=== PATIENT | male | born 1980 | race Caucasian/White ===

== ENCOUNTER 2016-03-03 15:58 | Inpatient (IN) | payer MEDICAID ==
[2016-03-03] MEDS ORDERED: NORMAL SALINE 1000 ML 1,000 ML IV ONE (16:08)
--- NOTE | 2016-03-03 16:11 | ER Document Report ---
ED Medical Screen (RME) - General Chief Complaint: Fever Stated Complaint: FEVER,CONGESTION Mode of Arrival: Wheelchair Information source: Legal Guardian Notes: Pt referred per Dr. Benson for fever, cough, and lethargy. Leukocytosis on labs this morning. I have greeted and performed a rapid initial assessment of this patient. A comprehensive ED assessment and evaluation of the patient, analysis of test results and completion of the medical decision making process will be conducted by additional ED providers. TRAVEL OUTSIDE OF THE [place] IN LAST 30 DAYS: No - Related Data Allergies/Adverse Reactions: No Known Allergies Allergy (Unverified 03/03/16 16:07)
[2016-03-03] MEDS ORDERED: LEVOFLOXACIN 500 MG/D5W RTU 100 ML IV ONE (16:57)
[2016-03-03] MEDS ORDERED: NORMAL SALINE 1000 ML 1,000 ML IV PRN (17:02)
[2016-03-03] MEDS ORDERED: CEFTRIAXONE 1 GM/D5W RTU 50 ML IV ONE (17:02)
--- NOTE | 2016-03-03 17:05 | ER Document Report ---
ED General - General Chief Complaint: Fever Stated Complaint: FEVER,CONGESTION Time seen by provider: 17:03 Mode of Arrival: Wheelchair Information source: Patient Notes: This is a 35-year-old man with a history of MRCP, epilepsy who is a resident of [facility]. He is brought into the emergency room with spiking fevers (104 ) associated with cough, congestion and decreased by mouth intake. TRAVEL OUTSIDE OF THE [place] IN LAST 30 DAYS: No - HPI Onset: Just prior to arrival Onset/Duration: Gradual Quality of pain: No pain Severity: None Pain Level: Denies Associated symptoms: Chills, Productive cough, Fever Exacerbated by: Denies Relieved by: Denies Similar symptoms previously: No Recently seen / treated by doctor: Yes - Related Data Allergies/Adverse Reactions: No Known Allergies Allergy (Unverified 03/03/16 16:07) Home Medications: Current Home Medications Carbamazepine [Tegretol 100 mg Chewable Tablet] 400 mg PO Q8 03/03/16 [History] Clonazepam [Klonopin 1 mg Tablet] 1.5 mg PO QHS 03/03/16 [History] Clorazepate Dipotassium 3.75 mg PO Q12 03/03/16 [History] Eszopiclone [Lunesta] 3 mg PO QHS 03/03/16 [History] Lacosamide [Vimpat] 200 mg PO Q12 03/03/16 [History] Perampanel [Fycompa] 10 mg PO QHS 03/03/16 [History] Polyethylene Glycol 3350 [Miralax Powder 17 gm/Packet] 17 gm PO DAILY 03/03/16 [ History] Past Medical History - General Information source: Legal Guardian - Social History Smoking Status: Never Smoker Chew tobacco use (# tins/day): No Frequency of alcohol use: None Drug Abuse: None Lives with: Guardian Family History: Other - Unknown Patient has suicidal ideation: No Patient has homicidal ideation: No - Past Medical History Cardiac Medical History: Reports: None Pulmonary Medical History: Reports: None EENT Medical History: Reports: None Neurological Medical History: Reports: Hx Seizures, Other - MRCP Endocrine Medical History: Reports: None Renal/ Medical History: Denies: Hx Peritoneal Dialysis Malignancy Medical History: Reports None GI Medical History: Reports: None Musculoskeltal Medical History: Reports None Skin Medical History: Reports None Psychiatric Medical History: Reports: None Traumatic Medical History: Reports: None Infectious Medical History: Reports: None Surgical Hx: Other - Noncontributory Review of Systems - Review of Systems Constitutional: Chills, Fever EENT: No symptoms reported Cardiovascular: No symptoms reported Respiratory: See HPI Gastrointestinal: No symptoms reported Genitourinary: No symptoms reported Male Genitourinary: No symptoms reported Musculoskeletal: No symptoms reported Skin: No symptoms reported Hematologic/Lymphatic: No symptoms reported Neurological/Psychological: No symptoms reported Physical Exam - Vital signs Vitals: Resp 20 03/03/16 16:15 Notes: Physical exam: GENERAL: 35-year-old man, alert, and MR/CP. He is at his baseline mental status is by her caregivers at the bedside. HEAD: Atraumatic, normocephalic. EYES: Pupils equal round and reactive to light, extraocular movements intact, sclera anicteric, conjunctiva are normal. ENT: TMs normal, nares patent, oropharynx clear without exudates. Dry mucous membranes. NECK: Normal range of motion, supple without lymphadenopathy LUNGS: Rhonchi bilaterally HEART: Regular rate and rhythm without murmurs, rubs or gallops. ABDOMEN: Soft, nontender, normoactive bowel sounds. No guarding, no rebound. No masses appreciated. EXTREMITIES: Normal range of motion, no pitting or edema. No clubbing or cyanosis. NEUROLOGICAL: The patient has upper extremity contractures. He is at his baseline mental status. SKIN: Warm, Dry, normal turgor, no rashes, breakdown or lesions noted. Course - Re-evaluation Re-evalutation: 03/03/16 21:03 Note: The Patient was quite dehydrated on arrival. Straight catheter produced no urine whatsoever. We did treat him with IV fluids and ultimately was able to get a urine sample. The chest x-ray appears clear, but the pneumonia may not be identified in the setting of dehydration. The patient does have a significant leukocytosis and a significant bandemia and presented with predominantly respiratory symptoms. He was covered with ceftriaxone and azithromycin. He has mild elevation in his LFTs and we will CT his abdomen. He did have a flu shot this year, but we will send a flu sample. I have discussed the case with Dr. Benson who is willing to admit the patient to the hospital. The patient's lactate is normal at this time and there is no evidence of severe sepsis. The patient does meet criteria for sepsis. 03/03/16 21:05 - Vital Signs Vital signs: Temp Pulse Resp BP Pulse Ox 102.1 F H 110 H 18 109/63 96 03/03/16 23:15 03/03/16 23:15 03/03/16 23:15 03/03/16 23:15 03/03/16 23:15 - Laboratory Result Diagrams: 03/03/16 18:40 03/03/16 18:40 Laboratory results interpreted by me: 03/03/16 03/03/16 03/03/16 18:40 18:40 20:15 WBC 22.1 H Hgb 13.3 L Band Neutrophils % 19 H Lymphocytes % (Manual) 8 L Metamyelocytes % 1 H Abs Neuts (Manual) 19.2 H Lactic Acid AST 147 H ALT 95 H Alkaline Phosphatase 145 H Urine Protein 30 H Urine Ketones TRACE H Urine Blood SMALL H 03/03/16 20:18 WBC Hgb Band Neutrophils % Lymphocytes % (Manual) Metamyelocytes % Abs Neuts (Manual) Lactic Acid 0.6 L AST ALT Alkaline Phosphatase Urine Protein Urine Ketones Urine Blood - Diagnostic Test Radiology reviewed: Image reviewed, Reports reviewed - CT of the abdomen shows no acute findings. Chest x-ray shows no acute infiltrates. Critical Care Note - Critical Care Note Total time excluding time spent on procedures (mins): 60 Discharge - Discharge Clinical Impression: clinical pneumonia, sepsis Condition: Serious Disposition: ADMITTED INPATIENT Admitting Provider: [facility] Unit Admitted: [facility]
[2016-03-03 19:02] LABS: HEMATOCRIT 41.3 % (37.9-51.0); HEMOGLOBIN 13.3 g/dL (13.5-17.0); HGB HCT DIFFERENCE -1.4; MEAN CORPUSCULAR HEMOGLOBIN 27.9 pg (27.0-33.4); MEAN CORPUSCULAR HGB CONC 32.2 g/dL (32.0-36.0); MEAN CORPUSCULAR VOLUME 87 fl (80-97); RED BLOOD COUNT 4.76 10^6/uL (4.35-5.55); RED CELL DISTRIBUTION WIDTH 13.8 % (11.5-14.0); WHITE BLOOD COUNT 22.1 10^3/uL (4.0-10.5)
[2016-03-03 19:06] LABS: PROTHROMBIN TIME 14.5 SEC (11.4-15.4)
[2016-03-03 19:19] LABS: ALANINE AMINOTRANSFERASE 95 U/L (21-72); ALKALINE PHOSPHATASE 145 U/L (38-126); ANION GAP 11 (5-19); ASPARTATE AMINO TRANSFERASE 147 U/L (17-59); BILIRUBIN,TOTAL 0.4 mg/dL (0.2-1.3); BLOOD UREA NITROGEN 12 mg/dL (7-20); CALCIUM 9.3 mg/dL (8.4-10.2); CARBON DIOXIDE 29 mmol/L (22-30); CHLORIDE 101 mmol/L (98-107); CREATININE RESULT 0.89 mg/dL (0.52-1.25); GLUCOSE 91 mg/dL (75-110); SODIUM 141.2 mmol/L (137-145); TOTAL PROTEIN 7.4 g/dL (6.3-8.2)
[2016-03-03 19:28] LABS: BASOPHILS % (MANUAL) 0 % (0-2); EOSINOPHILS % (MANUAL) 0 % (0-6); LYMPHOCYTES % (MANUAL) 8 % (13-45); TOTAL CELLS COUNTED 100
[2016-03-03 19:34] LABS: OVALOCYTES SLIGHT; POIKILOCYTOSIS SLIGHT
[2016-03-03 19:35] LABS: TOXIC GRANULATION 1+
[2016-03-03 19:36] LABS: TOXIC VACUOLATION PRESENT
[2016-03-03 19:38] LABS: BAND NEUTROPHILS % (MANUAL) 19 % (3-5)
[2016-03-03 20:32] LABS: APPEARANCE,URINE CLEAR; BILIRUBIN,URINE NEGATIVE (NEGATIVE); GLUCOSE, URINE NEGATIVE (NEGATIVE); KETONES,URINE TRACE mg/dL (NEGATIVE); LEUKOCYTE ESTERASE,URINE NEGATIVE (NEGATIVE); NITRITE,URINE NEGATIVE (NEGATIVE); PROTEIN,URINE 30 mg/dL (NEGATIVE); URINE SPECIFIC GRAVITY 1.025; UROBILINOGEN,URINE NEGATIVE mg/dL (<2.0)
[2016-03-03] MEDS ORDERED: AZITHROMYCIN INJ 500 MG VIAL IV ONE (20:59)
[2016-03-03] MEDS ORDERED: IPRATROPIUM/ALBUTEROL 0.5-2.5 MG/3 ML AMPUL NEB PRN (21:16)
[2016-03-03] MEDS ORDERED: ACETAMINOPHEN 650 MG SUPP.RECT PR PRN (21:16)
[2016-03-03] MEDS: NORMAL SALINE 1000 ML 1,000 ML IV PRN (22:10)
[2016-03-03] MEDS: FAMOTIDINE INJ/PF 20 MG/2 ML SDV IV SCH (22:10)
[2016-03-03] MEDS: CEFEPIME 1 GM/D5W RTU 50 ML IV SCH (22:40)
[2016-03-03] MEDS ORDERED: ZOLPIDEM TARTRATE 5 MG TABLET PO ONE (22:45)
[2016-03-03] MEDS ORDERED: CLONAZEPAM 1 MG TABLET PO ONE (22:45)
[2016-03-04] MEDS ORDERED: INFLUENZA ADLT QUAD (36MOS+) 2016-17 VAC 0.5 ML SYR IM PRN (03:00)
[2016-03-04 05:06] LABS: HEMATOCRIT 36.1 % (37.9-51.0); HEMOGLOBIN 11.4 g/dL (13.5-17.0); HGB HCT DIFFERENCE -1.9; MEAN CORPUSCULAR HEMOGLOBIN 27.9 pg (27.0-33.4); MEAN CORPUSCULAR HGB CONC 31.6 g/dL (32.0-36.0); MEAN CORPUSCULAR VOLUME 88 fl (80-97); RED CELL DISTRIBUTION WIDTH 13.5 % (11.5-14.0); WHITE BLOOD COUNT 17.6 10^3/uL (4.0-10.5)
[2016-03-04] MEDS ORDERED: CARBAMAZEPINE 100 MG TAB.CHEW ONE (05:12)
[2016-03-04 05:18] LABS: ALANINE AMINOTRANSFERASE 71 U/L (21-72); ALBUMIN 3.2 g/dL (3.5-5.0); ALKALINE PHOSPHATASE 104 U/L (38-126); ANION GAP 11 (5-19); ASPARTATE AMINO TRANSFERASE 103 U/L (17-59); BILIRUBIN,TOTAL 0.3 mg/dL (0.2-1.3); BLOOD UREA NITROGEN 10 mg/dL (7-20); CALCIUM 8.7 mg/dL (8.4-10.2); CARBON DIOXIDE 21 mmol/L (22-30); CHLORIDE 107 mmol/L (98-107); GLUCOSE 88 mg/dL (75-110); POTASSIUM 3.8 mmol/L (3.6-5.0); SODIUM 138.9 mmol/L (137-145)
[2016-03-04] MEDS: CARBAMAZEPINE 100 MG TAB.CHEW PO SCH ×3 (05:42→22:16)
[2016-03-04 05:50] LABS: BAND NEUTROPHILS % (MANUAL) 3 % (3-5); BASOPHILS % (MANUAL) 0 % (0-2); EOSINOPHILS % (MANUAL) 0 % (0-6); LYMPHOCYTES % (MANUAL) 7 % (13-45); TOTAL CELLS COUNTED 100
[2016-03-04 05:51] LABS: TOXIC GRANULATION SLIGHT
[2016-03-04 05:52] LABS: RBC MORPHOLOGY COMMENT NORMO-CYTIC/CHROMIC
[2016-03-04] MEDS: NORMAL SALINE 1000 ML 1,000 ML IV PRN (07:29)
[2016-03-04] MEDS: ENOXAPARIN SODIUM INJ 40 MG/0.4 ML DISP.SYRIN SUBCUT SCH (08:19)
[2016-03-04] MEDS ORDERED: BISACODYL 10 MG SUPP.RECT PR PRN (08:51)
[2016-03-04] MEDS ORDERED: DIAZEPAM 10 MG/2 ML RECTAL GEL KIT PR PRN (08:51)
[2016-03-04] MEDS: FAMOTIDINE INJ/PF 20 MG/2 ML SDV IV SCH ×2 (09:11→22:51)
[2016-03-04] MEDS: CEFEPIME 1 GM/D5W RTU 50 ML IV SCH ×2 (10:10→22:12)
[2016-03-04] MEDS: POLYETHYLENE GLYCOL 3350 POWDER 17 GM/1 PACKET PO SCH (10:11)
[2016-03-04] MEDS: LACOSAMIDE 100 MG TABLET PO SCH ×2 (10:12→22:51)
[2016-03-04] MEDS: CLORAZEPATE DIPOTASSIUM 7.5 MG TABLET PO SCH ×2 (10:14→22:51)
--- NOTE | 2016-03-04 15:01 | PDOC PROGRESS REPORT ---
Subjective Progress Note for:: 03/04/16 Subjective:: pt is doing much better no fever no seziure [place] Physical Exam Vital Signs: Temp Pulse Resp BP Pulse Ox 97.7 F 84 18 105/78 100 03/04/16 11:20 03/04/16 14:00 03/04/16 11:20 03/04/16 11:20 03/04/16 11:20 Intake & Output 03/03/16 03/04/16 03/05/16 06:59 06:59 06:59 Intake Total 118 Balance 118 Weight 52 kg General appearance: PRESENT: no acute distress Head exam: PRESENT: normocephalic Eye exam: PRESENT: PERRLA Mouth exam: PRESENT: neck supple Respiratory exam: PRESENT: clear to auscultation roula Cardiovascular exam: PRESENT: +S1, +S2 GI/Abdominal exam: PRESENT: normal bowel sounds, soft. ABSENT: tenderness Extremities exam: ABSENT: pedal edema Neurological exam: PRESENT: alert Results Laboratory Results: 03/04/16 03:57 03/04/16 03:57 03/04/16 03/04/16 03:57 03:57 WBC 17.6 H RBC 4.10 L Hgb 11.4 L Hct 36.1 L MCV 88 MCH 27.9 MCHC 31.6 L RDW 13.5 Plt Count 163 Seg Neutrophils % Not Reportable Lymphocytes % Not Reportable Monocytes % Not Reportable Eosinophils % Not Reportable Basophils % Not Reportable Absolute Neutrophils Not Reportable Absolute Lymphocytes Not Reportable Absolute Monocytes Not Reportable Absolute Eosinophils Not Reportable Absolute Basophils Not Reportable Sodium 138.9 Potassium 3.8 Chloride 107 Carbon Dioxide 21 L Anion Gap 11 BUN 10 Creatinine 0.80 Est GFR ( Amer) > 60 Est GFR (Non-Af Amer) > 60 Glucose 88 Calcium 8.7 Total Bilirubin 0.3 AST 103 H ALT 71 Alkaline Phosphatase 104 Total Protein 6.0 L Albumin 3.2 L Impressions: Abdomen/Pelvis CT 03/03/16 20:59 IMPRESSION: No acute findings identified. Chest X-Ray 03/04/16 00:00 IMPRESSION: NO ACUTE RADIOGRAPHIC FINDING IN THE CHEST. Assessment & Plan - Diagnosis (1) Fever Qualifiers: Fever type: unspecified Qualified Code(s): R50.9 - Fever, unspecified Is this a current diagnosis for this admission?: YesPlan: most likly pnemonia start all broad sepctum antibiotics order all culture no s/o any menigitis (2) Sepsis Qualifiers: Sepsis type: sepsis due to unspecified organism Qualified Code(s): A41.9 - Sepsis, unspecified organism Is this a current diagnosis for this admission?: YesPlan: most likly from lung sourse will order ct abd due to elevated lft to r/o any glallbladder etilogy start cefepim and zithomax awit for all culture (3) Dehydration Is this a current diagnosis for this admission?: YesPlan: resolved (4) Mental and behavioral problem Is this a current diagnosis for this admission?: YesPlan: cont curr med aspirtion precution (5) Epilepsy Qualifiers: Epilepsy type: unspecified Is this a current diagnosis for this admission?: YesPlan: cont curr sezire medication (6) GERD (gastroesophageal reflux disease) Qualifiers: Esophagitis presence: without esophagitis Qualified Code(s): K21.9 - Gastro-esophageal reflux disease without esophagitis Is this a current diagnosis for this admission?: YesPlan: start iv pepcid (7) Abnormal LFTs Is this a current diagnosis for this admission?: YesPlan: ct abd/pelvis is stable most likly from dehydation and sepsis - Time Time Spent with patient: 15-24 minutes Medications reviewed and adjusted accordingly: Yes Anticipated discharge: Other - Inpatient Certification Medical Necessity: Need Close Monitoring Due to Risk of Patient Decompensation, Need for IV Antibiotics
[2016-03-04] MEDS ORDERED: AZITHROMYCIN 500 MG in DEXTROSE 5%-WATER 250 ML IV SCH (22:00)
[2016-03-04] MEDS ORDERED: PERAMPANEL 10 MG PO SCH (22:00)
[2016-03-04] MEDS: ZOLPIDEM TARTRATE 5 MG TABLET PO SCH (22:51)
[2016-03-04] MEDS: CLONAZEPAM 1 MG TABLET PO SCH (22:51)
[2016-03-05 06:10] LABS: ABSOLUTE LYMPHOCYTES (AUTO) 1.6 10^3/uL (0.5-4.7); ABSOLUTE NEUT (AUTO) 7.5 10^3/uL (1.7-8.2); BASOPHILS % (AUTO) 0.2 % (0-2); EOSINOPHILS % (AUTO) 0.3 % (0-6); HEMOGLOBIN 11.8 g/dL (13.5-17.0); HGB HCT DIFFERENCE 0.4; LYMPHOCYTES % (AUTO) 15.7 % (13-45); MEAN CORPUSCULAR HGB CONC 33.6 g/dL (32.0-36.0); MEAN CORPUSCULAR VOLUME 86 fl (80-97); RED BLOOD COUNT 4.06 10^6/uL (4.35-5.55); RED CELL DISTRIBUTION WIDTH 13.4 % (11.5-14.0); SEGMENTED NEUTROPHILS % (AUTO) 73.8 % (42-78); WHITE BLOOD COUNT 10.1 10^3/uL (4.0-10.5)
[2016-03-05] MEDS: CARBAMAZEPINE 100 MG TAB.CHEW PO SCH ×3 (06:55→22:57)
[2016-03-05] MEDS: ENOXAPARIN SODIUM INJ 40 MG/0.4 ML DISP.SYRIN SUBCUT SCH (08:10)
[2016-03-05] MEDS: CEFEPIME 1 GM/D5W RTU 50 ML IV SCH (10:11)
[2016-03-05] MEDS: POLYETHYLENE GLYCOL 3350 POWDER 17 GM/1 PACKET PO SCH (10:11)
[2016-03-05] MEDS: CLORAZEPATE DIPOTASSIUM 7.5 MG TABLET PO SCH ×2 (10:12→22:56)
[2016-03-05] MEDS: LACOSAMIDE 100 MG TABLET PO SCH ×2 (10:13→22:56)
[2016-03-05] MEDS: FAMOTIDINE INJ/PF 20 MG/2 ML SDV IV SCH (12:51)
--- NOTE | 2016-03-05 13:33 | PDOC PROGRESS REPORT ---
Subjective Progress Note for:: 03/05/16 Subjective:: Patient's overnight no events happens. Fever since by mouth intake is good and no seizures activity patient's all cultures come back negative as chest x-rays also stable. Since liver function is also coming back to normal range Physical Exam Vital Signs: Temp Pulse Resp BP Pulse Ox 98.0 F 70 19 95/50 L 95 03/05/16 11:42 03/05/16 11:42 03/05/16 11:42 03/05/16 11:42 03/05/16 11:42 Intake & Output 03/04/16 03/05/16 03/06/16 06:59 06:59 06:59 Intake Total 193 50 Balance 193 50 Weight 52 kg 55 kg General appearance: PRESENT: no acute distress Head exam: PRESENT: normocephalic Eye exam: PRESENT: PERRLA Mouth exam: PRESENT: neck supple Respiratory exam: PRESENT: clear to auscultation roula Cardiovascular exam: PRESENT: +S1, +S2 GI/Abdominal exam: PRESENT: normal bowel sounds, soft. ABSENT: tenderness Extremities exam: ABSENT: pedal edema Neurological exam: PRESENT: alert, awake Results Laboratory Results: 03/05/16 05:32 03/04/16 03:57 03/05/16 05:32 WBC 10.1 RBC 4.06 L Hgb 11.8 L Hct 35.0 L MCV 86 MCH 29.0 MCHC 33.6 RDW 13.4 Plt Count 157 Seg Neutrophils % 73.8 Lymphocytes % 15.7 Monocytes % 10.0 Eosinophils % 0.3 Basophils % 0.2 Absolute Neutrophils 7.5 Absolute Lymphocytes 1.6 Absolute Monocytes 1.0 Absolute Eosinophils 0.0 Absolute Basophils 0.0 Impressions: Abdomen/Pelvis CT 03/03/16 20:59 IMPRESSION: No acute findings identified. Chest X-Ray 03/04/16 00:00 IMPRESSION: NO ACUTE RADIOGRAPHIC FINDING IN THE CHEST. Assessment & Plan - Diagnosis (1) Fever Qualifiers: Fever type: unspecified Qualified Code(s): R50.9 - Fever, unspecified Is this a current diagnosis for this admission?: YesPlan: ALT results most likely a viral etiology (2) Sepsis Qualifiers: Sepsis type: sepsis due to unspecified organism Qualified Code(s): A41.9 - Sepsis, unspecified organism Is this a current diagnosis for this admission?: YesPlan: Slightly respiratory source will stop all IV antibiotic the patient does not have any cultures positive and patient's doing much better by mouth antibiotic and watch for next 24 hours repeat the CBC in the morning (3) Dehydration Is this a current diagnosis for this admission?: YesPlan: Resolved stop all IV fluid (4) Mental and behavioral problem Is this a current diagnosis for this admission?: YesPlan: cont curr med aspirtion precution (5) Epilepsy Qualifiers: Epilepsy type: unspecified Is this a current diagnosis for this admission?: YesPlan: cont curr sezire medication (6) GERD (gastroesophageal reflux disease) Qualifiers: Esophagitis presence: without esophagitis Qualified Code(s): K21.9 - Gastro-esophageal reflux disease without esophagitis Is this a current diagnosis for this admission?: YesPlan: start iv pepcid (7) Abnormal LFTs Is this a current diagnosis for this admission?: YesPlan: ct abd/pelvis is stable most likly from dehydation and sepsis - Time Time Spent with patient: 15-24 minutes Medications reviewed and adjusted accordingly: Yes Anticipated discharge: Other Within: within 24 hours - Inpatient Certification Medical Necessity: Need For IV Fluids, Need for IV Antibiotics - Plan Summary Plan Summary: Will stop antibiotic IV and stop IV fluid at the patient's remained afebrile and patient's white count is normal patient's may discharge to the rehabilitation with the by mouth antibiotic
[2016-03-05] MEDS: CEPHALEXIN 500 MG CAPSULE PO SCH ×2 (15:10→22:56)
[2016-03-05] MEDS: CLONAZEPAM 1 MG TABLET PO SCH (22:56)
[2016-03-05] MEDS: ZOLPIDEM TARTRATE 5 MG TABLET PO SCH (22:56)
[2016-03-06 05:10] LABS: ABSOLUTE LYMPHOCYTES (AUTO) 1.8 10^3/uL (0.5-4.7); ABSOLUTE MONOCYTES (AUTO) 0.9 10^3/uL (0.1-1.4); ABSOLUTE NEUT (AUTO) 5.1 10^3/uL (1.7-8.2); BASOPHILS % (AUTO) 0.3 % (0-2); EOSINOPHILS % (AUTO) 0.4 % (0-6); HEMATOCRIT 35.8 % (37.9-51.0); HEMOGLOBIN 12.2 g/dL (13.5-17.0); HGB HCT DIFFERENCE 0.8; MEAN CORPUSCULAR HEMOGLOBIN 28.8 pg (27.0-33.4); MEAN CORPUSCULAR HGB CONC 33.9 g/dL (32.0-36.0); MEAN CORPUSCULAR VOLUME 85 fl (80-97); MONOCYTES % (AUTO) 11.4 % (3-13); RED BLOOD COUNT 4.22 10^6/uL (4.35-5.55); RED CELL DISTRIBUTION WIDTH 13.6 % (11.5-14.0); SEGMENTED NEUTROPHILS % (AUTO) 64.9 % (42-78); WHITE BLOOD COUNT 7.8 10^3/uL (4.0-10.5)
[2016-03-06 05:13] LABS: ALANINE AMINOTRANSFERASE 82 U/L (21-72); ALBUMIN 3.6 g/dL (3.5-5.0); ALKALINE PHOSPHATASE 121 U/L (38-126); ANION GAP 15 (5-19); ASPARTATE AMINO TRANSFERASE 82 U/L (17-59); BILIRUBIN,TOTAL 0.6 mg/dL (0.2-1.3); BLOOD UREA NITROGEN 10 mg/dL (7-20); CALCIUM 8.9 mg/dL (8.4-10.2); CARBON DIOXIDE 21 mmol/L (22-30); CHLORIDE 108 mmol/L (98-107); CREATININE RESULT 0.75 mg/dL (0.52-1.25); GLUCOSE 88 mg/dL (75-110); POTASSIUM 3.6 mmol/L (3.6-5.0); SODIUM 143.6 mmol/L (137-145); TOTAL PROTEIN 6.6 g/dL (6.3-8.2)
[2016-03-06] MEDS: CARBAMAZEPINE 100 MG TAB.CHEW PO SCH ×2 (06:59→14:16)
[2016-03-06] MEDS: CEPHALEXIN 500 MG CAPSULE PO SCH ×2 (06:59→14:17)
[2016-03-06] MEDS: CLORAZEPATE DIPOTASSIUM 7.5 MG TABLET PO SCH (09:28)
[2016-03-06] MEDS: LACOSAMIDE 100 MG TABLET PO SCH (09:29)
[2016-03-06] MEDS: POLYETHYLENE GLYCOL 3350 POWDER 17 GM/1 PACKET PO SCH (09:30)
[2016-03-06] MEDS: ENOXAPARIN SODIUM INJ 40 MG/0.4 ML DISP.SYRIN SUBCUT SCH (09:31)
--- NOTE | 2016-03-06 17:28 | PDOC DISCHARGE SUMMARY ---
General - Admit/Disc Date/PCP Admission Date/Primary Care Provider: 03/03/16 21:17 Discharge Date: 03/06/16 - Discharge Diagnosis (1) Pneumonia Is this a current diagnosis for this admission?: Yes (2) Systemic inflammatory response syndrome (SIRS) Is this a current diagnosis for this admission?: Yes (3) Epilepsy Is this a current diagnosis for this admission?: Yes - Additional Information Resuscitation Status: Full Code Discharge Diet: As Tolerated Discharge Activity: Activity As Tolerated Home Medications: Carbamazepine [Tegretol 100 mg Chewable Tablet] 400 mg PO Q8 03/03/16 Clonazepam [Klonopin 1 mg Tablet] 1.5 mg PO QHS 03/03/16 Clorazepate Dipotassium 3.75 mg PO Q12 03/03/16 Eszopiclone [Lunesta] 3 mg PO QHS 03/03/16 Lacosamide [Vimpat] 200 mg PO Q12 03/03/16 Perampanel [Fycompa] 10 mg PO QHS 03/03/16 Polyethylene Glycol 3350 [Miralax Powder 17 gm/Packet] 17 gm PO DAILY 03/03/16 Bisacodyl [Dulcolax 10 mg Supp.rect] 10 mg NM DAILYP PRN 03/04/16 Diazepam [Diastat Acudial 10 mg/2 ml Rectal Gel] 15 mg NM ASDIR PRN 03/04/16 Magnesium Hydroxide [Milk of Magnesia 30 ml Udcup] 30 ml PO Q3DAYS PRN 03/04/16 History of Present Illness History of Present Illness: CECI HSIEH is a 35 year old male. He was admitted because of high fever with associated systemic inflammatory response syndrome, he is mentally challenged. History taking was a challenge. He was empirically treated for pneumonia with IV antibiotic Hospital Course Hospital Course: Patient was seen today by the bedside, he was admitted on 03/03/[address] Benson. He was empirically treated for pneumonia with IV antibiotic, patient respondedcto treatment, the chest x-ray was clear. On admission the WBC was 21, 000, the WBC today 7.8. Patient is from the [facility] to be discharged home today, it probably have acute viral syndrome Physical Exam Vital Signs: Temp Pulse Resp BP Pulse Ox 97.2 F 84 16 112/72 95 03/06/16 07:51 03/06/16 11:00 03/06/16 11:00 03/06/16 07:51 03/06/16 07:51 Intake & Output 03/05/16 03/06/16 03/07/16 06:59 06:59 06:59 Intake Total 1934 650 150 Balance 1934 650 150 Weight 55 kg 54.1 kg General appearance: PRESENT: no acute distress Eye exam: PRESENT: PERRLA Respiratory exam: PRESENT: clear to auscultation roula Cardiovascular exam: PRESENT: +S1, +S2 GI/Abdominal exam: PRESENT: soft Results Laboratory Results: 03/06/16 04:28 03/06/16 04:28 03/06/16 03/06/16 04:28 04:28 WBC 7.8 RBC 4.22 L Hgb 12.2 L Hct 35.8 L MCV 85 MCH 28.8 MCHC 33.9 RDW 13.6 Plt Count 166 Seg Neutrophils % 64.9 Lymphocytes % 23.0 Monocytes % 11.4 Eosinophils % 0.4 Basophils % 0.3 Absolute Neutrophils 5.1 Absolute Lymphocytes 1.8 Absolute Monocytes 0.9 Absolute Eosinophils 0.0 Absolute Basophils 0.0 Sodium 143.6 Potassium 3.6 Chloride 108 H Carbon Dioxide 21 L Anion Gap 15 BUN 10 Creatinine 0.75 Est GFR ( Amer) > 60 Est GFR (Non-Af Amer) > 60 Glucose 88 Calcium 8.9 Total Bilirubin 0.6 AST 82 H ALT 82 H Alkaline Phosphatase 121 Total Protein 6.6 Albumin 3.6 Impressions: Abdomen/Pelvis CT 03/03/16 20:59 IMPRESSION: No acute findings identified. Chest X-Ray 03/04/16 00:00 IMPRESSION: NO ACUTE RADIOGRAPHIC FINDING IN THE CHEST.
[2016-03-06 20:16] VITALS: BP 120/74
== END 2016-03-06 20:15 | disposition home or self-care (01) | DRG 195 ==
LOC: ER 15:58 → UNDOADMIN 21:10 → EH 21:10 → 3N 03-04 01:01 → EH 03-04 01:01
PROVIDERS: ADMIT Family Medicine; ATTEND Family Medicine
DX: J18.9 Pneumonia, unspecified organism (principal); E86.0 Dehydration; K21.9 Gastro-esophageal reflux disease without esophagitis; G40.909 Epilepsy, unspecified, not intractable, without status epilepticus; F91.9 Conduct disorder, unspecified; R94.5 Abnormal results of liver function studies
CPT/HCPCS: 36415; 51702; 71010; 74176; 80048; 80053; 80076; 81001; 83605; 85025; 85610; 87040; 87086; 87804; 96361; 96365; 99291; J0456; J0692; J0696; J1650; J3490; J7030; J7060; S0028

== ENCOUNTER → 2016-04-22 | Outpatient (CLI) | payer MEDICAID ==
[2016-04-22 14:17] LABS: ABSOLUTE LYMPHOCYTES (AUTO) 1.2 10^3/uL (0.5-4.7); ABSOLUTE MONOCYTES (AUTO) 1.1 10^3/uL (0.1-1.4); ABSOLUTE NEUT (AUTO) 9.2 10^3/uL (1.7-8.2); BASOPHILS % (AUTO) 0.4 % (0-2); EOSINOPHILS % (AUTO) 0.2 % (0-6); HEMATOCRIT 41.5 % (37.9-51.0); HEMOGLOBIN 13.7 g/dL (13.5-17.0); HGB HCT DIFFERENCE -0.4; LYMPHOCYTES % (AUTO) 10.4 % (13-45); MEAN CORPUSCULAR HEMOGLOBIN 28.8 pg (27.0-33.4); MEAN CORPUSCULAR HGB CONC 33.1 g/dL (32.0-36.0); MEAN CORPUSCULAR VOLUME 87 fl (80-97); MONOCYTES % (AUTO) 9.4 % (3-13); RED BLOOD COUNT 4.77 10^6/uL (4.35-5.55); RED CELL DISTRIBUTION WIDTH 14.7 % (11.5-14.0); SEGMENTED NEUTROPHILS % (AUTO) 79.6 % (42-78); WHITE BLOOD COUNT 11.6 10^3/uL (4.0-10.5)
[2016-04-22 14:42] LABS: ANION GAP 15 (5-19); BLOOD UREA NITROGEN 11 mg/dL (7-20); CALCIUM 9.6 mg/dL (8.4-10.2); CARBON DIOXIDE 24 mmol/L (22-30); CHLORIDE 102 mmol/L (98-107); CREATININE RESULT 0.82 mg/dL (0.52-1.25); GLUCOSE 95 mg/dL (75-110); POTASSIUM 4.3 mmol/L (3.6-5.0); SODIUM 141.4 mmol/L (137-145)
== END ==
LOC: OD 12:32
PROVIDERS: ATTEND Physician Assistant
DX: R05 Cough (principal)
CPT/HCPCS: 36415; 71010; 80048; 85025

== ENCOUNTER → 2016-08-05 | Outpatient (CLI) | payer MEDICAID ==
[2016-08-05 14:24] LABS: ABSOLUTE EOSINOPHILS # (AUTO) 0.1 10^3/uL (0.0-0.6); ABSOLUTE LYMPHOCYTES (AUTO) 1.4 10^3/uL (0.5-4.7); ABSOLUTE MONOCYTES (AUTO) 0.7 10^3/uL (0.1-1.4); BASOPHILS % (AUTO) 0.3 % (0-2); EOSINOPHILS % (AUTO) 1.8 % (0-6); HEMATOCRIT 42.2 % (37.9-51.0); HEMOGLOBIN 13.9 g/dL (13.5-17.0); HGB HCT DIFFERENCE -0.5; LYMPHOCYTES % (AUTO) 19.6 % (13-45); MEAN CORPUSCULAR HEMOGLOBIN 28.6 pg (27.0-33.4); MEAN CORPUSCULAR HGB CONC 32.9 g/dL (32.0-36.0); MEAN CORPUSCULAR VOLUME 87 fl (80-97); RED BLOOD COUNT 4.84 10^6/uL (4.35-5.55); RED CELL DISTRIBUTION WIDTH 13.6 % (11.5-14.0); SEGMENTED NEUTROPHILS % (AUTO) 68.3 % (42-78); WHITE BLOOD COUNT 7.3 10^3/uL (4.0-10.5)
[2016-08-05 14:41] LABS: ANION GAP 15 (5-19); BLOOD UREA NITROGEN 6 mg/dL (7-20); CALCIUM 9.6 mg/dL (8.4-10.2); CARBON DIOXIDE 24 mmol/L (22-30); CHLORIDE 103 mmol/L (98-107); CREATININE RESULT 0.78 mg/dL (0.52-1.25); GLUCOSE 99 mg/dL (75-110); POTASSIUM 4.1 mmol/L (3.6-5.0); SODIUM 142.1 mmol/L (137-145)
--- NOTE | 2016-08-05 15:09 | RADIOLOGY REPORT (SQ) ---
EXAM DESCRIPTION: CHEST SINGLE VIEW COMPLETED DATE/TIME: 08/05/2016 1:39 pm REASON FOR STUDY: COUGH COMPARISON: AP chest 04/22/2016, 03/04/2016 EXAM PARAMETERS: NUMBER OF VIEWS: One view. TECHNIQUE: Single frontal radiographic view of the chest acquired. RADIATION DOSE: NA LIMITATIONS: None. FINDINGS: LUNGS AND PLEURA: No opacities, masses or pneumothorax. No pleural effusion. MEDIASTINUM AND HILAR STRUCTURES: No masses. Contour normal. HEART AND VASCULAR STRUCTURES: Heart normal in size. Normal vasculature. BONES: No acute findings. HARDWARE: There is ventriculoperitoneal shunt tubing over the right chest and upper abdomen. Calcifi cation along the periphery of the tubing is present. At the level of the right 10th rib, there may b e a break image 2 being, marked with an arrow. There is a left-sided jugular neurostimulator battery pack over the left upper chest with leads in th e left supraclavicular region, unchanged. OTHER: No other significant finding. IMPRESSION: No acute infiltrates. No pleural effusion or pneumothorax. Right-sided anterior chest ventriculoperitoneal shunt tubing. Tubing might be fractured in the anter ior right lower chest. TECHNICAL DOCUMENTATION: JOB ID: [id number]
[2016-08-05 17:21] LABS: APPEARANCE,URINE SLIGHTLY-CLOUDY; BILIRUBIN,URINE NEGATIVE (NEGATIVE); GLUCOSE, URINE NEGATIVE (NEGATIVE); KETONES,URINE NEGATIVE (NEGATIVE); LEUKOCYTE ESTERASE,URINE LARGE (NEGATIVE); NITRITE,URINE NEGATIVE (NEGATIVE); PROTEIN,URINE 30 mg/dL (NEGATIVE); UROBILINOGEN,URINE NEGATIVE mg/dL (<2.0)
== END ==
LOC: OD 12:38
PROVIDERS: ATTEND Family Medicine
DX: R50.9 Fever, unspecified (principal); R05 Cough
CPT/HCPCS: 36415; 71010; 80048; 81001; 85025; 87040; 87086; 87088; 87186

== ENCOUNTER 2017-03-16 15:14 | Inpatient (IN) | payer MEDICAID ==
--- NOTE | 2017-03-16 15:55 | ER Document Report ---
ED Medical Screen (RME) - General Chief Complaint: Cough Stated Complaint: COUGH Time Seen by Provider: 03/16/17 15:46 Mode of Arrival: Wheelchair Information source: Patient, Legal Guardian TRAVEL OUTSIDE OF THE [place] IN LAST 30 DAYS: No - HPI Patient complains to provider of: sob Onset: Just prior to arrival - PT HAD cxr DONE EARLIER TODAY BY dR. Rush -- showed R apical PTX - Related Data Allergies/Adverse Reactions: No Known Allergies Allergy (Verified 03/16/17 15:15) Past Medical History Pulmonary Medical History: Reports: Hx Pneumonia Neurological Medical History: Reports: Hx Seizures Renal/ Medical History: Denies: Hx Peritoneal Dialysis GI Medical History: Reports: Hx Gastroesophageal Reflux Disease Past Surgical History: Reports: Other - vp sales shunt - Immunizations Hx Diphtheria, Pertussis, Tetanus Vaccination: Yes Physical Exam - Vital signs Vitals: Resp BP Pulse Ox 18 122/78 91 L 03/16/17 15:22 03/16/17 15:22 03/16/17 15:22 Course - Vital Signs Vital signs: Temp Pulse Resp BP Pulse Ox 18 122/78 91 L 03/16/17 15:22 03/16/17 15:22 03/16/17 15:22
--- NOTE | 2017-03-16 16:40 | ER Document Report ---
ED General - General Chief Complaint: Cough Stated Complaint: COUGH Time Seen by Provider: 03/16/17 15:46 Mode of Arrival: Wheelchair Notes: Patient presents from primary care office due to radiology calling regarding a pneumothorax. Appears patient had spontaneous pneumothorax on the right. No recent traumas or falls. Family is to state that he has been having cough and congestion with sputum production for several days. Chest x-ray on file does show approximately 20% pneumothorax and concern for interstitial infiltrates for a typical pneumonia. Patient has history of cerebral palsy. Family states that he has not had any recent nausea vomiting or diarrhea has been eating at baseline. TRAVEL OUTSIDE OF THE [place] IN LAST 30 DAYS: No - Related Data Allergies/Adverse Reactions: No Known Allergies Allergy (Verified 03/16/17 15:15) Past Medical History - General Information source: Legal Guardian - Social History Smoking Status: Unknown if Ever Smoked Family History: Reviewed & Not Pertinent Patient has suicidal ideation: No Patient has homicidal ideation: No Pulmonary Medical History: Reports: Hx Pneumonia Neurological Medical History: Reports: Hx Seizures Renal/ Medical History: Denies: Hx Peritoneal Dialysis GI Medical History: Reports: Hx Gastroesophageal Reflux Disease Past Surgical History: Reports: Other - furnace cooler shunt - Immunizations Hx Diphtheria, Pertussis, Tetanus Vaccination: Yes Review of Systems - Review of Systems -: Yes ROS unobtainable due to patient's medical condition Physical Exam - Vital signs Vitals: Resp BP Pulse Ox 18 122/78 91 L 03/16/17 15:22 03/16/17 15:22 03/16/17 15:22 - General General appearance: Appears well - HEENT Head: Normocephalic, Atraumatic - Respiratory Respiratory status: No respiratory distress Chest status: Nontender Breath sounds: Decreased air movement - On Right - Cardiovascular Rhythm: Regular Heart sounds: Normal auscultation - Abdominal Inspection: Normal Distension: No distension Bowel sounds: Normal - Neurological Neuro grossly intact: Yes Cognition: Other - HX OF Cerebral palsy Course - Re-evaluation Re-evalutation: 03/16/17 16:[address] Ogden radiologist who confirms the pneumothorax. My measurements approximately 2 and half centimeters intrapleural distance. 03/16/17 17:20 Discussed case with surgeon who agrees conservative management this time was also available for consult for tube placement if needed. 100% rebreather initiated and will treat for any CAP - Vital Signs Vital signs: Temp Pulse Resp BP Pulse Ox 72 18 122/78 91 L 03/16/17 16:03 03/16/17 15:22 03/16/17 15:22 03/16/17 15:22 Discharge - Discharge Clinical Impression: Pneumothorax on right Pneumonia Qualifiers: Pneumonia type: due to unspecified organism Laterality: bilateral Lung location : unspecified part of lung Qualified Code(s): J18.9 - Pneumonia, unspecified organism Condition: Good Disposition: ADMITTED INPATIENT Admitting Provider: Marcelino Unit Admitted: Telemetry Referrals: JOSEPH MONTE MD [Primary Care Provider] - Follow up as needed
[2017-03-16] MEDS ORDERED: CEFTRIAXONE 1 GM/D5W RTU 50 ML IV ONE (17:19)
[2017-03-16] MEDS ORDERED: IPRATROPIUM/ALBUTEROL 0.5-2.5 MG/3 ML AMPUL NEB PRN (17:20)
[2017-03-16] MEDS ORDERED: AZITHROMYCIN INJ 500 MG VIAL IV ONE (17:20)
[2017-03-16] MEDS ORDERED: ENOXAPARIN SODIUM INJ 40 MG/0.4 ML DISP.SYRIN SUBCUT ONE (18:00)
[2017-03-16] MEDS ORDERED: (PENDING PHARMACY ID) (Lacosamide [Vimpat] 200 MG) PO SCH (18:00)
[2017-03-16] MEDS: CEFEPIME 1 GM/D5W RTU 1 GM/50 ML RTUPB IV SCH (18:07)
[2017-03-16 18:17] LABS: ABSOLUTE BASOPHILS # (AUTO) 0.1 10^3/uL (0.0-0.2); ABSOLUTE EOSINOPHILS # (AUTO) 0.2 10^3/uL (0.0-0.6); ABSOLUTE LYMPHOCYTES (AUTO) 2.4 10^3/uL (0.5-4.7); ABSOLUTE NEUT (AUTO) 8.3 10^3/uL (1.7-8.2); BASOPHILS % (AUTO) 0.5 % (0-2); EOSINOPHILS % (AUTO) 1.7 % (0-6); HEMATOCRIT 38.5 % (37.9-51.0); HEMOGLOBIN 12.8 g/dL (13.5-17.0); LYMPHOCYTES % (AUTO) 20.2 % (13-45); MEAN CORPUSCULAR HEMOGLOBIN 28.4 pg (27.0-33.4); MEAN CORPUSCULAR HGB CONC 33.3 g/dL (32.0-36.0); MEAN CORPUSCULAR VOLUME 85 fl (80-97); MONOCYTES % (AUTO) 8.1 % (3-13); PLATELET COUNT 263 10^3/uL (150-450); RED BLOOD COUNT 4.51 10^6/uL (4.35-5.55); RED CELL DISTRIBUTION WIDTH 13.8 % (11.5-14.0); SEGMENTED NEUTROPHILS % (AUTO) 69.5 % (42-78); TOTAL CELLS COUNTED % (AUTO) 100 %; WHITE BLOOD COUNT 11.9 10^3/uL (4.0-10.5)
[2017-03-16 18:32] LABS: ALANINE AMINOTRANSFERASE 44 U/L (21-72); ALKALINE PHOSPHATASE 106 U/L (38-126); ANION GAP 8 (5-19); ASPARTATE AMINO TRANSFERASE 30 U/L (17-59); BILIRUBIN,DIRECT 0.4 mg/dL (0.0-0.4); BILIRUBIN,TOTAL 0.4 mg/dL (0.2-1.3); BLOOD UREA NITROGEN 13 mg/dL (7-20); CALCIUM 9.8 mg/dL (8.4-10.2); CARBON DIOXIDE 27 mmol/L (22-30); CHLORIDE 108 mmol/L (98-107); GLUCOSE 82 mg/dL (75-110); POTASSIUM 4.2 mmol/L (3.6-5.0); SODIUM 143.4 mmol/L (137-145); TOTAL PROTEIN 7.4 g/dL (6.3-8.2)
[2017-03-16] MEDS: CARBAMAZEPINE 100 MG TAB.CHEW PO SCH (18:44)
[2017-03-16] MEDS ORDERED: PERAMPANEL 10 MG PO SCH (22:00)
[2017-03-16] MEDS: LACOSAMIDE 100 MG TABLET PO SCH (22:36)
[2017-03-16] MEDS: CLONAZEPAM 1 MG TABLET PO SCH (22:36)
[2017-03-16] MEDS: ZOLPIDEM TARTRATE 5 MG TABLET PO SCH (22:38)
[2017-03-16] MEDS: PERAMPANEL 10 MG PO SCH (22:38)
[2017-03-17] MEDS ORDERED: CEFEPIME 1 GM/D5W RTU 1 GM/50 ML RTUPB IV ONE (06:04)
[2017-03-17] MEDS: CEFEPIME 1 GM/D5W RTU 1 GM/50 ML RTUPB IV SCH ×2 (06:24→18:17)
[2017-03-17 06:35] LABS: ABSOLUTE BASOPHILS # (AUTO) 0.1 10^3/uL (0.0-0.2); ABSOLUTE EOSINOPHILS # (AUTO) 0.2 10^3/uL (0.0-0.6); ABSOLUTE LYMPHOCYTES (AUTO) 2.1 10^3/uL (0.5-4.7); ABSOLUTE NEUT (AUTO) 9.4 10^3/uL (1.7-8.2); BASOPHILS % (AUTO) 0.5 % (0-2); EOSINOPHILS % (AUTO) 1.6 % (0-6); HEMATOCRIT 37.7 % (37.9-51.0); HEMOGLOBIN 12.6 g/dL (13.5-17.0); LYMPHOCYTES % (AUTO) 16.5 % (13-45); MEAN CORPUSCULAR HEMOGLOBIN 28.5 pg (27.0-33.4); MEAN CORPUSCULAR HGB CONC 33.3 g/dL (32.0-36.0); MEAN CORPUSCULAR VOLUME 86 fl (80-97); MONOCYTES % (AUTO) 7.6 % (3-13); PLATELET COUNT 202 10^3/uL (150-450); RED BLOOD COUNT 4.41 10^6/uL (4.35-5.55); RED CELL DISTRIBUTION WIDTH 13.8 % (11.5-14.0); SEGMENTED NEUTROPHILS % (AUTO) 73.8 % (42-78); TOTAL CELLS COUNTED % (AUTO) 100 %; WHITE BLOOD COUNT 12.7 10^3/uL (4.0-10.5)
[2017-03-17 06:56] LABS: ANION GAP 8 (5-19); BLOOD UREA NITROGEN 15 mg/dL (7-20); CALCIUM 9.4 mg/dL (8.4-10.2); CARBON DIOXIDE 24 mmol/L (22-30); CHLORIDE 112 mmol/L (98-107); GLUCOSE 88 mg/dL (75-110); POTASSIUM 4.3 mmol/L (3.6-5.0); SODIUM 144.4 mmol/L (137-145)
--- NOTE | 2017-03-17 08:33 | RADIOLOGY REPORT (SQ) ---
EXAM DESCRIPTION: CHEST SINGLE VIEW COMPLETED DATE/TIME: 03/17/2017 8:24 am REASON FOR STUDY: pnemothorax COMPARISON: AP chest 03/16/2017, 08/05/2016 EXAM PARAMETERS: NUMBER OF VIEWS: One view. TECHNIQUE: Single frontal radiographic view of the chest acquired. RADIATION DOSE: NA LIMITATIONS: None. FINDINGS: LUNGS AND PLEURA: Stable 20% right apical pneumothorax marked with arrows. No focal pulmonary infiltrates. No pleural effusion. MEDIASTINUM AND HILAR STRUCTURES: No masses. Contour normal. HEART AND VASCULAR STRUCTURES: Heart normal in size. Normal vasculature. BONES: No acute findings. HARDWARE: Old right anterior chest ventriculoperitoneal shunt tubing. Left-sided jugular neurostimul ator leads and battery pack OTHER: No other significant finding. IMPRESSION: Stable 20% right apical pneumothorax TECHNICAL DOCUMENTATION: JOB ID: [id number] [employer]- All Rights Reserved
--- NOTE | 2017-03-17 08:57 | PDOC PROGRESS REPORT ---
Subjective Progress Note for:: 03/17/17 Subjective:: Patient is currently doing fair no acute distress sincePatient's chest x-ray stable with a pneumothorax Reason For Visit: PNEUMOTHORAX PNEUMONIA Physical Exam Vital Signs: Temp Pulse Resp BP Pulse Ox 98.4 F 85 22 H 111/93 H 94 03/17/17 07:29 03/17/17 07:29 03/17/17 07:29 03/17/17 07:29 03/17/17 07:29 Intake & Output 03/16/17 03/17/17 03/18/17 06:59 06:59 06:59 Intake Total 200 Balance 200 Weight 48.6 kg General appearance: PRESENT: no acute distress Eye exam: PRESENT: PERRLA Respiratory exam: PRESENT: clear to auscultation roula Cardiovascular exam: PRESENT: +S1, +S2 GI/Abdominal exam: PRESENT: normal bowel sounds, soft Extremities exam: ABSENT: pedal edema Neurological exam: PRESENT: alert, awake Skin exam: PRESENT: dry Results Laboratory Results: 03/17/17 05:40 03/17/17 05:40 03/17/17 03/17/17 05:40 05:40 WBC 12.7 H RBC 4.41 Hgb 12.6 L Hct 37.7 L MCV 86 MCH 28.5 MCHC 33.3 RDW 13.8 Plt Count 202 Seg Neutrophils % 73.8 Lymphocytes % 16.5 Monocytes % 7.6 Eosinophils % 1.6 Basophils % 0.5 Absolute Neutrophils 9.4 H Absolute Lymphocytes 2.1 Absolute Monocytes 1.0 Absolute Eosinophils 0.2 Absolute Basophils 0.1 Sodium 144.4 Potassium 4.3 Chloride 112 H Carbon Dioxide 24 Anion Gap 8 BUN 15 Creatinine 0.82 Est GFR ( Amer) > 60 Est GFR (Non-Af Amer) > 60 Glucose 88 Calcium 9.4 Impressions: Chest X-Ray 03/17/17 06:00 IMPRESSION: Stable 20% right apical pneumothorax Assessment & Plan - Diagnosis (1) Pneumonia Qualifiers: Pneumonia type: due to unspecified organism Laterality: bilateral Lung location: unspecified part of lung Qualified Code(s): J18.9 - Pneumonia, unspecified organism Is this a current diagnosis for this admission?: Yes Plan: Continues to IV antibiotic (2) Pneumothorax on right Is this a current diagnosis for this admission?: Yes Plan: Follow with the general surgery and pulmonary currently no any acute distress (3) Epilepsy Qualifiers: Epilepsy type: other generalized Is this a current diagnosis for this admission?: Yes Plan: Continues to current home medication (4) GERD (gastroesophageal reflux disease) Qualifiers: Esophagitis presence: without esophagitis Is this a current diagnosis for this admission?: Yes Plan: Continues to PPI (5) Mental and behavioral problem Is this a current diagnosis for this admission?: Yes Plan: Continues soft restraints - Time Time Spent with patient: 15-24 minutes Medications reviewed and adjusted accordingly: Yes Anticipated discharge: Home Within: Other - Inpatient Certification Medical Necessity: Need Close Monitoring Due to Risk of Patient Decompensation, Need for IV Antibiotics Post Hospital Care: D/C Home Health Aide Documentation - Plan Summary Plan Summary: Continuous IV antibiotic follow with the pulmonary and surgery for pneumothorax
[2017-03-17] MEDS ORDERED: AZITHROMYCIN 250 MG TABLET PO SCH (10:00)
[2017-03-17] MEDS ORDERED: CHOLECALCIFEROL PO SCH (10:00)
[2017-03-17] MEDS: CHOLECALCIFEROL (D3) 1,000 UNIT TABLET PO SCH (10:04)
[2017-03-17] MEDS: LACOSAMIDE 100 MG TABLET PO SCH (10:04)
--- NOTE | 2017-03-17 10:04 | PDOC CONSULTATION ---
Consultation Consult Date: 03/17/17 Consult reason:: Right-sided pneumothorax History of Present Illness Admission Date/PCP: 03/16/17 18:03 JOSEPH MONTE MD Patient complains of: Cough History of Present Illness: CECI HSIEH is a 36 year old male with cerebral palsy noted with cough for several days was seen by primary care physician who ordered a chest x-ray which demonstrated an apical pneumothorax. Surgery now being consulted for the pneumothorax. No history of trauma. No history of central line placement recently. Unable to obtain a history from the patient. Was noted with a apical pneumothorax on chest x-ray last night and it appears stable this morning. No known history of prior pneumothoraces Past Medical History Past Medical History: Cerebral palsy Pulmonary Medical History: Reports: Pneumonia Neurological Medical History: Reports: Seizures GI Medical History: Reports: Gastroesophageal Reflux Disease Past Surgical History Past Surgical History: Reports: Other - vp ad products and planning shunt Social History Smoking Status: Unknown if Ever Smoked Frequency of Alcohol Use: None Hx Recreational Drug Use: No Drugs: None Hx Prescription Drug Abuse: No - Advance Directive Resuscitation Status: Full Code Family History Family History: Reviewed & Not Pertinent Parental Family History Reviewed: No Children Family History Reviewed: No Sibling(s) Family History Reviewed.: No Medication/Allergy Allergies/Adverse Reactions: No Known Allergies Allergy (Verified 03/16/17 15:15) Physical Exam Vital Signs: Temp Pulse Resp BP Pulse Ox 98.4 F 85 22 H 111/93 H 94 03/17/17 07:29 03/17/17 07:29 03/17/17 07:29 03/17/17 07:29 03/17/17 07:29 Intake & Output 03/16/17 03/17/17 03/18/17 06:59 06:59 06:59 Intake Total 200 Balance 200 Weight 48.6 kg General appearance: PRESENT: no acute distress Head exam: PRESENT: atraumatic Neck exam: PRESENT: other - Trachea midline Respiratory exam: PRESENT: clear to auscultation roula - Breath sounds are equal. There is no crepitus on the right side. There is no ecchymosis. There is no apparent tenderness. Cardiovascular exam: PRESENT: RRR GI/Abdominal exam: PRESENT: other - Soft, nondistended, nontender to palpation. Extremities exam: PRESENT: other - Contracture deformities Results Laboratory Results: 03/17/17 05:40 03/17/17 05:40 03/17/17 03/17/17 05:40 05:40 WBC 12.7 H RBC 4.41 Hgb 12.6 L Hct 37.7 L MCV 86 MCH 28.5 MCHC 33.3 RDW 13.8 Plt Count 202 Seg Neutrophils % 73.8 Lymphocytes % 16.5 Monocytes % 7.6 Eosinophils % 1.6 Basophils % 0.5 Absolute Neutrophils 9.4 H Absolute Lymphocytes 2.1 Absolute Monocytes 1.0 Absolute Eosinophils 0.2 Absolute Basophils 0.1 Sodium 144.4 Potassium 4.3 Chloride 112 H Carbon Dioxide 24 Anion Gap 8 BUN 15 Creatinine 0.82 Est GFR ( Amer) > 60 Est GFR (Non-Af Amer) > 60 Glucose 88 Calcium 9.4 Impressions: Chest X-Ray 03/17/17 06:00 IMPRESSION: Stable 20% right apical pneumothorax Assessment & Plan - Diagnosis (1) Pneumothorax on right Is this a current diagnosis for this admission?: Yes Plan: Stable apical pneumothorax. Will likely resolve without chest tube. However do recommend supplemental oxygen and continuous pulse oximetry. Will check repeat chest x-ray tomorrow.
[2017-03-17] MEDS: POLYETHYLENE GLYCOL 3350 POWDER 17 GM/1 PACKET PO SCH (10:05)
[2017-03-17] MEDS: ENOXAPARIN SODIUM INJ 40 MG/0.4 ML DISP.SYRIN SUBCUT SCH (10:05)
[2017-03-17] MEDS: CARBAMAZEPINE 100 MG TAB.CHEW PO SCH ×3 (10:07→18:17)
--- NOTE | 2017-03-17 13:26 | HISTORY AND PHYSICAL E ---
History and Physical NAME: CECI HSIEH : 1980 AGE: 36Y ADMITTED: 03/16/2017 ROOM: 409 CHIEF COMPLAINT: Possible pneumonia, pneumothorax. HISTORY OF PRESENT ILLNESS: This is a 36-year-old patient with cerebral palsy, mental retardation, seizure disorder, apparently living with a usp, brought into my office today complaining of fever having started last [place] and getting better but still having some cough. When patient was in the office patient was still hypoxic. outpatient labs and a chest x-ray, and the chest x-ray is consistent with a pneumothorax on the right side. I have at this point directed him to the Emergency Department. While in the ER, the surgeon was consulted and suggested treatment with conservative management, 100% nonrebreather, and . After that, patient otherwise not in any acute distress. Patient still has some possible pneumonia with elevated white count, and admitting him to the hospital for further evaluations. PAST MEDICAL HISTORY: Seizure disorder , cerebral palsy, mental retardation, history of gastroesophageal reflux disease. ALLERGIES: No known drug allergies. CURRENT MEDICATIONS: Miralax powder daily, , Lunesta, Klonopin, and Tegretol daily. REVIEW OF SYSTEMS: As per the nursing staff; otherwise all negative. PHYSICAL EXAMINATION: VITAL SIGNS: Blood pressure was 122/78, respiration was 18, 91% on room air, pulse was 72. GENERAL: The patient is alert, awake. Underlying palsy and mental retardation. HEAD AND NECK: Normocephalic. PERRLA. LUNGS: No wheezing, no rales, no rhonchi. HEART: S1 and S2 are present. ABDOMEN: Soft. Bowel sounds present. EXTREMITIES: No edema. NEUROLOGIC: The patient is moving all 4 extremities. Underlying cerebral palsy. PSYCHIATRIC: The patient is in no acute distress. LABORATORY DATA: WBC is 13.3, hemoglobin is 13.4, and platelets are 259. Chemistries: Sodium is 141, potassium is 4.4, BUN is 13, creatinine is 0.87. IMAGING STUDIES: Chest x-ray was consistent with 20% right pneumothorax, increased interstitial markings of the lung base, question atypical pneumonia. No dense lobar consolidations. ASSESSMENT: 1. Right-sided pneumothorax. 2. Hypoxia, respiratory distress. 3. Pneumonia. 4. Seizure disorder. 5. Cerebral palsy. 6. Mental retardation. PLAN: Admit the patient in the tele bed. Start the patient on IV cefepime and Zithromax. Continuous oxygen therapy. Consult with general surgery and consult with pulmonary for further evaluations. The ER physician already discussed with the surgeon and suggested conservative management, continues to monitor the patient. Discussed with the caregivers. THE PATIENT IS CURRENTLY A FULL CODE. TIME SPENT: More than 35 minutes spent examining the patient and reviewing the records. DICTATING PHYSICIAN: JOSEPH MONTE M.D. [id number] PHY#: [id number] ID: [id number] JOB#: [id number] ACCT: [id number] cc:JOSEPH MONTE M.D. >
[2017-03-17] MEDS: ACETAMINOPHEN 325 MG TABLET PO PRN ×2 (13:38→19:36)
[2017-03-17] MEDS ORDERED: 1/2 NORMAL SALINE 1,000 ML IV PRN (19:38)
--- NOTE | 2017-03-17 20:11 | RADIOLOGY REPORT (SQ) ---
EXAM DESCRIPTION: CHEST SINGLE VIEW COMPLETED DATE/TIME: 03/17/2017 8:00 pm REASON FOR STUDY: worsening O2 saturation COMPARISON: 03/17/2017 at 0756 hours. 03/16/2017. EXAM PARAMETERS: NUMBER OF VIEWS: One view. TECHNIQUE: Single frontal radiographic view of the chest acquired. RADIATION DOSE: NA LIMITATIONS: None. FINDINGS: LUNGS AND PLEURA: Right apical pneumothorax, 20%, unchanged. Faint density in the lateral right lung base. Left lung clear. MEDIASTINUM AND HILAR STRUCTURES: No masses. Contour normal. HEART AND VASCULAR STRUCTURES: Heart normal in size. Normal vasculature. BONES: No acute findings. HARDWARE: Stimulator device with electrodes extending into the left side of the neck. Tubing on the right. OTHER: No other significant finding. IMPRESSION: STABLE APICAL PNEUMOTHORAX ON THE RIGHT. DEVELOPING FAINT DENSITY IN THE LATERAL RIGHT LUNG BASE COULD BE DUE TO ATELECTASIS OR DEVELOPING PNEUMONIA. TECHNICAL DOCUMENTATION: JOB ID: [id number] [employer]- All Rights Reserved
[2017-03-17] MEDS ORDERED: LORAZEPAM INJ 2 MG/1 ML VIAL ONE (20:20)
[2017-03-17] MEDS ORDERED: LORAZEPAM INJ 2 MG/1 ML VIAL IV ONE (20:30)
--- NOTE | 2017-03-17 20:33 | PDOC PROGRESS REPORT ---
Subjective Progress Note for:: 03/17/17 Subjective:: Nursing staff was concerned about aspiration this evening. Patient did not eat any dinner however he had some seizures and was noted with some foaming in the mouth. With subsequent decrease in saturations. He was noted to have a fever with tachycardia. Patient has required oxygen by rebreather with his saturations being increased to 90%. He has been noted to have frequent seizures. Reason For Visit: PNEUMOTHORAX PNEUMONIA Physical Exam Vital Signs: Temp Pulse Resp BP Pulse Ox 102.8 F H 118 H 16 162/87 H 92 03/17/17 18:58 03/17/17 18:58 03/17/17 16:25 03/17/17 18:58 03/17/17 18:58 Intake & Output 03/16/17 03/17/17 03/18/17 06:59 06:59 06:59 Intake Total 200 558 Balance 200 558 Weight 48.6 kg General appearance: PRESENT: other - Having tonic-clonic seizures. Neck exam: PRESENT: other - Trachea is midline. Respiratory exam: PRESENT: other - No crepitus. Slightly decreased breath sounds on the right side. Cardiovascular exam: PRESENT: tachycardia Results Laboratory Results: 03/17/17 05:40 03/17/17 05:40 03/17/17 03/17/17 05:40 05:40 WBC 12.7 H RBC 4.41 Hgb 12.6 L Hct 37.7 L MCV 86 MCH 28.5 MCHC 33.3 RDW 13.8 Plt Count 202 Seg Neutrophils % 73.8 Lymphocytes % 16.5 Monocytes % 7.6 Eosinophils % 1.6 Basophils % 0.5 Absolute Neutrophils 9.4 H Absolute Lymphocytes 2.1 Absolute Monocytes 1.0 Absolute Eosinophils 0.2 Absolute Basophils 0.1 Sodium 144.4 Potassium 4.3 Chloride 112 H Carbon Dioxide 24 Anion Gap 8 BUN 15 Creatinine 0.82 Est GFR ( Amer) > 60 Est GFR (Non-Af Amer) > 60 Glucose 88 Calcium 9.4 Impressions: Chest X-Ray 03/17/17 06:00 IMPRESSION: Stable 20% right apical pneumothorax Assessment & Plan - Diagnosis (1) Pneumothorax on right Is this a current diagnosis for this admission?: Yes Plan: Stat portable chest x-ray reveals persistent apical pneumothorax. it appears stable to slightly increased. No evidence of tension pneumothorax. I do not think his pneumothorax is the primary reason for his acute oxygen desaturation. I suspect that it is due to probable aspiration. However, with his respiratory compromise I feel that a tube thoracostomy is indicated since it is contributing to his respiratory compromise. Attempts have been made to reach his guardian by his residential unsuccessfully. I was able to reach his legal power of collections attorney and the model and pattern supervisor at the residential and they have given permission to go ahead with this emergency procedure. I have explained the risk and benefits including risk of lung injury. When the guardian is able to be reached I will discuss with the guardian the procedure but I feel that we need to proceed rather than wait indefinitely for the guardian. I have discussed his case with Dr. Benson who has ordered Ativan for seizure and will transfer the patient to the ICU.
[2017-03-17] MEDS ORDERED: KETAMINE HCL INJ 500 MG/10 ML VIAL ONE (20:51)
[2017-03-17] MEDS ORDERED: FENTANYL CITRATE INJ/PF 100 MCG/2 ML AMPUL ONE (20:52)
[2017-03-17] MEDS ORDERED: MIDAZOLAM 2 MG/2 ML INJ ONE (20:52)
[2017-03-17] MEDS ORDERED: PROPOFOL INJ 200 MG/20 ML VIAL IV ONE (20:52)
[2017-03-17] MEDS: CLINDAMYCIN 600 MG/D5W RTU 600 MG/50 ML RTUPB IV SCH (21:15)
[2017-03-17] MEDS ORDERED: LIDOCAINE 0.5% INJ-PF (5 MG/ML) 50 ML SDV ONE (22:04)
[2017-03-17] MEDS ORDERED: MEPERIDINE HCL/PF INJ 25 MG/1 ML DISP.SYRIN IV PRN (22:18)
[2017-03-17] MEDS ORDERED: FENTANYL CITRATE INJ/PF 100 MCG/2 ML AMPUL IV PRN ×3 (22:18)
[2017-03-17] MEDS ORDERED: PROMETHAZINE HCL INJ 25 MG/1 ML VIAL IV PRN ×2 (22:18)
[2017-03-17] MEDS ORDERED: OXYCODONE-ACETAMINOPHEN 5-325 MG TABLET PO PRN ×2 (22:18)
[2017-03-17] MEDS ORDERED: MORPHINE SULFATE 10 MG/ML INJ IV PRN (22:18)
[2017-03-17] MEDS ORDERED: DIPHENHYDRAMINE HCL 50 MG/ML VIAL IV PRN (22:18)
--- NOTE | 2017-03-17 23:12 | Operative Report ---
Operative Report DATE OF SURGERY: 03/17/17 PREOPERATIVE DIAGNOSIS: Right-sided pneumothorax POSTOPERATIVE DIAGNOSIS: Right-sided pneumothorax OPERATION: Right tube thoracostomy SURGEON: JOCELIN SIMS ANESTHESIA: LMAC TISSUE REMOVED OR ALTERED: None COMPLICATIONS: None ESTIMATED BLOOD LOSS: Minimal INTRAOPERATIVE FINDINGS: Right-sided pneumothorax PROCEDURE: Informed consent was obtained. Patient was brought to the operating room placed on the operating table in the supine position. Patient's right chest was prepped and draped in usual sterile fashion. The procedure was done under LMAC. local anesthetic was administered. Skin incision was made at the anterior axillary line below the mammary crease. A tunnel was created to the intercostal space and the pleural cavity was entered without difficulty with gush of air. 28 Icelandic chest tube was placed. It was sutured in place. After initial air leak no further air leak was noted. Dressings were applied. Patient tolerated procedure well with no apparent complications. Stat portable chest x-ray was ordered.
[2017-03-17 23:14] LABS: ARTERIAL BLOOD BASE EXCESS -1.1 mmol/L; ARTERIAL BLOOD HCO3 23.7 mmol/L (20-26); ARTERIAL BLOOD O2 SATURATION 95.2 % (94-98); ARTERIAL BLOOD PH 7.39 (7.35-7.45); ARTERIAL BLOOD PO2 76.2 mmHg (80-100); ARTERIAL BLOOD TOTAL CO2 24.9 mmol/L (23-27)
[2017-03-17 23:15] LABS: ARTERIAL BLOOD FIO2 15L
[2017-03-18] MEDS: CLONAZEPAM 1 MG TABLET PO SCH ×2 (00:23→22:54)
[2017-03-18] MEDS: PERAMPANEL 10 MG PO SCH ×3 (00:23→22:59)
[2017-03-18] MEDS: ZOLPIDEM TARTRATE 5 MG TABLET PO SCH ×2 (00:23→22:56)
[2017-03-18] MEDS: LACOSAMIDE 100 MG TABLET PO SCH (00:23)
[2017-03-18] MEDS: MORPHINE SULFATE 10 MG/ML INJ IV PRN ×3 (00:34→23:32)
[2017-03-18] MEDS: 1/2 NORMAL SALINE 1,000 ML IV PRN ×2 (00:34→14:24)
--- NOTE | 2017-03-18 00:35 | RADIOLOGY REPORT (SQ) ---
EXAM DESCRIPTION: CHEST SINGLE VIEW COMPLETED DATE/TIME: 03/17/2017 11:20 pm REASON FOR STUDY: s/p chest tube placement COMPARISON: Chest x-ray 03/17/2017 at 19:36 hours EXAM PARAMETERS: NUMBER OF VIEWS: One view. TECHNIQUE: Single supine frontal radiographic view of the chest acquired on 03/17/2017 at 23:05 hours. RADIATION DOSE: NA LIMITATIONS: None. FINDINGS: LUNGS AND PLEURA: Interval decrease in the right-sided pneumothorax status post chest tube placement. Interval increase in the airspace opacity at the right lung base. The left lung is guadalupe sly clear. MEDIASTINUM AND HILAR STRUCTURES: No masses. Contour normal. HEART AND VASCULAR STRUCTURES: The heart is not enlarged. No overt vascular congestion. BONES: No acute findings. HARDWARE: Large-bore right-sided chest tube is noted. The battery pack from a stimulator device is o verlying the left upper hemithorax. IMPRESSION: Interval decrease in the right-sided pneumothorax status post chest tube placement. Int erval increase in the airspace opacity at the right lung base, may represent worsening pneumonia or a symmetric pulmonary edema. TECHNICAL DOCUMENTATION: JOB ID: [id number]-[email or web address] [id number] [employer]- All Rights Reserved
[2017-03-18] MEDS ORDERED: ACETAMINOPHEN 325 MG SUPP.RECT PR PRN (02:36)
[2017-03-18 04:02] LABS: HEMATOCRIT 40.3 % (37.9-51.0); HEMOGLOBIN 13.3 g/dL (13.5-17.0); MEAN CORPUSCULAR HEMOGLOBIN 28.2 pg (27.0-33.4); MEAN CORPUSCULAR HGB CONC 33.1 g/dL (32.0-36.0); MEAN CORPUSCULAR VOLUME 85 fl (80-97); PLATELET COUNT 248 10^3/uL (150-450); RED BLOOD COUNT 4.73 10^6/uL (4.35-5.55); RED CELL DISTRIBUTION WIDTH 13.7 % (11.5-14.0); WHITE BLOOD COUNT 19.2 10^3/uL (4.0-10.5)
[2017-03-18 04:12] LABS: ANION GAP 10 (5-19); BLOOD UREA NITROGEN 12 mg/dL (7-20); CALCIUM 9.1 mg/dL (8.4-10.2); CARBON DIOXIDE 26 mmol/L (22-30); CHLORIDE 108 mmol/L (98-107); GLUCOSE 118 mg/dL (75-110)
[2017-03-18 04:41] LABS: ABSOLUTE LYMPHOCYTES# (MANUAL) 0.8 10^3/uL (0.5-4.7); ABSOLUTE MONOCYTES # (MANUAL) 1.5 10^3/uL (0.1-1.4); ABSOLUTE NEUTROPHILS# (MANUAL) 16.9 10^3/uL (1.7-8.2); BAND NEUTROPHILS % (MANUAL) 2 % (3-5); BASOPHILS % (MANUAL) 0 % (0-2); EOSINOPHILS % (MANUAL) 0 % (0-6); LYMPHOCYTES % (MANUAL) 4 % (13-45); MONOCYTES % (MANUAL) 8 % (3-13); POIKILOCYTOSIS SLIGHT; SEGMENTED NEUTROPHILS % (MAN) 86 % (42-78); TOTAL CELLS COUNTED 100; TOXIC GRANULATION 1+
[2017-03-18 04:42] LABS: OVALOCYTES SLIGHT; PLATELET COMMENT ADEQUATE; TEAR DROP CELLS SLIGHT
[2017-03-18] MEDS: CLINDAMYCIN 600 MG/D5W RTU 600 MG/50 ML RTUPB IV SCH ×3 (05:25→22:53)
[2017-03-18] MEDS: CEFEPIME 1 GM/D5W RTU 1 GM/50 ML RTUPB IV SCH ×2 (06:02→18:09)
--- NOTE | 2017-03-18 07:13 | RADIOLOGY REPORT (SQ) ---
EXAM DESCRIPTION: CHEST SINGLE VIEW COMPLETED DATE/TIME: 03/18/2017 6:24 am REASON FOR STUDY: ptx COMPARISON: Chest films 03/03/2016, 03/04/2016, 03/17/2017 EXAM PARAMETERS: NUMBER OF VIEWS: One view. TECHNIQUE: Single frontal radiographic view of the chest acquired. RADIATION DOSE: NA LIMITATIONS: None. FINDINGS: LUNGS AND PLEURA: A right-sided chest tube is in place, the tip is in the right posterior costophrenic sulcus, side port in the posteromedial left chest, with a loop of tubing over the right hilum. Trace apical pneumothorax. Bandlike airspace disease in the right middle lobe near the minor fissure. There is left retrocardiac atelectasis with air bronchograms. Left lung well inflated and clear. MEDIASTINUM AND HILAR STRUCTURES: No masses. Contour normal. HEART AND VASCULAR STRUCTURES: Heart normal in size. Normal vasculature. BONES: No acute findings. HARDWARE: Right-sided chest tube as above. Old fracture ventriculoperitoneal shunt tubing over the a nterior right chest. Left-sided jugular neurostimulator battery pack and leads over the left upper c hest OTHER: No other significant finding. IMPRESSION: Trace right apical pneumothorax Right middle lobe and right retrocardiac bandlike consolidation atelectasis versus pneumonia. TECHNICAL DOCUMENTATION: JOB ID: [id number] [employer]- All Rights Reserved
[2017-03-18] MEDS ORDERED: AZITHROMYCIN INJ 500 MG VIAL IV SCH (10:00)
--- NOTE | 2017-03-18 10:05 | PDOC PROGRESS REPORT ---
Subjective Progress Note for:: 03/18/17 Subjective:: Patient is currently doing well this morning Patients have desat last night after the seizures activity in the surgery put the chest tubes because of the ongoing pneumothorax Probably aspirated yesterday and most likely desat from the aspirations pneumonia Currently patient on the nasal cannula back to the baseline's no other nursing concern Reason For Visit: PNEUMOTHORAX PNEUMONIA Physical Exam Vital Signs: Temp Pulse Resp BP Pulse Ox 99.9 F 83 18 112/83 97 03/18/17 04:00 03/18/17 09:37 03/18/17 09:37 03/18/17 06:40 03/18/17 09:37 Intake & Output 03/17/17 03/18/17 03/19/17 06:59 06:59 06:59 Intake Total 200 1072 Output Total 0 Balance 200 1072 Weight 48.6 kg 53 kg General appearance: PRESENT: no acute distress Eye exam: PRESENT: PERRLA Mouth exam: PRESENT: neck supple Respiratory exam: PRESENT: clear to auscultation roula Additional comments: Right-sided chest tube is intact Cardiovascular exam: PRESENT: +S1, +S2 GI/Abdominal exam: PRESENT: normal bowel sounds, soft Extremities exam: ABSENT: pedal edema Neurological exam: PRESENT: alert, altered Psychiatric exam: PRESENT: anxious Skin exam: PRESENT: dry Results Laboratory Results: 03/18/17 03:46 03/18/17 03:46 03/17/17 03/18/17 03/18/17 22:55 03:46 03:46 WBC 19.2 H RBC 4.73 Hgb 13.3 L Hct 40.3 MCV 85 MCH 28.2 MCHC 33.1 RDW 13.7 Plt Count 248 Seg Neutrophils % Not Reportable Lymphocytes % Not Reportable Monocytes % Not Reportable Eosinophils % Not Reportable Basophils % Not Reportable Absolute Neutrophils Not Reportable Absolute Lymphocytes Not Reportable Absolute Monocytes Not Reportable Absolute Eosinophils Not Reportable Absolute Basophils Not Reportable Carbonic Acid 1.20 HCO3/H2CO3 Ratio 19:1 ABG pH 7.39 ABG pCO2 40.0 ABG pO2 76.2 L ABG HCO3 23.7 ABG O2 Saturation 95.2 ABG Base Excess -1.1 FiO2 15L Sodium 144.0 Potassium 4.0 Chloride 108 H Carbon Dioxide 26 Anion Gap 10 BUN 12 Creatinine 0.79 Est GFR ( Amer) > 60 Est GFR (Non-Af Amer) > 60 Glucose 118 H Calcium 9.1 Impressions: Chest X-Ray 03/18/17 07:15 IMPRESSION: Trace right apical pneumothorax Right middle lobe and right retrocardiac bandlike consolidation atelectasis versus pneumonia. Assessment & Plan - Diagnosis (1) Pneumonia Qualifiers: Pneumonia type: due to unspecified organism Laterality: bilateral Lung location: unspecified part of lung Qualified Code(s): J18.9 - Pneumonia, unspecified organism Is this a current diagnosis for this admission?: Yes Plan: We held the clindamycin's possible due to the aspirations pneumonia continues to cefepime and Zithromax and consult the pulmonary for further evaluations (2) Pneumothorax on right Is this a current diagnosis for this admission?: Yes Plan: Status post chest tube placement follow with the surgery (3) Epilepsy Qualifiers: Epilepsy type: other generalized Is this a current diagnosis for this admission?: Yes Plan: Patient is currently n.p.o. because of the possible aspirations discussed with the pharmacy and change the IV Vimpat and patients currently taking the carbamazepine will hold for the next 24 hours if is still patient n.p.o. may be considered to the IV Keppra (4) GERD (gastroesophageal reflux disease) Qualifiers: Esophagitis presence: without esophagitis Is this a current diagnosis for this admission?: Yes Plan: Continues to PPI (5) Mental and behavioral problem Is this a current diagnosis for this admission?: Yes Plan: Continues soft restraints - Time Time Spent with patient: 15-24 minutes Total Critical Time (Minutes): 30 Anticipated discharge: Other Within: Other - Inpatient Certification Medical Necessity: Need Close Monitoring Due to Risk of Patient Decompensation, Need for IV Antibiotics Post Hospital Care: D/C Fraud Investigator Documentation - Plan Summary Plan Summary: Continues to IV antibiotic continues follow with the pulmonary discussed with the caregiver at [facility]
[2017-03-18] MEDS: LORAZEPAM INJ 2 MG/1 ML VIAL IV PRN ×2 (10:11→21:05)
[2017-03-18] MEDS ORDERED: LEVETIRACETAM INJ/PF 500 MG/5 ML SDV IV ONE (10:30)
[2017-03-18] MEDS ORDERED: DIAZEPAM INJ 10 MG/2 ML DISP.SYRIN ONE (10:41)
[2017-03-18] MEDS ORDERED: LEVETIRACETAM 500 MG/NACL-ISO 500 MG/100 ML RTUPB IV ONE (11:00)
[2017-03-18] MEDS: LACOSAMIDE INJ/PF 200 MG/20 ML SDV IV SCH ×2 (11:02→22:55)
[2017-03-18] MEDS: ENOXAPARIN SODIUM INJ 40 MG/0.4 ML DISP.SYRIN SUBCUT SCH (11:03)
[2017-03-18] MEDS: AZITHROMYCIN 500 MG in DEXTROSE 5%-WATER 250 ML IV SCH (11:07)
[2017-03-18] MEDS ORDERED: PERAMPANEL 10 MG PO ONE (11:30)
[2017-03-18] MEDS: POLYETHYLENE GLYCOL 3350 POWDER 17 GM/1 PACKET PO SCH (16:20)
[2017-03-18] MEDS: CARBAMAZEPINE 100 MG TAB.CHEW PO SCH ×2 (16:20→22:53)
[2017-03-18] MEDS: CHOLECALCIFEROL (D3) 1,000 UNIT TABLET PO SCH (16:20)
[2017-03-18] MEDS ORDERED: CLORAZEPATE 3.75 MG PO SCH (22:00)
[2017-03-18] MEDS: LEVETIRACETAM 500 MG/NACL-ISO 500 MG/100 ML RTUPB IV SCH (22:55)
--- NOTE | 2017-03-18 23:43 | PDOC PROGRESS REPORT ---
Subjective Progress Note for:: 03/18/17 Subjective:: No new complaints Reason For Visit: PNEUMOTHORAX PNEUMONIA Physical Exam Vital Signs: Temp Pulse Resp BP Pulse Ox 99.9 F 90 20 112/84 95 03/18/17 04:00 03/18/17 16:00 03/18/17 18:00 03/18/17 17:40 03/18/17 18:00 Intake & Output 03/17/17 03/18/17 03/19/17 06:59 06:59 06:59 Intake Total 200 1072 1080 Output Total 0 0 Balance 200 1072 1080 Weight 48.6 kg 53 kg General appearance: PRESENT: no acute distress Respiratory exam: PRESENT: unlabored, other - right chest tube in place Cardiovascular exam: PRESENT: +S1, +S2 GI/Abdominal exam: PRESENT: soft Results Laboratory Results: 03/18/17 03:46 03/18/17 03:46 03/18/17 03/18/17 03:46 03:46 WBC 19.2 H RBC 4.73 Hgb 13.3 L Hct 40.3 MCV 85 MCH 28.2 MCHC 33.1 RDW 13.7 Plt Count 248 Seg Neutrophils % Not Reportable Lymphocytes % Not Reportable Monocytes % Not Reportable Eosinophils % Not Reportable Basophils % Not Reportable Absolute Neutrophils Not Reportable Absolute Lymphocytes Not Reportable Absolute Monocytes Not Reportable Absolute Eosinophils Not Reportable Absolute Basophils Not Reportable Sodium 144.0 Potassium 4.0 Chloride 108 H Carbon Dioxide 26 Anion Gap 10 BUN 12 Creatinine 0.79 Est GFR ( Amer) > 60 Est GFR (Non-Af Amer) > 60 Glucose 118 H Calcium 9.1 Impressions: Chest X-Ray 03/18/17 07:15 IMPRESSION: Trace right apical pneumothorax Right middle lobe and right retrocardiac bandlike consolidation atelectasis versus pneumonia. Assessment & Plan - Diagnosis (1) Pneumothorax on right Is this a current diagnosis for this admission?: Yes Plan: continue chest tube drainage. daily chest xrays. - Time Time Spent with patient: 15-24 minutes
[2017-03-19 04:22] LABS: ABSOLUTE EOSINOPHILS # (AUTO) 0.1 10^3/uL (0.0-0.6); ABSOLUTE LYMPHOCYTES (AUTO) 2.5 10^3/uL (0.5-4.7); ABSOLUTE MONOCYTES (AUTO) 1.7 10^3/uL (0.1-1.4); ABSOLUTE NEUT (AUTO) 11.1 10^3/uL (1.7-8.2); BASOPHILS % (AUTO) 0.2 % (0-2); EOSINOPHILS % (AUTO) 0.9 % (0-6); HEMATOCRIT 37.6 % (37.9-51.0); HEMOGLOBIN 12.6 g/dL (13.5-17.0); LYMPHOCYTES % (AUTO) 16.2 % (13-45); MEAN CORPUSCULAR HEMOGLOBIN 28.4 pg (27.0-33.4); MEAN CORPUSCULAR HGB CONC 33.5 g/dL (32.0-36.0); MEAN CORPUSCULAR VOLUME 85 fl (80-97); MONOCYTES % (AUTO) 10.8 % (3-13); PLATELET COUNT 251 10^3/uL (150-450); RED BLOOD COUNT 4.43 10^6/uL (4.35-5.55); RED CELL DISTRIBUTION WIDTH 13.7 % (11.5-14.0); SEGMENTED NEUTROPHILS % (AUTO) 71.9 % (42-78); TOTAL CELLS COUNTED % (AUTO) 100 %; WHITE BLOOD COUNT 15.5 10^3/uL (4.0-10.5)
[2017-03-19 04:41] LABS: ANION GAP 7 (5-19); BLOOD UREA NITROGEN 10 mg/dL (7-20); CALCIUM 9.2 mg/dL (8.4-10.2); CARBON DIOXIDE 28 mmol/L (22-30); CHLORIDE 104 mmol/L (98-107); GLUCOSE 94 mg/dL (75-110); MAGNESIUM 1.9 mg/dL (1.6-2.3); SODIUM 139.2 mmol/L (137-145)
[2017-03-19 05:01] LABS: ARTERIAL BLOOD BASE EXCESS -0.5 mmol/L; ARTERIAL BLOOD FIO2 3L; ARTERIAL BLOOD H2CO3 1.24 mmol/L (1.05-1.35); ARTERIAL BLOOD HCO3 24.4 mmol/L (20-26); ARTERIAL BLOOD O2 SATURATION 97.5 % (94-98); ARTERIAL BLOOD PCO2 41.2 mmHg (35-45); ARTERIAL BLOOD PH 7.39 (7.35-7.45); ARTERIAL BLOOD PO2 100.4 mmHg (80-100); ARTERIAL BLOOD TOTAL CO2 25.7 mmol/L (23-27)
[2017-03-19] MEDS: CEFEPIME 1 GM/D5W RTU 1 GM/50 ML RTUPB IV SCH ×2 (05:07→17:07)
[2017-03-19] MEDS: CLINDAMYCIN 600 MG/D5W RTU 600 MG/50 ML RTUPB IV SCH ×3 (05:07→21:26)
--- NOTE | 2017-03-19 07:11 | RADIOLOGY REPORT (SQ) ---
EXAM DESCRIPTION: CHEST SINGLE VIEW COMPLETED DATE/TIME: 03/19/2017 6:56 am REASON FOR STUDY: Pneumothorax COMPARISON: Chest x-ray 03/18/2017 EXAM PARAMETERS: NUMBER OF VIEWS: One view. TECHNIQUE: Single frontal radiographic view of the chest acquired. RADIATION DOSE: NA LIMITATIONS: None. FINDINGS: LUNGS AND PLEURA: No pneumothorax is noted. There is interval increase in the airspace op acity at the right lung base. There is a small right pleural effusion. The left lung is grossly lilliana ar. MEDIASTINUM AND HILAR STRUCTURES: No masses. Contour normal. HEART AND VASCULAR STRUCTURES: Heart normal in size. Normal vasculature. BONES: No acute findings. HARDWARE: There is a large-bore right-sided chest tube. There is a battery pack from a stimulator ov erlying the left upper chest . Tubing extending over the right sided hemithorax. IMPRESSION: Interval increase in the airspace opacity at the right lung base, may represent worsenin g atelectasis or pneumonia. Small right pleural effusion. TECHNICAL DOCUMENTATION: JOB ID: [id number] 2010 [employer]- All Rights Reserved
[2017-03-19] MEDS ORDERED: NON-FORMULARY UNIT-DOSE MEDICATION PO SCH (10:00)
--- NOTE | 2017-03-19 10:38 | PDOC PROGRESS REPORT ---
Subjective Progress Note for:: 03/19/17 Subjective:: Patient is getting better The only 1 seizures episodes Insert chest tube is draining very minimal Since pneumothorax currently resolved Reason For Visit: PNEUMOTHORAX PNEUMONIA Physical Exam Vital Signs: Temp Pulse Resp BP Pulse Ox 99.4 F 98 15 104/69 97 03/19/17 08:00 03/19/17 08:40 03/19/17 10:00 03/19/17 09:40 03/19/17 10:00 Intake & Output 03/18/17 03/19/17 03/20/17 06:59 06:59 06:59 Intake Total 1072 2633 Output Total 0 0 Balance 1072 2633 Weight 53 kg 53.5 kg General appearance: PRESENT: no acute distress Eye exam: PRESENT: PERRLA Neck exam: ABSENT: JVD Respiratory exam: PRESENT: clear to auscultation roula Cardiovascular exam: PRESENT: +S1, +S2 GI/Abdominal exam: PRESENT: normal bowel sounds, soft Extremities exam: ABSENT: pedal edema Neurological exam: PRESENT: alert, awake Psychiatric exam: PRESENT: anxious Skin exam: PRESENT: dry Results Laboratory Results: 03/19/17 04:09 03/19/17 04:09 03/19/17 03/19/17 03/19/17 04:09 04:09 04:45 WBC 15.5 H RBC 4.43 Hgb 12.6 L Hct 37.6 L MCV 85 MCH 28.4 MCHC 33.5 RDW 13.7 Plt Count 251 Seg Neutrophils % 71.9 Lymphocytes % 16.2 Monocytes % 10.8 Eosinophils % 0.9 Basophils % 0.2 Absolute Neutrophils 11.1 H Absolute Lymphocytes 2.5 Absolute Monocytes 1.7 H Absolute Eosinophils 0.1 Absolute Basophils 0.0 Carbonic Acid 1.24 HCO3/H2CO3 Ratio 19:1 ABG pH 7.39 ABG pCO2 41.2 ABG pO2 100.4 H ABG HCO3 24.4 ABG O2 Saturation 97.5 ABG Base Excess -0.5 FiO2 3L Sodium 139.2 Potassium 4.0 Chloride 104 Carbon Dioxide 28 Anion Gap 7 BUN 10 Creatinine 0.80 Est GFR ( Amer) > 60 Est GFR (Non-Af Amer) > 60 Glucose 94 Calcium 9.2 Magnesium 1.9 Impressions: Chest X-Ray 03/19/17 07:15 IMPRESSION: Interval increase in the airspace opacity at the right lung base, may represent worsening atelectasis or pneumonia. Small right pleural effusion. Assessment & Plan - Diagnosis (1) Pneumonia Qualifiers: Pneumonia type: due to unspecified organism Laterality: bilateral Lung location: unspecified part of lung Qualified Code(s): J18.9 - Pneumonia, unspecified organism Is this a current diagnosis for this admission?: Yes Plan: Aspirations pneumonia continues to current medication and aspirations precautions (2) Pneumothorax on right Is this a current diagnosis for this admission?: Yes Plan: Post chest tube currently all resolved refer for the surgery to remove the chest tube (3) Epilepsy Qualifiers: Epilepsy type: other generalized Is this a current diagnosis for this admission?: Yes Plan: Patient is currently n.p.o. because of the possible aspirations discussed with the pharmacy and change the IV Vimpat and patients currently taking the carbamazepine will hold for the next 24 hours if is still patient n.p.o. 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
[2017-03-19] MEDS: LEVETIRACETAM 500 MG/NACL-ISO 500 MG/100 ML RTUPB IV SCH ×2 (11:42→21:27)
[2017-03-19] MEDS: AZITHROMYCIN 500 MG in DEXTROSE 5%-WATER 250 ML IV SCH (11:42)
[2017-03-19] MEDS: POLYETHYLENE GLYCOL 3350 POWDER 17 GM/1 PACKET PO SCH (11:42)
[2017-03-19] MEDS: CARBAMAZEPINE 100 MG TAB.CHEW PO SCH ×3 (11:43→17:02)
[2017-03-19] MEDS: LACOSAMIDE INJ/PF 200 MG/20 ML SDV IV SCH ×2 (11:43→21:26)
[2017-03-19] MEDS: CHOLECALCIFEROL (D3) 1,000 UNIT TABLET PO SCH (11:45)
[2017-03-19] MEDS: ENOXAPARIN SODIUM INJ 40 MG/0.4 ML DISP.SYRIN SUBCUT SCH (11:46)
[2017-03-19] MEDS: CLORAZEPATE 3.75 MG PO SCH ×2 (12:04→17:04)
[2017-03-19] MEDS: PERAMPANEL 10 MG PO SCH (21:27)
[2017-03-19] MEDS: ZOLPIDEM TARTRATE 5 MG TABLET PO SCH (21:28)
[2017-03-19] MEDS: CLONAZEPAM 1 MG TABLET PO SCH (21:28)
[2017-03-19] MEDS: MORPHINE SULFATE 10 MG/ML INJ IV PRN (21:28)
--- NOTE | 2017-03-19 21:46 | PDOC PROGRESS REPORT ---
Subjective Progress Note for:: 03/19/17 Subjective:: Doing well chest tube cope. Reason For Visit: PNEUMOTHORAX PNEUMONIA Physical Exam Vital Signs: Temp Pulse Resp BP Pulse Ox 100.2 F 92 24 H 103/61 91 L 03/19/17 12:00 03/19/17 20:00 03/19/17 18:03 03/19/17 18:03 03/19/17 16:40 Intake & Output 03/18/17 03/19/17 03/20/17 06:59 06:59 06:59 Intake Total 1072 2633 1028 Output Total 0 0 Balance 1072 2633 1028 Weight 53 kg 53.5 kg General appearance: PRESENT: no acute distress Respiratory exam: PRESENT: clear to auscultation roula, unlabored, other - right chest tube to suction Cardiovascular exam: PRESENT: +S1, +S2 GI/Abdominal exam: PRESENT: soft Neurological exam: PRESENT: alert Results Laboratory Results: 03/19/17 04:09 03/19/17 04:09 03/19/17 03/19/17 03/19/17 04:09 04:09 04:45 WBC 15.5 H RBC 4.43 Hgb 12.6 L Hct 37.6 L MCV 85 MCH 28.4 MCHC 33.5 RDW 13.7 Plt Count 251 Seg Neutrophils % 71.9 Lymphocytes % 16.2 Monocytes % 10.8 Eosinophils % 0.9 Basophils % 0.2 Absolute Neutrophils 11.1 H Absolute Lymphocytes 2.5 Absolute Monocytes 1.7 H Absolute Eosinophils 0.1 Absolute Basophils 0.0 Carbonic Acid 1.24 HCO3/H2CO3 Ratio 19:1 ABG pH 7.39 ABG pCO2 41.2 ABG pO2 100.4 H ABG HCO3 24.4 ABG O2 Saturation 97.5 ABG Base Excess -0.5 FiO2 3L Sodium 139.2 Potassium 4.0 Chloride 104 Carbon Dioxide 28 Anion Gap 7 BUN 10 Creatinine 0.80 Est GFR ( Amer) > 60 Est GFR (Non-Af Amer) > 60 Glucose 94 Calcium 9.2 Magnesium 1.9 Impressions: Chest X-Ray 03/19/17 07:15 IMPRESSION: Interval increase in the airspace opacity at the right lung base, may represent worsening atelectasis or pneumonia. Small right pleural effusion. Assessment & Plan - Diagnosis (1) Pneumothorax on right Is this a current diagnosis for this admission?: Yes Plan: Will allow a full 46-72 hrs for healing of the pleural defect Will begin preparing for chest tube removal by takng off suction and clamp trial tomorrow morning. - Time Time Spent with patient: 15-24 minutes
[2017-03-20] MEDS: CEFEPIME 1 GM/D5W RTU 1 GM/50 ML RTUPB IV SCH ×2 (05:37→17:58)
[2017-03-20] MEDS: CLINDAMYCIN 600 MG/D5W RTU 600 MG/50 ML RTUPB IV SCH ×3 (05:38→22:33)
--- NOTE | 2017-03-20 06:45 | RADIOLOGY REPORT (SQ) ---
EXAM DESCRIPTION: CHEST SINGLE VIEW COMPLETED DATE/TIME: 03/20/2017 6:27 am REASON FOR STUDY: ptx COMPARISON: Chest x-ray 03/19/2017 EXAM PARAMETERS: NUMBER OF VIEWS: One view. TECHNIQUE: Single frontal radiographic view of the chest acquired. RADIATION DOSE: NA LIMITATIONS: Positioning. FINDINGS: LUNGS AND PLEURA: The patient is rotated and the patient's chin is obscuring the lung apic es. The right costophrenic angle is partially excluded from the [id number]. Persistent airspace opacity at the right lung base. No sizable pleural effusion or large pneumothorax. MEDIASTINUM AND HILAR STRUCTURES: No masses. Contour normal. HEART AND VASCULAR STRUCTURES: Heart normal in size. Normal vasculature. BONES: No acute findings. HARDWARE: A chest tube is noted. There is a battery pack from a stimulator device overlying the left upper chest. IMPRESSION: No significant interval change in the airspace opacity at the right lung base TECHNICAL DOCUMENTATION: JOB ID: [id number] 2010 [employer]- All Rights Reserved
[2017-03-20] MEDS: LACOSAMIDE INJ/PF 200 MG/20 ML SDV IV SCH ×2 (10:25→22:32)
[2017-03-20] MEDS: AZITHROMYCIN 500 MG in DEXTROSE 5%-WATER 250 ML IV SCH (10:25)
[2017-03-20] MEDS: CLORAZEPATE 3.75 MG PO SCH ×2 (10:26→18:00)
[2017-03-20] MEDS: POLYETHYLENE GLYCOL 3350 POWDER 17 GM/1 PACKET PO SCH (10:26)
[2017-03-20] MEDS: CHOLECALCIFEROL (D3) 1,000 UNIT TABLET PO SCH (10:26)
[2017-03-20] MEDS: CARBAMAZEPINE 100 MG TAB.CHEW PO SCH ×3 (10:26→17:58)
[2017-03-20] MEDS: ENOXAPARIN SODIUM INJ 40 MG/0.4 ML DISP.SYRIN SUBCUT SCH (10:27)
--- NOTE | 2017-03-20 12:07 | PDOC PROGRESS REPORT ---
Subjective Progress Note for:: 03/20/17 Subjective:: Patient is currently doing fair Still have a chest tube but otherwise patient on room air in the seizures activity is well under control Reason For Visit: PNEUMOTHORAX PNEUMONIA Physical Exam Vital Signs: Temp Pulse Resp BP Pulse Ox 98.6 F 78 26 H 96/60 L 90 L 03/20/17 08:00 03/20/17 08:00 03/20/17 10:00 03/20/17 08:00 03/20/17 08:00 Intake & Output 03/19/17 03/20/17 03/21/17 06:59 06:59 06:59 Intake Total 2633 2108 Output Total 0 Balance 2633 2108 Weight 53.5 kg General appearance: PRESENT: no acute distress Eye exam: PRESENT: PERRLA Mouth exam: PRESENT: neck supple Respiratory exam: PRESENT: clear to auscultation roula Additional comments: Right-sided chest tube is present Cardiovascular exam: PRESENT: +S1, +S2 GI/Abdominal exam: PRESENT: normal bowel sounds, soft Extremities exam: ABSENT: pedal edema Neurological exam: PRESENT: alert, awake Skin exam: PRESENT: dry Results Laboratory Results: 03/19/17 04:09 03/19/17 04:09 Impressions: Chest X-Ray 03/20/17 07:15 IMPRESSION: No significant interval change in the airspace opacity at the right lung base Assessment & Plan - Diagnosis (1) Pneumonia Qualifiers: Pneumonia type: due to unspecified organism Laterality: bilateral Lung location: unspecified part of lung Qualified Code(s): J18.9 - Pneumonia, unspecified organism Is this a current diagnosis for this admission?: Yes Plan: Aspirations pneumonia continues to current medication and aspirations precautions (2) Pneumothorax on right Is this a current diagnosis for this admission?: Yes Plan: Follow with the general surgery (3) Epilepsy Qualifiers: Epilepsy type: other generalized Is this a current diagnosis for this admission?: Yes Plan: Patient is currently n.p.o. because of the possible aspirations discussed with the pharmacy and change the IV Vimpat and patients currently taking the carbamazepine will hold for the next 24 hours if is still patient n.p.o. 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
--- NOTE | 2017-03-20 12:48 | RADIOLOGY REPORT (SQ) ---
EXAM DESCRIPTION: CHEST SINGLE VIEW COMPLETED DATE/TIME: 03/20/2017 12:16 pm REASON FOR STUDY: Pneumothorax evaluation COMPARISON: Chest films 03/20/2017, 2318 hours 10/05/2017, 03/17/2017, 03/16/2017 EXAM PARAMETERS: NUMBER OF VIEWS: One view. TECHNIQUE: Single frontal radiographic view of the chest acquired. RADIATION DOSE: NA LIMITATIONS: None. FINDINGS: LUNGS AND PLEURA: Unchanged right chest tube. No pneumothorax. No right pleural effusion There is patchy airspace disease in the right middle and lower lobe adjacent to the chest tube, atele ctasis favored over pneumonia. Left lung clear. No left pleural effusion or pneumothorax. MEDIASTINUM AND HILAR STRUCTURES: No masses. Contour normal. HEART AND VASCULAR STRUCTURES: Heart normal in size. Normal vasculature. BONES: No acute findings. HARDWARE: Left-sided jugular neurostimulator and right-sided ventriculoperitoneal shunt tubing unchan ged OTHER: No other significant finding. IMPRESSION: No right-sided pneumothorax. Chest tube unchanged. Minimal airspace disease along the right middle lobe adjacent to the chest tube, stable TECHNICAL DOCUMENTATION: JOB ID: [id number] [employer]- All Rights Reserved
--- NOTE | 2017-03-20 17:23 | RADIOLOGY REPORT (SQ) ---
EXAM DESCRIPTION: CHEST SINGLE VIEW COMPLETED DATE/TIME: 03/20/2017 5:00 pm REASON FOR STUDY: Evaluate for Pneumothorax COMPARISON: 03/20/2017 at 0208 hours. EXAM PARAMETERS: NUMBER OF VIEWS: One view. TECHNIQUE: Single frontal radiographic view of the chest acquired. RADIATION DOSE: NA LIMITATIONS: None. FINDINGS: LUNGS AND PLEURA: No change. Again seen is patchy density in the right lung base. No pne umothorax pre MEDIASTINUM AND HILAR STRUCTURES: No masses. Contour normal. HEART AND VASCULAR STRUCTURES: Heart normal in size. Normal vasculature. BONES: No acute findings. HARDWARE: Right chest tube. Stimulator device overlying the left chest with electrodes at the base o f the neck. OTHER: No other significant finding. IMPRESSION: NO CHANGE IN APPEARANCE OF THE CHEST. NO PNEUMOTHORAX. TECHNICAL DOCUMENTATION: JOB ID: [id number] [employer]- All Rights Reserved
--- NOTE | 2017-03-20 18:00 | PDOC PROGRESS REPORT ---
Subjective Progress Note for:: 03/20/17 Subjective:: The patient had the chest tube off suction for 6 hrs morning, repeat CXR did not show any recurrent pneumothorax. The tube was then clamped for 5 hrs without recurrence of pneumothorax on repeat CXR. No difficulty breathing either. Reason For Visit: PNEUMOTHORAX PNEUMONIA Physical Exam Vital Signs: Temp Pulse Resp BP Pulse Ox 101.9 F H 109 H 21 H 112/90 H 90 L 03/20/17 17:07 03/20/17 17:07 03/20/17 17:07 03/20/17 17:07 03/20/17 17:07 Intake & Output 03/19/17 03/20/17 03/21/17 06:59 06:59 06:59 Intake Total 2633 2108 Output Total 0 Balance 2633 2108 Weight 53.5 kg General appearance: PRESENT: no acute distress Respiratory exam: PRESENT: clear to auscultation roula, unlabored, other - right chest tube in place - clamped presently Cardiovascular exam: PRESENT: +S1, +S2 GI/Abdominal exam: PRESENT: soft Neurological exam: PRESENT: awake Results Laboratory Results: 03/19/17 04:09 03/19/17 04:09 Impressions: Chest X-Ray 03/20/17 16:36 IMPRESSION: NO CHANGE IN APPEARANCE OF THE CHEST. NO PNEUMOTHORAX. Assessment & Plan - Diagnosis (1) Pneumothorax on right Is this a current diagnosis for this admission?: Yes Plan: The chest tube will be removed. Surgery will sign off - please feel free to reconsult if needed. - Time Time Spent with patient: 15-24 minutes Total Critical Time (Minutes): 15 - Plan Summary Plan Summary: The chest tube will be removed. Surgery will sign off - please feel free to reconsult if needed
[2017-03-20] MEDS ORDERED: NORMAL SALINE 1000 ML 1,000 ML IV PRN (19:12)
[2017-03-20] MEDS ORDERED: VANCOMYCIN HCL 0 MG in DEXTROSE 5%-WATER 250 ML IV NR (19:15)
--- NOTE | 2017-03-20 19:45 | RADIOLOGY REPORT (SQ) ---
EXAM DESCRIPTION: CHEST SINGLE VIEW COMPLETED DATE/TIME: 03/20/2017 7:29 pm REASON FOR STUDY: respiratory distress COMPARISON: 03/20/2017,, 1639 hours EXAM PARAMETERS: NUMBER OF VIEWS: One view. TECHNIQUE: Single frontal radiographic view of the chest acquired. RADIATION DOSE: NA LIMITATIONS: None. FINDINGS: Post removal of the right-sided chest tube. There is a small right apical pneumothorax. This report was called to Dr. Novak, 1930 hours 03/20/2017. LUNGS AND PLEURA: Small right apical pneumothorax post right chest tube removal. Consolidation in the right middle lobe and lower lobe atelectasis versus pneumonia. This is unchange d from earlier today. Left lung well inflated and clear. No pleural effusions. MEDIASTINUM AND HILAR STRUCTURES: No masses. Contour normal. HEART AND VASCULAR STRUCTURES: Heart normal in size. Normal vasculature. BONES: No acute findings. HARDWARE: Left-sided jugular neurostimulator unchanged. Old ventriculoperitoneal shunt tubing right chest OTHER: Gaseous distention of the stomach IMPRESSION: Small right apical pneumothorax post chest tube removal Persistent patchy airspace disease in the right middle and lower lobe atelectasis versus pneumonia Gaseous distention of stomach TECHNICAL DOCUMENTATION: JOB ID: [id number] [employer]- All Rights Reserved
[2017-03-20] MEDS ORDERED: VANCOMYCIN HCL INJ 1000 MG VIAL IV PRN (20:08)
[2017-03-20] MEDS ORDERED: VANCOMYCIN HCL 1,000 MG in DEXTROSE 5%-WATER 250 ML IV ONE (20:30)
[2017-03-20 20:35] LABS: ARTERIAL BLOOD BASE EXCESS 2.2 mmol/L; ARTERIAL BLOOD FIO2 4L; ARTERIAL BLOOD H2CO3 1.06 mmol/L (1.05-1.35); ARTERIAL BLOOD HCO3 25.4 mmol/L (20-26); ARTERIAL BLOOD O2 SATURATION 94.4 % (94-98); ARTERIAL BLOOD PCO2 35.2 mmHg (35-45); ARTERIAL BLOOD PH 7.48 (7.35-7.45); ARTERIAL BLOOD PO2 65.9 mmHg (80-100); ARTERIAL BLOOD TOTAL CO2 26.5 mmol/L (23-27)
[2017-03-20 20:49] LABS: A TYPE INFLUENZA AG NEGATIVE (NEGATIVE); B INFLUENZA AG NEGATIVE (NEGATIVE)
[2017-03-20] MEDS: MORPHINE SULFATE 10 MG/ML INJ IV PRN (22:32)
[2017-03-20] MEDS: LORAZEPAM INJ 2 MG/1 ML VIAL IV PRN (22:32)
[2017-03-20] MEDS: LEVETIRACETAM 500 MG in NORMAL SALINE 100 ML IV SCH (22:33)
[2017-03-20] MEDS: CLONAZEPAM 1 MG TABLET PO SCH (22:34)
[2017-03-20] MEDS: ZOLPIDEM TARTRATE 5 MG TABLET PO SCH (22:34)
[2017-03-20] MEDS: PERAMPANEL 10 MG PO SCH (22:45)
[2017-03-21] MEDS: PERAMPANEL 10 MG PO SCH (04:11)
[2017-03-21 04:24] LABS: ABSOLUTE BASOPHILS # (AUTO) 0.1 10^3/uL (0.0-0.2); ABSOLUTE EOSINOPHILS # (AUTO) 0.3 10^3/uL (0.0-0.6); ABSOLUTE MONOCYTES (AUTO) 1.8 10^3/uL (0.1-1.4); ABSOLUTE NEUT (AUTO) 6.6 10^3/uL (1.7-8.2); BASOPHILS % (AUTO) 0.7 % (0-2); EOSINOPHILS % (AUTO) 2.7 % (0-6); HEMOGLOBIN 11.8 g/dL (13.5-17.0); LYMPHOCYTES % (AUTO) 25.1 % (13-45); MEAN CORPUSCULAR HEMOGLOBIN 28.7 pg (27.0-33.4); MEAN CORPUSCULAR HGB CONC 33.7 g/dL (32.0-36.0); MEAN CORPUSCULAR VOLUME 85 fl (80-97); MONOCYTES % (AUTO) 15.3 % (3-13); RED BLOOD COUNT 4.12 10^6/uL (4.35-5.55); RED CELL DISTRIBUTION WIDTH 13.6 % (11.5-14.0); SEGMENTED NEUTROPHILS % (AUTO) 56.2 % (42-78); TOTAL CELLS COUNTED % (AUTO) 100 %; WHITE BLOOD COUNT 11.8 10^3/uL (4.0-10.5)
[2017-03-21 04:48] LABS: PLATELET COUNT 236 10^3/uL (150-450)
[2017-03-21 04:49] LABS: ANION GAP 8 (5-19); BLOOD UREA NITROGEN 7 mg/dL (7-20); CARBON DIOXIDE 26 mmol/L (22-30); CHLORIDE 106 mmol/L (98-107); GLUCOSE 86 mg/dL (75-110); POTASSIUM 3.9 mmol/L (3.6-5.0)
[2017-03-21] MEDS: MORPHINE SULFATE 10 MG/ML INJ IV PRN (05:21)
[2017-03-21] MEDS: CEFEPIME 1 GM/D5W RTU 1 GM/50 ML RTUPB IV SCH ×2 (06:44→17:20)
[2017-03-21] MEDS: CLINDAMYCIN 600 MG/D5W RTU 600 MG/50 ML RTUPB IV SCH ×3 (06:44→22:41)
--- NOTE | 2017-03-21 07:40 | RADIOLOGY REPORT (SQ) ---
EXAM DESCRIPTION: CHEST SINGLE VIEW COMPLETED DATE/TIME: 03/21/2017 7:11 am REASON FOR STUDY: ptx COMPARISON: Chest x-ray 03/20/2017 EXAM PARAMETERS: NUMBER OF VIEWS: One view. TECHNIQUE: Single frontal radiographic view of the chest acquired. RADIATION DOSE: NA LIMITATIONS: None. FINDINGS: LUNGS AND PLEURA: There is increase in the small right-sided pneumothorax extending around the lung and measuring approximately 1.8 cm at the lung apex. Ground-glass opacity again noted at t he right lung base. The left lung is clear. MEDIASTINUM AND HILAR STRUCTURES: There is mild mediastinal shift to the right. HEART AND VASCULAR STRUCTURES: Heart normal in size. Normal vasculature. BONES: No acute findings. HARDWARE: There is the battery pack from a stimulator overlying the left upper chest. There is a rad iopaque catheter coursing along the right side of the chest. IMPRESSION: 1. Interval increase in the small right-sided pneumothorax. Persistent ground-glass opa city at the right lung base, may represent atelectasis, pneumonia, asymmetric pulmonary edema or hemo rrhage. 2. Mild mediastinal shift to the right. COMMENT: Pertinent findings on the imaging study reported as a CRITICAL RESULT to Dr. Benson At07:30 hrs on 03/21/2017. Category of Critical Result: Mild interval increase in the small right-sided pneumothorax. Mild medi astinal shift to the right. TECHNICAL DOCUMENTATION: JOB ID: [id number] 2010 [employer]- All Rights Reserved
--- NOTE | 2017-03-21 09:10 | PDOC PROGRESS REPORT ---
Subjective Progress Note for:: 03/21/17 Reason For Visit: PNEUMOTHORAX PNEUMONIA No apparent distress; patient is now 12 hours status post right chest tube removal Physical Exam Vital Signs: Temp Pulse Resp BP Pulse Ox 98.8 F 66 17 92/66 L 97 03/21/17 08:44 03/21/17 08:44 03/21/17 08:44 03/21/17 08:44 03/21/17 08:44 Intake & Output 03/20/17 03/21/17 03/22/17 06:59 06:59 06:59 Intake Total 2108 1602 Balance 2108 1602 Weight 53.5 kg 58.8 kg General appearance: PRESENT: no acute distress, other - She does not follow commands, wrist restraints in place. Respiratory exam: PRESENT: other - Dressing right lateral chest intact; patient moving air laterally; no subcutaneous air Results Laboratory Results: 03/21/17 03:57 03/21/17 03:57 03/20/17 03/21/17 03/21/17 20:00 03:57 03:57 WBC 11.8 H RBC 4.12 L Hgb 11.8 L Hct 35.0 L MCV 85 MCH 28.7 MCHC 33.7 RDW 13.6 Plt Count 236 Seg Neutrophils % 56.2 Lymphocytes % 25.1 Monocytes % 15.3 H Eosinophils % 2.7 Basophils % 0.7 Absolute Neutrophils 6.6 Absolute Lymphocytes 3.0 Absolute Monocytes 1.8 H Absolute Eosinophils 0.3 Absolute Basophils 0.1 Carbonic Acid 1.06 HCO3/H2CO3 Ratio 23:1 ABG pH 7.48 H ABG pCO2 35.2 ABG pO2 65.9 L ABG HCO3 25.4 ABG O2 Saturation 94.4 ABG Base Excess 2.2 FiO2 4L Sodium 140.0 Potassium 3.9 Chloride 106 Carbon Dioxide 26 Anion Gap 8 BUN 7 Creatinine 0.62 Est GFR ( Amer) > 60 Est GFR (Non-Af Amer) > 60 Glucose 86 Calcium 9.0 Impressions: Chest X-Ray 03/21/17 07:15 IMPRESSION: 1. Interval increase in the small right-sided pneumothorax. Persistent ground-glass opacity at the right lung base, may represent atelectasis, pneumonia, asymmetric pulmonary edema or hemorrhage. 2. Mild mediastinal shift to the right. Assessment & Plan - Diagnosis (1) Pneumothorax on right Is this a current diagnosis for this admission?: Yes Plan: It is post right thoracostomy tube placement last week, removal 12 hours ago, with residual apical and slightly lateral pneumothorax; patient in no acute distress; cutaneous emphysema, maintaining good saturations. Recommendations: 1. Reviewed the chest x-ray from this morning; given the patient's clinical stability, I suggested an interval x-ray this afternoon, preferably in the department, assess into the status of the pneumothorax. Currently, by report, the patient did not have an air leak during his first chest tube. 2. If the pneumothorax is stable, we may be able to manage it nonoperatively. Conversely, if it expands, a replacement chest tube may be required
[2017-03-21] MEDS: CLORAZEPATE 3.75 MG PO SCH ×2 (09:50→17:20)
[2017-03-21] MEDS: CHOLECALCIFEROL (D3) 1,000 UNIT TABLET PO SCH (09:51)
[2017-03-21] MEDS: CARBAMAZEPINE 100 MG TAB.CHEW PO SCH ×3 (09:51→17:20)
[2017-03-21] MEDS: LACOSAMIDE INJ/PF 200 MG/20 ML SDV IV SCH ×2 (09:52→22:42)
[2017-03-21] MEDS: AZITHROMYCIN 500 MG in DEXTROSE 5%-WATER 250 ML IV SCH (09:54)
[2017-03-21] MEDS: ENOXAPARIN SODIUM INJ 40 MG/0.4 ML DISP.SYRIN SUBCUT SCH (09:55)
[2017-03-21] MEDS: POLYETHYLENE GLYCOL 3350 POWDER 17 GM/1 PACKET PO SCH (09:56)
[2017-03-21] MEDS: LEVETIRACETAM 500 MG in NORMAL SALINE 100 ML IV SCH (10:04)
[2017-03-21] MEDS: VANCOMYCIN HCL 750 MG in DEXTROSE 5%-WATER 250 ML IV SCH ×2 (10:55→17:20)
--- NOTE | 2017-03-21 11:01 | PDOC PROGRESS REPORT ---
Subjective Progress Note for:: 03/21/17 Subjective:: Patient with chest tube removed yesterday and up to 2 hours patients get more distressedRepeat his chest x-ray so still have a some small pneumothoraxAnd this morning increasing the more size As per discussed with the general surgery myself and evaluate the patient and plan is to repeat the chest x-ray again in the lunchtime Reason also was running a fever last night and added vancomycin Patient's currently lying in the bed with a nasal cannulaNo acute distress is seen Reason For Visit: PNEUMOTHORAX PNEUMONIA Physical Exam Vital Signs: Temp Pulse Resp BP Pulse Ox 98.8 F 66 17 92/66 L 97 03/21/17 08:44 03/21/17 08:44 03/21/17 08:44 03/21/17 08:44 03/21/17 08:44 Intake & Output 03/20/17 03/21/17 03/22/17 06:59 06:59 06:59 Intake Total 2108 1602 Balance 2108 1602 Weight 53.5 kg 58.8 kg General appearance: PRESENT: no acute distress Eye exam: PRESENT: PERRLA Mouth exam: PRESENT: neck supple Respiratory exam: PRESENT: clear to auscultation roula Cardiovascular exam: PRESENT: +S1, +S2 GI/Abdominal exam: PRESENT: normal bowel sounds, soft Extremities exam: ABSENT: pedal edema Neurological exam: PRESENT: alert Psychiatric exam: PRESENT: anxious Skin exam: PRESENT: dry Results Laboratory Results: 03/21/17 03:57 03/21/17 03:57 03/20/17 03/21/17 03/21/17 20:00 03:57 03:57 WBC 11.8 H RBC 4.12 L Hgb 11.8 L Hct 35.0 L MCV 85 MCH 28.7 MCHC 33.7 RDW 13.6 Plt Count 236 Seg Neutrophils % 56.2 Lymphocytes % 25.1 Monocytes % 15.3 H Eosinophils % 2.7 Basophils % 0.7 Absolute Neutrophils 6.6 Absolute Lymphocytes 3.0 Absolute Monocytes 1.8 H Absolute Eosinophils 0.3 Absolute Basophils 0.1 Carbonic Acid 1.06 HCO3/H2CO3 Ratio 23:1 ABG pH 7.48 H ABG pCO2 35.2 ABG pO2 65.9 L ABG HCO3 25.4 ABG O2 Saturation 94.4 ABG Base Excess 2.2 FiO2 4L Sodium 140.0 Potassium 3.9 Chloride 106 Carbon Dioxide 26 Anion Gap 8 BUN 7 Creatinine 0.62 Est GFR ( Amer) > 60 Est GFR (Non-Af Amer) > 60 Glucose 86 Calcium 9.0 Impressions: Chest X-Ray 03/21/17 07:15 IMPRESSION: 1. Interval increase in the small right-sided pneumothorax. Persistent ground-glass opacity at the right lung base, may represent atelectasis, pneumonia, asymmetric pulmonary edema or hemorrhage. 2. Mild mediastinal shift to the right. Assessment & Plan - Diagnosis (1) Pneumonia Qualifiers: Pneumonia type: due to unspecified organism Laterality: bilateral Lung location: unspecified part of lung Qualified Code(s): J18.9 - Pneumonia, unspecified organism Is this a current diagnosis for this admission?: Yes Plan: Continues to IV antibiotic (2) Pneumothorax on right Is this a current diagnosis for this admission?: Yes Plan: Follow with the general surgery (3) Epilepsy Qualifiers: Epilepsy type: other generalized Is this a current diagnosis for this admission?: Yes Plan: Patient is currently n.p.o. because of the possible aspirations discussed with the pharmacy and change the IV Vimpat and patients currently taking the carbamazepine will hold for the next 24 hours if is still patient n.p.o. may be considered to the IV Keppra (4) GERD (gastroesophageal reflux disease) Qualifiers: Esophagitis presence: without esophagitis Is this a current diagnosis for this admission?: Yes Plan: Continues to PPI (5) Mental and behavioral problem Is this a current diagnosis for this admission?: Yes - Time Time Spent with patient: 15-24 minutes Total Critical Time (Minutes): 30 Medications reviewed and adjusted accordingly: Yes Anticipated discharge: Other Within: Other - Inpatient Certification Medical Necessity: Need Close Monitoring Due to Risk of Patient Decompensation, Need For IV Fluids, Need for IV Antibiotics Post Hospital Care: D/C [employer] Colerer Documentation - Plan Summary Plan Summary: Continues to current orders as above Consult pulmonary and general surgery already done Discussed with the caregiver at [facility] regarding the patient's conditions
--- NOTE | 2017-03-21 14:42 | RADIOLOGY REPORT (SQ) ---
EXAM DESCRIPTION: CHEST PA/LAT COMPLETED DATE/TIME: 03/21/2017 1:39 pm REASON FOR STUDY: Interval change in right pneumothorax COMPARISON: Chest films 03/21/2017, 03/16/2017 EXAM PARAMETERS: NUMBER OF VIEWS: two views TECHNIQUE: Digital Frontal and Lateral radiographic views of the chest acquired. RADIATION DOSE: NA LIMITATIONS: none FINDINGS: LUNGS AND PLEURA: 20% right apical pneumothorax, similar compared to 03/21/2017 at 0701 hour s and similar compared to 03/16/2017 chest film. There is now consolidation in the right middle and lower lobe atelectasis versus pneumonia. Trace ri ght pleural effusion may be present. Left lung well inflated and clear. No left pleural effusion or pneumothorax. MEDIASTINUM AND HILAR STRUCTURES: No masses or contour abnormalities. HEART AND VASCULAR STRUCTURES: Heart normal size. No evidence for failure. BONES: No acute findings. HARDWARE: Left-sided jugular neurostimulator, fractured right anterior chest ventriculoperitoneal navdeep nt tubing OTHER: No other significant finding. IMPRESSION: 20% right apical pneumothorax Right middle and lower lobe consolidation with trace right pleural effusion TECHNICAL DOCUMENTATION: JOB ID: [id number] [employer]- All Rights Reserved
[2017-03-21] MEDS: LEVETIRACETAM 500 MG/NACL-ISO 500 MG/100 ML RTUPB IV SCH (22:41)
[2017-03-21] MEDS: ZOLPIDEM TARTRATE 5 MG TABLET PO SCH (22:43)
[2017-03-21] MEDS: CLONAZEPAM 1 MG TABLET PO SCH (22:44)
[2017-03-22] MEDS: VANCOMYCIN HCL 750 MG in DEXTROSE 5%-WATER 250 ML IV SCH ×2 (02:18→11:02)
[2017-03-22] MEDS: MORPHINE SULFATE 10 MG/ML INJ IV PRN (04:23)
[2017-03-22 04:44] LABS: ALANINE AMINOTRANSFERASE 46 U/L (21-72); ALBUMIN 3.3 g/dL (3.5-5.0); ALKALINE PHOSPHATASE 82 U/L (38-126); ANION GAP 6 (5-19); ASPARTATE AMINO TRANSFERASE 58 U/L (17-59); BILIRUBIN,DIRECT 0.3 mg/dL (0.0-0.4); BILIRUBIN,TOTAL 0.3 mg/dL (0.2-1.3); BLOOD UREA NITROGEN 6 mg/dL (7-20); CALCIUM 9.2 mg/dL (8.4-10.2); CARBON DIOXIDE 27 mmol/L (22-30); CHLORIDE 108 mmol/L (98-107); GLUCOSE 89 mg/dL (75-110); POTASSIUM 3.8 mmol/L (3.6-5.0); SODIUM 140.6 mmol/L (137-145); TOTAL PROTEIN 6.8 g/dL (6.3-8.2)
[2017-03-22] MEDS: CLINDAMYCIN 600 MG/D5W RTU 600 MG/50 ML RTUPB IV SCH ×3 (05:42→21:06)
[2017-03-22] MEDS: CEFEPIME 1 GM/D5W RTU 1 GM/50 ML RTUPB IV SCH ×2 (05:42→18:59)
[2017-03-22 05:45] LABS: ABSOLUTE BASOPHILS # (AUTO) 0.1 10^3/uL (0.0-0.2); ABSOLUTE EOSINOPHILS # (AUTO) 0.3 10^3/uL (0.0-0.6); ABSOLUTE LYMPHOCYTES (AUTO) 2.2 10^3/uL (0.5-4.7); ABSOLUTE MONOCYTES (AUTO) 0.9 10^3/uL (0.1-1.4); ABSOLUTE NEUT (AUTO) 5.8 10^3/uL (1.7-8.2); BASOPHILS % (AUTO) 0.7 % (0-2); EOSINOPHILS % (AUTO) 3.3 % (0-6); HEMATOCRIT 33.7 % (37.9-51.0); HEMOGLOBIN 11.4 g/dL (13.5-17.0); LYMPHOCYTES % (AUTO) 23.8 % (13-45); MEAN CORPUSCULAR HEMOGLOBIN 28.7 pg (27.0-33.4); MEAN CORPUSCULAR VOLUME 85 fl (80-97); MONOCYTES % (AUTO) 10.1 % (3-13); PLATELET COUNT 314 10^3/uL (150-450); RED BLOOD COUNT 3.98 10^6/uL (4.35-5.55); RED CELL DISTRIBUTION WIDTH 13.3 % (11.5-14.0); SEGMENTED NEUTROPHILS % (AUTO) 62.1 % (42-78); TOTAL CELLS COUNTED % (AUTO) 100 %; WHITE BLOOD COUNT 9.3 10^3/uL (4.0-10.5)
--- NOTE | 2017-03-22 08:01 | PDOC PROGRESS REPORT ---
Subjective Progress Note for:: 03/22/17 Subjective:: Recurrent stable 20% pneumothorax after removal of chest tube - no air leak noted prior to removal; also patient had a clamp trial prior to chest tube removal with no recurrence of pneumothorax on pre-removal chest xray. No respiratory distress noted however since chest tube removal. Reason For Visit: PNEUMOTHORAX PNEUMONIA Physical Exam Vital Signs: Temp Pulse Resp BP Pulse Ox 98.8 F 70 18 97/78 L 99 03/21/17 23:54 03/22/17 07:51 03/22/17 07:00 03/22/17 07:00 03/22/17 07:00 Intake & Output 03/21/17 03/22/17 03/23/17 06:59 06:59 06:59 Intake Total 1602 2472 Balance 1602 2472 Weight 58.8 kg 56 kg General appearance: PRESENT: no acute distress Head exam: PRESENT: normocephalic Eye exam: PRESENT: conjunctiva pink Respiratory exam: PRESENT: clear to auscultation roula, unlabored Cardiovascular exam: PRESENT: +S1, +S2 GI/Abdominal exam: PRESENT: normal bowel sounds, soft Neurological exam: PRESENT: awake Results Laboratory Results: 03/22/17 05:40 03/22/17 04:16 03/22/17 03/22/17 03/22/17 04:16 04:16 05:40 WBC Cancelled 9.3 RBC Cancelled 3.98 L Hgb Cancelled 11.4 L Hct Cancelled 33.7 L MCV Cancelled 85 MCH Cancelled 28.7 MCHC Cancelled 34.0 RDW Cancelled 13.3 Plt Count Cancelled 314 Seg Neutrophils % Cancelled 62.1 Lymphocytes % Cancelled 23.8 Monocytes % Cancelled 10.1 Eosinophils % Cancelled 3.3 Basophils % Cancelled 0.7 Absolute Neutrophils Cancelled 5.8 Absolute Lymphocytes Cancelled 2.2 Absolute Monocytes Cancelled 0.9 Absolute Eosinophils Cancelled 0.3 Absolute Basophils Cancelled 0.1 Sodium 140.6 Potassium 3.8 Chloride 108 H Carbon Dioxide 27 Anion Gap 6 BUN 6 L Creatinine 0.69 Est GFR ( Amer) > 60 Est GFR (Non-Af Amer) > 60 Glucose 89 Calcium 9.2 Total Bilirubin 0.3 AST 58 ALT 46 Alkaline Phosphatase 82 Total Protein 6.8 Albumin 3.3 L 03/16/17 23:11 Blood Blood Culture - Final NO GROWTH IN 5 DAYS Impressions: Chest X-Ray 03/21/17 13:00 IMPRESSION: 20% right apical pneumothorax Right middle and lower lobe consolidation with trace right pleural effusion Assessment & Plan - Diagnosis (1) Pneumothorax on right Is this a current diagnosis for this admission?: Yes - Time Time Spent with patient: Less than 15 minutes - Plan Summary Plan Summary: Will continue to observe the patient for now - will not reinsert chest tube. Nasal oxygen may expedite absorption of pneumothorax.
--- NOTE | 2017-03-22 09:44 | RADIOLOGY REPORT (SQ) ---
EXAM DESCRIPTION: CHEST SINGLE VIEW COMPLETED DATE/TIME: 03/22/2017 9:15 am REASON FOR STUDY: Follow-up pneumothorax COMPARISON: 03/21/2017. FINDINGS: Single-view chest, portable upright approximately 0910 hours. Pneumothorax has improved. Small right pneumothorax remains. Persistent patchy infiltrate in the right base. Right IJ line remains in place. IMPRESSION: Small but improved right apical pneumothorax. TECHNICAL DOCUMENTATION: JOB ID: [id number]
[2017-03-22] MEDS ORDERED: LEVETIRACETAM 500 MG/NACL-ISO 500 MG/100 ML RTUPB IV SCH (10:00)
[2017-03-22 10:52] LABS: VANCOMYCIN,TROUGH 9.8 ug/mL (5.0-20.0)
[2017-03-22] MEDS: CLORAZEPATE 3.75 MG PO SCH ×2 (11:00→18:33)
[2017-03-22] MEDS: ENOXAPARIN SODIUM INJ 40 MG/0.4 ML DISP.SYRIN SUBCUT SCH (11:01)
[2017-03-22] MEDS: LACOSAMIDE INJ/PF 200 MG/20 ML SDV IV SCH ×2 (11:01→21:18)
[2017-03-22] MEDS: CARBAMAZEPINE 100 MG TAB.CHEW PO SCH ×3 (11:01→18:33)
[2017-03-22] MEDS: AZITHROMYCIN 250 MG TABLET PO SCH (11:01)
[2017-03-22] MEDS: CHOLECALCIFEROL (D3) 1,000 UNIT TABLET PO SCH (11:01)
[2017-03-22] MEDS: POLYETHYLENE GLYCOL 3350 POWDER 17 GM/1 PACKET PO SCH (11:03)
--- NOTE | 2017-03-22 11:53 | PDOC PROGRESS REPORT ---
Subjective Progress Note for:: 03/22/17 Subjective:: Patient is currently doing fair No fever overnight No seizures activity noticed overnight Since chest x-ray stableAnd according to the surgeons no need for chest tube at this stage Discussed with Dr. Morrison's about the patient's pneumonia Reason For Visit: PNEUMOTHORAX PNEUMONIA Physical Exam Vital Signs: Temp Pulse Resp BP Pulse Ox 98.0 F 69 18 121/88 H 97 03/22/17 08:33 03/22/17 08:33 03/22/17 08:33 03/22/17 08:33 03/22/17 08:33 Intake & Output 03/21/17 03/22/17 03/23/17 06:59 06:59 06:59 Intake Total 1602 2472 Balance 1602 2472 Weight 58.8 kg 56 kg General appearance: PRESENT: no acute distress, well-developed, well-nourished Head exam: PRESENT: atraumatic, normocephalic Eye exam: PRESENT: conjunctiva pink, EOMI, PERRLA. ABSENT: scleral icterus Ear exam: PRESENT: normal external ear exam Mouth exam: PRESENT: moist, tongue midline Neck exam: PRESENT: full ROM. ABSENT: carotid bruit, JVD, lymphadenopathy, thyromegaly Respiratory exam: PRESENT: clear to auscultation roula Cardiovascular exam: PRESENT: RRR. ABSENT: diastolic murmur, rubs, systolic murmur Pulses: PRESENT: normal dorsalis pedis pul, +2 pedal pulses bilateral Vascular exam: PRESENT: normal capillary refill GI/Abdominal exam: PRESENT: normal bowel sounds, soft. ABSENT: distended, guarding, mass, organolmegaly, rebound, tenderness Rectal exam: PRESENT: deferred Neurological exam: PRESENT: alert, awake. ABSENT: motor sensory deficit Psychiatric exam: PRESENT: anxious. ABSENT: homicidal ideation, suicidal ideation Skin exam: PRESENT: dry, intact, warm. ABSENT: cyanosis, rash Results Laboratory Results: 03/22/17 05:40 03/22/17 09:53 03/22/17 03/22/17 03/22/17 04:16 04:16 05:40 WBC Cancelled 9.3 RBC Cancelled 3.98 L Hgb Cancelled 11.4 L Hct Cancelled 33.7 L MCV Cancelled 85 MCH Cancelled 28.7 MCHC Cancelled 34.0 RDW Cancelled 13.3 Plt Count Cancelled 314 Seg Neutrophils % Cancelled 62.1 Lymphocytes % Cancelled 23.8 Monocytes % Cancelled 10.1 Eosinophils % Cancelled 3.3 Basophils % Cancelled 0.7 Absolute Neutrophils Cancelled 5.8 Absolute Lymphocytes Cancelled 2.2 Absolute Monocytes Cancelled 0.9 Absolute Eosinophils Cancelled 0.3 Absolute Basophils Cancelled 0.1 Sodium 140.6 Potassium 3.8 Chloride 108 H Carbon Dioxide 27 Anion Gap 6 BUN 6 L Creatinine 0.69 Est GFR ( Amer) > 60 Est GFR (Non-Af Amer) > 60 Glucose 89 Calcium 9.2 Total Bilirubin 0.3 AST 58 ALT 46 Alkaline Phosphatase 82 Total Protein 6.8 Albumin 3.3 L 03/22/17 09:53 WBC RBC Hgb Hct MCV MCH MCHC RDW Plt Count Seg Neutrophils % Lymphocytes % Monocytes % Eosinophils % Basophils % Absolute Neutrophils Absolute Lymphocytes Absolute Monocytes Absolute Eosinophils Absolute Basophils Sodium Potassium Chloride Carbon Dioxide Anion Gap BUN Creatinine 0.63 Est GFR ( Amer) > 60 Est GFR (Non-Af Amer) > 60 Glucose Calcium Total Bilirubin AST ALT Alkaline Phosphatase Total Protein Albumin 03/16/17 23:11 Blood Blood Culture - Final NO GROWTH IN 5 DAYS Impressions: Chest X-Ray 03/22/17 06:00 IMPRESSION: Small but improved right apical pneumothorax. Assessment & Plan - Diagnosis (1) Pneumonia Qualifiers: Pneumonia type: due to unspecified organism Laterality: bilateral Lung location: unspecified part of lung Qualified Code(s): J18.9 - Pneumonia, unspecified organism Is this a current diagnosis for this admission?: Yes Plan: Continues to IV antibiotic (2) Pneumothorax on right Is this a current diagnosis for this admission?: Yes Plan: Follow with the general surgery (3) Epilepsy Qualifiers: Epilepsy type: other generalized Is this a current diagnosis for this admission?: Yes Plan: Patient is currently n.p.o. because of the possible aspirations discussed with the pharmacy and change the IV Vimpat and patients currently taking the carbamazepine will hold for the next 24 hours if is still patient n.p.o. may be considered to the IV Keppra (4) GERD (gastroesophageal reflux disease) Qualifiers: Esophagitis presence: without esophagitis Is this a current diagnosis for this admission?: Yes Plan: Continues to PPI (5) Mental and behavioral problem Is this a current diagnosis for this admission?: Yes - Time Time Spent with patient: 15-24 minutes Medications reviewed and adjusted accordingly: Yes Anticipated discharge: Other Within: Other - Inpatient Certification Medical Necessity: Need Close Monitoring Due to Risk of Patient Decompensation, Need for IV Antibiotics Post Hospital Care: D/C Acquisitions Logistics Analyst Documentation - Plan Summary Plan Summary: Continues to current antibioticDiscussed with the caregiver at [facility] and discussed with the pulmonary
[2017-03-22] MEDS: LEVETIRACETAM 500 MG/NACL-ISO 500 MG/100 ML RTUPB IV SCH ×2 (13:37→21:20)
[2017-03-22] MEDS ORDERED: ACETYLCYSTEINE 20% SOLN 800 MG/4 ML VIAL.NEB NEB ONE (15:00)
[2017-03-22] MEDS: IPRATROPIUM/ALBUTEROL 0.5-2.5 MG/3 ML AMPUL NEB SCH ×2 (15:50→19:41)
[2017-03-22] MEDS: VANCOMYCIN HCL 1,000 MG in DEXTROSE 5%-WATER 250 ML IV SCH (18:33)
[2017-03-22] MEDS: ACETYLCYSTEINE 20% SOLN 800 MG/4 ML VIAL.NEB NEB SCH (19:41)
[2017-03-22] MEDS: ZOLPIDEM TARTRATE 5 MG TABLET PO SCH (21:11)
[2017-03-22] MEDS: CLONAZEPAM 1 MG TABLET PO SCH (21:19)
[2017-03-23] MEDS: VANCOMYCIN HCL 1,000 MG in DEXTROSE 5%-WATER 250 ML IV SCH ×3 (01:12→18:05)
[2017-03-23] MEDS: CLINDAMYCIN 600 MG/D5W RTU 600 MG/50 ML RTUPB IV SCH ×3 (05:44→21:16)
[2017-03-23] MEDS: CEFEPIME 1 GM/D5W RTU 1 GM/50 ML RTUPB IV SCH (05:47)
[2017-03-23 06:53] LABS: ABSOLUTE BASOPHILS # (AUTO) 0.1 10^3/uL (0.0-0.2); ABSOLUTE EOSINOPHILS # (AUTO) 0.4 10^3/uL (0.0-0.6); ABSOLUTE LYMPHOCYTES (AUTO) 2.8 10^3/uL (0.5-4.7); ABSOLUTE MONOCYTES (AUTO) 0.8 10^3/uL (0.1-1.4); ABSOLUTE NEUT (AUTO) 4.1 10^3/uL (1.7-8.2); EOSINOPHILS % (AUTO) 4.5 % (0-6); HEMATOCRIT 34.3 % (37.9-51.0); HEMOGLOBIN 11.6 g/dL (13.5-17.0); LYMPHOCYTES % (AUTO) 34.8 % (13-45); MEAN CORPUSCULAR HEMOGLOBIN 28.7 pg (27.0-33.4); MEAN CORPUSCULAR VOLUME 84 fl (80-97); MONOCYTES % (AUTO) 9.2 % (3-13); PLATELET COUNT 358 10^3/uL (150-450); RED BLOOD COUNT 4.06 10^6/uL (4.35-5.55); RED CELL DISTRIBUTION WIDTH 13.6 % (11.5-14.0); SEGMENTED NEUTROPHILS % (AUTO) 50.5 % (42-78); TOTAL CELLS COUNTED % (AUTO) 100 %; WHITE BLOOD COUNT 8.1 10^3/uL (4.0-10.5)
[2017-03-23 07:05] LABS: ANION GAP 11 (5-19); BLOOD UREA NITROGEN 6 mg/dL (7-20); CALCIUM 9.4 mg/dL (8.4-10.2); CARBON DIOXIDE 25 mmol/L (22-30); CHLORIDE 108 mmol/L (98-107); GLUCOSE 97 mg/dL (75-110); POTASSIUM 3.9 mmol/L (3.6-5.0); SODIUM 144.1 mmol/L (137-145)
--- NOTE | 2017-03-23 08:58 | PDOC PROGRESS REPORT ---
Subjective Progress Note for:: 03/23/17 Subjective:: Patient is currently doing fair Patient seen by the speech therapist and order the modified barium swallow study According to the nursing staff no seizures activity In by Dr. Morrison supporting her DuoNeb nebulizer Reason For Visit: PNEUMOTHORAX PNEUMONIA Physical Exam Vital Signs: Temp Pulse Resp BP Pulse Ox 97.8 F 66 16 111/58 L 94 03/23/17 08:00 03/23/17 08:00 03/23/17 08:00 03/23/17 08:00 03/23/17 08:00 Intake & Output 03/22/17 03/23/17 03/24/17 06:59 06:59 06:59 Intake Total 2472 1750 Output Total 0 Balance 2472 1750 Weight 56 kg 60 kg General appearance: PRESENT: no acute distress Eye exam: PRESENT: PERRLA Mouth exam: PRESENT: dry mucosa Neck exam: ABSENT: JVD Respiratory exam: PRESENT: clear to auscultation roula Cardiovascular exam: PRESENT: +S1, +S2 GI/Abdominal exam: PRESENT: normal bowel sounds, soft. ABSENT: tenderness Neurological exam: PRESENT: alert, awake Psychiatric exam: PRESENT: anxious Skin exam: PRESENT: dry Results Laboratory Results: 03/23/17 06:17 03/23/17 06:17 03/22/17 03/23/17 03/23/17 09:53 06:17 06:17 WBC 8.1 RBC 4.06 L Hgb 11.6 L Hct 34.3 L MCV 84 MCH 28.7 MCHC 34.0 RDW 13.6 Plt Count 358 Seg Neutrophils % 50.5 Lymphocytes % 34.8 Monocytes % 9.2 Eosinophils % 4.5 Basophils % 1.0 Absolute Neutrophils 4.1 Absolute Lymphocytes 2.8 Absolute Monocytes 0.8 Absolute Eosinophils 0.4 Absolute Basophils 0.1 Sodium 144.1 Potassium 3.9 Chloride 108 H Carbon Dioxide 25 Anion Gap 11 BUN 6 L Creatinine 0.63 0.70 Est GFR ( Amer) > 60 > 60 Est GFR (Non-Af Amer) > 60 > 60 Glucose 97 Calcium 9.4 Impressions: Chest X-Ray 03/22/17 06:00 IMPRESSION: Small but improved right apical pneumothorax. Assessment & Plan - Diagnosis (1) Pneumonia Qualifiers: Pneumonia type: due to unspecified organism Laterality: bilateral Lung location: unspecified part of lung Qualified Code(s): J18.9 - Pneumonia, unspecified organism Is this a current diagnosis for this admission?: Yes Plan: Continues to IV antibiotic (2) Pneumothorax on right Is this a current diagnosis for this admission?: Yes Plan: Currently stable (3) Epilepsy Qualifiers: Epilepsy type: other generalized Is this a current diagnosis for this admission?: Yes Plan: Patient is currently n.p.o. because of the possible aspirations discussed with the pharmacy and change the IV Vimpat and patients currently taking the carbamazepine will hold for the next 24 hours if is still patient n.p.o. may be considered to the IV Keppra (4) GERD (gastroesophageal reflux disease) Qualifiers: Esophagitis presence: without esophagitis Is this a current diagnosis for this admission?: Yes Plan: Continues to PPI (5) Mental and behavioral problem Is this a current diagnosis for this admission?: Yes - Time Time Spent with patient: 15-24 minutes Medications reviewed and adjusted accordingly: Yes Anticipated discharge: Other Within: Other - Inpatient Certification Medical Necessity: Need Close Monitoring Due to Risk of Patient Decompensation, Need For IV Fluids, Need for IV Antibiotics Post Hospital Care: D/C Supervisor Central Supply Documentation - Plan Summary Plan Summary: Will get the modified barium swallow study today continues IV antibiotic
[2017-03-23] MEDS: IPRATROPIUM/ALBUTEROL 0.5-2.5 MG/3 ML AMPUL NEB SCH ×2 (09:12→16:39)
[2017-03-23] MEDS: ACETYLCYSTEINE 20% SOLN 800 MG/4 ML VIAL.NEB NEB SCH ×2 (09:12→22:06)
--- NOTE | 2017-03-23 09:21 | RADIOLOGY REPORT (SQ) ---
EXAM DESCRIPTION: CHEST SINGLE VIEW COMPLETED DATE/TIME: 03/23/2017 8:54 am REASON FOR STUDY: pnemothorax/pnemonia COMPARISON: Multiple chest films since 03/17/2017 EXAM PARAMETERS: NUMBER OF VIEWS: One view. TECHNIQUE: Single frontal radiographic view of the chest acquired. RADIATION DOSE: NA LIMITATIONS: None. FINDINGS: LUNGS AND PLEURA: Stable small right apical pneumothorax compared to yesterday. Persistent patchy right basilar airspace disease atelectasis versus pneumonia. Left lung clear. No right or left pleural effusion. MEDIASTINUM AND HILAR STRUCTURES: No masses. Contour normal. HEART AND VASCULAR STRUCTURES: Heart normal in size. Normal vasculature. BONES: No acute findings. HARDWARE: Left-sided jugular neurostimulator, right-sided anterior chest ventriculoperitoneal shunt t ubing unchanged OTHER: There is barium in the patient's stomach and proximal small bowel post cookie swallow. IMPRESSION: Stable small right apical pneumothorax compared to yesterday Persistent patchy right basilar airspace disease atelectasis versus pneumonia, stable TECHNICAL DOCUMENTATION: JOB ID: [id number] [employer]- All Rights Reserved
--- NOTE | 2017-03-23 10:15 | ST Inp Modified Barium Swallow ---
Medical Diagnosis - Medical Diagnoses Medical Diagnosis Description & ICD-10 Code(s): pneumonia ST Inpatient MBS - General Date: 03/23/17 - History -: Medical - on 03/22/17, ST reviewed physicians' notes & spoke with PIEDAD Multani. Per RN Dr. Benson and Dr. Morrison are both concerned for aspiration and requested [facility] consult. Patient admitted 03/16/17; current diagnoses include pneumonia, pnuemothorax, epilepsy, GERD, mental & behavioral problems. Patient is resident of [facility]. Previous MBSS completed 07/2014 with noted aspiration of all consistencies and recommendation for NPO. Patient does not have alternate means of nutrition and hydration. Diet prior to hospital admission not known. Per RN, patient coughs after PO and cough is not productive. Patient unable to be suctioned due to biting suction. RN is concerned for aspiration and inability to clear aspirated material; reports Dr. Benson and Dr. Morrison are also concerned that patient may aspirate his own secretions. [ End ] Medications: Medications Reviewed Allergies: No known allergies - Subjective Current Nutritional Means: PO Current PO Diet: Pureed, Thickened liquids Current Symptoms: Coughing, Pneumonia Pain: unable to communicate - no overt signs of pain/discomfort - Objective Assessment: Upright, Left Lateral - Food Trials Food Trials Used: Thin liquids, [place] thick liquids, Pureed The Patient: fed by ST, via spoon - Assessment Labial Function: Within Functional Limits Lingual Function: Within Functional Limits Laryngeal Function: no volitional swallow, no volitional cough/clear - Pharyngeal Stage Initiation of Pharyngeal Stage: Delayed Reflex Delay Time (seconds): 5 Decreased Laryngeal Elevation: Yes Reduced Velo-Pharyngeal Closure: no Reduced Pressure Generation: Yes Pre-Swallowing Pooling in Valleculae: Mild Pre-Swallowing Pooling in Pyriforms: Moderate Reduced Thyro-Hyiod Approximation: Yes Multiple Swallows With: Ineffective Clearance - residue remained after multiple swallows Post Swallow Residuals in Valleculae: Mild Post Swallow Residuals in Pyriforms: Moderate Post Swallow Residuals: throughout pharynx Pahryngeal Stage Comments: Patient demonstrated reduced swallow initiation, as well as significant residue in pyriform sinus after presentations. Unable to swallow on command, did perform additional swallows with empty spoon presentation, however, piecemeal digluttition, only small amounts of bolus passed through UES with dry swallows. No aspiration of residue seen, although high risk remains. - Esophageal Stage Esophageal Stage Comments: Possible reduced UES opening. - Impression/Summary Tracheal Aspiration: yes, during swallow - with cup sip of thin liquid Productive Cough: No Patient Presents With: Pharyngeal stage dysph. Risk of Aspiration: Moderate Risk of Nutritional Compromise: Moderate Risk Due To: Aspiration risk due to delayed swallow reflex, significant residue in pyriform sinus after the swallow. Nutritional risk due to slow rate of consumption, need for spoon presentations of liquid. May require alternative means to maintain nutrition/hydration. - Recommendations Solid Diet Recommendations: Pureed Liquid Diet Recommendations: [place]-Thick, Thin - by spoon presentation only Strict Aspitarion Precautions: Yes Dysphagia Therapy with HOSTESS PARTY SALES REPRESENTATIVE: No Recommended Techniques: Fully Upright During Meal, Liquids by Teaspoon Only, Med Crushed in Applesauce, Dry Swallow After Bite, Small Bites and Sips Supervision: Constant, requires assistance - Time Total Time: 20 Total Timed Minutes: 20
[2017-03-23] MEDS: AZITHROMYCIN 250 MG TABLET PO SCH (11:01)
[2017-03-23] MEDS: POLYETHYLENE GLYCOL 3350 POWDER 17 GM/1 PACKET PO SCH (11:01)
[2017-03-23] MEDS: CHOLECALCIFEROL (D3) 1,000 UNIT TABLET PO SCH (11:01)
[2017-03-23] MEDS: CLORAZEPATE 3.75 MG PO SCH ×2 (11:01→18:05)
[2017-03-23] MEDS: CARBAMAZEPINE 100 MG TAB.CHEW PO SCH ×3 (11:01→18:05)
[2017-03-23] MEDS: LACOSAMIDE INJ/PF 200 MG/20 ML SDV IV SCH ×2 (11:01→21:21)
[2017-03-23] MEDS: ENOXAPARIN SODIUM INJ 40 MG/0.4 ML DISP.SYRIN SUBCUT SCH (11:02)
[2017-03-23] MEDS: LEVETIRACETAM 500 MG/NACL-ISO 500 MG/100 ML RTUPB IV SCH ×2 (13:09→21:20)
--- NOTE | 2017-03-23 16:45 | PDOC PROGRESS REPORT ---
Subjective Progress Note for:: 03/23/17 Subjective:: Recurrent stable pneumothorax after removal of chest tube - no air leak noted prior to removal; also patient had a clamp trial prior to chest tube removal with no recurrence of pneumothorax on pre-removal chest xray. No respiratory distress noted however since chest tube removal. Pneumothorax has decreased in size and is a small apical one presently. No intervention planned at this time as patient is stable and pneumothorax is less. Reason For Visit: PNEUMOTHORAX PNEUMONIA Physical Exam Vital Signs: Temp Pulse Resp BP Pulse Ox 98.4 F 79 12 118/67 94 03/23/17 12:02 03/23/17 14:00 03/23/17 12:02 03/23/17 12:02 03/23/17 12:02 Intake & Output 03/22/17 03/23/17 03/24/17 06:59 06:59 06:59 Intake Total 2472 1750 Output Total 0 Balance 2472 1750 Weight 56 kg 60 kg General appearance: PRESENT: no acute distress Head exam: PRESENT: atraumatic Eye exam: PRESENT: conjunctiva pink Respiratory exam: PRESENT: clear to auscultation roula. ABSENT: rales, rhonchi, wheezes GI/Abdominal exam: PRESENT: normal bowel sounds, soft. ABSENT: distended, guarding, mass, organolmegaly, rebound, tenderness Neurological exam: PRESENT: awake, other - patient with cerebral palsy, not following commands, making grunting noices Results Laboratory Results: 03/23/17 06:17 03/23/17 06:17 03/23/17 03/23/17 06:17 06:17 WBC 8.1 RBC 4.06 L Hgb 11.6 L Hct 34.3 L MCV 84 MCH 28.7 MCHC 34.0 RDW 13.6 Plt Count 358 Seg Neutrophils % 50.5 Lymphocytes % 34.8 Monocytes % 9.2 Eosinophils % 4.5 Basophils % 1.0 Absolute Neutrophils 4.1 Absolute Lymphocytes 2.8 Absolute Monocytes 0.8 Absolute Eosinophils 0.4 Absolute Basophils 0.1 Sodium 144.1 Potassium 3.9 Chloride 108 H Carbon Dioxide 25 Anion Gap 11 BUN 6 L Creatinine 0.70 Est GFR ( Amer) > 60 Est GFR (Non-Af Amer) > 60 Glucose 97 Calcium 9.4 Impressions: Chest X-Ray 03/23/17 06:15 IMPRESSION: Stable small right apical pneumothorax compared to yesterday Persistent patchy right basilar airspace disease atelectasis versus pneumonia, stable Assessment & Plan - Diagnosis (1) Pneumothorax on right Is this a current diagnosis for this admission?: Yes - Plan Summary Plan Summary: No intervention planned at this time as patient is stable and pneumothorax is less. May DC daily CXrays and only repeat if patient develops respiratory distress - may do them weekly if needed to follow resolution of the pneumothorax. The daily xrays at this time simply expose the patient to unnecessary radiation. The stable decreasing pneumothorax should also not preclude discharge planning.
[2017-03-23 18:51] LABS: VANCOMYCIN,TROUGH 17.3 ug/mL (5.0-20.0)
--- NOTE | 2017-03-23 20:28 | PDOC CONSULTATION ---
Consultation Consult Date: 03/23/17 Attending physician:: ALIZA GARZA Consult reason:: Asked to see this patient by Dr Monte. ? EGD. had speech study, no overt aspiration, residuals present History of Present Illness Admission Date/PCP: 03/16/17 18:03 JOSEPH MONTE MD History of Present Illness: patient is a resident of [facility] does have a history of seizures in the past patient otherwise was able to eat on own admiitted for aspiration swallowing study performed no over aspiration is noted however some residual materiel noted I do not believe that the patient is a candidate for PEG tube placement noted to be eating on own prior to current hospitalization PEG will not decrease risk of aspiration he may need EGD to determine if there is an esophageal cause for his current issues with regards to other etiology, it is less likely that it could be an incompetant UES it is less likely to be the cause of the patient's issue I suspect that he probably had a seizure and had aspirated in the process if PEG is desired, then J tube to be considered under surgical placement will rule out any esophageal causes Past Medical History Pulmonary Medical History: Reports: Pneumonia Neurological Medical History: Reports: Seizures GI Medical History: Reports: Gastroesophageal Reflux Disease Past Surgical History Past Surgical History: Reports: Other - svp operations shunt Social History Smoking Status: Unknown if Ever Smoked Frequency of Alcohol Use: None Hx Recreational Drug Use: No Drugs: None Hx Prescription Drug Abuse: No - Advance Directive Resuscitation Status: Full Code Family History Family History: Reviewed & Not Pertinent Parental Family History Reviewed: Yes Children Family History Reviewed: Unknown Sibling(s) Family History Reviewed.: Unknown Medication/Allergy Home Medications: Carbamazepine [Tegretol 100 Mg Chewable Tablet] 400 mg PO TID 03/17/17 Cholecalciferol (Vitamin D3) [Vitamin D3 1000 Unit Tablet] 1,000 unit PO DAILY 03/17/17 Clonazepam [Klonopin] 1.5 mg PO QHS 03/17/17 Clorazepate Dipotassium [Tranxene 7.5 mg Tablet] 3.75 mg PO BID 03/17/17 Eszopiclone [Lunesta] 3 mg PO QHS 03/17/17 Lacosamide [Vimpat] 200 mg PO BID 03/17/17 Perampanel [Fycompa] 10 mg PO QHS 03/17/17 Polyethylene Glycol 3350 [Miralax Powder 17 gm/Packet] 17 gm PO DAILY 03/17/17 Allergies/Adverse Reactions: No Known Allergies Allergy (Verified 03/16/17 15:15) Review of Systems Constitutional: ABSENT: fever(s), headache(s), night sweats Eyes: ABSENT: visual disturbances Ears: ABSENT: hearing changes Cardiovascular: ABSENT: chest pain, edema Respiratory: ABSENT: dyspnea, hemoptysis Gastrointestinal: ABSENT: coffee ground emesis, diarrhea, hematemesis, hematochezia, melena Genitourinary: ABSENT: hematuria Integumentary: ABSENT: lesions Neurological: PRESENT: abnormal movements. ABSENT: syncope, tremor(s) Endocrine: ABSENT: polydipsia, polyphagia, polyuria Hematologic/Lymphatic: ABSENT: easy bruising Physical Exam Vital Signs: Temp Pulse Resp BP Pulse Ox 99.0 F 73 20 142/92 H 95 03/23/17 15:56 03/23/17 16:39 03/23/17 16:39 03/23/17 15:56 03/23/17 16:39 Intake & Output 03/22/17 03/23/17 03/24/17 06:59 06:59 06:59 Intake Total 2472 1750 1400 Output Total 0 Balance 2472 1750 1400 Weight 56 kg 60 kg General appearance: PRESENT: mild distress, well-developed, well-nourished Head exam: PRESENT: atraumatic, normocephalic Eye exam: PRESENT: conjunctiva pink, EOMI, PERRLA. ABSENT: periorbital swelling , scleral icterus Mouth exam: PRESENT: moist, neck supple Throat exam: ABSENT: tonsillar exudate, tonsillogmegaly Neck exam: ABSENT: meningismus, tenderness, tracheal deviation Respiratory exam: PRESENT: symmetrical, unlabored. ABSENT: wheezes Cardiovascular exam: PRESENT: RRR, +S1, +S2 GI/Abdominal exam: PRESENT: soft. ABSENT: rebound, rigid, tenderness Extremities exam: ABSENT: joint swelling Musculoskeletal exam: PRESENT: full ROM Neurological exam: PRESENT: awake, CN II-XII grossly intact Skin exam: PRESENT: normal color. ABSENT: mottled, pallor, petechiae, urticaria , vesicles Results Laboratory Results: 03/23/17 06:17 03/23/17 06:17 02/07/18 02/07/18 06:17 06:17 WBC 8.1 RBC 4.06 L Hgb 11.6 L Hct 34.3 L MCV 84 MCH 28.7 MCHC 34.0 RDW 13.6 Plt Count 358 Seg Neutrophils % 50.5 Lymphocytes % 34.8 Monocytes % 9.2 Eosinophils % 4.5 Basophils % 1.0 Absolute Neutrophils 4.1 Absolute Lymphocytes 2.8 Absolute Monocytes 0.8 Absolute Eosinophils 0.4 Absolute Basophils 0.1 Sodium 144.1 Potassium 3.9 Chloride 108 H Carbon Dioxide 25 Anion Gap 11 BUN 6 L Creatinine 0.70 Est GFR ( Amer) > 60 Est GFR (Non-Af Amer) > 60 Glucose 97 Calcium 9.4 Impressions: Chest X-Ray 03/23/17 06:15 IMPRESSION: Stable small right apical pneumothorax compared to yesterday Persistent patchy right basilar airspace disease atelectasis versus pneumonia, stable Assessment & Plan - Diagnosis (1) GERD (gastroesophageal reflux disease) Qualifiers: Esophagitis presence: without esophagitis Is this a current diagnosis for this admission?: Yes Plan: no overt aspiration on swallow study not likely to be due to an incompetent UES rule out esophageal etiology will need EGD will schedule tomorrow will get consent from POA I do not believe that he would benefit from PEG placement, he does not have documented aspiration on a formal study, no malnutrition and was eating on own prior to this hospitalization if PEG is still desired, please consult surgery for possible J tube placement further recommendations he should be on a terminal manager ppi to control his GERD aspiration precautions no thin liquids if possible spoke with Dr Monte - Time Time Spent: 50 to 70 Minutes
[2017-03-23] MEDS: PERAMPANEL 10 MG PO SCH (21:21)
[2017-03-24] MEDS: IPRATROPIUM/ALBUTEROL 0.5-2.5 MG/3 ML AMPUL NEB SCH ×3 (00:05→17:01)
[2017-03-24] MEDS: VANCOMYCIN HCL 1,000 MG in DEXTROSE 5%-WATER 250 ML IV SCH ×3 (01:20→17:15)
[2017-03-24] MEDS: CLINDAMYCIN 600 MG/D5W RTU 600 MG/50 ML RTUPB IV SCH ×2 (05:03→14:14)
[2017-03-24 05:05] LABS: ABSOLUTE BASOPHILS # (AUTO) 0.1 10^3/uL (0.0-0.2); ABSOLUTE EOSINOPHILS # (AUTO) 0.4 10^3/uL (0.0-0.6); ABSOLUTE LYMPHOCYTES (AUTO) 3.2 10^3/uL (0.5-4.7); ABSOLUTE MONOCYTES (AUTO) 0.7 10^3/uL (0.1-1.4); ABSOLUTE NEUT (AUTO) 3.4 10^3/uL (1.7-8.2); BASOPHILS % (AUTO) 0.8 % (0-2); EOSINOPHILS % (AUTO) 5.7 % (0-6); HEMATOCRIT 34.3 % (37.9-51.0); HEMOGLOBIN 11.8 g/dL (13.5-17.0); LYMPHOCYTES % (AUTO) 41.3 % (13-45); MEAN CORPUSCULAR HEMOGLOBIN 28.7 pg (27.0-33.4); MEAN CORPUSCULAR HGB CONC 34.4 g/dL (32.0-36.0); MEAN CORPUSCULAR VOLUME 84 fl (80-97); MONOCYTES % (AUTO) 8.8 % (3-13); PLATELET COUNT 385 10^3/uL (150-450); RED CELL DISTRIBUTION WIDTH 13.7 % (11.5-14.0); SEGMENTED NEUTROPHILS % (AUTO) 43.4 % (42-78); TOTAL CELLS COUNTED % (AUTO) 100 %; WHITE BLOOD COUNT 7.7 10^3/uL (4.0-10.5)
[2017-03-24 05:16] LABS: ANION GAP 12 (5-19); BLOOD UREA NITROGEN 9 mg/dL (7-20); CALCIUM 9.3 mg/dL (8.4-10.2); CARBON DIOXIDE 20 mmol/L (22-30); CHLORIDE 112 mmol/L (98-107); GLUCOSE 71 mg/dL (75-110); POTASSIUM 3.7 mmol/L (3.6-5.0); SODIUM 143.5 mmol/L (137-145)
--- NOTE | 2017-03-24 08:44 | RADIOLOGY REPORT (SQ) ---
EXAM DESCRIPTION: CHEST SINGLE VIEW COMPLETED DATE/TIME: 03/24/2017 8:19 am REASON FOR STUDY: pnemothorax/pnemonia COMPARISON: Multiple since 03/16/2017 EXAM PARAMETERS: NUMBER OF VIEWS: One view. TECHNIQUE: Single frontal radiographic view of the chest acquired. RADIATION DOSE: NA LIMITATIONS: None. FINDINGS: LUNGS AND PLEURA: Trace right apical pneumothorax is seen today, smaller than on previous exams. Partial clearing of the right middle and lower lobe airspace disease compared to previous studies. Left lung well inflated and clear. No pleural effusions. MEDIASTINUM AND HILAR STRUCTURES: No masses. Contour normal. HEART AND VASCULAR STRUCTURES: Heart normal in size. Normal vasculature. BONES: No acute findings. HARDWARE: Old left jugular neurostimulator and fractured right ventriculoperitoneal shunt tubing over the anterior chest OTHER: No other significant finding. IMPRESSION: Decrease in size of right apical pneumothorax Continued improvement in the right basilar airspace disease TECHNICAL DOCUMENTATION: JOB ID: [id number] [employer]- All Rights Reserved
[2017-03-24] MEDS: ACETYLCYSTEINE 20% SOLN 800 MG/4 ML VIAL.NEB NEB SCH ×2 (09:25→21:00)
[2017-03-24] MEDS: LEVETIRACETAM 500 MG/NACL-ISO 500 MG/100 ML RTUPB IV SCH ×2 (09:55→22:39)
[2017-03-24] MEDS ORDERED: NALOXONE HCL INJ/PF 0.4 MG/1 ML SDV ONE (09:58)
[2017-03-24] MEDS ORDERED: ONDANSETRON HCL INJ/PF 4 MG/2 ML SDV ONE (09:58)
[2017-03-24] MEDS ORDERED: DIPHENHYDRAMINE HCL 50 MG/ML VIAL ONE (09:58)
[2017-03-24] MEDS ORDERED: GLUCAGON,HUMAN RECOMB 1 MG INJ ONE (09:59)
[2017-03-24] MEDS ORDERED: EPINEPHRINE INJ 1 MG/10 ML DISP.SYRIN ONE (09:59)
[2017-03-24] MEDS ORDERED: FLUMAZENIL INJ 0.5 MG/5 ML VIAL ONE (09:59)
--- NOTE | 2017-03-24 10:35 | PDOC PROGRESS REPORT ---
Subjective Progress Note for:: 03/24/17 Subjective:: Patient is looking much better this morning when I saw him Patient's otherwise, no fever white count is also normal Patient's chest x-ray was stable As per discussed with the surgery and suggest no need for order chest x-ray every day anymore As per discussed with Dr. Reece and suggest the probably need endoscopy but no need for a PEG tube at this point Reason For Visit: PNEUMOTHORAX PNEUMONIA Physical Exam Vital Signs: Temp Pulse Resp BP Pulse Ox 97.7 F 48 L 18 100/73 100 03/24/17 07:37 03/24/17 07:37 03/24/17 07:37 03/24/17 07:37 03/24/17 07:37 Intake & Output 03/23/17 03/24/17 03/25/17 06:59 06:59 06:59 Intake Total 1750 2150 Output Total 0 Balance 1750 2150 Weight 60 kg 58.2 kg General appearance: PRESENT: no acute distress, well-developed, well-nourished Head exam: PRESENT: atraumatic, normocephalic Eye exam: PRESENT: conjunctiva pink, EOMI, PERRLA. ABSENT: scleral icterus Ear exam: PRESENT: normal external ear exam Mouth exam: PRESENT: moist, tongue midline Neck exam: PRESENT: full ROM. ABSENT: carotid bruit, JVD, lymphadenopathy, thyromegaly Respiratory exam: PRESENT: clear to auscultation roula Cardiovascular exam: PRESENT: RRR. ABSENT: diastolic murmur, rubs, systolic murmur Pulses: PRESENT: normal dorsalis pedis pul, +2 pedal pulses bilateral Vascular exam: PRESENT: normal capillary refill GI/Abdominal exam: PRESENT: normal bowel sounds, soft. ABSENT: distended, guarding, mass, organolmegaly, rebound, tenderness Rectal exam: PRESENT: deferred Neurological exam: PRESENT: alert, awake. ABSENT: motor sensory deficit Psychiatric exam: PRESENT: appropriate affect, normal mood. ABSENT: homicidal ideation, suicidal ideation Skin exam: PRESENT: dry, intact, warm. ABSENT: cyanosis, rash Results Laboratory Results: 03/24/17 04:41 03/24/17 04:41 03/24/17 03/24/17 04:41 04:41 WBC 7.7 RBC 4.10 L Hgb 11.8 L Hct 34.3 L MCV 84 MCH 28.7 MCHC 34.4 RDW 13.7 Plt Count 385 Seg Neutrophils % 43.4 Lymphocytes % 41.3 Monocytes % 8.8 Eosinophils % 5.7 Basophils % 0.8 Absolute Neutrophils 3.4 Absolute Lymphocytes 3.2 Absolute Monocytes 0.7 Absolute Eosinophils 0.4 Absolute Basophils 0.1 Sodium 143.5 Potassium 3.7 Chloride 112 H Carbon Dioxide 20 L Anion Gap 12 BUN 9 Creatinine 0.75 Est GFR ( Amer) > 60 Est GFR (Non-Af Amer) > 60 Glucose 71 L Calcium 9.3 Impressions: Chest X-Ray 03/24/17 06:15 IMPRESSION: Decrease in size of right apical pneumothorax Continued improvement in the right basilar airspace disease Assessment & Plan - Diagnosis (1) Pneumonia Qualifiers: Pneumonia type: due to unspecified organism Laterality: bilateral Lung location: unspecified part of lung Qualified Code(s): J18.9 - Pneumonia, unspecified organism Is this a current diagnosis for this admission?: Yes Plan: Continues to IV antibiotic (2) Pneumothorax on right Is this a current diagnosis for this admission?: Yes Plan: Currently stable (3) Epilepsy Qualifiers: Epilepsy type: other generalized Is this a current diagnosis for this admission?: Yes Plan: Patient is currently n.p.o. because of the possible aspirations discussed with the pharmacy and change the IV Vimpat and patients currently taking the carbamazepine will hold for the next 24 hours if is still patient n.p.o. 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
[2017-03-24] MEDS: LACOSAMIDE INJ/PF 200 MG/20 ML SDV IV SCH ×2 (10:47→23:46)
[2017-03-24] MEDS: MIDAZOLAM 2 MG/2 ML INJ ONE ×5 (11:32→11:50)
[2017-03-24] MEDS: FENTANYL CITRATE INJ/PF 100 MCG/2 ML AMPUL ONE ×2 (11:38→11:40)
[2017-03-24] MEDS ORDERED: PROPOFOL INJ 200 MG/20 ML VIAL IV ONE (12:08)
[2017-03-24] MEDS ORDERED: GLYCOPYRROLATE INJ 0.4 MG/2 ML VIAL ONE (12:08)
[2017-03-24] MEDS ORDERED: LIDOCAINE 1% INJ-PF (10 MG/ML) 30 ML SDV ONE (12:35)
[2017-03-24] MEDS: POLYETHYLENE GLYCOL 3350 POWDER 17 GM/1 PACKET PO SCH (13:42)
--- NOTE | 2017-03-24 13:42 | Operative Report ---
Operative Report DATE OF SURGERY: 03/24/17 Operative Report: The risks benefits and alternatives of the procedure explained to the patient in detail and informed consent is obtained .A GIF Olympus video scope was inserted into the patient's mouth and hypopharynx, the esophagus is identified intubated and insufflated, the scope was then advanced through the esophagus stomach and duodenum, retroflexion maneuver is done, the esophagus stomach and first and second portions of the duodenum examined PREOPERATIVE DIAGNOSIS: Possible aspiration, gastroesophageal reflux disease POSTOPERATIVE DIAGNOSIS: Upper esophageal sphincter appears to be adequate. Gastroesophageal reflux disease. Gastritis status post biopsy for Helicobacter pylori. Winslow's esophagus status post ablation OPERATION: EGD with ablation. EGD with biopsy SURGEON: ALIZA GARZA ANESTHESIA: LMAC - Patient was initially given 5 mg of Versed, and 50 mcg of fentanyl. He was not able to tolerate conscious sedation. Therefore propofol was given. TISSUE REMOVED OR ALTERED: None COMPLICATIONS: None. ESTIMATED BLOOD LOSS: None. INTRAOPERATIVE FINDINGS: as noted above. PROCEDURE: Patient of the procedure well. No immediate postprocedure complications are noted. Patient sent back to his room in good condition. We will wait on biopsies. Resume regular diet as tolerated. Further recommendations to follow
[2017-03-24] MEDS: CARBAMAZEPINE 100 MG TAB.CHEW PO SCH ×3 (14:07→17:15)
[2017-03-24] MEDS: ENOXAPARIN SODIUM INJ 40 MG/0.4 ML DISP.SYRIN SUBCUT SCH (14:12)
[2017-03-24] MEDS: CHOLECALCIFEROL (D3) 1,000 UNIT TABLET PO SCH (14:13)
[2017-03-24] MEDS: CLORAZEPATE 3.75 MG PO SCH ×2 (14:13→17:15)
[2017-03-24] MEDS: AZITHROMYCIN 250 MG TABLET PO SCH (14:13)
[2017-03-24] MEDS: PERAMPANEL 10 MG PO SCH (22:39)
[2017-03-25] MEDS: IPRATROPIUM/ALBUTEROL 0.5-2.5 MG/3 ML AMPUL NEB SCH ×3 (00:04→16:42)
[2017-03-25] MEDS: NORMAL SALINE 1000 ML 1,000 ML IV PRN ×2 (00:43→20:25)
[2017-03-25] MEDS: VANCOMYCIN HCL 1,000 MG in DEXTROSE 5%-WATER 250 ML IV SCH (01:18)
[2017-03-25 06:35] LABS: ABSOLUTE BASOPHILS # (AUTO) 0.1 10^3/uL (0.0-0.2); ABSOLUTE EOSINOPHILS # (AUTO) 0.5 10^3/uL (0.0-0.6); ABSOLUTE LYMPHOCYTES (AUTO) 2.6 10^3/uL (0.5-4.7); ABSOLUTE MONOCYTES (AUTO) 0.7 10^3/uL (0.1-1.4); ABSOLUTE NEUT (AUTO) 6.8 10^3/uL (1.7-8.2); BASOPHILS % (AUTO) 0.6 % (0-2); EOSINOPHILS % (AUTO) 4.4 % (0-6); HEMATOCRIT 36.2 % (37.9-51.0); LYMPHOCYTES % (AUTO) 24.3 % (13-45); MEAN CORPUSCULAR HEMOGLOBIN 28.5 pg (27.0-33.4); MEAN CORPUSCULAR HGB CONC 33.2 g/dL (32.0-36.0); MEAN CORPUSCULAR VOLUME 86 fl (80-97); MONOCYTES % (AUTO) 6.6 % (3-13); PLATELET COUNT 371 10^3/uL (150-450); RED BLOOD COUNT 4.23 10^6/uL (4.35-5.55); SEGMENTED NEUTROPHILS % (AUTO) 64.1 % (42-78); TOTAL CELLS COUNTED % (AUTO) 100 %; WHITE BLOOD COUNT 10.6 10^3/uL (4.0-10.5)
[2017-03-25 06:51] LABS: ANION GAP 11 (5-19); BLOOD UREA NITROGEN 9 mg/dL (7-20); CALCIUM 9.1 mg/dL (8.4-10.2); CARBON DIOXIDE 21 mmol/L (22-30); CHLORIDE 111 mmol/L (98-107); GLUCOSE 97 mg/dL (75-110); POTASSIUM 4.3 mmol/L (3.6-5.0); SODIUM 142.9 mmol/L (137-145)
[2017-03-25] MEDS ORDERED: LORAZEPAM INJ 2 MG/1 ML VIAL IV PRN (08:39)
[2017-03-25] MEDS ORDERED: MORPHINE SULFATE 10 MG/ML INJ IV PRN (08:40)
[2017-03-25] MEDS: ACETYLCYSTEINE 20% SOLN 800 MG/4 ML VIAL.NEB NEB SCH ×2 (08:40→20:02)
[2017-03-25] MEDS: POLYETHYLENE GLYCOL 3350 POWDER 17 GM/1 PACKET PO SCH (09:14)
[2017-03-25] MEDS: CLORAZEPATE 3.75 MG PO SCH (09:14)
[2017-03-25] MEDS: CARBAMAZEPINE 100 MG TAB.CHEW PO SCH ×3 (09:14→18:11)
[2017-03-25] MEDS: ENOXAPARIN SODIUM INJ 40 MG/0.4 ML DISP.SYRIN SUBCUT SCH (09:14)
[2017-03-25] MEDS: LEVETIRACETAM 500 MG/NACL-ISO 500 MG/100 ML RTUPB IV SCH ×2 (09:14→22:27)
[2017-03-25] MEDS: CHOLECALCIFEROL (D3) 1,000 UNIT TABLET PO SCH (09:15)
--- NOTE | 2017-03-25 09:31 | PDOC PROGRESS REPORT ---
Subjective Progress Note for:: 03/25/17 Subjective:: Patient underwent upper endoscopy yesterday. He did require propofol sedation. The upper esophageal sphincter was adequate. He is prone to episodes of aspiration. He did have Winslow's esophagus, and this was ablated in situ. He tolerated the procedure well. No esophageal stricture. He should not require a PEG at this point in time. Biopsies were obtained for Helicobacter pylori. Reason For Visit: PNEUMOTHORAX PNEUMONIA Physical Exam Vital Signs: Temp Pulse Resp BP Pulse Ox 97.7 F 71 18 114/88 H 99 03/25/17 07:21 03/25/17 07:21 03/25/17 07:21 03/25/17 07:21 03/25/17 07:21 Intake & Output 03/24/17 03/25/17 03/26/17 06:59 06:59 06:59 Intake Total 2150 2411 Balance 2150 2411 Weight 58.2 kg 58.6 kg General appearance: PRESENT: well-developed, well-nourished Head exam: PRESENT: atraumatic, normocephalic Eye exam: PRESENT: EOMI, PERRLA. ABSENT: nystagmus, periorbital swelling, scleral icterus Mouth exam: PRESENT: moist Throat exam: ABSENT: tonsillar exudate, tonsillogmegaly Neck exam: ABSENT: meningismus, tenderness, thyromegaly Respiratory exam: PRESENT: symmetrical, unlabored. ABSENT: tachypnea, wheezes Cardiovascular exam: PRESENT: RRR, +S1, +S2 GI/Abdominal exam: PRESENT: soft. ABSENT: rebound, rigid, tenderness Extremities exam: ABSENT: joint swelling Musculoskeletal exam: PRESENT: full ROM Skin exam: PRESENT: normal color. ABSENT: mottled, pallor, petechiae, urticaria , vesicles Results Laboratory Results: 03/25/17 06:12 03/25/17 06:12 03/25/17 03/25/17 06:12 06:12 WBC 10.6 H RBC 4.23 L Hgb 12.0 L Hct 36.2 L MCV 86 MCH 28.5 MCHC 33.2 RDW 14.0 Plt Count 371 Seg Neutrophils % 64.1 Lymphocytes % 24.3 Monocytes % 6.6 Eosinophils % 4.4 Basophils % 0.6 Absolute Neutrophils 6.8 Absolute Lymphocytes 2.6 Absolute Monocytes 0.7 Absolute Eosinophils 0.5 Absolute Basophils 0.1 Sodium 142.9 Potassium 4.3 Chloride 111 H Carbon Dioxide 21 L Anion Gap 11 BUN 9 Creatinine 0.72 Est GFR ( Amer) > 60 Est GFR (Non-Af Amer) > 60 Glucose 97 Calcium 9.1 Impressions: Chest X-Ray 03/24/17 06:15 IMPRESSION: Decrease in size of right apical pneumothorax Continued improvement in the right basilar airspace disease Assessment & Plan - Diagnosis (1) GERD (gastroesophageal reflux disease) Qualifiers: Esophagitis presence: without esophagitis Is this a current diagnosis for this admission?: Yes Plan: Patient should be controlled with proton pump inhibitor therapy. He should be supervised during meals, thin liquids would be not advised. Since he is able to eat I would not proceed with PEG tube placement. His Winslow's has been treated. We will await biopsies and treat for Helicobacter pylori. Workup for why he would have an apical pneumo thorax should be considered. Can follow-up as outpatient. - Time Time Spent with patient: 15-24 minutes
--- NOTE | 2017-03-25 09:47 | PDOC PROGRESS REPORT ---
Subjective Progress Note for:: 03/25/17 Subjective:: Patients underwent for the endoscopy see the GI consult and suggest the PPI therapy and no need for the PEG tube placement at this point According to the nursing stumps no other events happens overnight Reason For Visit: PNEUMOTHORAX PNEUMONIA Physical Exam Vital Signs: Temp Pulse Resp BP Pulse Ox 97.7 F 71 18 114/88 H 99 03/25/17 07:21 03/25/17 07:21 03/25/17 07:21 03/25/17 07:21 03/25/17 07:21 Intake & Output 03/24/17 03/25/17 03/26/17 06:59 06:59 06:59 Intake Total 2150 2411 Balance 2150 2411 Weight 58.2 kg 58.6 kg General appearance: PRESENT: no acute distress, well-developed, well-nourished Head exam: PRESENT: atraumatic, normocephalic Eye exam: PRESENT: conjunctiva pink, EOMI, PERRLA. ABSENT: scleral icterus Ear exam: PRESENT: normal external ear exam Mouth exam: PRESENT: moist, tongue midline Neck exam: PRESENT: full ROM. ABSENT: carotid bruit, JVD, lymphadenopathy, thyromegaly Respiratory exam: PRESENT: clear to auscultation roula Cardiovascular exam: PRESENT: RRR. ABSENT: diastolic murmur, rubs, systolic murmur Pulses: PRESENT: normal dorsalis pedis pul, +2 pedal pulses bilateral Vascular exam: PRESENT: normal capillary refill GI/Abdominal exam: PRESENT: normal bowel sounds, soft. ABSENT: distended, guarding, mass, organolmegaly, rebound, tenderness Rectal exam: PRESENT: deferred Neurological exam: PRESENT: alert, awake. ABSENT: motor sensory deficit Psychiatric exam: PRESENT: appropriate affect, normal mood. ABSENT: homicidal ideation, suicidal ideation Skin exam: PRESENT: dry, intact, warm. ABSENT: cyanosis, rash Results Laboratory Results: 03/25/17 06:12 03/25/17 06:12 03/25/17 03/25/17 06:12 06:12 WBC 10.6 H RBC 4.23 L Hgb 12.0 L Hct 36.2 L MCV 86 MCH 28.5 MCHC 33.2 RDW 14.0 Plt Count 371 Seg Neutrophils % 64.1 Lymphocytes % 24.3 Monocytes % 6.6 Eosinophils % 4.4 Basophils % 0.6 Absolute Neutrophils 6.8 Absolute Lymphocytes 2.6 Absolute Monocytes 0.7 Absolute Eosinophils 0.5 Absolute Basophils 0.1 Sodium 142.9 Potassium 4.3 Chloride 111 H Carbon Dioxide 21 L Anion Gap 11 BUN 9 Creatinine 0.72 Est GFR ( Amer) > 60 Est GFR (Non-Af Amer) > 60 Glucose 97 Calcium 9.1 Impressions: Chest X-Ray 03/24/17 06:15 IMPRESSION: Decrease in size of right apical pneumothorax Continued improvement in the right basilar airspace disease Assessment & Plan - Diagnosis (1) Pneumonia Qualifiers: Pneumonia type: due to unspecified organism Laterality: bilateral Lung location: unspecified part of lung Qualified Code(s): J18.9 - Pneumonia, unspecified organism Is this a current diagnosis for this admission?: Yes Plan: Will switch all to the p.o. antibiotic for the next 24 hours and if his remained afebrile and chest x-ray is improving tomorrow morning previous patients can be discharged with the clindamycin and the Bactrim p.o. for 10 days (2) Pneumothorax on right Is this a current diagnosis for this admission?: Yes Plan: We will repeat the chest x-ray in the morning the frequent stable and surgery says okay patients can discharged with the (3) Epilepsy Qualifiers: Epilepsy type: other generalized Is this a current diagnosis for this admission?: Yes Plan: Restart all the p.o. 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 today and if the patient's remains afebrile white count is normal and chest x-ray looks stable patient's discharge with the clindamycin and the Bactrim to the nursing home
[2017-03-25] MEDS ORDERED: POLYETHYLENE GLYCOL 3350 POWDER 17 GM/1 PACKET PO SCH (10:00)
[2017-03-25] MEDS ORDERED: CARBAMAZEPINE 100 MG TAB.CHEW PO SCH (10:00)
[2017-03-25] MEDS ORDERED: (PENDING PHARMACY ID) (Lacosamide [Vimpat] 200 MG) PO SCH (10:00)
[2017-03-25] MEDS: LACOSAMIDE 100 MG TABLET PO SCH ×2 (10:50→22:23)
[2017-03-25] MEDS: SULFAMETHOXAZOLE/TRIMETHOPRIM 800-160 MG TABLET PO SCH ×2 (10:51→22:23)
[2017-03-25] MEDS ORDERED: CLORAZEPATE DIPOTASSIUM 7.5 MG TABLET PO ONE (11:00)
[2017-03-25] MEDS: CLINDAMYCIN HCL 150 MG CAPSULE PO SCH ×2 (15:46→22:23)
--- NOTE | 2017-03-25 18:22 | RADIOLOGY REPORT (SQ) ---
EXAM DESCRIPTION: COOKIE SWALLOW COMPLETED DATE/TIME: 03/23/2017 8:49 am REASON FOR STUDY: pneumonia, coughing with meals COMPARISON: Modified barium swallow 07/18/2014 TECHNIQUE: Videofluoroscopic swallowing examination was performed in conjunction with speech patholo gy. Videofluoroscopic imaging was obtained and reviewed and these are the findings: RADIATION DOSE: 2 minutes 43 seconds of fluoroscopy was used. 2 images saved to PACS. LIMITATIONS: None FINDINGS: The patient was brought into the fluoro room and placed upright on a modified barium swall ow chair. The patient was then given multiple consistencies mixed with barium to swallow under live fluoroscopic video guidance. According to the Speech Pathologist there was there appear to be laryng eal penetration and aspiration of thin liquids, late in the study. Moderate post swallow residual con trast seen within the valleculae and piriform sinuses. IMPRESSION: LARYNGEAL PENETRATION AND ASPIRATION OF THIN LIQUIDS.PLEASE SEE SPEECH PATHOLOGIST REPOR T FOR OTHER FINDINGS AND RECOMMENDATIONS. COMMENT: Quality ID [id number]: Final reports for procedures using fluoroscopy that document radiation exp osure indices, or exposure time and number of fluorographic images (if radiation exposure indices are not available) TECHNICAL DOCUMENTATION: JOB ID: [id number] [employer]- All Rights Reserved
[2017-03-25] MEDS: LEVALBUTEROL HCL NEB 1.25 MG/3 ML AMPUL NEB PRN (20:02)
[2017-03-25] MEDS ORDERED: PERAMPANEL 10 MG PO SCH (22:00)
[2017-03-25] MEDS ORDERED: CLONAZEPAM 1.5 MG PO SCH (22:00)
[2017-03-25] MEDS: CLORAZEPATE DIPOTASSIUM 7.5 MG TABLET PO SCH (22:23)
[2017-03-25] MEDS: CLONAZEPAM 1 MG TABLET PO SCH (22:23)
[2017-03-25] MEDS: ZOLPIDEM TARTRATE 5 MG TABLET PO SCH (22:23)
[2017-03-25] MEDS: PERAMPANEL 10 MG PO SCH (22:23)
[2017-03-26] MEDS: IPRATROPIUM/ALBUTEROL 0.5-2.5 MG/3 ML AMPUL NEB SCH ×4 (00:17→23:55)
[2017-03-26] MEDS: CLINDAMYCIN HCL 150 MG CAPSULE PO SCH ×3 (06:39→22:39)
[2017-03-26 06:57] LABS: ABSOLUTE BASOPHILS # (AUTO) 0.1 10^3/uL (0.0-0.2); ABSOLUTE EOSINOPHILS # (AUTO) 0.5 10^3/uL (0.0-0.6); ABSOLUTE LYMPHOCYTES (AUTO) 3.2 10^3/uL (0.5-4.7); ABSOLUTE MONOCYTES (AUTO) 0.7 10^3/uL (0.1-1.4); BASOPHILS % (AUTO) 0.9 % (0-2); HEMATOCRIT 36.3 % (37.9-51.0); HEMOGLOBIN 12.2 g/dL (13.5-17.0); LYMPHOCYTES % (AUTO) 30.2 % (13-45); MEAN CORPUSCULAR HEMOGLOBIN 28.7 pg (27.0-33.4); MEAN CORPUSCULAR HGB CONC 33.7 g/dL (32.0-36.0); MEAN CORPUSCULAR VOLUME 85 fl (80-97); MONOCYTES % (AUTO) 7.1 % (3-13); PLATELET COUNT 415 10^3/uL (150-450); RED BLOOD COUNT 4.26 10^6/uL (4.35-5.55); SEGMENTED NEUTROPHILS % (AUTO) 56.8 % (42-78); TOTAL CELLS COUNTED % (AUTO) 100 %; WHITE BLOOD COUNT 10.5 10^3/uL (4.0-10.5)
[2017-03-26 07:08] LABS: ANION GAP 13 (5-19); BLOOD UREA NITROGEN 7 mg/dL (7-20); CALCIUM 9.7 mg/dL (8.4-10.2); CARBON DIOXIDE 20 mmol/L (22-30); CHLORIDE 113 mmol/L (98-107); GLUCOSE 82 mg/dL (75-110); POTASSIUM 4.8 mmol/L (3.6-5.0); SODIUM 145.5 mmol/L (137-145)
[2017-03-26] MEDS: ACETYLCYSTEINE 20% SOLN 800 MG/4 ML VIAL.NEB NEB SCH ×2 (09:03→19:44)
--- NOTE | 2017-03-26 09:19 | RADIOLOGY REPORT (SQ) ---
EXAM DESCRIPTION: CHEST SINGLE VIEW COMPLETED DATE/TIME: 03/26/2017 7:58 am REASON FOR STUDY: Pneumothorax COMPARISON: 03/24/2017. EXAM PARAMETERS: NUMBER OF VIEWS: One view. TECHNIQUE: Single frontal radiographic view of the chest acquired. RADIATION DOSE: NA LIMITATIONS: None. FINDINGS: LUNGS AND PLEURA: Small, less than 10%, right apical pneumothorax unchanged. Improved aer ation in the right lung base. Left lung clear. MEDIASTINUM AND HILAR STRUCTURES: No masses. Contour normal. HEART AND VASCULAR STRUCTURES: Heart normal in size. Normal vasculature. BONES: No acute findings. HARDWARE: Nerve stimulator device and shunt tubing. OTHER: No other significant finding. IMPRESSION: STABLE MINIMAL RIGHT APICAL PNEUMOTHORAX. IMPROVED AERATION IN THE RIGHT LUNG BASE. TECHNICAL DOCUMENTATION: JOB ID: [id number] [employer]- All Rights Reserved
[2017-03-26] MEDS: LACOSAMIDE 100 MG TABLET PO SCH ×2 (11:27→22:39)
[2017-03-26] MEDS: SULFAMETHOXAZOLE/TRIMETHOPRIM 800-160 MG TABLET PO SCH ×2 (11:27→22:40)
[2017-03-26] MEDS: CARBAMAZEPINE 100 MG TAB.CHEW PO SCH ×3 (11:27→18:57)
[2017-03-26] MEDS: POLYETHYLENE GLYCOL 3350 POWDER 17 GM/1 PACKET PO SCH (11:28)
[2017-03-26] MEDS: CHOLECALCIFEROL (D3) 1,000 UNIT TABLET PO SCH (11:28)
[2017-03-26] MEDS: CLORAZEPATE DIPOTASSIUM 7.5 MG TABLET PO SCH ×2 (11:28→22:39)
[2017-03-26] MEDS: LEVETIRACETAM 500 MG/NACL-ISO 500 MG/100 ML RTUPB IV SCH ×2 (11:29→22:45)
[2017-03-26] MEDS: ENOXAPARIN SODIUM INJ 40 MG/0.4 ML DISP.SYRIN SUBCUT SCH (11:29)
--- NOTE | 2017-03-26 17:39 | PDOC PROGRESS REPORT ---
Subjective Progress Note for:: 03/26/17 Subjective:: Patient was seen by the bedside, there is no new complaint, he has history of mental retardation Reason For Visit: PNEUMOTHORAX PNEUMONIA Physical Exam Vital Signs: Temp Pulse Resp BP Pulse Ox 99.1 F 75 18 105/55 L 94 03/26/17 16:39 03/26/17 16:39 03/26/17 16:39 03/26/17 16:39 03/26/17 16:39 Intake & Output 03/25/17 03/26/17 03/27/17 06:59 06:59 06:59 Intake Total 2411 1449 Balance 2411 1449 Weight 58.6 kg 60.1 kg General appearance: PRESENT: no acute distress Eye exam: PRESENT: PERRLA Respiratory exam: PRESENT: clear to auscultation roula Cardiovascular exam: PRESENT: +S1, +S2 GI/Abdominal exam: PRESENT: soft Neurological exam: PRESENT: alert Results Laboratory Results: 03/26/17 06:38 03/26/17 06:38 03/26/17 03/26/17 06:38 06:38 WBC 10.5 RBC 4.26 L Hgb 12.2 L Hct 36.3 L MCV 85 MCH 28.7 MCHC 33.7 RDW 14.0 Plt Count 415 Seg Neutrophils % 56.8 Lymphocytes % 30.2 Monocytes % 7.1 Eosinophils % 5.0 Basophils % 0.9 Absolute Neutrophils 6.0 Absolute Lymphocytes 3.2 Absolute Monocytes 0.7 Absolute Eosinophils 0.5 Absolute Basophils 0.1 Sodium 145.5 H Potassium 4.8 Chloride 113 H Carbon Dioxide 20 L Anion Gap 13 BUN 7 Creatinine 0.81 Est GFR ( Amer) > 60 Est GFR (Non-Af Amer) > 60 Glucose 82 Calcium 9.7 Impressions: Modified Barium Swallow 03/23/17 00:00 IMPRESSION: LARYNGEAL PENETRATION AND ASPIRATION OF THIN LIQUIDS.PLEASE SEE SPEECH PATHOLOGIST REPORT FOR OTHER FINDINGS AND RECOMMENDATIONS. Chest X-Ray 03/26/17 08:19 IMPRESSION: STABLE MINIMAL RIGHT APICAL PNEUMOTHORAX. IMPROVED AERATION IN THE RIGHT LUNG BASE. Assessment & Plan - Diagnosis (1) Pneumonia Qualifiers: Pneumonia type: due to unspecified organism Laterality: bilateral Lung location: unspecified part of lung Qualified Code(s): J18.9 - Pneumonia, unspecified organism Is this a current diagnosis for this admission?: Yes (2) Epilepsy Qualifiers: Epilepsy type: other generalized Intractability: not intractable Status epilepticus: without status epilepticus Qualified Code(s): G40.409 - Other generalized epilepsy and epileptic syndromes, not intractable, without status epilepticus Is this a current diagnosis for this admission?: Yes (3) Pneumothorax on right Is this a current diagnosis for this admission?: Yes
[2017-03-26] MEDS: NORMAL SALINE 1000 ML 1,000 ML IV PRN (19:40)
[2017-03-26] MEDS: LEVALBUTEROL HCL NEB 1.25 MG/3 ML AMPUL NEB PRN (19:43)
[2017-03-26] MEDS: PERAMPANEL 10 MG PO SCH (22:38)
[2017-03-26] MEDS: ZOLPIDEM TARTRATE 5 MG TABLET PO SCH (22:39)
[2017-03-26] MEDS: CLONAZEPAM 1 MG TABLET PO SCH (22:39)
[2017-03-27] MEDS: CLINDAMYCIN HCL 150 MG CAPSULE PO SCH ×3 (06:53→23:13)
[2017-03-27] MEDS: ACETYLCYSTEINE 20% SOLN 800 MG/4 ML VIAL.NEB NEB SCH ×2 (07:40→19:22)
[2017-03-27] MEDS: IPRATROPIUM/ALBUTEROL 0.5-2.5 MG/3 ML AMPUL NEB SCH ×3 (07:41→23:57)
[2017-03-27] MEDS: CHOLECALCIFEROL (D3) 1,000 UNIT TABLET PO SCH (10:10)
[2017-03-27] MEDS: CARBAMAZEPINE 100 MG TAB.CHEW PO SCH ×3 (10:10→18:23)
[2017-03-27] MEDS: POLYETHYLENE GLYCOL 3350 POWDER 17 GM/1 PACKET PO SCH (10:10)
[2017-03-27] MEDS: SULFAMETHOXAZOLE/TRIMETHOPRIM 800-160 MG TABLET PO SCH ×2 (10:11→23:14)
[2017-03-27] MEDS: LEVETIRACETAM 500 MG/NACL-ISO 500 MG/100 ML RTUPB IV SCH ×2 (10:11→23:27)
[2017-03-27] MEDS: CLORAZEPATE DIPOTASSIUM 7.5 MG TABLET PO SCH ×2 (10:11→23:14)
[2017-03-27] MEDS: ENOXAPARIN SODIUM INJ 40 MG/0.4 ML DISP.SYRIN SUBCUT SCH (10:12)
[2017-03-27 10:24] LABS: ALANINE AMINOTRANSFERASE 44 U/L (21-72); ALBUMIN 3.6 g/dL (3.5-5.0); ALKALINE PHOSPHATASE 84 U/L (38-126); ANION GAP 10 (5-19); ASPARTATE AMINO TRANSFERASE 40 U/L (17-59); BILIRUBIN,DIRECT 0.3 mg/dL (0.0-0.4); BILIRUBIN,TOTAL 0.3 mg/dL (0.2-1.3); BLOOD UREA NITROGEN 9 mg/dL (7-20); CALCIUM 9.6 mg/dL (8.4-10.2); CARBON DIOXIDE 20 mmol/L (22-30); CHLORIDE 112 mmol/L (98-107); GLUCOSE 96 mg/dL (75-110); POTASSIUM 3.8 mmol/L (3.6-5.0); SODIUM 142.4 mmol/L (137-145); TOTAL PROTEIN 7.2 g/dL (6.3-8.2)
[2017-03-27] MEDS: LACOSAMIDE 100 MG TABLET PO SCH ×2 (10:26→23:15)
[2017-03-27 10:29] LABS: ABSOLUTE BASOPHILS # (AUTO) 0.1 10^3/uL (0.0-0.2); ABSOLUTE EOSINOPHILS # (AUTO) 0.6 10^3/uL (0.0-0.6); ABSOLUTE LYMPHOCYTES (AUTO) 2.2 10^3/uL (0.5-4.7); ABSOLUTE MONOCYTES (AUTO) 0.8 10^3/uL (0.1-1.4); ABSOLUTE NEUT (AUTO) 7.2 10^3/uL (1.7-8.2); BASOPHILS % (AUTO) 0.8 % (0-2); EOSINOPHILS % (AUTO) 5.1 % (0-6); HEMATOCRIT 36.4 % (37.9-51.0); HEMOGLOBIN 12.1 g/dL (13.5-17.0); LYMPHOCYTES % (AUTO) 20.6 % (13-45); MEAN CORPUSCULAR HEMOGLOBIN 28.4 pg (27.0-33.4); MEAN CORPUSCULAR HGB CONC 33.4 g/dL (32.0-36.0); MEAN CORPUSCULAR VOLUME 85 fl (80-97); MONOCYTES % (AUTO) 7.3 % (3-13); PLATELET COUNT 395 10^3/uL (150-450); RED BLOOD COUNT 4.28 10^6/uL (4.35-5.55); RED CELL DISTRIBUTION WIDTH 13.9 % (11.5-14.0); SEGMENTED NEUTROPHILS % (AUTO) 66.2 % (42-78); TOTAL CELLS COUNTED % (AUTO) 100 %; WHITE BLOOD COUNT 10.9 10^3/uL (4.0-10.5)
--- NOTE | 2017-03-27 16:39 | PDOC PROGRESS REPORT ---
Subjective Progress Note for:: 03/27/17 Subjective:: Patient was seen by the bedside, he is agitated today requiring restraint Reason For Visit: PNEUMOTHORAX PNEUMONIA Physical Exam Vital Signs: Temp Pulse Resp BP Pulse Ox 97.7 F 99 16 100/44 L 72 L 03/27/17 16:26 03/27/17 16:26 03/27/17 16:26 03/27/17 16:26 03/27/17 16:26 Intake & Output 03/26/17 03/27/17 03/28/17 06:59 06:59 06:59 Intake Total 1449 1728 350 Balance 1449 1728 350 Weight 60.1 kg 63 kg General appearance: PRESENT: no acute distress Eye exam: PRESENT: PERRLA Respiratory exam: PRESENT: clear to auscultation roula Cardiovascular exam: PRESENT: +S1, +S2 GI/Abdominal exam: PRESENT: soft Neurological exam: PRESENT: alert, CN II-XII grossly intact Results Laboratory Results: 03/27/17 10:02 03/27/17 10:02 03/27/17 03/27/17 10:02 10:02 WBC 10.9 H RBC 4.28 L Hgb 12.1 L Hct 36.4 L MCV 85 MCH 28.4 MCHC 33.4 RDW 13.9 Plt Count 395 Seg Neutrophils % 66.2 Lymphocytes % 20.6 Monocytes % 7.3 Eosinophils % 5.1 Basophils % 0.8 Absolute Neutrophils 7.2 Absolute Lymphocytes 2.2 Absolute Monocytes 0.8 Absolute Eosinophils 0.6 Absolute Basophils 0.1 Sodium 142.4 Potassium 3.8 Chloride 112 H Carbon Dioxide 20 L Anion Gap 10 BUN 9 Creatinine 0.91 Est GFR ( Amer) > 60 Est GFR (Non-Af Amer) > 60 Glucose 96 Calcium 9.6 Total Bilirubin 0.3 AST 40 ALT 44 Alkaline Phosphatase 84 Total Protein 7.2 Albumin 3.6 Impressions: Modified Barium Swallow 03/23/17 00:00 IMPRESSION: LARYNGEAL PENETRATION AND ASPIRATION OF THIN LIQUIDS.PLEASE SEE SPEECH PATHOLOGIST REPORT FOR OTHER FINDINGS AND RECOMMENDATIONS. Chest X-Ray 03/26/17 08:19 IMPRESSION: STABLE MINIMAL RIGHT APICAL PNEUMOTHORAX. IMPROVED AERATION IN THE RIGHT LUNG BASE. Assessment & Plan - Diagnosis (1) Pneumonia Qualifiers: Pneumonia type: due to unspecified organism Laterality: bilateral Lung location: unspecified part of lung Qualified Code(s): J18.9 - Pneumonia, unspecified organism Is this a current diagnosis for this admission?: Yes (2) Epilepsy Qualifiers: Epilepsy type: other generalized Intractability: not intractable Status epilepticus: without status epilepticus Qualified Code(s): G40.409 - Other generalized epilepsy and epileptic syndromes, not intractable, without status epilepticus Is this a current diagnosis for this admission?: Yes (3) Pneumothorax on right Is this a current diagnosis for this admission?: Yes
[2017-03-27] MEDS: LEVALBUTEROL HCL NEB 1.25 MG/3 ML AMPUL NEB PRN (19:22)
[2017-03-27] MEDS: CLONAZEPAM 1 MG TABLET PO SCH (23:13)
[2017-03-27] MEDS: ZOLPIDEM TARTRATE 5 MG TABLET PO SCH (23:14)
[2017-03-27] MEDS: PERAMPANEL 10 MG PO SCH (23:14)
[2017-03-28] MEDS: ACETYLCYSTEINE 20% SOLN 800 MG/4 ML VIAL.NEB NEB SCH (07:41)
[2017-03-28] MEDS: IPRATROPIUM/ALBUTEROL 0.5-2.5 MG/3 ML AMPUL NEB SCH (07:41)
[2017-03-28] MEDS: CLINDAMYCIN HCL 150 MG CAPSULE PO SCH (08:15)
--- NOTE | 2017-03-28 09:33 | RADIOLOGY REPORT (SQ) ---
EXAM DESCRIPTION: CHEST SINGLE VIEW COMPLETED DATE/TIME: 03/28/2017 8:51 am REASON FOR STUDY: pnemonia COMPARISON: 03/26/2017. 03/24/2017. NUMBER OF VIEWS: One view. TECHNIQUE: Single frontal radiographic view of the chest acquired. LIMITATIONS: None. FINDINGS: LUNGS AND PLEURA: No pneumothorax appreciated today. Relatively clear lungs. MEDIASTINUM AND HILAR STRUCTURES: No masses. Contour normal. HEART AND VASCULAR STRUCTURES: Heart normal in size. Normal vasculature. BONES: No acute findings. HARDWARE: Right shunt catheter along the neck and right chest. Left stimulator device with leads cou rsing to the left neck. OTHER: No other significant finding. IMPRESSION: NO SIGNIFICANT RADIOGRAPHIC FINDING IN THE CHEST. TECHNICAL DOCUMENTATION: JOB ID: [id number] [employer]- All Rights Reserved
[2017-03-28] MEDS: LACOSAMIDE 100 MG TABLET PO SCH (10:52)
[2017-03-28] MEDS: SULFAMETHOXAZOLE/TRIMETHOPRIM 800-160 MG TABLET PO SCH (10:52)
[2017-03-28] MEDS: CLORAZEPATE DIPOTASSIUM 7.5 MG TABLET PO SCH (10:52)
[2017-03-28] MEDS: CARBAMAZEPINE 100 MG TAB.CHEW PO SCH (10:52)
[2017-03-28] MEDS: CHOLECALCIFEROL (D3) 1,000 UNIT TABLET PO SCH (10:52)
[2017-03-28] MEDS: ENOXAPARIN SODIUM INJ 40 MG/0.4 ML DISP.SYRIN SUBCUT SCH (10:53)
[2017-03-28] MEDS: LEVETIRACETAM 500 MG/NACL-ISO 500 MG/100 ML RTUPB IV SCH (10:53)
[2017-03-28] MEDS: POLYETHYLENE GLYCOL 3350 POWDER 17 GM/1 PACKET PO SCH (10:53)
[2017-03-28 13:02] VITALS: BP 91/53
--- NOTE | 2017-03-28 13:15 | PDOC DISCHARGE SUMMARY ---
General - Admit/Disc Date/PCP Admission Date/Primary Care Provider: 03/16/17 18:03 JOSEPH MONTE MD Discharge Date: 03/28/17 - Discharge Diagnosis (1) Pneumonia Is this a current diagnosis for this admission?: Yes Summary: Currently all resolving (2) Pneumothorax on right Is this a current diagnosis for this admission?: Yes Summary: Currently all resolved (3) Epilepsy Is this a current diagnosis for this admission?: Yes Summary: stable f/u out pt neurolgy (4) GERD (gastroesophageal reflux disease) Is this a current diagnosis for this admission?: Yes Summary: Continues to omeprazole 40 mg p.o. daily (5) Mental and behavioral problem Is this a current diagnosis for this admission?: Yes - Additional Information Resuscitation Status: Full Code Discharge Activity: Activity As Tolerated Prescriptions: Clindamycin HCl [Cleocin 150 mg Capsule] 600 mg PO Q8 #21 capsule Sulfamethoxazole/Trimethoprim [Septra-Ds 800-160 mg Tablet] 1 tab PO Q12 #14 tablet Home Medications: Carbamazepine [Tegretol 100 mg Chewable Tablet] 400 mg PO TID 03/17/17 Cholecalciferol (Vitamin D3) [Vitamin D3 1000 Unit Tablet] 1,000 unit PO DAILY 03/17/17 Clonazepam [Klonopin] 1.5 mg PO QHS 03/17/17 Clorazepate Dipotassium [Tranxene 7.5 mg Tablet] 3.75 mg PO BID 03/17/17 Eszopiclone [Lunesta] 3 mg PO QHS 03/17/17 Lacosamide [Vimpat] 200 mg PO BID 03/17/17 Perampanel [Fycompa] 10 mg PO QHS 03/17/17 Polyethylene Glycol 3350 [Miralax Powder 17 gm/Packet] 17 gm PO DAILY 03/17/17 Clindamycin HCl [Cleocin 150 mg Capsule] 600 mg PO Q8 #21 capsule 03/28/17 Sulfamethoxazole/Trimethoprim [Septra-Ds 800-160 mg Tablet] 1 tab PO Q12 #14 tablet 03/28/17 History of Present Illness History of Present Illness: CECI HSIEH is a 36 year old male This is a 36-year-old male basically admitting in the hospital because of the aspirations pneumonia and the right-sided pneumothorax and pulmonary and the surgery was consulted Hospital Course Hospital Course: This is a 36-year-old male's admitting in the hospital because of the right- sided pneumothorax and the aspirations pneumonia and patient was treated with the broad-spectrum ID IV antibiotics and the pulmonary and surgery was consulted patient initially put on the chest tube in the right side and it was removedAnd the patient still have a remaining pneumothorax was sutured with the oxygen with the conservative managements he is currently doing back to the baseline's with the chest x-rays all clears and the patient's white count is also normal and patients have a normal activity levels Patient's seizures is also under control's Patient underwent for the endoscopy was suggested some mild gastritis and suggest omeprazole 40 mg p.o. daily and GI suggest no need for PEG tube at this point's of the patient's persistent S patients need j tube Patient had aspirations precautions Speech therapy evaluatio and recommendation was also discussed with the caregiver Physical Exam Vital Signs: Temp Pulse Resp BP Pulse Ox 97.8 F 72 18 91/53 L 99 03/28/17 11:32 03/28/17 11:32 03/28/17 11:32 03/28/17 11:32 03/28/17 11:32 Intake & Output 03/27/17 03/28/17 03/29/17 06:59 06:59 06:59 Intake Total 1728 1516 150 Balance 1728 1516 150 Weight 63 kg 59.1 kg General appearance: PRESENT: no acute distress, well-developed, well-nourished Head exam: PRESENT: atraumatic, normocephalic Eye exam: PRESENT: conjunctiva pink, EOMI, PERRLA. ABSENT: scleral icterus Ear exam: PRESENT: normal external ear exam Mouth exam: PRESENT: moist, tongue midline Neck exam: PRESENT: full ROM. ABSENT: carotid bruit, JVD, lymphadenopathy, thyromegaly Respiratory exam: PRESENT: clear to auscultation roula Cardiovascular exam: PRESENT: RRR. ABSENT: diastolic murmur, rubs, systolic murmur Pulses: PRESENT: normal dorsalis pedis pul, +2 pedal pulses bilateral Vascular exam: PRESENT: normal capillary refill GI/Abdominal exam: PRESENT: normal bowel sounds, soft. ABSENT: distended, guarding, mass, organolmegaly, rebound, tenderness Rectal exam: PRESENT: deferred Neurological exam: PRESENT: alert, oriented to person, oriented to place. ABSENT: motor sensory deficit Psychiatric exam: PRESENT: appropriate affect, normal mood. ABSENT: homicidal ideation, suicidal ideation Skin exam: PRESENT: dry, intact, warm. ABSENT: cyanosis, rash Results Laboratory Results: 03/27/17 10:02 03/27/17 10:02 Impressions: Modified Barium Swallow 03/23/17 00:00 IMPRESSION: LARYNGEAL PENETRATION AND ASPIRATION OF THIN LIQUIDS.PLEASE SEE SPEECH PATHOLOGIST REPORT FOR OTHER FINDINGS AND RECOMMENDATIONS. Chest X-Ray 03/28/17 00:00 IMPRESSION: NO SIGNIFICANT RADIOGRAPHIC FINDING IN THE CHEST. Plan Time Spent: Greater than 30 Minutes - Continues to current medications as above
== END 2017-03-28 14:32 | disposition home health service (06) | DRG 199 ==
LOC: ER 15:14 → EH 18:03 → 4N 03-17 02:50 → ICU 03-17 22:35 → 3N 03-22 07:28
PROVIDERS: ADMIT Family Medicine; ATTEND Family Medicine
PROC: 3E0234Z Introduction of Serum, Toxoid and Vaccine into Muscle, Percutaneous Approach (ICD-10-PCS; 2017-03-17)
PROC: 0W9930Z Drainage of Right Pleural Cavity with Drainage Device, Percutaneous Approach (ICD-10-PCS; principal; 2017-03-17 22:00)
PROC: 0DB68ZX Excision of Stomach, Via Natural or Artificial Opening Endoscopic, Diagnostic (ICD-10-PCS; 2017-03-24)
PROC: 0D558ZZ Destruction of Esophagus, Via Natural or Artificial Opening Endoscopic (ICD-10-PCS; 2017-03-24)
DX: J93.9 Pneumothorax, unspecified (principal); J69.0 Pneumonitis due to inhalation of food and vomit; G40.409 Other generalized epilepsy and epileptic syndromes, not intractable, without status epilepticus; K21.9 Gastro-esophageal reflux disease without esophagitis; K29.70 Gastritis, unspecified, without bleeding; G80.9 Cerebral palsy, unspecified; F79 Unspecified intellectual disabilities; K22.70 Barrett's esophagus without dysplasia; Z78.1 Physical restraint status; Z79.899 Other long term (current) drug therapy
CPT/HCPCS: 00540; 00731; 36415; 43239; 43270; 71045; 71046; 74230; 80048; 80053; 80076; 80202; 82565; 82803; 83735; 85025; 87040; 87804; 88305; 88342; 94640; 99284; C9254; J0171; J0456; J0692; J1200; J1610; J1650; J1953; J2060; J2250; J2270; J2310; J2405; J2704; J3010; J3370; J3490; J7030; J7060; J7620

== ENCOUNTER → 2017-03-16 | Outpatient (CLI) | payer MEDICAID ==
[2017-03-16 13:50] LABS: ABSOLUTE BASOPHILS # (AUTO) 0.1 10^3/uL (0.0-0.2); ABSOLUTE EOSINOPHILS # (AUTO) 0.3 10^3/uL (0.0-0.6); ABSOLUTE LYMPHOCYTES (AUTO) 2.9 10^3/uL (0.5-4.7); ABSOLUTE MONOCYTES (AUTO) 1.1 10^3/uL (0.1-1.4); BASOPHILS % (AUTO) 0.4 % (0-2); EOSINOPHILS % (AUTO) 2.6 % (0-6); HEMATOCRIT 39.5 % (37.9-51.0); HEMOGLOBIN 13.4 g/dL (13.5-17.0); LYMPHOCYTES % (AUTO) 21.6 % (13-45); MEAN CORPUSCULAR HEMOGLOBIN 28.9 pg (27.0-33.4); MEAN CORPUSCULAR HGB CONC 33.9 g/dL (32.0-36.0); MEAN CORPUSCULAR VOLUME 85 fl (80-97); MONOCYTES % (AUTO) 7.9 % (3-13); PLATELET COUNT 259 10^3/uL (150-450); RED BLOOD COUNT 4.64 10^6/uL (4.35-5.55); RED CELL DISTRIBUTION WIDTH 13.7 % (11.5-14.0); SEGMENTED NEUTROPHILS % (AUTO) 67.5 % (42-78); TOTAL CELLS COUNTED % (AUTO) 100 %; WHITE BLOOD COUNT 13.3 10^3/uL (4.0-10.5)
[2017-03-16 14:00] LABS: ANION GAP 10 (5-19); BLOOD UREA NITROGEN 13 mg/dL (7-20); CARBON DIOXIDE 26 mmol/L (22-30); CHLORIDE 109 mmol/L (98-107); GLUCOSE 83 mg/dL (75-110); POTASSIUM 4.4 mmol/L (3.6-5.0); SODIUM 144.8 mmol/L (137-145)
--- NOTE | 2017-03-16 14:34 | RADIOLOGY REPORT (SQ) ---
EXAM DESCRIPTION: CHEST SINGLE VIEW COMPLETED DATE/TIME: 03/16/2017 1:24 pm REASON FOR STUDY: COUGH COMPARISON: Chest films 03/03/2016, 03/04/2016, 04/22/2016, 08/05/2016 EXAM PARAMETERS: NUMBER OF VIEWS: One view. TECHNIQUE: Single frontal radiographic view of the chest acquired. RADIATION DOSE: NA LIMITATIONS: None. FINDINGS: LUNGS AND PLEURA: 20% right apical pneumothorax. This report was called to Dr. Monte at 1 400 hours, 03/16/2017. Elsewhere, there is mild increased interstitial markings at the bases of, concurrent atypical pneumon ia or mycoplasma pneumonia could not be excluded. No dense lobar consolidation. No pleural effusions. MEDIASTINUM AND HILAR STRUCTURES: No masses. Contour normal. HEART AND VASCULAR STRUCTURES: Heart normal in size. Normal vasculature. BONES: No acute findings. HARDWARE: Fracture right ventriculoperitoneal shunt tubing over the anterior right chest. Left-sided jugular neurostimulator battery pack and leads. OTHER: No other significant finding. IMPRESSION: 20% right apical pneumothorax Increased interstitial markings in the lung bases, question atypical pneumonia. No dense lobar conso lidation. COMMENT: Pertinent findings on the imaging study reported as a CRITICAL RESULT to JOSEPH MONTE MD at14:00 on 03/16/2017. Category of Critical Result: Pneumothorax TECHNICAL DOCUMENTATION: JOB ID: [id number]- All Rights Reserved
== END ==
LOC: OD 12:51
PROVIDERS: ATTEND Family Medicine
DX: J93.9 Pneumothorax, unspecified (principal); R05 Cough
CPT/HCPCS: 36415; 71045; 80048; 85025

== ENCOUNTER → 2017-04-14 | Outpatient (CLI) | payer MEDICAID ==
--- NOTE | 2017-04-14 16:22 | RADIOLOGY REPORT (SQ) ---
EXAM DESCRIPTION: CHEST SINGLE VIEW COMPLETED DATE/TIME: 04/14/2017 3:49 pm REASON FOR STUDY: PNEUMONITIS DUE TO INHALATION OF FOOD AND VOMIT COMPARISON: 03/28/2017 EXAM PARAMETERS: NUMBER OF VIEWS: One view. TECHNIQUE: Single frontal radiographic view of the chest acquired. RADIATION DOSE: NA LIMITATIONS: Poor inspiration. FINDINGS: LUNGS AND PLEURA: No opacities, masses or pneumothorax. No pleural effusion. MEDIASTINUM AND HILAR STRUCTURES: No masses. Contour normal. HEART AND VASCULAR STRUCTURES: Heart normal in size. Normal vasculature. BONES: No acute findings. HARDWARE: Stimulating device is on the left with shunt tube on the right. OTHER: No other significant finding. IMPRESSION: Poor inspiration without evidence of acute cardiopulmonary disease. TECHNICAL DOCUMENTATION: JOB ID: [id number] [email or web address]- All Rights Reserved Reading location - IP/workstation name: [email or web address]
== END ==
LOC: OD 15:19
PROVIDERS: ATTEND Family Medicine
DX: J69.0 Pneumonitis due to inhalation of food and vomit (principal)
CPT/HCPCS: 71045

== ENCOUNTER 2017-05-03 19:42 | Emergency (ER) | payer MEDICAID ==
[2017-05-03] MEDS ORDERED: PIPERACILLIN/TAZOBACTAM 4.5 GM VIAL IV ONE (20:07)
--- NOTE | 2017-05-03 20:08 | ER Document Report ---
ED General - General Mode of Arrival: Medic Cannot obtain history due to: Mentally challenged, Altered mental status TRAVEL OUTSIDE OF THE [place] IN LAST 30 DAYS: No <KRISTA PAREDES - Last Filed: 05/04/17 04:12> <SRAVANTHI SWIFT - Last Filed: 05/04/17 04:15> - General Stated Complaint: COUGH,BREATHING DIFFICULTY Time Seen by Provider: 05/03/17 19:47 Notes: Patient is a 36 year old male with a history of Profound IDD, cerbal palsy, epilepsy, a [employer] shunt and VNS stimulator presents to the emergency department from [facility] due to seizures onset last night and possible aspiration. Nurse at bedside states the patient had 3 seizures last night, one lasting approximately 9 minutes. Nurse states after the seizures she heard rhonchi in the upper lobes of the patient and noticed intercostal retractions. Nurse mentions today the patients SP02 rate was around 88 percent and decided to call EMS. En route to the emergency department EMS found the patient to be febrile at 100.4. At bedside Nurse states the patient is not at baseline further stating the patient is more talkative. Patient was admitted to the hospital in 2017 for a spontaneous pneumothroax and aspiration. Patient was discharged on 2017. Patient's PCP is Dr. Benson. It was determined 3 years ago that the patient's [employer] shunt is no longer functioning in the per medical records. (KRISTA PAREDES) - Related Data Allergies/Adverse Reactions: No Known Allergies Allergy (Verified 03/16/17 15:15) Past Medical History - General Information source: Outside Facility Records - Nurse from facility - Social History Smoking Status: Never Smoker Cigarette use (# per day): No Chew tobacco use (# tins/day): No Smoking Education Provided: No Frequency of alcohol use: None Family History: Reviewed & Not Pertinent Pulmonary Medical History: Reports: Hx Pneumonia Neurological Medical History: Reports: Hx Seizures GI Medical History: Reports: Hx Gastroesophageal Reflux Disease Past Surgical History: Reports: Other - vp [employer] shunt - Immunizations Hx Diphtheria, Pertussis, Tetanus Vaccination: Yes <KRISTA PAREDES - Last Filed: 05/04/17 04:12> Review of Systems - Review of Systems -: Yes ROS unobtainable due to patient's medical condition - per facility nurse Constitutional: No symptoms reported EENT: No symptoms reported Cardiovascular: No symptoms reported Respiratory: See HPI Gastrointestinal: No symptoms reported Genitourinary: No symptoms reported Male Genitourinary: No symptoms reported Musculoskeletal: No symptoms reported Skin: No symptoms reported Hematologic/Lymphatic: No symptoms reported Neurological/Psychological: See HPI, Seizure -: Yes All other systems reviewed and negative <KRISTA PAREDES - Last Filed: 05/04/17 04:12> Physical Exam <KRISTA PAREDES - Last Filed: 05/04/17 04:12> <SRAVANTHI SWIFT - Last Filed: 05/04/17 04:15> - Vital signs Vitals: Temp Pulse Resp BP Pulse Ox 100.4 F 100 18 126/90 H 95 05/03/17 20:07 05/03/17 20:07 05/03/17 20:07 05/03/17 20:07 05/03/17 20:07 - Notes Notes: GENERAL: Awake. Does not follow commands. Wearing brief. HEAD: Normocephalic, atraumatic. NECK: Full range of motion. Supple. Trachea midline. LUNGS: Wet cough.Clear to auscultation bilaterally, no wheezes, rales, or rhonchi. No respiratory distress. HEART: Mild tachycardia. No murmurs, gallops, or rubs. ABDOMEN: Soft, no apparent tenderness. Non-distended. Bowel sounds present in all 4 quadrants. EXTREMITIES: Moves all 4 extremities spontaneously. NEUROLOGICAL: Does not follow commands, moves away from noxious stimuli such as tickling the feet or shining light in eyes. Opens eyes when provider walks in the room. PSYCH: Does not follow commands. SKIN: Warm to the touch, dry, normal turgor. No rashes or lesions noted. (KRISTA PAREDES) Course - Laboratory Result Diagrams: 05/03/17 20:45 05/03/17 20:45 <KRISTA PAREDES - Last Filed: 05/04/17 04:12> - Laboratory Result Diagrams: 05/03/17 20:45 05/03/17 20:45 <SRAVANTHI SWIFT - Last Filed: 05/04/17 04:15> - Re-evaluation Re-evalutation: 05/04/17 00:18 CBC shows leukocytosis of 15.5, mild anemia with hemoglobin 13.1, coags normal, venous blood gas does not show any acidosis, lactic acid is normal at 0.9, chemistries grossly unremarkable, urinalysis shows dehydration with specific gravity of 1.030 however there are no ketones or signs of infection. Chest x- ray shows his VNS and a [employer] shunt but no signs of pneumonia. Clinically patient' s examination is consistent with pneumonia, this may simply represent aspiration pneumonitis however given the fact that he aspirated last night and has since then developed fever, productive cough and leukocytosis I favor early pneumonia that just has not yet shown up on radiographs. Discussed this with the 2 caregivers at bedside, both are agreeable to treating with Augmentin and discharged to the care facility. They are aware of the risks of antibiotic associated diarrhea and potentially C differential. They will return for worsening fevers, worsening cough, increasing diarrhea or any new or concerning symptoms. (SRAVANTHI SWIFT) - Vital Signs Vital signs: Temp Pulse Resp BP Pulse Ox 98.2 F 100 14 112/70 99 05/04/17 00:33 05/03/17 20:07 05/04/17 00:08 05/04/17 00:08 05/04/17 00:08 - Laboratory Laboratory results interpreted by me: 05/03/17 05/03/17 05/03/17 20:45 20:45 20:45 WBC 15.5 H Hgb 13.1 L RDW 15.4 H Seg Neutrophils % 82.4 H Lymphocytes % 8.4 L Absolute Neutrophils 12.8 H VBG pH 7.43 H Chloride 109 H - EKG Interpretation by Me Additional EKG results interpreted by me: 05/04/17 00:21 EKG shows sinus tachycardia at a rate of 108, normal axis, normal intervals, no ST segment elevations or depressions, no T-wave inversions per my interpretation. (SRAVANTHI SWIFT) Discharge <KRISTA PAREDES - Last Filed: 05/04/17 04:12> <SRAVANTHI SWIFT - Last Filed: 05/04/17 04:15> - Discharge Clinical Impression: Pneumonia Qualifiers: Pneumonia type: aspiration pneumonia Aspiration pneumonia type: unspecified Laterality: unspecified laterality Lung location: unspecified part of lung Qualified Code(s): J69.0 - Pneumonitis due to inhalation of food and vomit Epilepsy Qualifiers: Epilepsy type: epileptic spasms Intractability: not intractable Status epilepticus: without status epilepticus Qualified Code(s): G40.822 - Epileptic spasms, not intractable, without status epilepticus Condition: Stable Disposition: HOME, SELF-CARE Additional Instructions: His chest x-ray did not show pneumonia however given his productive cough, fever , elevated white blood cell count and recent aspiration I am concerned that he does have early pneumonia. I am treating him with Augmentin. Please return to the emergency department should cough worsen, should he develop difficulty breathing, should he develop diarrhea more than 2-3 times a day or you have any new or concerning symptoms. Please be rechecked by Dr. Benson in 3-5 days. Prescriptions: Amox Tr/Potassium Clavulanate [Augmentin 400-57 mg Chew Tablet] 1 tab.chew PO Q8 #30 tab.chew Referrals: JOSEPH BENSON MD [Primary Care Provider] - Follow up in 3-5 days Scribe Attestation: 05/04/17 04:15 I personally performed the services described in the documentation, reviewed and edited the documentation which was dictated to the scribe in my presence, and it accurately records my words and actions. (SRAVANTHI SWIFT) Scribe Documentation - Scribe Written by Ashlyn:: Ashlyn Khoury, 05/03/2017 19:44 acting as scribe for :: Yaneth <KRISTA PAREDES - Last Filed: 05/04/17 04:12>
--- NOTE | 2017-05-03 20:32 | RADIOLOGY REPORT (SQ) ---
EXAM DESCRIPTION: CHEST SINGLE VIEW COMPLETED DATE/TIME: 05/03/2017 8:23 pm REASON FOR STUDY: cough, fever, SOB COMPARISON: 04/14/2017 EXAM PARAMETERS: NUMBER OF VIEWS: One view. TECHNIQUE: Single frontal radiographic view of the chest acquired. RADIATION DOSE: NA LIMITATIONS: None. FINDINGS: LUNGS AND PLEURA: No opacities, masses or pneumothorax. No pleural effusion. MEDIASTINUM AND HILAR STRUCTURES: No masses. Contour normal. HEART AND VASCULAR STRUCTURES: Heart normal in size. Normal vasculature. BONES: No acute findings. HARDWARE: Pacemaker/neural stimulator on the left. A ventriculoperitoneal shunt crosses the chest on the right OTHER: No other significant finding. IMPRESSION: NO ACUTE RADIOGRAPHIC FINDING IN THE CHEST. TECHNICAL DOCUMENTATION: JOB ID: [id number] [employer]- All Rights Reserved Reading location - IP/workstation name: [email or web address]
[2017-05-03 21:10] LABS: VENOUS BLOOD BASE EXCESS -0.7 mmol/L; VENOUS BLOOD PCO2 35.6 mmHg (35-63); VENOUS BLOOD PH 7.43 (7.30-7.42)
[2017-05-03 21:11] LABS: ABSOLUTE EOSINOPHILS # (AUTO) 0.1 10^3/uL (0.0-0.6); ABSOLUTE LYMPHOCYTES (AUTO) 1.3 10^3/uL (0.5-4.7); ABSOLUTE MONOCYTES (AUTO) 1.4 10^3/uL (0.1-1.4); ABSOLUTE NEUT (AUTO) 12.8 10^3/uL (1.7-8.2); BASOPHILS % (AUTO) 0.1 % (0-2); EOSINOPHILS % (AUTO) 0.4 % (0-6); HEMATOCRIT 38.9 % (37.9-51.0); HEMOGLOBIN 13.1 g/dL (13.5-17.0); LYMPHOCYTES % (AUTO) 8.4 % (13-45); MEAN CORPUSCULAR HGB CONC 33.7 g/dL (32.0-36.0); MEAN CORPUSCULAR VOLUME 86 fl (80-97); MONOCYTES % (AUTO) 8.7 % (3-13); PLATELET COUNT 227 10^3/uL (150-450); RED BLOOD COUNT 4.52 10^6/uL (4.35-5.55); RED CELL DISTRIBUTION WIDTH 15.4 % (11.5-14.0); SEGMENTED NEUTROPHILS % (AUTO) 82.4 % (42-78); TOTAL CELLS COUNTED % (AUTO) 100 %; WHITE BLOOD COUNT 15.5 10^3/uL (4.0-10.5)
[2017-05-03 21:18] LABS: INTERNATIONAL RATION (INR) 0.92
[2017-05-03 21:29] LABS: ALANINE AMINOTRANSFERASE 24 U/L (21-72); ALKALINE PHOSPHATASE 85 U/L (38-126); ANION GAP 11 (5-19); ASPARTATE AMINO TRANSFERASE 21 U/L (17-59); BILIRUBIN,DIRECT 0.3 mg/dL (0.0-0.4); BILIRUBIN,TOTAL 0.3 mg/dL (0.2-1.3); BLOOD UREA NITROGEN 13 mg/dL (7-20); CALCIUM 9.6 mg/dL (8.4-10.2); CARBON DIOXIDE 24 mmol/L (22-30); CHLORIDE 109 mmol/L (98-107); GLUCOSE 95 mg/dL (75-110); SODIUM 143.6 mmol/L (137-145); TOTAL PROTEIN 7.4 g/dL (6.3-8.2)
[2017-05-03 21:35] LABS: APPEARANCE,URINE CLEAR; BILIRUBIN,URINE NEGATIVE (NEGATIVE); COLOR,URINE YELLOW; GLUCOSE, URINE NEGATIVE (NEGATIVE); KETONES,URINE NEGATIVE (NEGATIVE); LEUKOCYTE ESTERASE,URINE NEGATIVE (NEGATIVE); NITRITE,URINE NEGATIVE (NEGATIVE); PROTEIN,URINE NEGATIVE (NEGATIVE); UROBILINOGEN,URINE NEGATIVE mg/dL (<2.0)
--- NOTE | 2017-05-03 22:21 | EKG REPORT ---
SEVERITY:- ABNORMAL ECG - SINUS TACHYCARDIA PROBABLE (BORDERLINE Q WAVES) ANTEROLATERAL INFARCT, OLD : Confirmed by: Iveth Mcdowell 03-May-2017 22:20:39
[2017-05-04] MEDS ORDERED: AMOXICILLIN TR/POT CLAVULANATE 500-125 MG TAB PO ONE (00:19)
[2017-05-04 00:33] VITALS: BP 112/70
== END 2017-05-04 00:33 | disposition home or self-care (01) ==
LOC: ER 19:42
DX: J69.0 Pneumonitis due to inhalation of food and vomit (principal); G40.822 Epileptic spasms, not intractable, without status epilepticus; G80.9 Cerebral palsy, unspecified; Z98.2 Presence of cerebrospinal fluid drainage device; Z96.89 Presence of other specified functional implants; R05 Cough; R00.0 Tachycardia, unspecified; D72.829 Elevated white blood cell count, unspecified; D64.9 Anemia, unspecified; E86.0 Dehydration
CPT/HCPCS: 93005; 99284; 51701; 96365; 36415; 87040; 87086; 85025; 85610; 80053; 81001; 82803; 83605; 71045; 93010; J3490; J2543

== ENCOUNTER → 2017-05-06 | Outpatient (CLI) | payer MEDICAID ==
--- NOTE | 2017-05-06 10:08 | RADIOLOGY REPORT (SQ) ---
EXAM DESCRIPTION: CHEST SINGLE VIEW COMPLETED DATE/TIME: 05/06/2017 8:51 am REASON FOR STUDY: PERSONAL HISTORY OF PNEUMONIA (RECURRENT) COMPARISON: 05/03/2017. NUMBER OF VIEWS: One view. TECHNIQUE: Single frontal radiographic view of the chest acquired. LIMITATIONS: None. FINDINGS: LUNGS AND PLEURA: Allowing for differences in technique, stable. No developing infiltrate s. Lungs look slightly hyperinflated but without evidence of pneumonia or overt failure. MEDIASTINUM AND HILAR STRUCTURES: Stable. HEART AND VASCULAR STRUCTURES: Stable heart size. BONES: No acute findings. HARDWARE: Stimulator device with faint leads over the left upper chest. Shunt catheter tubing along the right chest. Hardware looks stable. OTHER: No other significant finding. IMPRESSION: NO SIGNIFICANT RADIOGRAPHIC FINDING IN THE CHEST. TECHNICAL DOCUMENTATION: JOB ID: [id number] [employer]- All Rights Reserved Reading location - IP/workstation name: [email or web address]
== END ==
LOC: OD 08:12
PROVIDERS: ATTEND Family Medicine
DX: Z87.01 Personal history of pneumonia (recurrent) (principal)
CPT/HCPCS: 71045

== ENCOUNTER → 2018-04-14 | Outpatient (CLI) | payer MEDICAID ==
--- NOTE | 2018-04-14 13:33 | RADIOLOGY REPORT (SQ) ---
EXAM DESCRIPTION: CHEST SINGLE VIEW COMPLETED DATE/TIME: 04/14/2018 1:25 pm REASON FOR STUDY: COUGH COMPARISON: None. EXAM PARAMETERS: NUMBER OF VIEWS: One view. TECHNIQUE: Single frontal radiographic view of the chest acquired. RADIATION DOSE: NA LIMITATIONS: None. FINDINGS: LUNGS AND PLEURA: No opacities, masses or pneumothorax. No pleural effusion. MEDIASTINUM AND HILAR STRUCTURES: No masses. Contour normal. HEART AND VASCULAR STRUCTURES: Heart normal in size. Normal vasculature. BONES: No acute findings. HARDWARE: [employer] shunt tubing is in place. Battery pack and lead overlies the left upper chest and neck. OTHER: No other significant finding. IMPRESSION: NO ACUTE RADIOGRAPHIC FINDING IN THE CHEST. TECHNICAL DOCUMENTATION: JOB ID: [id number] [employer]- All Rights Reserved Reading location - IP/workstation name: [email or web address]
[2018-04-14 13:38] LABS: ABSOLUTE EOSINOPHILS # (AUTO) 0.3 10^3/uL (0.0-0.6); ABSOLUTE LYMPHOCYTES (AUTO) 2.3 10^3/uL (0.5-4.7); ABSOLUTE MONOCYTES (AUTO) 0.8 10^3/uL (0.1-1.4); ABSOLUTE NEUT (AUTO) 3.2 10^3/uL (1.7-8.2); BASOPHILS % (AUTO) 0.2 % (0-2); EOSINOPHILS % (AUTO) 5.3 % (0-6); HEMATOCRIT 40.5 % (37.9-51.0); HEMOGLOBIN 13.9 g/dL (13.5-17.0); LYMPHOCYTES % (AUTO) 34.7 % (13-45); MEAN CORPUSCULAR HGB CONC 34.4 g/dL (32.0-36.0); MEAN CORPUSCULAR VOLUME 84 fl (80-97); MONOCYTES % (AUTO) 11.8 % (3-13); PLATELET COUNT 215 10^3/uL (150-450); RED BLOOD COUNT 4.81 10^6/uL (4.35-5.55); RED CELL DISTRIBUTION WIDTH 14.3 % (11.5-14.0); TOTAL CELLS COUNTED % (AUTO) 100 %; WHITE BLOOD COUNT 6.6 10^3/uL (4.0-10.5)
[2018-04-14 14:09] LABS: ANION GAP 14 (5-19); BLOOD UREA NITROGEN 9 mg/dL (7-20); CARBON DIOXIDE 25 mmol/L (22-30); CHLORIDE 104 mmol/L (98-107); GLUCOSE 97 mg/dL (75-110); POTASSIUM 4.3 mmol/L (3.6-5.0); SODIUM 142.5 mmol/L (137-145)
== END ==
LOC: CAR 12:53
PROVIDERS: ATTEND Family Medicine
DX: R50.9 Fever, unspecified (principal); R05 Cough
CPT/HCPCS: 71045; 80048; 85025

== ENCOUNTER 2018-09-03 21:20 | Inpatient (IN) | payer MEDICAID ==
[2018-09-03] MEDS ORDERED: NORMAL SALINE 500 ML IV ONE ×2 (22:21→23:58)
[2018-09-03] MEDS ORDERED: PANTOPRAZOLE SODIUM 40 MG VIAL IV ONE (22:21)
[2018-09-03] MEDS ORDERED: ONDANSETRON HCL INJ/PF 4 MG/2 ML SDV IV ONE (22:21)
[2018-09-03] MEDS ORDERED: PANTOPRAZOLE SODIUM 40 MG VIAL IV PRN (22:22)
[2018-09-03 22:44] LABS: HEMOGLOBIN 13.9 g/dL (13.5-17.0); MEAN CORPUSCULAR HEMOGLOBIN 28.1 pg (27.0-33.4); MEAN CORPUSCULAR HGB CONC 33.8 g/dL (32.0-36.0); MEAN CORPUSCULAR VOLUME 83 fl (80-97); PLATELET COUNT 220 10^3/uL (150-450); RED BLOOD COUNT 4.93 10^6/uL (4.35-5.55); WHITE BLOOD COUNT 26.6 10^3/uL (4.0-10.5)
[2018-09-03 22:52] LABS: INTERNATIONAL RATION (INR) 1.14; PROTHROMBIN TIME 14.7 SEC (11.4-15.4)
[2018-09-03 22:58] LABS: ABSOLUTE LYMPHOCYTES# (MANUAL) 1.6 10^3/uL (0.5-4.7); ABSOLUTE MONOCYTES # (MANUAL) 3.2 10^3/uL (0.1-1.4); BAND NEUTROPHILS % (MANUAL) 4 % (3-5); BASOPHILS % (MANUAL) 0 % (0-2); EOSINOPHILS % (MANUAL) 0 % (0-6); LYMPHOCYTES % (MANUAL) 6 % (13-45); MONOCYTES % (MANUAL) 12 % (3-13); SEGMENTED NEUTROPHILS % (MAN) 78 % (42-78); TOTAL CELLS COUNTED 100
[2018-09-03 22:59] LABS: PLATELET COMMENT ADEQUATE
[2018-09-03 23:00] LABS: ALANINE AMINOTRANSFERASE 23 U/L (21-72); ALBUMIN 4.3 g/dL (3.5-5.0); ALKALINE PHOSPHATASE 123 U/L (38-126); ANION GAP 11 (5-19); ANISOCYTOSIS SLIGHT; ASPARTATE AMINO TRANSFERASE 26 U/L (17-59); BILIRUBIN,DIRECT 0.4 mg/dL (0.0-0.4); BILIRUBIN,TOTAL 0.9 mg/dL (0.2-1.3); BLOOD UREA NITROGEN 17 mg/dL (7-20); CALCIUM 9.5 mg/dL (8.4-10.2); CARBON DIOXIDE 24 mmol/L (22-30); CHLORIDE 101 mmol/L (98-107); GLUCOSE 120 mg/dL (75-110); HYPOCHROMASIA SLIGHT; POTASSIUM 3.8 mmol/L (3.6-5.0)
--- NOTE | 2018-09-03 23:23 | RADIOLOGY REPORT (SQ) ---
EXAM DESCRIPTION: XR CHEST 1 VIEW COMPLETED DATE/TME: 09/03/2018 22:20 CLINICAL HISTORY: 38 years, Male, hypoxemia COMPARISON: 04/14/2018. NUMBER OF VIEWS: 1 TECHNIQUE: Single AP portable semiupright view of the chest was obtained. LIMITATIONS: Motion. FINDINGS: Stable cardiac mediastinal silhouette with tortuous thoracic aorta. Pacemaker device overlies and obscures portions of the the LEFT hemithorax with leads intact at the level of the battery pack, stable in course and termination at the level of the RIGHT neck soft tissues. Right-sided shunt catheter tubing traverses the RIGHT hemithorax. Low lung volumes grossly clear without discrete focal opacity, pleural effusion or pneumothorax. IMPRESSION: No acute radiographic abnormality. copyright 2010 [employer]- All Rights Reserved
[2018-09-03 23:24] LABS: VENOUS BLOOD HCO3 25.9 mmol/L (20-32); VENOUS BLOOD PCO2 42.2 mmHg (35-63); VENOUS BLOOD PH 7.41 (7.30-7.42)
--- NOTE | 2018-09-03 23:36 | ER Document Report ---
ED General - General Chief Complaint: Vomiting Stated Complaint: VOMITING Time Seen by Provider: 09/03/18 22:03 Primary Care Provider: JOSEPH BENSON MD [Primary Care Provider] - Follow up as needed Notes: Patient is a 38-year-old male with a history of cerebral palsy who has 24-hour care at a [facility] who presents with his caretakers because of fever of 103.4 today. He was diagnosed with a UTI and started on Septra today. He then started having coughing and started vomiting up black-colored material. His oxygen saturation started become low today. Previous history of aspiration pneumonia. Last bowel movement was yesterday and there is no blood in it. No black tarry stools. Patient has never had a UTI before. He does wear a depends diaper. He does not have a Mackay catheter. No other complaints at this time. History of seizure disorder for which he takes medications. TRAVEL OUTSIDE OF THE [place] IN LAST 30 DAYS: No - Related Data Allergies/Adverse Reactions: No Known Allergies Allergy (Verified 03/16/17 15:15) Past Medical History - Social History Smoking Status: Never Smoker Frequency of alcohol use: None Drug Abuse: None Family History: Reviewed & Not Pertinent Pulmonary Medical History: Reports: Hx Pneumonia Neurological Medical History: Reports: Hx Seizures Renal/ Medical History: Denies: Hx Peritoneal Dialysis GI Medical History: Reports: Hx Gastroesophageal Reflux Disease Past Surgical History: Reports: Other - vp scientific affairs shunt - Immunizations Hx Diphtheria, Pertussis, Tetanus Vaccination: Yes Review of Systems - Review of Systems Notes: My Normal Review Basic REVIEW OF SYSTEMS: CONSTITUTIONAL : Denies fever, chills, or sweats. Denies recent illness. EENT: Denies eye, ear, throat, or mouth pain or symptoms. Denies nasal or s inus congestion. CARDIOVASCULAR: Denies chest pain. RESPIRATORY: Coughing. Decreased oxygen saturation. GASTROINTESTINAL: Denies abdominal pain. Vomiting GENITOURINARY: Denies difficulty urinating, painful urination, burning, frequency, or blood in urine. FEMALE GENITOURINARY: Denies vaginal bleeding, abnormal or irregular periods. LMP: MUSCULOSKELETAL: Denies neck or back pain or joint pain or swelling. SKIN: Denies rash or skin lesions. HEMATOLOGIC : Denies easy bruising or bleeding. LYMPHATIC: Denies swollen, enlarged glands. NEUROLOGICAL: Denies altered mental status or loss of consciousness. Denies headache. Denies weakness or paralysis or loss of use of either side. Denies problems with gait or speech. Denies sensory or motor loss. PSYCHIATRIC: Denies anxiety or stress or depression. ALL OTHER SYSTEMS REVIEWED AND NEGATIVE. Physical Exam - Vital signs Vitals: Pulse Resp BP Pulse Ox 135 H 28 H 147/85 H 92 09/03/18 21:42 09/03/18 21:42 09/03/18 21:42 09/03/18 21:42 - Notes Notes: General Appearance: Patient actively coughing on exam. Occasionally vomiting up very small amounts of blackish type material. Vitals: reviewed, See vital signs table. Eyes: PERRL, EOMI, Conjuctiva clear Mouth: No decreasd moisture Lungs: No wheezing, No rales, No rhonci, No accessory muscle use, good air exchange bilaterally. Heart: Normal rate, Regular rythm, No murmur, no rub Abdomen: Normal BS, soft, No rigidity, he does not appear to wince or pull away when I push on his abdomen., No guarding, no rebound, no abdominal masses, no organomegaly Rectal Exam: No gross blood on rectal exam. Skin is intact the perirectal gluteal region. Extremities: good pulses in all extremities, no swelling or tenderness in the extremities, no edema. Skin: warm, dry, appropriate color, no rash Neuro: Patient has severe cerebral palsy. He is awake and alert but does not answer questions on his own. Does not follow commands. Course - Re-evaluation Re-evalutation: 09/04/18 00:08 Patient's hemoglobin is normal. He does have leukocytosis with suspected urosepsis. He is not septic shock and that his blood pressure has been normal. His heart rate has improved greatly after some IV fluids. His lung chavez are now clear and his oxygenation is back to normal. He does have what appears to be an upper GI bleed that he has vomited up some coffee-ground emesis. That has also seemed to have slowed down. I placed him on a Protonix drip. I did speak with Dr. Benson, patient's primary care physician, who agrees to accept the patient but request that I speak with general surgery first to make sure that they be available for endoscopy. I did speak with Dr. Mo, general surgeon on-call, who says that he is available for consult for endoscopy if needed. I did confirm code status with the caretakers and patient is a full code. Dictation of this chart was performed using voice recognition software; therefore, there may be some unintended grammatical errors. - Vital Signs Vital signs: Temp Pulse Resp BP Pulse Ox 99.2 F 135 H 21 H 147/85 H 95 09/03/18 23:53 09/03/18 21:42 09/03/18 23:00 09/03/18 21:42 09/03/18 23:00 - Laboratory Result Diagrams: 09/03/18 22:33 09/03/18 22:33 Laboratory results interpreted by me: 09/03/18 09/03/18 22:33 22:33 WBC 26.6 H RDW 15.0 H Lymphocytes % (Manual) 6 L Abs Neuts (Manual) 21.8 H Abs Monocytes (Manual) 3.2 H Sodium 136.3 L Glucose 120 H Discharge - Discharge Clinical Impression: UTI (urinary tract infection) Qualifiers: Urinary tract infection type: site unspecified Hematuria presence: without hematuria Qualified Code(s): N39.0 - Urinary tract infection, site not specified Sepsis Qualifiers: Sepsis type: sepsis due to unspecified organism Qualified Code(s): A41.9 - Sepsis, unspecified organism GI bleed Qualifiers: GI bleed type/associated pathology: unspecified gastrointestinal hemorrhage type Qualified Code(s): K92.2 - Gastrointestinal hemorrhage, unspecified Condition: Stable Disposition: ADMITTED INPATIENT Admitting Provider: [facility] Admitted: [facility]
[2018-09-03] MEDS ORDERED: CEFTRIAXONE 1 GM/D5W RTU 1 GM/50 ML RTUPB IV ONE (23:57)
[2018-09-04] MEDS ORDERED: ONDANSETRON HCL INJ/PF 4 MG/2 ML SDV IV PRN (00:33)
[2018-09-04] MEDS ORDERED: PIPERACILLIN/TAZOBACTAM 3.375 GM VIAL IV PRN (01:27)
[2018-09-04] MEDS ORDERED: PIPERACILLIN SODIUM/TAZOBACTAM 4.5 GM in NORMAL SALINE 100 ML IV ONE (01:30)
[2018-09-04] MEDS: NORMAL SALINE 1000 ML 1,000 ML IV PRN ×2 (01:42→18:53)
[2018-09-04] MEDS: METRONIDAZOLE 500 MG/NS RTU 500 MG/100 ML RTUPB IV SCH ×4 (05:49→23:05)
[2018-09-04] MEDS ORDERED: PIPERACILLIN SODIUM/TAZOBACTAM 4.5 GM in NORMAL SALINE 100 ML IV SCH (06:00)
--- NOTE | 2018-09-04 06:10 | PDOC CONSULTATION ---
Consultation Consult Date: 09/04/18 Provider Consulted: ELLIOT GARCIA Consult reason:: Coffee ground emesis. Possible EGD History of Present Illness Admission Date/PCP: 09/04/18 00:16 JOSEPH MONTE MD History of Present Illness: CECI HSIEH is a 38 year old male with history of CP with Seizure disorder admittedt for UTI. In ED last night had a one time episode of dark colored vomitus. His Hb is 13.9. Has history of aspiration. Past Medical History Pulmonary Medical History: Reports: Pneumonia Neurological Medical History: Reports: Seizures GI Medical History: Reports: Gastroesophageal Reflux Disease Past Surgical History Past Surgical History: Reports: Other - vp rheumatology shunt Social History Smoking Status: Never Smoker Frequency of Alcohol Use: None Hx Recreational Drug Use: No Drugs: None Hx Prescription Drug Abuse: No Family History Family History: Reviewed & Not Pertinent Parental Family History Reviewed: Yes Children Family History Reviewed: No Sibling(s) Family History Reviewed.: No Medication/Allergy Home Medications: RX: Carbamazepine [Tegretol 100 mg Chewable Tablet] 400 mg PO TID 03/17/17 RX: Cholecalciferol (Vitamin D3) [Vitamin D3 1000 Unit Tablet] 1,000 unit PO DAILY 03/17/17 RX: Clonazepam [Klonopin] 1.5 mg PO QHS 03/17/17 RX: Clorazepate Dipotassium [Tranxene 7.5 mg Tablet] 3.75 mg PO BID 03/17/17 RX: Eszopiclone [Lunesta] 3 mg PO QHS 03/17/17 RX: Lacosamide [Vimpat] 200 mg PO BID 03/17/17 RX: Perampanel [Fycompa] 10 mg PO QHS 03/17/17 RX: Polyethylene Glycol 3350 [Miralax Powder 17 gm/Packet] 17 gm PO DAILY 03/17/17 RX: Clindamycin HCl [Cleocin 150 mg Capsule] 600 mg PO Q8 #21 capsule 03/28/17 RX: Sulfamethoxazole/Trimethoprim [Septra-Ds 800-160 mg Tablet] 1 tab PO Q12 #14 tablet 03/28/17 Amox Tr/Potassium Clavulanate [Augmentin 400-57 mg Chew Tablet] 1 tab.chew PO Q8 #30 tab.chew 05/04/17 Allergies/Adverse Reactions: No Known Allergies Allergy (Verified 03/16/17 15:15) Review of Systems Constitutional: PRESENT: as per HPI Physical Exam Vital Signs: Temp Pulse Resp BP Pulse Ox 98.3 F 53 L 22 H 140/85 H 90 L 09/04/18 04:00 09/04/18 04:00 09/04/18 04:00 09/04/18 04:00 09/04/18 04:00 Intake & Output 09/02/18 09/03/18 09/04/18 06:59 06:59 06:59 Intake Total 1700 Balance 1700 Weight 63.503 kg General appearance: PRESENT: no acute distress, other - uncooperative GI/Abdominal exam: PRESENT: soft - non tender Rectal exam: PRESENT: deferred Extremities exam: PRESENT: other - somewhat contracted Neurological exam: PRESENT: other - non cooperative Psychiatric exam: PRESENT: agitated Skin exam: PRESENT: normal color, warm Results Laboratory Results: 09/03/18 22:33 09/03/18 22:33 09/03/18 09/03/18 09/03/18 22:33 22:33 23:02 WBC 26.6 H RBC 4.93 Hgb 13.9 Hct 41.0 MCV 83 MCH 28.1 MCHC 33.8 RDW 15.0 H Plt Count 220 Seg Neutrophils % Not Reportable Lymphocytes % Not Reportable Monocytes % Not Reportable Eosinophils % Not Reportable Basophils % Not Reportable Absolute Neutrophils Not Reportable Absolute Lymphocytes Not Reportable Absolute Monocytes Not Reportable Absolute Eosinophils Not Reportable Absolute Basophils Not Reportable VBG pH VBG pCO2 VBG HCO3 VBG Base Excess Sodium 136.3 L Potassium 3.8 Chloride 101 Carbon Dioxide 24 Anion Gap 11 BUN 17 Creatinine 0.95 Est GFR ( Amer) > 60 Est GFR (Non-Af Amer) > 60 Glucose 120 H Lactic Acid 1.4 Calcium 9.5 Total Bilirubin 0.9 AST 26 ALT 23 Alkaline Phosphatase 123 Total Protein 8.0 Albumin 4.3 09/03/18 23:02 WBC RBC Hgb Hct MCV MCH MCHC RDW Plt Count Seg Neutrophils % Lymphocytes % Monocytes % Eosinophils % Basophils % Absolute Neutrophils Absolute Lymphocytes Absolute Monocytes Absolute Eosinophils Absolute Basophils VBG pH 7.41 VBG pCO2 42.2 VBG HCO3 25.9 VBG Base Excess 1.0 Sodium Potassium Chloride Carbon Dioxide Anion Gap BUN Creatinine Est GFR ( Amer) Est GFR (Non-Af Amer) Glucose Lactic Acid Calcium Total Bilirubin AST ALT Alkaline Phosphatase Total Protein Albumin Impressions: Chest X-Ray 09/03/18 22:20 IMPRESSION: No acute radiographic abnormality. copyright 2010 [employer]- All Rights Reserved Assessment & Plan - Diagnosis (1) GI bleed Qualifiers: GI bleed type/associated pathology: unspecified gastrointestinal hemorrhage type Qualified Code(s): K92.2 - Gastrointestinal hemorrhage, unspecified Is this a current diagnosis for this admission?: Yes (2) Sepsis Qualifiers: Sepsis type: sepsis due to unspecified organism Qualified Code(s): A41.9 - Sepsis, unspecified organism Is this a current diagnosis for this admission?: Yes (3) UTI (urinary tract infection) Qualifiers: Urinary tract infection type: site unspecified Hematuria presence: without hematuria Qualified Code(s): N39.0 - Urinary tract infection, site not specified Is this a current diagnosis for this admission?: Yes - Time Time Spent: 30 to 50 Minutes - Plan Summary Plan Summary: Will monitor H/H. If Hb drops then will do EGD Patient is non cooperative and apparently has epilepsy that could be induce by vagal stimulation. This plus history of aspiration will not make him a candidate for EGD unless absolutely necessary
[2018-09-04 06:40] LABS: HEMATOCRIT 36.1 % (37.9-51.0); HEMOGLOBIN 11.9 g/dL (13.5-17.0); MEAN CORPUSCULAR HEMOGLOBIN 27.7 pg (27.0-33.4); MEAN CORPUSCULAR VOLUME 84 fl (80-97); PLATELET COUNT 183 10^3/uL (150-450); RED BLOOD COUNT 4.31 10^6/uL (4.35-5.55); RED CELL DISTRIBUTION WIDTH 14.9 % (11.5-14.0); WHITE BLOOD COUNT 20.4 10^3/uL (4.0-10.5)
[2018-09-04 06:59] LABS: ABSOLUTE LYMPHOCYTES# (MANUAL) 3.3 10^3/uL (0.5-4.7); ABSOLUTE MONOCYTES # (MANUAL) 1.4 10^3/uL (0.1-1.4); BAND NEUTROPHILS % (MANUAL) 1 % (3-5); BASOPHILS % (MANUAL) 1 % (0-2); EOSINOPHILS % (MANUAL) 0 % (0-6); LYMPHOCYTES % (MANUAL) 16 % (13-45); MONOCYTES % (MANUAL) 7 % (3-13); PLATELET COMMENT ADEQUATE; SEGMENTED NEUTROPHILS % (MAN) 75 % (42-78); TOTAL CELLS COUNTED 100
[2018-09-04 07:02] LABS: ANISOCYTOSIS SLIGHT; HYPOCHROMASIA SLIGHT
[2018-09-04] MEDS ORDERED: DEXTROSE 40% GEL 15 GM TUBE PO PRN ×2 (08:30)
[2018-09-04] MEDS ORDERED: DEXTROSE 50%-WATER 25 GM/50 ML DISP.SYRIN IV PRN ×2 (08:30)
[2018-09-04] MEDS ORDERED: GLUCAGON,HUMAN RECOMB 1 MG INJ SUBCUT PRN (08:30)
[2018-09-04] MEDS: PIPERACILLIN SODIUM/TAZOBACTAM 4.5 GM in NORMAL SALINE 100 ML IV SCH ×3 (09:12→21:48)
--- NOTE | 2018-09-04 12:18 | PDOC H&P ---
History of Present Illness Admission Date/PCP: 09/04/18 00:16 JOSEPH MONTE MD Patient complains of: FeverAnd vomiting History of Present Illness: CECI HSIEH is a 38 year old male This is a 38-year-old male with the mental retardation cerebral palsy behavior issues currently living in a [facility]dc brought to the emergency department because of the hypoxia feverAnd possible aspirations In the emergency department patient's vomited coffee emesis material concern about upper GI bleedAnd surgery was consulted and suggest to continues to monitor Patient's at this point when I saw it no acute distress alert awake Patient is currently treated with the aspiration pneumonia and possible upper GI bleed currently on a Protonix drips and IV antibiotic Past Medical History Pulmonary Medical History: Reports: Pneumonia, Respiratory Failure Neurological Medical History: Reports: Seizures GI Medical History: Reports: Gastroesophageal Reflux Disease Psychiatric Medical History: Reports: Other Psychiatric History Note: Mental retardation's Behavior problems CP Past Surgical History Past Surgical History: Reports: Other - executive vp shunt Social History Information Source: [employer] Smoking Status: Never Smoker Frequency of Alcohol Use: None Hx Recreational Drug Use: No Drugs: None Hx Prescription Drug Abuse: No Family History Family History: Reviewed & Not Pertinent Parental Family History Reviewed: Yes Children Family History Reviewed: Yes Sibling(s) Family History Reviewed.: Yes Medication/Allergy Home Medications: Carbamazepine [Tegretol 100 mg Chewable Tablet] 400 mg PO Q8 03/17/17 Cholecalciferol (Vitamin D3) [Vitamin D3 1000 Unit Tablet] 1,000 unit PO DAILY 03/17/17 Clonazepam [Klonopin] 1.5 mg PO QHS 03/17/17 Clorazepate Dipotassium [Tranxene 7.5 mg Tablet] 3.75 mg PO Q12 03/17/17 Eszopiclone [Lunesta] 3 mg PO QHS 03/17/17 Lacosamide [Vimpat] 200 mg PO Q12 03/17/17 Polyethylene Glycol 3350 [Miralax Powder 17 gm/Packet] 17 gm PO QPM 03/17/17 Brivaracetam [Briviact] 100 mg PO Q12 09/04/18 Diazepam [Diastat Acudial 20 Mg/4 Ml Rectal Gel] 15 mg UT Q6HP PRN 09/04/18 Omeprazole 40 mg PO Q6AM 09/04/18 Allergies/Adverse Reactions: No Known Allergies Allergy (Verified 03/16/17 15:15) Review of Systems ROS unobtainable: Due to mental status All systems: reviewed and no additional remarkable complaints except as stated Physical Exam Vital Signs: Temp Pulse Resp BP Pulse Ox 98.3 F 96 20 123/80 98 09/04/18 04:00 09/04/18 08:06 09/04/18 08:06 09/04/18 08:06 09/04/18 08:06 Intake & Output 09/03/18 09/04/18 09/05/18 06:59 06:59 06:59 Intake Total 1800 Balance 1800 Weight 73.2 kg General appearance: PRESENT: no acute distress, well-developed, well-nourished Head exam: PRESENT: atraumatic, normocephalic Eye exam: PRESENT: conjunctiva pink, EOMI, PERRLA. ABSENT: scleral icterus Ear exam: PRESENT: normal external ear exam Mouth exam: PRESENT: moist, tongue midline Neck exam: PRESENT: full ROM. ABSENT: carotid bruit, JVD, lymphadenopathy, thyromegaly Respiratory exam: PRESENT: clear to auscultation roula Cardiovascular exam: PRESENT: RRR. ABSENT: diastolic murmur, rubs, systolic murmur Vascular exam: PRESENT: normal capillary refill GI/Abdominal exam: PRESENT: normal bowel sounds, soft. ABSENT: distended, guarding, mass, organolmegaly, rebound, tenderness Rectal exam: PRESENT: deferred Neurological exam: PRESENT: alert, awake. ABSENT: motor sensory deficit Psychiatric exam: PRESENT: appropriate affect, normal mood. ABSENT: homicidal ideation, suicidal ideation Skin exam: PRESENT: dry, intact, warm. ABSENT: cyanosis, rash Results Laboratory Results: 09/04/18 06:33 09/03/18 22:33 09/03/18 09/03/18 09/03/18 22:33 22:33 23:02 WBC 26.6 H RBC 4.93 Hgb 13.9 Hct 41.0 MCV 83 MCH 28.1 MCHC 33.8 RDW 15.0 H Plt Count 220 Seg Neutrophils % Not Reportable Lymphocytes % Not Reportable Monocytes % Not Reportable Eosinophils % Not Reportable Basophils % Not Reportable Absolute Neutrophils Not Reportable Absolute Lymphocytes Not Reportable Absolute Monocytes Not Reportable Absolute Eosinophils Not Reportable Absolute Basophils Not Reportable VBG pH VBG pCO2 VBG HCO3 VBG Base Excess Sodium 136.3 L Potassium 3.8 Chloride 101 Carbon Dioxide 24 Anion Gap 11 BUN 17 Creatinine 0.95 Est GFR ( Amer) > 60 Est GFR (Non-Af Amer) > 60 Glucose 120 H Lactic Acid 1.4 Calcium 9.5 Total Bilirubin 0.9 AST 26 ALT 23 Alkaline Phosphatase 123 Total Protein 8.0 Albumin 4.3 09/03/18 09/04/18 23:02 06:33 WBC 20.4 H RBC 4.31 L Hgb 11.9 L Hct 36.1 L MCV 84 MCH 27.7 MCHC 33.0 RDW 14.9 H Plt Count 183 Seg Neutrophils % Not Reportable Lymphocytes % Not Reportable Monocytes % Not Reportable Eosinophils % Not Reportable Basophils % Not Reportable Absolute Neutrophils Not Reportable Absolute Lymphocytes Not Reportable Absolute Monocytes Not Reportable Absolute Eosinophils Not Reportable Absolute Basophils Not Reportable VBG pH 7.41 VBG pCO2 42.2 VBG HCO3 25.9 VBG Base Excess 1.0 Sodium Potassium Chloride Carbon Dioxide Anion Gap BUN Creatinine Est GFR ( Amer) Est GFR (Non-Af Amer) Glucose Lactic Acid Calcium Total Bilirubin AST ALT Alkaline Phosphatase Total Protein Albumin Impressions: Chest X-Ray 09/03/18 22:20 IMPRESSION: No acute radiographic abnormality. copyright 2011 [employer]- All Rights Reserved Assessment & Plan - Diagnosis (1) Sepsis Qualifiers: Sepsis type: sepsis due to unspecified organism Qualified Code(s): A41.9 - Sepsis, unspecified organism Is this a current diagnosis for this admission?: Yes Plan: Most likely from the aspiration pneumonia and as per the caregiver possible UTI Will cover with the IV antibiotic get the all culture (2) GI bleed Qualifiers: GI bleed type/associated pathology: unspecified gastrointestinal hemorrhage type Qualified Code(s): K92.2 - Gastrointestinal hemorrhage, unspecified Is this a current diagnosis for this admission?: Yes Plan: Currently stable we will continues to H&H every 8 hours Surgery suggest to concurrently hold the endoscopy due to the other conditions (3) UTI (urinary tract infection) Qualifiers: Urinary tract infection type: site unspecified Hematuria presence: without hematuria Qualified Code(s): N39.0 - Urinary tract infection, site not specified Is this a current diagnosis for this admission?: Yes Plan: Continues to IV antibiotic (4) Fever Qualifiers: Fever type: unspecified Qualified Code(s): R50.9 - Fever, unspecified Is this a current diagnosis for this admission?: Yes Plan: Possible aspiration pneumonia and a UTI (5) GERD (gastroesophageal reflux disease) Qualifiers: Esophagitis presence: without esophagitis Is this a current diagnosis for this admission?: Yes Plan: Continues to Protonix (6) Mental and behavioral problem Is this a current diagnosis for this admission?: Yes (7) Pneumonia Qualifiers: Pneumonia type: aspiration pneumonia Aspiration pneumonia type: unspecified Laterality: unspecified laterality Lung location: unspecified part of lung Qualified Code(s): J69.0 - Pneumonitis due to inhalation of food and vomit Is this a current diagnosis for this admission?: Yes Plan: Most likely possible from the vomiting and the aspirations continues to IV antibiotic (8) Seizure disorder Is this a current diagnosis for this admission?: Yes Plan: Change to the p.o. to the IV Vimpat while the patient is currently n.p.o. - Time Time Spent: 50 to 70 Minutes Medications reviewed and adjusted accordingly: Yes Anticipated discharge: Other Within: Other - Inpatient Certification Based on my medical assessment, after consideration of the patient's comorbidities, presenting symptoms, or acuity I expect that the services needed warrant INPATIENT care.: Yes I certify that my determination is in accordance with my understanding of Medicare's requirements for reasonable and necessary INPATIENT services [42 CFR 412.3e].: Yes Medical Necessity: Failure to Improve With Outpatient Therapy, Significant Comorbidiites Make Outpatient Treatment Too Risky, Need For IV Fluids, Need for IV Antibiotics Post Hospital Care: D/C [employer] Documentation - Plan Summary Plan Summary: See MD orders admit the patient in IM Discussed with the caregiver at [facility] regarding the patient's current conditions
[2018-09-04 12:59] LABS: HEMATOCRIT 35.4 % (37.9-51.0); HEMOGLOBIN 11.8 g/dL (13.5-17.0); MEAN CORPUSCULAR HEMOGLOBIN 27.8 pg (27.0-33.4); MEAN CORPUSCULAR HGB CONC 33.4 g/dL (32.0-36.0); MEAN CORPUSCULAR VOLUME 83 fl (80-97); PLATELET COUNT 176 10^3/uL (150-450); RED BLOOD COUNT 4.26 10^6/uL (4.35-5.55); RED CELL DISTRIBUTION WIDTH 14.7 % (11.5-14.0); WHITE BLOOD COUNT 15.9 10^3/uL (4.0-10.5)
[2018-09-04] MEDS ORDERED: DIAZEPAM PR PRN (13:40)
[2018-09-04] MEDS: CARBAMAZEPINE 100 MG TAB.CHEW PO SCH ×2 (16:06→21:36)
[2018-09-04] MEDS: PANTOPRAZOLE SODIUM 40 MG VIAL IV SCH (18:27)
[2018-09-04] MEDS: ACETAMINOPHEN 325 MG TABLET PO PRN (18:27)
[2018-09-04] MEDS: CLORAZEPATE DIPOTASSIUM 7.5 MG TABLET PO SCH (21:29)
[2018-09-04] MEDS: LACOSAMIDE 100 MG TABLET PO SCH (21:30)
[2018-09-04] MEDS: ZOLPIDEM TARTRATE 5 MG TABLET PO SCH (21:30)
[2018-09-04] MEDS ORDERED: (PENDING PHARMACY ID) (Lacosamide [Vimpat] 200 MG) PO SCH (22:00)
[2018-09-04] MEDS ORDERED: BRIVARACETAM 100 MG PO SCH (22:00)
[2018-09-05] MEDS: ACETAMINOPHEN 325 MG TABLET PO PRN ×3 (01:10→23:03)
[2018-09-05] MEDS: PIPERACILLIN SODIUM/TAZOBACTAM 4.5 GM in NORMAL SALINE 100 ML IV SCH (03:18)
[2018-09-05] MEDS: METRONIDAZOLE 500 MG/NS RTU 500 MG/100 ML RTUPB IV SCH ×3 (05:38→17:41)
[2018-09-05] MEDS: CARBAMAZEPINE 100 MG TAB.CHEW PO SCH ×3 (05:38→22:07)
[2018-09-05] MEDS: PANTOPRAZOLE SODIUM 40 MG VIAL IV SCH ×2 (05:40→17:41)
[2018-09-05 06:19] LABS: ABSOLUTE LYMPHOCYTES (AUTO) 1.4 10^3/uL (0.5-4.7); ABSOLUTE MONOCYTES (AUTO) 0.9 10^3/uL (0.1-1.4); ABSOLUTE NEUT (AUTO) 6.3 10^3/uL (1.7-8.2); BASOPHILS % (AUTO) 0.3 % (0-2); EOSINOPHILS % (AUTO) 0.4 % (0-6); HEMATOCRIT 34.5 % (37.9-51.0); HEMOGLOBIN 11.4 g/dL (13.5-17.0); LYMPHOCYTES % (AUTO) 15.7 % (13-45); MEAN CORPUSCULAR HEMOGLOBIN 27.8 pg (27.0-33.4); MEAN CORPUSCULAR HGB CONC 33.2 g/dL (32.0-36.0); MEAN CORPUSCULAR VOLUME 84 fl (80-97); MONOCYTES % (AUTO) 10.4 % (3-13); PLATELET COUNT 165 10^3/uL (150-450); RED BLOOD COUNT 4.12 10^6/uL (4.35-5.55); RED CELL DISTRIBUTION WIDTH 14.5 % (11.5-14.0); SEGMENTED NEUTROPHILS % (AUTO) 73.2 % (42-78); TOTAL CELLS COUNTED % (AUTO) 100 %; WHITE BLOOD COUNT 8.6 10^3/uL (4.0-10.5)
[2018-09-05 06:39] LABS: ALANINE AMINOTRANSFERASE 34 U/L (21-72); ALBUMIN 3.2 g/dL (3.5-5.0); ALKALINE PHOSPHATASE 93 U/L (38-126); ANION GAP 8 (5-19); ASPARTATE AMINO TRANSFERASE 27 U/L (17-59); BILIRUBIN,DIRECT 0.4 mg/dL (0.0-0.4); BILIRUBIN,TOTAL 0.6 mg/dL (0.2-1.3); BLOOD UREA NITROGEN 11 mg/dL (7-20); CALCIUM 8.6 mg/dL (8.4-10.2); CARBON DIOXIDE 21 mmol/L (22-30); CHLORIDE 112 mmol/L (98-107); GLUCOSE 96 mg/dL (75-110); TOTAL PROTEIN 6.1 g/dL (6.3-8.2)
--- NOTE | 2018-09-05 08:23 | RADIOLOGY REPORT (SQ) ---
EXAM DESCRIPTION: CHEST SINGLE VIEW COMPLETED DATE/TIME: 09/05/2018 8:14 am REASON FOR STUDY: pnemonia COMPARISON: 09/03/2018 NUMBER OF VIEWS: One view. TECHNIQUE: Single frontal radiographic image of the chest acquired. LIMITATIONS: None. FINDINGS: LUNGS AND PLEURA: Stable appearance. MEDIASTINUM AND HILAR STRUCTURES: Stable heart size and mediastinal structures. HEART AND VASCULAR STRUCTURES: Stable appearance. BONES: No acute findings. HARDWARE: Unchanged. OTHER: No other significant finding. IMPRESSION: STABLE APPEARANCE OF THE CHEST. TECHNICAL DOCUMENTATION: JOB ID: [id number] [employer]- All Rights Reserved Reading location - IP/workstation name: [email or web address]
--- NOTE | 2018-09-05 08:27 | PDOC PROGRESS REPORT ---
Subjective Progress Note for:: 09/05/18 Subjective:: Patient is currently doing fair Patient is urine cultures grew E. coli was culture was done in the 09/03 Patient's chest x-ray is clear Reason For Visit: ASPIRATION PNEUMONIA,UPPER GI BLEED Physical Exam Vital Signs: Temp Pulse Resp BP Pulse Ox 100.4 F 96 24 H 132/77 H 94 09/05/18 03:58 09/05/18 07:00 09/05/18 03:58 09/05/18 03:58 09/05/18 03:58 Intake & Output 09/04/18 09/05/18 09/06/18 06:59 06:59 06:59 Intake Total 1800 1820 Balance 1800 1820 Weight 73.2 kg 64.6 kg General appearance: PRESENT: no acute distress, well-developed, well-nourished Head exam: PRESENT: atraumatic, normocephalic Eye exam: PRESENT: conjunctiva pink, EOMI, PERRLA. ABSENT: scleral icterus Ear exam: PRESENT: normal external ear exam Mouth exam: PRESENT: moist, tongue midline Neck exam: PRESENT: full ROM. ABSENT: carotid bruit, JVD, lymphadenopathy, thyromegaly Respiratory exam: PRESENT: clear to auscultation roula Cardiovascular exam: PRESENT: RRR. ABSENT: diastolic murmur, rubs, systolic murmur Vascular exam: PRESENT: normal capillary refill GI/Abdominal exam: PRESENT: normal bowel sounds, soft. ABSENT: distended, guarding, mass, organolmegaly, rebound, tenderness Rectal exam: PRESENT: deferred Neurological exam: PRESENT: alert, awake. ABSENT: motor sensory deficit Psychiatric exam: PRESENT: appropriate affect, normal mood. ABSENT: homicidal ideation, suicidal ideation Skin exam: PRESENT: dry, intact, warm. ABSENT: cyanosis, rash Results Laboratory Results: 09/05/18 05:39 09/05/18 05:39 09/04/18 09/05/18 09/05/18 12:36 05:39 05:39 WBC 15.9 H 8.6 RBC 4.26 L 4.12 L Hgb 11.8 L 11.4 L Hct 35.4 L 34.5 L MCV 83 84 MCH 27.8 27.8 MCHC 33.4 33.2 RDW 14.7 H 14.5 H Plt Count 176 165 Seg Neutrophils % 73.2 Lymphocytes % 15.7 Monocytes % 10.4 Eosinophils % 0.4 Basophils % 0.3 Absolute Neutrophils 6.3 Absolute Lymphocytes 1.4 Absolute Monocytes 0.9 Absolute Eosinophils 0.0 Absolute Basophils 0.0 Sodium 141.4 Potassium 4.0 Chloride 112 H Carbon Dioxide 21 L Anion Gap 8 BUN 11 Creatinine 0.97 Est GFR ( Amer) > 60 Est GFR (Non-Af Amer) > 60 Glucose 96 Calcium 8.6 Total Bilirubin 0.6 AST 27 ALT 34 Alkaline Phosphatase 93 Total Protein 6.1 L Albumin 3.2 L Impressions: Chest X-Ray 09/05/18 00:00 IMPRESSION: STABLE APPEARANCE OF THE CHEST. Assessment & Plan - Diagnosis (1) Sepsis Qualifiers: Sepsis type: sepsis due to unspecified organism Qualified Code(s): A41.9 - Sepsis, unspecified organism Is this a current diagnosis for this admission?: Yes Plan: From the UTI and aspirations pneumonia currently at the cefepime instead of the zosyn since with the better sensitivity (2) GI bleed Qualifiers: GI bleed type/associated pathology: unspecified gastrointestinal hemorrhage type Qualified Code(s): K92.2 - Gastrointestinal hemorrhage, unspecified Is this a current diagnosis for this admission?: Yes Plan: Currently all resolved (3) UTI (urinary tract infection) Qualifiers: Urinary tract infection type: site unspecified Hematuria presence: without hematuria Qualified Code(s): N39.0 - Urinary tract infection, site not specified Is this a current diagnosis for this admission?: Yes Plan: E. coli urinary tract infections (4) Fever Qualifiers: Fever type: unspecified Qualified Code(s): R50.9 - Fever, unspecified Is this a current diagnosis for this admission?: Yes Plan: Possible aspiration pneumonia and a UTI (5) GERD (gastroesophageal reflux disease) Qualifiers: Esophagitis presence: without esophagitis Is this a current diagnosis for this admission?: Yes Plan: Continues to Protonix (6) Mental and behavioral problem Is this a current diagnosis for this admission?: Yes (7) Pneumonia Qualifiers: Pneumonia type: aspiration pneumonia Aspiration pneumonia type: unspecified Laterality: unspecified laterality Lung location: unspecified part of lung Qualified Code(s): J69.0 - Pneumonitis due to inhalation of food and vomit Is this a current diagnosis for this admission?: Yes Plan: Most likely possible from the vomiting and the aspirations continues to IV antibiotic (8) Seizure disorder Is this a current diagnosis for this admission?: Yes Plan: Change to the p.o. to the IV Vimpat while the patient is currently n.p.o. - Time Time Spent with patient: 15-24 minutes Medications reviewed and adjusted accordingly: Yes Anticipated discharge: Other Within: Other - Plan Summary Plan Summary: Continues to IV cefepime
--- NOTE | 2018-09-05 09:26 | ST Inp Modified Barium Swallow ---
Medical Diagnosis - Medical Diagnoses Medical Diagnosis Description & ICD-10 Code(s): pneumonia - ICD-10 Tx Diagnosis Coding (1) Dysphagia ICD-10 Code(s): R13.10 - DYSPHAGIA, UNSPECIFIED ST Inpatient MBS - General Date: 09/05/18 Date of Onset: 07/18/14 - date of first MBSS - History -: Medical - per EMR: patient admitted 09/03 with vomiting. Prior medical history includes cerebral palsy, aspiration pneumonia, GERD, GIS MANAGER shunt. Admitting diagnosis include sepsis, GI bleed, UTI, and aspiration pneumonia. Recent chest x-ray shows clear lung chavez. Nursing reports that patient is a resident of [facility], and was on a nectar liquids and puree solids diet at the facility. Patient had most recent MBSS on 03/23/17. That study indicated swallowing deficits and high risk of aspiration on residuals from multiple textures, though not seen on the study. It also indicated that alternative means of nutrition may be needed. Medications: Medications Reviewed Allergies: No known allergies - Subjective Current Nutritional Means: PO Current PO Diet: Pureed, Thickened liquids - nectar Current Symptoms: Hx of asp. pneumonia Pain: unable to communicate, no signs/symptoms of pain - patient yelling out, not in response to any stimuli - Objective Assessment: Upright, Left Lateral - Food Trials Food Trials Used: Honey-thickened liquids, [place] thick liquids, Pureed The Patient: fed by ST, via spoon - Assessment Dentition: Full Laryngeal Function: clear voicing, no volitional swallow, no volitional cough/clear - Pharyngeal Stage Initiation of Pharyngeal Stage: Delayed - triggered in valleculae to pyriform Decreased Laryngeal Elevation: No Reduced Velo-Pharyngeal Closure: no Reduced Pressure Generation: Yes Reduced Tongue Base Retraction: Yes Pre-Swallowing Pooling in Valleculae: Significant Pre-Swallowing Pooling in Pyriforms: Moderate Reduced Thyro-Hyiod Approximation: No Reduced Epiglottic Excursion: No Multiple Swallows With: Ineffective Clearance Post Swallow Residuals in Valleculae: Moderate Post Swallow Residuals in Pyriforms: Moderate Post Swallow Residuals: throughout pharynx Pahryngeal Stage Comments: Patient demonstrates overall reduced coordination of the swallow. Aspiration was not seen on the swallow, however, patient is unable to coordinate second swallow to clear residuals. Residuals were seen to enter the airway with multiple textures (nectar, honey). Patient also has significant extraneous head movements, which make aspiration of pharyngeal residue more likely. Weak pharyngeal constriction contributed to significant pharyngeal residue, not unlike the last known MBSS. Although aspiration of pudding (puree) texture was not seen on this study, the increased thickness of the food results in more pharyngeal residue, placing the patient at higher risk of aspiration of residuals after the swallow. - Impression/Summary Laryngeal Penetration: Yes, after swallow Tracheal Aspiration: yes, after swallow - with nectar and honey liquids Productive Cough: Yes - cough reflex with aspiration Patient Presents With: Oral-Pharyngeal dysph., Severe Risk of Aspiration: Severe - due to pharyngeal weakness and overall poor coordination of oral and pharyngeal phase swallowing Risk of Nutritional Compromise: Moderate - due to time required to safely consume foods - Recommendations Solid Diet Recommendations: Pureed Liquid Diet Recommendations: Honey-Thick Strict Aspitarion Precautions: Yes Dysphagia Therapy with TAPPING MACHINE OPERATOR AUTOMATIC: No - patient unable to participate in skilled acute care therapy due to mental status Recommended Techniques: Med Crushed in Applesauce, Small Bites and Sips Supervision: requires assistance Other Recommendations: Puree solids and honey thick liquids is most conservative diet recommendation. Patient is at risk of aspiration on all textures due to poor clearance of residuals and poor swallowing coordination. May consider alternative means of nutrition/hydration, however, risks for increased GERD with aspiration are present as well. - Time Total Time: 30 Total Timed Minutes: 30
[2018-09-05] MEDS: LACOSAMIDE 100 MG TABLET PO SCH ×2 (09:51→22:07)
[2018-09-05] MEDS: CLORAZEPATE DIPOTASSIUM 7.5 MG TABLET PO SCH ×2 (09:51→22:07)
--- NOTE | 2018-09-05 10:15 | RADIOLOGY REPORT (SQ) ---
EXAM DESCRIPTION: COOKIE SWALLOW COMPLETED DATE/TIME: 09/05/2018 9:06 am REASON FOR STUDY: history of aspiration; aspiration pna this admit cerebral palsy COMPARISON: Modified barium swallow 03/23/2017. TECHNIQUE: Videofluoroscopic swallowing examination was performed in conjunction with speech patholo gy. Videofluoroscopic imaging was obtained and reviewed and these are the findings: RADIATION DOSE: 2 minutes 32 seconds of fluoroscopy was used 2 2 images saved to PACS. LIMITATIONS: None FINDINGS: The patient was brought into the fluoro room and placed upright on a modified barium swall ow chair. The patient was then given multiple consistencies mixed with barium to swallow under live fluoroscopic video guidance. According to the Speech Pathologist there was penetration and it is dominick pected aspiration of the nectar and honey thick liquids. Post swallow residuals in the vallecular an d piriform sinuses appear to the been aspirated also. Very uncoordinated swallow. IMPRESSION: LARYNGEAL PENETRATION AND ASPIRATION ABOVE. PLEASE SEE SPEECH PATHOLOGIST REPORT FOR OTHER FINDINGS AND RECOMMENDATIONS. COMMENT: Quality ID [id number]: Final reports for procedures using fluoroscopy that document radiation exp osure indices, or exposure time and number of fluorographic images (if radiation exposure indices are not available) TECHNICAL DOCUMENTATION: JOB ID: [id number] [employer]- All Rights Reserved Reading location - IP/workstation name: [email or web address] [id number]
[2018-09-05] MEDS: CEFEPIME HCL 2 GM in DEXTROSE 5%-WATER 50 ML IV SCH ×2 (11:11→22:08)
[2018-09-05] MEDS: NORMAL SALINE 1000 ML 1,000 ML IV PRN (17:43)
[2018-09-05] MEDS: ZOLPIDEM TARTRATE 5 MG TABLET PO SCH (22:07)
[2018-09-06] MEDS: METRONIDAZOLE 500 MG/NS RTU 500 MG/100 ML RTUPB IV SCH ×4 (00:20→18:09)
[2018-09-06] MEDS: PANTOPRAZOLE SODIUM 40 MG VIAL IV SCH ×2 (05:13→18:09)
[2018-09-06] MEDS: CARBAMAZEPINE 100 MG TAB.CHEW PO SCH ×3 (05:14→21:21)
[2018-09-06 06:35] LABS: ABSOLUTE EOSINOPHILS # (AUTO) 0.2 10^3/uL (0.0-0.6); ABSOLUTE LYMPHOCYTES (AUTO) 1.6 10^3/uL (0.5-4.7); ABSOLUTE MONOCYTES (AUTO) 0.9 10^3/uL (0.1-1.4); ABSOLUTE NEUT (AUTO) 2.6 10^3/uL (1.7-8.2); BASOPHILS % (AUTO) 0.6 % (0-2); EOSINOPHILS % (AUTO) 3.5 % (0-6); HEMATOCRIT 32.6 % (37.9-51.0); HEMOGLOBIN 10.9 g/dL (13.5-17.0); LYMPHOCYTES % (AUTO) 30.9 % (13-45); MEAN CORPUSCULAR HEMOGLOBIN 27.6 pg (27.0-33.4); MEAN CORPUSCULAR HGB CONC 33.5 g/dL (32.0-36.0); MEAN CORPUSCULAR VOLUME 83 fl (80-97); MONOCYTES % (AUTO) 16.4 % (3-13); PLATELET COUNT 169 10^3/uL (150-450); RED BLOOD COUNT 3.94 10^6/uL (4.35-5.55); RED CELL DISTRIBUTION WIDTH 14.7 % (11.5-14.0); SEGMENTED NEUTROPHILS % (AUTO) 48.6 % (42-78); TOTAL CELLS COUNTED % (AUTO) 100 %; WHITE BLOOD COUNT 5.3 10^3/uL (4.0-10.5)
[2018-09-06 06:45] LABS: ANION GAP 10 (5-19); BLOOD UREA NITROGEN 7 mg/dL (7-20); CALCIUM 8.4 mg/dL (8.4-10.2); CARBON DIOXIDE 20 mmol/L (22-30); CHLORIDE 113 mmol/L (98-107); GLUCOSE 123 mg/dL (75-110); POTASSIUM 3.3 mmol/L (3.6-5.0)
--- NOTE | 2018-09-06 07:50 | PDOC PROGRESS REPORT ---
Subjective Progress Note for:: 09/06/18 Subjective:: Patient is currently doing fair Fever is coming down still low-grade Patient urine culture is positive for gram-negative organism E. coli No seizures activity overnight P.o. intake is fair per nursing staff No other concern Reason For Visit: ASPIRATION PNEUMONIA,UPPER GI BLEED Physical Exam Vital Signs: Temp Pulse Resp BP Pulse Ox 98.9 F 72 16 121/75 99 09/06/18 04:35 09/06/18 04:35 09/06/18 04:35 09/06/18 04:35 09/06/18 04:35 Intake & Output 09/05/18 09/06/18 09/07/18 06:59 06:59 06:59 Intake Total 2920 662 Balance 2920 662 Weight 64.6 kg 67.8 kg General appearance: PRESENT: no acute distress, well-developed, well-nourished Head exam: PRESENT: atraumatic, normocephalic Eye exam: PRESENT: conjunctiva pink, EOMI, PERRLA. ABSENT: scleral icterus Ear exam: PRESENT: normal external ear exam Mouth exam: PRESENT: moist, tongue midline Neck exam: PRESENT: full ROM. ABSENT: carotid bruit, JVD, lymphadenopathy, thyromegaly Respiratory exam: PRESENT: clear to auscultation roula Cardiovascular exam: ABSENT: diastolic murmur, rubs, systolic murmur Pulses: PRESENT: normal dorsalis pedis pul, +2 pedal pulses bilateral Vascular exam: PRESENT: normal capillary refill GI/Abdominal exam: PRESENT: normal bowel sounds, soft. ABSENT: distended, guarding, mass, organolmegaly, rebound, tenderness Rectal exam: PRESENT: deferred Neurological exam: PRESENT: alert, awake. ABSENT: motor sensory deficit Psychiatric exam: PRESENT: appropriate affect, normal mood. ABSENT: homicidal ideation, suicidal ideation Skin exam: PRESENT: dry, intact, warm. ABSENT: cyanosis, rash Results Laboratory Results: 09/06/18 06:14 09/06/18 06:14 09/06/18 09/06/18 09/06/18 06:14 06:14 06:14 WBC 5.3 RBC 3.94 L Hgb 10.9 L Hct 32.6 L MCV 83 MCH 27.6 MCHC 33.5 RDW 14.7 H Plt Count 169 Seg Neutrophils % 48.6 Lymphocytes % 30.9 Monocytes % 16.4 H Eosinophils % 3.5 Basophils % 0.6 Absolute Neutrophils 2.6 Absolute Lymphocytes 1.6 Absolute Monocytes 0.9 Absolute Eosinophils 0.2 Absolute Basophils 0.0 Sodium 142.5 Potassium 3.3 L Chloride 113 H Carbon Dioxide 20 L Anion Gap 10 BUN 7 Creatinine 0.76 Est GFR ( Amer) > 60 Est GFR (Non-Af Amer) > 60 Glucose 123 H Lactic Acid 0.7 Calcium 8.4 Impressions: Chest X-Ray 09/05/18 00:00 IMPRESSION: STABLE APPEARANCE OF THE CHEST. Modified Barium Swallow 09/05/18 00:00 IMPRESSION: LARYNGEAL PENETRATION AND ASPIRATION ABOVE. PLEASE SEE SPEECH PATHOLOGIST REPORT FOR OTHER FINDINGS AND RECOMMENDATIONS. Assessment & Plan - Diagnosis (1) Sepsis Qualifiers: Sepsis type: sepsis due to unspecified organism Qualified Code(s): A41.9 - Sepsis, unspecified organism Is this a current diagnosis for this admission?: Yes Plan: From the UTI and aspirations pneumonia currently at the [facility] instead of the zosyn since with the better sensitivity (2) GI bleed Qualifiers: GI bleed type/associated pathology: unspecified gastrointestinal hemorrhage type Qualified Code(s): K92.2 - Gastrointestinal hemorrhage, unspecified Is this a current diagnosis for this admission?: Yes Plan: Currently all resolved (3) UTI (urinary tract infection) Qualifiers: Urinary tract infection type: site unspecified Hematuria presence: without hematuria Qualified Code(s): N39.0 - Urinary tract infection, site not specified Is this a current diagnosis for this admission?: Yes Plan: E. coli urinary tract infections (4) Fever Qualifiers: Fever type: unspecified Qualified Code(s): R50.9 - Fever, unspecified Is this a current diagnosis for this admission?: Yes Plan: Possible aspiration pneumonia and a UTI (5) GERD (gastroesophageal reflux disease) Qualifiers: Esophagitis presence: without esophagitis Is this a current diagnosis for this admission?: Yes Plan: Continues to Protonix (6) Mental and behavioral problem Is this a current diagnosis for this admission?: Yes (7) Pneumonia Qualifiers: Pneumonia type: aspiration pneumonia Aspiration pneumonia type: unspecified Laterality: unspecified laterality Lung location: unspecified part of lung Qualified Code(s): J69.0 - Pneumonitis due to inhalation of food and vomit Is this a current diagnosis for this admission?: Yes Plan: Most likely possible from the vomiting and the aspirations continues to IV antibiotic (8) Seizure disorder Is this a current diagnosis for this admission?: Yes Plan: Change to the p.o. to the IV Vimpat while the patient is currently n.p.o. - Time Time Spent with patient: 15-24 minutes Medications reviewed and adjusted accordingly: Yes Anticipated discharge: Other Within: Other - Plan Summary Plan Summary: Replace the potassium Continues to IV antibiotic Reduce the IV fluid
[2018-09-06] MEDS ORDERED: POTASSIUM CHLORIDE 20 MEQ PACKET PO ONE (08:30)
[2018-09-06] MEDS: NORMAL SALINE 1000 ML 1,000 ML IV PRN (08:34)
[2018-09-06] MEDS: CEFEPIME HCL 2 GM in DEXTROSE 5%-WATER 50 ML IV SCH ×2 (10:27→21:18)
[2018-09-06] MEDS: LACOSAMIDE 100 MG TABLET PO SCH ×2 (10:28→21:21)
[2018-09-06] MEDS: CLORAZEPATE DIPOTASSIUM 7.5 MG TABLET PO SCH ×2 (10:28→21:21)
[2018-09-06] MEDS: ZOLPIDEM TARTRATE 5 MG TABLET PO SCH (21:21)
[2018-09-07] MEDS: METRONIDAZOLE 500 MG/NS RTU 500 MG/100 ML RTUPB IV SCH ×4 (03:32→17:18)
[2018-09-07 05:48] LABS: ANION GAP 9 (5-19); BLOOD UREA NITROGEN 7 mg/dL (7-20); CARBON DIOXIDE 23 mmol/L (22-30); CHLORIDE 111 mmol/L (98-107); GLUCOSE 96 mg/dL (75-110); POTASSIUM 3.8 mmol/L (3.6-5.0)
[2018-09-07 06:13] LABS: ABSOLUTE EOSINOPHILS # (AUTO) 0.3 10^3/uL (0.0-0.6); ABSOLUTE NEUT (AUTO) 2.9 10^3/uL (1.7-8.2); BASOPHILS % (AUTO) 0.4 % (0-2); EOSINOPHILS % (AUTO) 5.4 % (0-6); HEMATOCRIT 36.2 % (37.9-51.0); HEMOGLOBIN 12.1 g/dL (13.5-17.0); LYMPHOCYTES % (AUTO) 31.4 % (13-45); MEAN CORPUSCULAR HEMOGLOBIN 27.7 pg (27.0-33.4); MEAN CORPUSCULAR HGB CONC 33.5 g/dL (32.0-36.0); MEAN CORPUSCULAR VOLUME 83 fl (80-97); MONOCYTES % (AUTO) 16.6 % (3-13); PLATELET COUNT 191 10^3/uL (150-450); RED BLOOD COUNT 4.37 10^6/uL (4.35-5.55); RED CELL DISTRIBUTION WIDTH 14.7 % (11.5-14.0); SEGMENTED NEUTROPHILS % (AUTO) 46.2 % (42-78); TOTAL CELLS COUNTED % (AUTO) 100 %; WHITE BLOOD COUNT 6.3 10^3/uL (4.0-10.5)
[2018-09-07] MEDS: CARBAMAZEPINE 100 MG TAB.CHEW PO SCH ×3 (07:52→21:40)
[2018-09-07] MEDS: PANTOPRAZOLE SODIUM 40 MG VIAL IV SCH (07:53)
[2018-09-07] MEDS: CEFEPIME HCL 2 GM in DEXTROSE 5%-WATER 50 ML IV SCH ×2 (10:00→21:40)
[2018-09-07] MEDS ORDERED: ENOXAPARIN SODIUM INJ 40 MG/0.4 ML DISP.SYRIN SUBCUT SCH (10:00)
[2018-09-07] MEDS: LACOSAMIDE 100 MG TABLET PO SCH ×2 (10:01→21:40)
[2018-09-07] MEDS: CLORAZEPATE DIPOTASSIUM 7.5 MG TABLET PO SCH ×2 (10:01→21:40)
--- NOTE | 2018-09-07 12:07 | PDOC PROGRESS REPORT ---
Subjective Progress Note for:: 09/07/18 Subjective:: Patient is currently doing fair Fever is coming down still low-grade Patient urine culture is positive for gram-negative organism E. coli No seizures activity overnight P.o. intake is fair per nursing staff No other concern Reason For Visit: ASPIRATION PNEUMONIA,UPPER GI BLEED Physical Exam Vital Signs: Temp Pulse Resp BP Pulse Ox 100.6 F H 110 H 18 103/55 L 81 L 09/07/18 03:45 09/07/18 03:45 09/07/18 03:45 09/07/18 03:45 09/07/18 03:45 Intake & Output 09/06/18 09/07/18 09/08/18 06:59 06:59 06:59 Intake Total 1662 1240 Balance 1662 1240 Weight 67.8 kg 72 kg General appearance: PRESENT: no acute distress Head exam: PRESENT: atraumatic, normocephalic Eye exam: PRESENT: conjunctiva pink, EOMI, PERRLA. ABSENT: scleral icterus Ear exam: PRESENT: normal external ear exam Mouth exam: PRESENT: moist, tongue midline Neck exam: PRESENT: full ROM. ABSENT: carotid bruit, JVD, lymphadenopathy, thyromegaly Respiratory exam: PRESENT: clear to auscultation roula Cardiovascular exam: PRESENT: RRR. ABSENT: diastolic murmur, rubs, systolic murmur Vascular exam: PRESENT: normal capillary refill GI/Abdominal exam: PRESENT: normal bowel sounds, soft. ABSENT: distended, guarding, mass, organolmegaly, rebound, tenderness Rectal exam: PRESENT: deferred Neurological exam: PRESENT: alert, awake. ABSENT: motor sensory deficit Psychiatric exam: PRESENT: appropriate affect, normal mood. ABSENT: homicidal ideation, suicidal ideation Skin exam: PRESENT: dry, intact, warm. ABSENT: cyanosis, rash Results Laboratory Results: 09/07/18 05:11 09/07/18 05:11 09/07/18 09/07/18 05:11 05:11 WBC 6.3 RBC 4.37 Hgb 12.1 L Hct 36.2 L MCV 83 MCH 27.7 MCHC 33.5 RDW 14.7 H Plt Count 191 Seg Neutrophils % 46.2 Lymphocytes % 31.4 Monocytes % 16.6 H Eosinophils % 5.4 Basophils % 0.4 Absolute Neutrophils 2.9 Absolute Lymphocytes 2.0 Absolute Monocytes 1.0 Absolute Eosinophils 0.3 Absolute Basophils 0.0 Sodium 143.4 Potassium 3.8 Chloride 111 H Carbon Dioxide 23 Anion Gap 9 BUN 7 Creatinine 0.80 Est GFR ( Amer) > 60 Est GFR (Non-Af Amer) > 60 Glucose 96 Calcium 9.0 Impressions: Chest X-Ray 09/05/18 00:00 IMPRESSION: STABLE APPEARANCE OF THE CHEST. Modified Barium Swallow 09/05/18 00:00 IMPRESSION: LARYNGEAL PENETRATION AND ASPIRATION ABOVE. PLEASE SEE SPEECH PATHOLOGIST REPORT FOR OTHER FINDINGS AND RECOMMENDATIONS. Assessment & Plan - Diagnosis (1) Sepsis Qualifiers: Sepsis type: sepsis due to unspecified organism Qualified Code(s): A41.9 - Sepsis, unspecified organism Is this a current diagnosis for this admission?: Yes Plan: From the UTI and aspirations pneumonia currently at the cefepime instead of the zosyn since with the better sensitivity (2) GI bleed Qualifiers: GI bleed type/associated pathology: unspecified gastrointestinal hemorrhage type Qualified Code(s): K92.2 - Gastrointestinal hemorrhage, unspecified Is this a current diagnosis for this admission?: Yes Plan: Currently all resolved (3) UTI (urinary tract infection) Qualifiers: Urinary tract infection type: site unspecified Hematuria presence: without hematuria Qualified Code(s): N39.0 - Urinary tract infection, site not specified Is this a current diagnosis for this admission?: Yes Plan: E. coli urinary tract infections (4) Fever Qualifiers: Fever type: unspecified Qualified Code(s): R50.9 - Fever, unspecified Is this a current diagnosis for this admission?: Yes Plan: Possible aspiration pneumonia and a UTI (5) GERD (gastroesophageal reflux disease) Qualifiers: Esophagitis presence: without esophagitis Is this a current diagnosis for this admission?: Yes Plan: Continues to Protonix (6) Mental and behavioral problem Is this a current diagnosis for this admission?: Yes (7) Pneumonia Qualifiers: Pneumonia type: aspiration pneumonia Aspiration pneumonia type: unspecified Laterality: unspecified laterality Lung location: unspecified part of lung Qualified Code(s): J69.0 - Pneumonitis due to inhalation of food and vomit Is this a current diagnosis for this admission?: Yes Plan: Most likely possible from the vomiting and the aspirations continues to IV antibiotic (8) Seizure disorder Is this a current diagnosis for this admission?: Yes Plan: Change to the p.o. to the IV Vimpat while the patient is currently n.p.o. - Time Time Spent with patient: 15-24 minutes Medications reviewed and adjusted accordingly: Yes Anticipated discharge: Other Within: Other - Plan Summary Plan Summary: Continues to current medications
[2018-09-07] MEDS: ENOXAPARIN SODIUM INJ 40 MG/0.4 ML DISP.SYRIN SUBCUT SCH (12:09)
[2018-09-07] MEDS: NORMAL SALINE 1000 ML 1,000 ML IV PRN (17:18)
[2018-09-07] MEDS: ZOLPIDEM TARTRATE 5 MG TABLET PO SCH (21:40)
[2018-09-08] MEDS: METRONIDAZOLE 500 MG/NS RTU 500 MG/100 ML RTUPB IV SCH ×2 (00:40→05:37)
[2018-09-08] MEDS: CARBAMAZEPINE 100 MG TAB.CHEW PO SCH ×3 (05:37→21:15)
[2018-09-08 07:16] LABS: ANION GAP 9 (5-19); BLOOD UREA NITROGEN 7 mg/dL (7-20); CALCIUM 9.1 mg/dL (8.4-10.2); CARBON DIOXIDE 21 mmol/L (22-30); CHLORIDE 115 mmol/L (98-107); GLUCOSE 101 mg/dL (75-110); POTASSIUM 3.9 mmol/L (3.6-5.0)
[2018-09-08] MEDS: CLORAZEPATE DIPOTASSIUM 7.5 MG TABLET PO SCH ×2 (09:35→21:16)
[2018-09-08] MEDS: LACOSAMIDE 100 MG TABLET PO SCH ×2 (09:35→21:15)
[2018-09-08] MEDS: DOXYCYCLINE HYCLATE 100 MG TABLET PO SCH ×2 (09:35→21:16)
[2018-09-08] MEDS: ENOXAPARIN SODIUM INJ 40 MG/0.4 ML DISP.SYRIN SUBCUT SCH (09:36)
--- NOTE | 2018-09-08 11:03 | PDOC PROGRESS REPORT ---
Subjective Progress Note for:: 09/08/18 Subjective:: Patient is currently doing well remain afebrile for the last 24 hours E. coli urinary tract sensitive to the tetracycline and other medicines patient's finished the 5 days of IV antibiotic course 1. Blood culture is positive not sure truly was also sensitive to the doxycycline His p.o. intake is good Reason For Visit: ASPIRATION PNEUMONIA,UPPER GI BLEED Physical Exam Vital Signs: Temp Pulse Resp BP Pulse Ox 97.3 F 51 L 17 131/92 H 99 09/08/18 08:34 09/08/18 08:34 09/08/18 08:34 09/08/18 08:34 09/08/18 08:34 Intake & Output 09/07/18 09/08/18 09/09/18 06:59 06:59 06:59 Intake Total 2240 1440 1100 Balance 2240 1440 1100 Weight 72 kg 70 kg General appearance: PRESENT: no acute distress Head exam: PRESENT: atraumatic, normocephalic Eye exam: PRESENT: conjunctiva pink, EOMI, PERRLA. ABSENT: scleral icterus Ear exam: PRESENT: normal external ear exam Mouth exam: PRESENT: moist, tongue midline Neck exam: PRESENT: full ROM. ABSENT: carotid bruit, JVD, lymphadenopathy, thyromegaly Respiratory exam: PRESENT: decreased breath sounds Cardiovascular exam: PRESENT: RRR. ABSENT: diastolic murmur, rubs, systolic murmur Pulses: PRESENT: normal dorsalis pedis pul, +2 pedal pulses bilateral Vascular exam: PRESENT: normal capillary refill GI/Abdominal exam: PRESENT: normal bowel sounds, soft. ABSENT: distended, guarding, mass, organolmegaly, rebound, tenderness Rectal exam: PRESENT: deferred Neurological exam: PRESENT: alert, awake. ABSENT: motor sensory deficit Psychiatric exam: PRESENT: appropriate affect, normal mood. ABSENT: homicidal ideation, suicidal ideation Skin exam: PRESENT: dry, intact, warm. ABSENT: cyanosis, rash Results Laboratory Results: 09/07/18 05:11 09/08/18 06:20 09/08/18 06:20 Sodium 145.2 H Potassium 3.9 Chloride 115 H Carbon Dioxide 21 L Anion Gap 9 BUN 7 Creatinine 0.80 Est GFR ( Amer) > 60 Est GFR (Non-Af Amer) > 60 Glucose 101 Calcium 9.1 09/03/18 23:02 Blood Blood Culture - Final Staphylococcus Epidermidis Impressions: Chest X-Ray 09/05/18 00:00 IMPRESSION: STABLE APPEARANCE OF THE CHEST. Modified Barium Swallow 09/05/18 00:00 IMPRESSION: LARYNGEAL PENETRATION AND ASPIRATION ABOVE. PLEASE SEE SPEECH PATHOLOGIST REPORT FOR OTHER FINDINGS AND RECOMMENDATIONS. Assessment & Plan - Diagnosis (1) Sepsis Qualifiers: Sepsis type: sepsis due to unspecified organism Qualified Code(s): A41.9 - Sepsis, unspecified organism Is this a current diagnosis for this admission?: Yes Plan: Currently remain afebrile white count is normal will switch to the IV antibiotic to the p.o.Doxycycline (2) GI bleed Qualifiers: GI bleed type/associated pathology: unspecified gastrointestinal hemorrhage type Qualified Code(s): K92.2 - Gastrointestinal hemorrhage, unspecified Is this a current diagnosis for this admission?: Yes Plan: Currently all resolved (3) UTI (urinary tract infection) Qualifiers: Urinary tract infection type: site unspecified Hematuria presence: without hematuria Qualified Code(s): N39.0 - Urinary tract infection, site not specified Is this a current diagnosis for this admission?: Yes Plan: Will switch to the doxycycline the patient is to remain afebrile for the next 24-hour hopefully remain discharged to the [facility] (4) Fever Qualifiers: Fever type: unspecified Qualified Code(s): R50.9 - Fever, unspecified Is this a current diagnosis for this admission?: Yes Plan: Currently all resolved (5) GERD (gastroesophageal reflux disease) Qualifiers: Esophagitis presence: without esophagitis Is this a current diagnosis for this admission?: Yes Plan: Continues to Protonix (6) Mental and behavioral problem Is this a current diagnosis for this admission?: Yes (7) Pneumonia Qualifiers: Pneumonia type: aspiration pneumonia Aspiration pneumonia type: unspecified Laterality: unspecified laterality Lung location: unspecified part of lung Qualified Code(s): J69.0 - Pneumonitis due to inhalation of food and vomit Is this a current diagnosis for this admission?: Yes Plan: Continues to doxycycline for 7 more days (8) Seizure disorder Is this a current diagnosis for this admission?: Yes Plan: Change to the p.o. to the IV Vimpat while the patient is currently n.p.o. - Time Time Spent with patient: 15-24 minutes Medications reviewed and adjusted accordingly: Yes Anticipated discharge: Other Within: Other - Plan Summary Plan Summary: Will everything switch to p.o. the patient is to remain afebrile for the next 24 hours and white count normal discharge doxycycline for 7 more days with the Protonix 40 mg p.o. daily
--- NOTE | 2018-09-08 15:25 | PDOC CONSULTATION ---
Consultation Consult Date: 09/04/18 Attending physician:: JOSEPH MONTE Provider Consulted: LAURA ADAM Consult reason:: Hypoxia/pneumonia History of Present Illness Admission Date/PCP: 09/04/18 00:16 JOSEPH MONTE MD History of Present Illness: CECI HSIEH is a 38 year old male resident of a [facility] where he has suffered from cerebral palsy and severe mental retardation developed a fever and shortness of breath and upon presentation was coughing coffee-ground emesis he was admitted with elevated temperature and diagnosis of possible probable aspiration pneumonitis. Past Medical History Pulmonary Medical History: Reports: Pneumonia Neurological Medical History: Reports: Seizures, Other - Cerebral palsy GI Medical History: Reports: Gastroesophageal Reflux Disease Traumatic Medical History: Denies: Gunshot Wound, Pneumothorax, Stab Wound Hematology: Denies: Sickle Cell Disease Infectious Medical History: Denies: HIV Past Surgical History Past Surgical History: Reports: Other - vp security shunt Social History Information Source: [facility] Records Smoking Status: Never Smoker Frequency of Alcohol Use: None Hx Recreational Drug Use: No Drugs: None Hx Prescription Drug Abuse: No Do you have pets?: No Have you had any respiratory illnesses as a child?: No Have you been exposed to any sick contacts recently?: No Have you travelled outside of [place] in the past 12 months?: No Family History Parental Family History Reviewed: No Children Family History Reviewed: No Sibling(s) Family History Reviewed.: No Medication/Allergy Home Medications: Carbamazepine [Tegretol 100 mg Chewable Tablet] 400 mg PO Q8 03/17/17 Cholecalciferol (Vitamin D3) [Vitamin D3 1000 Unit Tablet] 1,000 unit PO DAILY 03/17/17 Clonazepam [Klonopin] 1.5 mg PO QHS 03/17/17 Clorazepate Dipotassium [Tranxene 7.5 mg Tablet] 3.75 mg PO Q12 03/17/17 Eszopiclone [Lunesta] 3 mg PO QHS 03/17/17 Lacosamide [Vimpat] 200 mg PO Q12 03/17/17 Polyethylene Glycol 3350 [Miralax Powder 17 gm/Packet] 17 gm PO QPM 03/17/17 Brivaracetam [Briviact] 100 mg PO Q12 09/04/18 Diazepam [Diastat Acudial 20 Mg/4 Ml Rectal Gel] 15 mg UT Q6HP PRN 09/04/18 Omeprazole 40 mg PO Q6AM 09/04/18 Allergies/Adverse Reactions: No Known Allergies Allergy (Verified 03/16/17 15:15) Review of Systems ROS unobtainable: Due to mental status Physical Exam Vital Signs: Temp Pulse Resp BP Pulse Ox 98.3 F 96 20 123/80 98 09/04/18 04:00 09/04/18 08:06 09/04/18 08:06 09/04/18 08:06 09/04/18 08:06 Intake & Output 09/03/18 09/04/18 09/05/18 06:59 06:59 06:59 Intake Total 1800 Balance 1800 Weight 73.2 kg General appearance: PRESENT: disheveled, mild distress, thin. ABSENT: cooperative Head exam: PRESENT: atraumatic Eye exam: PRESENT: conjunctiva pale, EOMI. ABSENT: nystagmus, periorbital swelling, scleral icterus Mouth exam: PRESENT: dry mucosa, neck supple, tongue midline Neck exam: ABSENT: carotid bruit, full ROM, JVD, lymphadenopathy, meningismus, tenderness, thyromegaly, tracheal deviation, tracheostomy, other Respiratory exam: PRESENT: decreased breath sounds, prolonged expiratory phas, rales, rhonchi, symmetrical, tachypnea, unlabored. ABSENT: retraction, stridor Cardiovascular exam: PRESENT: RRR, +S1, +S2, tachycardia Pulses: PRESENT: normal radial pulses GI/Abdominal exam: PRESENT: soft, other - PEG tube. ABSENT: mass, tenderness Gentrourinary exam: PRESENT: indwelling catheter Extremities exam: PRESENT: pedal edema. ABSENT: calf tenderness, clubbing, joint swelling Musculoskeletal exam: ABSENT: ambulatory, dislocation Neurological exam: PRESENT: altered Psychiatric exam: PRESENT: anxious Skin exam: PRESENT: dry, warm Results Laboratory Results: 09/04/18 06:33 09/03/18 22:33 09/03/18 09/03/18 09/03/18 22:33 22:33 23:02 WBC 26.6 H RBC 4.93 Hgb 13.9 Hct 41.0 MCV 83 MCH 28.1 MCHC 33.8 RDW 15.0 H Plt Count 220 Seg Neutrophils % Not Reportable Lymphocytes % Not Reportable Monocytes % Not Reportable Eosinophils % Not Reportable Basophils % Not Reportable Absolute Neutrophils Not Reportable Absolute Lymphocytes Not Reportable Absolute Monocytes Not Reportable Absolute Eosinophils Not Reportable Absolute Basophils Not Reportable VBG pH VBG pCO2 VBG HCO3 VBG Base Excess Sodium 136.3 L Potassium 3.8 Chloride 101 Carbon Dioxide 24 Anion Gap 11 BUN 17 Creatinine 0.95 Est GFR ( Amer) > 60 Est GFR (Non-Af Amer) > 60 Glucose 120 H Lactic Acid 1.4 Calcium 9.5 Total Bilirubin 0.9 AST 26 ALT 23 Alkaline Phosphatase 123 Total Protein 8.0 Albumin 4.3 09/03/18 09/04/18 23:02 06:33 WBC 20.4 H RBC 4.31 L Hgb 11.9 L Hct 36.1 L MCV 84 MCH 27.7 MCHC 33.0 RDW 14.9 H Plt Count 183 Seg Neutrophils % Not Reportable Lymphocytes % Not Reportable Monocytes % Not Reportable Eosinophils % Not Reportable Basophils % Not Reportable Absolute Neutrophils Not Reportable Absolute Lymphocytes Not Reportable Absolute Monocytes Not Reportable Absolute Eosinophils Not Reportable Absolute Basophils Not Reportable VBG pH 7.41 VBG pCO2 42.2 VBG HCO3 25.9 VBG Base Excess 1.0 Sodium Potassium Chloride Carbon Dioxide Anion Gap BUN Creatinine Est GFR ( Amer) Est GFR (Non-Af Amer) Glucose Lactic Acid Calcium Total Bilirubin AST ALT Alkaline Phosphatase Total Protein Albumin Impressions: Chest X-Ray 09/03/18 22:20 IMPRESSION: No acute radiographic abnormality. copyright 2010 [employer]- All Rights Reserved Assessment & Plan - Diagnosis (1) Dysphagia Is this a current diagnosis for this admission?: Yes Plan: Due to underlying neurological problems certainly'predisposed aspiration (2) Seizure disorder Is this a current diagnosis for this admission?: Yes Plan: Multiple antiseizure medications (3) Fever Qualifiers: Fever type: unspecified Qualified Code(s): R50.9 - Fever, unspecified Is this a current diagnosis for this admission?: Yes Plan: Most likely aspiration (4) Mental and behavioral problem Is this a current diagnosis for this admission?: Yes Plan: Cerebral palsy and profound mental retardation
--- NOTE | 2018-09-08 16:18 | RADIOLOGY REPORT (SQ) ---
EXAM DESCRIPTION: CHEST SINGLE VIEW COMPLETED DATE/TIME: 09/08/2018 4:07 pm REASON FOR STUDY: rul infiltrates COMPARISON: 09/05/2018 NUMBER OF VIEWS: One view. TECHNIQUE: Single frontal radiographic view of the chest acquired. LIMITATIONS: None. FINDINGS: LUNGS AND PLEURA: No opacities, masses or pneumothorax. No pleural effusion. MEDIASTINUM AND HILAR STRUCTURES: No masses. Contour normal. HEART AND VASCULAR STRUCTURES: Heart normal in size. Normal vasculature. BONES: No acute findings. HARDWARE: Unchanged. OTHER: No other significant finding. IMPRESSION: NO SIGNIFICANT RADIOGRAPHIC FINDING IN THE CHEST. TECHNICAL DOCUMENTATION: JOB ID: [id number] [employer]- All Rights Reserved Reading location - IP/workstation name: [email or web address]
[2018-09-08] MEDS: ZOLPIDEM TARTRATE 5 MG TABLET PO SCH (21:16)
[2018-09-09] MEDS: PANTOPRAZOLE SODIUM 40 MG TABLET.DR PO SCH (06:15)
[2018-09-09] MEDS: CARBAMAZEPINE 100 MG TAB.CHEW PO SCH ×3 (06:15→21:21)
[2018-09-09 06:39] LABS: ABSOLUTE BASOPHILS # (AUTO) 0.1 10^3/uL (0.0-0.2); ABSOLUTE EOSINOPHILS # (AUTO) 0.2 10^3/uL (0.0-0.6); ABSOLUTE LYMPHOCYTES (AUTO) 2.7 10^3/uL (0.5-4.7); ABSOLUTE MONOCYTES (AUTO) 0.9 10^3/uL (0.1-1.4); ABSOLUTE NEUT (AUTO) 2.1 10^3/uL (1.7-8.2); EOSINOPHILS % (AUTO) 3.9 % (0-6); HEMOGLOBIN 12.1 g/dL (13.5-17.0); LYMPHOCYTES % (AUTO) 44.6 % (13-45); MEAN CORPUSCULAR HEMOGLOBIN 27.6 pg (27.0-33.4); MEAN CORPUSCULAR HGB CONC 33.6 g/dL (32.0-36.0); MEAN CORPUSCULAR VOLUME 82 fl (80-97); MONOCYTES % (AUTO) 15.7 % (3-13); PLATELET COUNT 261 10^3/uL (150-450); RED BLOOD COUNT 4.38 10^6/uL (4.35-5.55); RED CELL DISTRIBUTION WIDTH 14.7 % (11.5-14.0); SEGMENTED NEUTROPHILS % (AUTO) 34.8 % (42-78); TOTAL CELLS COUNTED % (AUTO) 100 %
[2018-09-09 07:01] LABS: ANION GAP 11 (5-19); BLOOD UREA NITROGEN 8 mg/dL (7-20); CALCIUM 9.5 mg/dL (8.4-10.2); CARBON DIOXIDE 21 mmol/L (22-30); CHLORIDE 116 mmol/L (98-107); GLUCOSE 87 mg/dL (75-110); POTASSIUM 3.9 mmol/L (3.6-5.0)
[2018-09-09] MEDS: CLORAZEPATE DIPOTASSIUM 7.5 MG TABLET PO SCH ×2 (10:25→21:21)
[2018-09-09] MEDS: LACOSAMIDE 100 MG TABLET PO SCH ×2 (10:26→21:21)
[2018-09-09] MEDS: DOXYCYCLINE HYCLATE 100 MG TABLET PO SCH ×2 (10:26→21:21)
[2018-09-09] MEDS: ENOXAPARIN SODIUM INJ 40 MG/0.4 ML DISP.SYRIN SUBCUT SCH (10:28)
--- NOTE | 2018-09-09 11:47 | PDOC PROGRESS REPORT ---
Subjective Progress Note for:: 09/09/18 Subjective:: Patient seen by the bedside, he has underlining impaired cognition, admitted for sepsis Reason For Visit: ASPIRATION PNEUMONIA,UPPER GI BLEED Physical Exam Vital Signs: Temp Pulse Resp BP Pulse Ox 97.6 F 108 H 20 134/72 H 94 09/09/18 07:38 09/09/18 07:38 09/09/18 07:38 09/09/18 07:38 09/09/18 07:38 Intake & Output 09/08/18 09/09/18 09/10/18 06:59 06:59 06:59 Intake Total 1440 1572 Output Total 3 Balance 1440 1569 Weight 70 kg 65.9 kg General appearance: PRESENT: no acute distress Eye exam: PRESENT: PERRLA Respiratory exam: PRESENT: clear to auscultation roula Cardiovascular exam: PRESENT: +S1, +S2 GI/Abdominal exam: PRESENT: soft Neurological exam: PRESENT: alert Results Laboratory Results: 09/09/18 06:18 09/09/18 06:18 09/09/18 09/09/18 06:18 06:18 WBC 6.0 RBC 4.38 Hgb 12.1 L Hct 36.0 L MCV 82 MCH 27.6 MCHC 33.6 RDW 14.7 H Plt Count 261 Seg Neutrophils % 34.8 L Lymphocytes % 44.6 Monocytes % 15.7 H Eosinophils % 3.9 Basophils % 1.0 Absolute Neutrophils 2.1 Absolute Lymphocytes 2.7 Absolute Monocytes 0.9 Absolute Eosinophils 0.2 Absolute Basophils 0.1 Sodium 147.7 H Potassium 3.9 Chloride 116 H Carbon Dioxide 21 L Anion Gap 11 BUN 8 Creatinine 0.78 Est GFR ( Amer) > 60 Est GFR (Non-Af Amer) > 60 Glucose 87 Calcium 9.5 09/03/18 22:50 Blood Blood Culture - Final NO GROWTH IN 5 DAYS Impressions: Modified Barium Swallow 09/05/18 00:00 IMPRESSION: LARYNGEAL PENETRATION AND ASPIRATION ABOVE. PLEASE SEE SPEECH PATHOLOGIST REPORT FOR OTHER FINDINGS AND RECOMMENDATIONS. Chest X-Ray 09/08/18 00:00 IMPRESSION: NO SIGNIFICANT RADIOGRAPHIC FINDING IN THE CHEST. Assessment & Plan - Diagnosis (1) Sepsis Qualifiers: Sepsis type: sepsis due to unspecified organism Qualified Code(s): A41.9 - Sepsis, unspecified organism Is this a current diagnosis for this admission?: Yes Plan: continue treatment (2) Epilepsy without status epilepticus, not intractable Qualifiers: Epilepsy type: unspecified Qualified Code(s): G40.909 - Epilepsy, unspecified, not intractable, without status epilepticus Is this a current diagnosis for this admission?: Yes (3) Dysphagia Qualifiers: Dysphagia type: unspecified Qualified Code(s): R13.10 - Dysphagia, unspecified Is this a current diagnosis for this admission?: Yes (4) GI bleed Qualifiers: GI bleed type/associated pathology: unspecified gastrointestinal hemorrhage type Qualified Code(s): K92.2 - Gastrointestinal hemorrhage, unspecified Is this a current diagnosis for this admission?: Yes
[2018-09-09] MEDS: ZOLPIDEM TARTRATE 5 MG TABLET PO SCH (21:21)
[2018-09-10] MEDS: CARBAMAZEPINE 100 MG TAB.CHEW PO SCH ×3 (05:08→21:36)
[2018-09-10] MEDS: PANTOPRAZOLE SODIUM 40 MG TABLET.DR PO SCH (05:09)
[2018-09-10 07:22] LABS: ANION GAP 11 (5-19); BLOOD UREA NITROGEN 14 mg/dL (7-20); CALCIUM 9.8 mg/dL (8.4-10.2); CARBON DIOXIDE 21 mmol/L (22-30); CHLORIDE 118 mmol/L (98-107); GLUCOSE 100 mg/dL (75-110); POTASSIUM 4.4 mmol/L (3.6-5.0)
[2018-09-10] MEDS: LACOSAMIDE 100 MG TABLET PO SCH ×2 (09:56→21:36)
[2018-09-10] MEDS: CLORAZEPATE DIPOTASSIUM 7.5 MG TABLET PO SCH ×2 (09:56→21:36)
[2018-09-10] MEDS: ENOXAPARIN SODIUM INJ 40 MG/0.4 ML DISP.SYRIN SUBCUT SCH (09:58)
[2018-09-10] MEDS: DOXYCYCLINE HYCLATE 100 MG TABLET PO SCH ×2 (13:26→21:36)
--- NOTE | 2018-09-10 17:07 | PDOC PROGRESS REPORT ---
Subjective Progress Note for:: 09/10/18 Subjective:: Patient seen by the bedside, no new complaints, very agitated Reason For Visit: ASPIRATION PNEUMONIA,UPPER GI BLEED Physical Exam Vital Signs: Temp Pulse Resp BP Pulse Ox 97.6 F 97 16 149/95 H 97 09/10/18 16:00 09/10/18 16:00 09/10/18 16:00 09/10/18 12:00 09/10/18 16:00 Intake & Output 09/09/18 09/10/18 09/11/18 06:59 06:59 06:59 Intake Total 1572 526 360 Output Total 3 Balance 1569 526 360 Weight 65.9 kg 66.3 kg Eye exam: PRESENT: PERRLA Respiratory exam: PRESENT: clear to auscultation roula Cardiovascular exam: PRESENT: +S1, +S2 GI/Abdominal exam: PRESENT: soft Results Laboratory Results: 09/09/18 06:18 09/10/18 06:51 09/10/18 06:51 Sodium 150.1 H Potassium 4.4 Chloride 118 H Carbon Dioxide 21 L Anion Gap 11 BUN 14 Creatinine 0.85 Est GFR ( Amer) > 60 Est GFR (Non-Af Amer) > 60 Glucose 100 Calcium 9.8 Impressions: Modified Barium Swallow 09/05/18 00:00 IMPRESSION: LARYNGEAL PENETRATION AND ASPIRATION ABOVE. PLEASE SEE SPEECH PATHOLOGIST REPORT FOR OTHER FINDINGS AND RECOMMENDATIONS. Chest X-Ray 09/08/18 00:00 IMPRESSION: NO SIGNIFICANT RADIOGRAPHIC FINDING IN THE CHEST. Assessment & Plan - Diagnosis (1) Sepsis Qualifiers: Sepsis type: sepsis due to unspecified organism Qualified Code(s): A41.9 - Sepsis, unspecified organism Is this a current diagnosis for this admission?: Yes (2) Epilepsy without status epilepticus, not intractable Qualifiers: Epilepsy type: unspecified Qualified Code(s): G40.909 - Epilepsy, unspec ified, not intractable, without status epilepticus Is this a current diagnosis for this admission?: Yes (3) Dysphagia Qualifiers: Dysphagia type: unspecified Qualified Code(s): R13.10 - Dysphagia, un specified Is this a current diagnosis for this admission?: Yes (4) GI bleed Qualifiers: GI bleed type/associated pathology: unspecified gastrointestinal hemorrhage type Qualified Code(s): K92.2 - Gastrointestinal hemorrhage, unspecified Is this a current diagnosis for this admission?: Yes
[2018-09-10] MEDS: ZOLPIDEM TARTRATE 5 MG TABLET PO SCH (21:36)
[2018-09-11] MEDS: PANTOPRAZOLE SODIUM 40 MG TABLET.DR PO SCH (05:11)
[2018-09-11] MEDS: CARBAMAZEPINE 100 MG TAB.CHEW PO SCH (05:11)
[2018-09-11 07:08] LABS: ANION GAP 7 (5-19); BLOOD UREA NITROGEN 17 mg/dL (7-20); CALCIUM 9.3 mg/dL (8.4-10.2); CARBON DIOXIDE 25 mmol/L (22-30); CHLORIDE 119 mmol/L (98-107); GLUCOSE 107 mg/dL (75-110); POTASSIUM 4.1 mmol/L (3.6-5.0)
[2018-09-11 09:01] VITALS: BP 121/84
--- NOTE | 2018-09-11 09:26 | PDOC DISCHARGE SUMMARY ---
General - Admit/Disc Date/PCP Admission Date/Primary Care Provider: 09/04/18 00:16 JOSEPH MONTE MD Discharge Date: 09/11/18 - Discharge Diagnosis (1) Sepsis Is this a current diagnosis for this admission?: Yes Summary: Currently all resolved (2) GI bleed Is this a current diagnosis for this admission?: Yes Summary: Continues to omeprazole no sign of any GI bleed (3) UTI (urinary tract infection) Is this a current diagnosis for this admission?: Yes Summary: E. coli urinary tract infections finished IV antibiotic continues with doxycycline for another 5 more days (4) Fever Is this a current diagnosis for this admission?: Yes Summary: Currently all resolved (5) GERD (gastroesophageal reflux disease) Is this a current diagnosis for this admission?: Yes (6) Mental and behavioral problem Is this a current diagnosis for this admission?: Yes (7) Pneumonia Is this a current diagnosis for this admission?: Yes Summary: Currently all resolved (8) Seizure disorder Is this a current diagnosis for this admission?: Yes Summary: Continues to current medication - Additional Information Discharge Activity: Activity As Tolerated Prescriptions: Doxycycline Hyclate [Vibramycin 100 mg Tablet] 100 mg PO Q12 #10 tablet Home Medications: Carbamazepine [Tegretol 100 mg Chewable Tablet] 400 mg PO Q8 03/17/17 Cholecalciferol (Vitamin D3) [Vitamin D3 1000 Unit Tablet] 1,000 unit PO DAILY 03/17/17 Clonazepam [Klonopin] 1.5 mg PO QHS 03/17/17 Clorazepate Dipotassium [Tranxene 7.5 mg Tablet] 3.75 mg PO Q12 03/17/17 Eszopiclone [Lunesta] 3 mg PO QHS 03/17/17 Lacosamide [Vimpat] 200 mg PO Q12 03/17/17 Polyethylene Glycol 3350 [Miralax Powder 17 gm/Packet] 17 gm PO QPM 03/17/17 Brivaracetam [Briviact] 100 mg PO Q12 09/04/18 Diazepam [Diastat Acudial 20 mg/4 ml Rectal Gel] 15 mg MI Q6HP PRN 09/04/18 Omeprazole 40 mg PO Q6AM 09/04/18 Doxycycline Hyclate [Vibramycin 100 mg Tablet] 100 mg PO Q12 #10 tablet 09/11/18 History of Present Illness History of Present Illness: CECI HSIEH is a 38 year old male This is a 38-year-old male with the mental retardation cerebral palsy behavior issues currently living in a longterm brought to the emergency department because of the hypoxia feverAnd possible aspirations In the emergency department patient's vomited coffee emesis material concern about upper GI bleedAnd surgery was consulted and suggest to continues to monitor Patient's at this point when I saw it no acute distress alert awake Patient is currently treated with the aspiration pneumonia and possible upper GI bleed currently on a Protonix drips and IV antibiotic Hospital Course Hospital Course: This is a 38-year-old male from the longterm brought to the emergency department for the fevers sepsis UTI and possible aspiration pneumonia and questionable GI bleed Patient admitting in the hospitals seen by general surgery for GI bleed and there is no active GI bleed and no need for any further evaluations patient was also treated with the IV antibiotic and patient is found to be E. coli urinary tract infections and also questionable aspiration pneumonia Patient's at this point switched to the IV to the p.o. antibiotics patients remain afebrile throughout the p.o. antibiotic patients have a little bit ruby natremic need to encourage more p.o. fluid intake I think patients get a more benefit going back to longterm while patient is more agitated here and discussed with the longterm nursing staff instructed to increase more p.o. fluid intake continues with doxycycline's with the food will repeat the Chem-7 and CBC in 3 days Physical Exam Vital Signs: Temp Pulse Resp BP Pulse Ox 97.7 F 108 H 20 121/84 96 09/11/18 07:37 09/11/18 07:37 09/11/18 07:37 09/11/18 07:37 09/11/18 07:37 Intake & Output 09/10/18 09/11/18 09/12/18 06:59 06:59 06:59 Intake Total 526 570 Balance 526 570 Weight 66.3 kg 64.8 kg General appearance: PRESENT: no acute distress, well-developed, well-nourished Head exam: PRESENT: atraumatic, normocephalic Eye exam: PRESENT: conjunctiva pink, EOMI, PERRLA. ABSENT: scleral icterus Ear exam: PRESENT: normal external ear exam Mouth exam: PRESENT: moist, tongue midline Neck exam: PRESENT: full ROM. ABSENT: carotid bruit, JVD, lymphadenopathy, thyromegaly Respiratory exam: PRESENT: clear to auscultation roula Cardiovascular exam: PRESENT: RRR. ABSENT: diastolic murmur, rubs, systolic murmur Pulses: PRESENT: normal dorsalis pedis pul, +2 pedal pulses bilateral Vascular exam: PRESENT: normal capillary refill GI/Abdominal exam: PRESENT: normal bowel sounds, soft. ABSENT: distended, guarding, mass, organolmegaly, rebound, tenderness Rectal exam: PRESENT: deferred Neurological exam: PRESENT: alert, awake. ABSENT: motor sensory deficit Psychiatric exam: PRESENT: appropriate affect, normal mood. ABSENT: homicidal ideation, suicidal ideation Skin exam: PRESENT: dry, intact, warm. ABSENT: cyanosis, rash Results Laboratory Results: 09/09/18 06:18 09/11/18 06:50 09/11/18 06:50 Sodium 151.1 H Potassium 4.1 Chloride 119 H Carbon Dioxide 25 Anion Gap 7 BUN 17 Creatinine 0.85 Est GFR ( Amer) > 60 Est GFR (Non-Af Amer) > 60 Glucose 107 Calcium 9.3 Impressions: Modified Barium Swallow 09/05/18 00:00 IMPRESSION: LARYNGEAL PENETRATION AND ASPIRATION ABOVE. PLEASE SEE SPEECH PATHOLOGIST REPORT FOR OTHER FINDINGS AND RECOMMENDATIONS. Chest X-Ray 09/08/18 00:00 IMPRESSION: NO SIGNIFICANT RADIOGRAPHIC FINDING IN THE CHEST. Qualifiers - * PATIENT BEING DISCHARGED WITH ANY OF THE FOLLOWING DIAGNOSIS: No VTE patient discharged on overlapping Therapy?: Yes Acute Heart Failure - Is this a Heart Failure Patient?: No Plan Time Spent: Greater than 30 Minutes - Repeat the CBC and Chem-7 in 3 days Aspirations precautions See the barium swallow and speech therapy evaluations
[2018-09-11] MEDS: ENOXAPARIN SODIUM INJ 40 MG/0.4 ML DISP.SYRIN SUBCUT SCH (11:08)
[2018-09-11] MEDS: DOXYCYCLINE HYCLATE 100 MG TABLET PO SCH (11:09)
[2018-09-11] MEDS: CLORAZEPATE DIPOTASSIUM 7.5 MG TABLET PO SCH (11:15)
[2018-09-11] MEDS: LACOSAMIDE 100 MG TABLET PO SCH (11:15)
== END 2018-09-11 11:30 | DRG 871 ==
LOC: ER 21:20 → EH 09-04 00:16 → 3S 09-04 03:00 → 4N 09-10 08:05
PROVIDERS: ADMIT Family Medicine; ATTEND Family Medicine
DX: A41.9 Sepsis, unspecified organism (principal); J69.0 Pneumonitis due to inhalation of food and vomit; N39.0 Urinary tract infection, site not specified; K92.2 Gastrointestinal hemorrhage, unspecified; F72 Severe intellectual disabilities; G80.9 Cerebral palsy, unspecified; G40.909 Epilepsy, unspecified, not intractable, without status epilepticus; K21.9 Gastro-esophageal reflux disease without esophagitis; B96.20 Unspecified Escherichia coli [E. coli] as the cause of diseases classified elsewhere; Z98.2 Presence of cerebrospinal fluid drainage device
CPT/HCPCS: 36415; 71045; 74230; 80048; 80053; 82803; 83605; 85025; 85610; 85730; 87040; 87077; 87186; 96365; 96375; 99285; J0692; J0696; J1650; J2405; J2543; J3490; J7030; J7040; J7050; J7060; S0164

== ENCOUNTER → 2018-10-04 | Outpatient (CLI) | payer MEDICAID ==
[2018-10-04 10:02] LABS: ABSOLUTE EOSINOPHILS # (AUTO) 0.3 10^3/uL (0.0-0.6); ABSOLUTE LYMPHOCYTES (AUTO) 2.6 10^3/uL (0.5-4.7); ABSOLUTE MONOCYTES (AUTO) 0.6 10^3/uL (0.1-1.4); ABSOLUTE NEUT (AUTO) 1.9 10^3/uL (1.7-8.2); BASOPHILS % (AUTO) 0.4 % (0-2); HEMATOCRIT 39.2 % (37.9-51.0); HEMOGLOBIN 13.1 g/dL (13.5-17.0); LYMPHOCYTES % (AUTO) 48.9 % (13-45); MEAN CORPUSCULAR HEMOGLOBIN 27.8 pg (27.0-33.4); MEAN CORPUSCULAR HGB CONC 33.3 g/dL (32.0-36.0); MEAN CORPUSCULAR VOLUME 83 fl (80-97); MONOCYTES % (AUTO) 10.8 % (3-13); PLATELET COUNT 219 10^3/uL (150-450); RED CELL DISTRIBUTION WIDTH 15.5 % (11.5-14.0); SEGMENTED NEUTROPHILS % (AUTO) 34.9 % (42-78); TOTAL CELLS COUNTED % (AUTO) 100 %; WHITE BLOOD COUNT 5.3 10^3/uL (4.0-10.5)
[2018-10-04 10:24] LABS: ALBUMIN 4.5 g/dL (3.5-5.0); ALKALINE PHOSPHATASE 130 U/L (38-126); ASPARTATE AMINO TRANSFERASE 23 U/L (17-59); BILIRUBIN,DIRECT 0.3 mg/dL (0.0-0.4); BILIRUBIN,TOTAL 0.5 mg/dL (0.2-1.3); TOTAL PROTEIN 8.1 g/dL (6.3-8.2)
[2018-10-04 15:17] LABS: ANION GAP 13 (5-19); BLOOD UREA NITROGEN 9 mg/dL (7-20); CALCIUM 10.3 mg/dL (8.4-10.2); CARBON DIOXIDE 21 mmol/L (22-30); CHLORIDE 108 mmol/L (98-107); GLUCOSE 86 mg/dL (75-110)
== END ==
LOC: OD 08:56
PROVIDERS: ATTEND Specialist
DX: G40.909 Epilepsy, unspecified, not intractable, without status epilepticus (principal); Z79.899 Other long term (current) drug therapy
CPT/HCPCS: 36415; 80053; 80156; 85025

== ENCOUNTER → 2019-01-19 | Outpatient (CLI) | payer MEDICAID ==
--- NOTE | 2019-01-19 13:31 | RADIOLOGY REPORT (SQ) ---
EXAM DESCRIPTION: CHEST SINGLE VIEW COMPLETED DATE/TIME: 01/19/2019 1:03 pm REASON FOR STUDY: FEVER, PNEUMONIA COMPARISON: 09/08/2018 EXAM PARAMETERS: NUMBER OF VIEWS: One view. TECHNIQUE: Single frontal radiographic view of the chest acquired. RADIATION DOSE: NA LIMITATIONS: None. FINDINGS: LUNGS AND PLEURA: Patchy right upper lobe opacities. No dense consolidation. No large ef fusion. No pneumothorax. MEDIASTINUM AND HILAR STRUCTURES: No masses. Contour normal. HEART AND VASCULAR STRUCTURES: Heart normal in size. Normal vasculature. BONES: No acute findings. HARDWARE: Partially visualized ventricular peritoneal shunt catheter tubing courses down the right ne ck and chest. Left sided neural stimulator device, partially seen. OTHER: No other significant finding. IMPRESSION: Patchy right upper lobe opacities compatible with pneumonia. No significant effusion. TECHNICAL DOCUMENTATION: JOB ID: [id number] [employer]- All Rights Reserved Reading location - IP/workstation name: [email or web address]
[2019-01-19 13:39] LABS: HEMATOCRIT 41.7 % (37.9-51.0); HEMOGLOBIN 13.7 g/dL (13.5-17.0); MEAN CORPUSCULAR HEMOGLOBIN 26.4 pg (27.0-33.4); MEAN CORPUSCULAR HGB CONC 32.9 g/dL (32.0-36.0); MEAN CORPUSCULAR VOLUME 80 fl (80-97); PLATELET COUNT 178 10^3/uL (150-450); RED CELL DISTRIBUTION WIDTH 15.9 % (11.5-14.0); WHITE BLOOD COUNT 19.2 10^3/uL (4.0-10.5)
[2019-01-19 13:55] LABS: ANION GAP 19 (5-19); BLOOD UREA NITROGEN 14 mg/dL (7-20); CALCIUM 9.9 mg/dL (8.4-10.2); CARBON DIOXIDE 21 mmol/L (22-30); CHLORIDE 100 mmol/L (98-107); GLUCOSE 83 mg/dL (75-110); POTASSIUM 3.5 mmol/L (3.6-5.0)
[2019-01-19 14:57] LABS: ABSOLUTE MONOCYTES # (MANUAL) 1.7 10^3/uL (0.1-1.4); BAND NEUTROPHILS % (MANUAL) 1 % (3-5); BASOPHILS % (MANUAL) 0 % (0-2); EOSINOPHILS % (MANUAL) 0 % (0-6); LYMPHOCYTES % (MANUAL) 0 % (13-45); MONOCYTES % (MANUAL) 9 % (3-13); SEGMENTED NEUTROPHILS % (MAN) 90 % (42-78); TOTAL CELLS COUNTED 100
[2019-01-19 14:58] LABS: ANISOCYTOSIS SLIGHT; OVALOCYTES SLIGHT; PLATELET COMMENT ADEQUATE; TOXIC GRANULATION 1+
== END ==
LOC: OD 12:29
PROVIDERS: ATTEND Family Medicine
DX: R50.9 Fever, unspecified (principal); J18.9 Pneumonia, unspecified organism; Z87.01 Personal history of pneumonia (recurrent)
CPT/HCPCS: 36415; 71045; 80048; 85025; 87086

== ENCOUNTER 2019-01-20 05:07 | Inpatient (IN) | payer MEDICAID ==
[2019-01-20] MEDS ORDERED: NORMAL SALINE 1000 ML 1,000 ML IV ONE ×2 (05:27)
[2019-01-20] MEDS ORDERED: PIPERACILLIN/TAZOBACTAM 3.375 GM VIAL IV ONE (05:32)
[2019-01-20] MEDS ORDERED: VANCOMYCIN HCL INJ 1000 MG VIAL IV ONE (05:32)
--- NOTE | 2019-01-20 05:35 | ER Document Report ---
ED Medical Screen (RME) - General Chief Complaint: Fever Stated Complaint: FEVER Time Seen by Provider: 01/20/19 05:22 Primary Care Provider: JOSEPH MONTE MD [Primary Care Provider] - Follow up as needed Notes: 38-year-old male who comes by EMS for chief complaint of fever. 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 Patient reportedly was placed on an antibiotic 1 week ago for presumed pneumonia although EMS is unsure of the antibiotic and no data was given in regards to this. No reported recent admissions. No other reported symptoms. TRAVEL OUTSIDE OF THE [place] IN LAST 30 DAYS: No - Related Data Allergies/Adverse Reactions: No Known Allergies Allergy (Verified 03/16/17 15:15) Past Medical History Pulmonary Medical History: Reports: Hx Pneumonia, Hx Respiratory Failure Neurological Medical History: Reports: Hx Seizures Renal/ Medical History: Denies: Hx Peritoneal Dialysis GI Medical History: Reports: Hx Gastroesophageal Reflux Disease Traumatic Medical History: Denies: Hx Gunshot Wound, Hx Pneumothorax Infectious Medical History: Denies: Hx HIV Past Surgical History: Reports: Other - vp emerging media shunt - Immunizations Hx Diphtheria, Pertussis, Tetanus Vaccination: Yes Physical Exam - Respiratory Respiratory status: Tachypnea. No: Labored Breath sounds: No: Decreased air movement, Wheezing - Cardiovascular Rhythm: Regular, Tachycardia Heart sounds: Normal auscultation, S1 appreciated, S2 appreciated Course - Re-evaluation Re-evalutation: Patient is ill-appearing, tachycardic, borderline blood pressures, minimally responsive at baseline reportedly. Reported fever. Patient already given [place] Tylenol. Patient has an 18-gauge and 20-gauge IV in place, initiating fluid boluses, initiating oxygen because he is also mildly hypoxic. Dr. Figueroa updated and evaluated patient at bedside. I have greeted and performed a rapid initial assessment of this patient. A comprehensive ED assessment and evaluation of the patient, analysis of test results and completion of the medical decision making process will be conducted by additional ED providers. Doctor's Discharge - Discharge Referrals: JOSEPH MONTE MD [Primary Care Provider] - Follow up as needed
[2019-01-20 05:45] LABS: ABSOLUTE LYMPHOCYTES (AUTO) 0.8 10^3/uL (0.5-4.7); ABSOLUTE MONOCYTES (AUTO) 0.6 10^3/uL (0.1-1.4); ABSOLUTE NEUT (AUTO) 9.7 10^3/uL (1.7-8.2); BASOPHILS % (AUTO) 0.3 % (0-2); HEMATOCRIT 36.9 % (37.9-51.0); HEMOGLOBIN 12.3 g/dL (13.5-17.0); LYMPHOCYTES % (AUTO) 7.3 % (13-45); MEAN CORPUSCULAR HEMOGLOBIN 26.7 pg (27.0-33.4); MEAN CORPUSCULAR HGB CONC 33.4 g/dL (32.0-36.0); MEAN CORPUSCULAR VOLUME 80 fl (80-97); MONOCYTES % (AUTO) 5.4 % (3-13); PLATELET COUNT 157 10^3/uL (150-450); RED BLOOD COUNT 4.63 10^6/uL (4.35-5.55); RED CELL DISTRIBUTION WIDTH 16.2 % (11.5-14.0); TOTAL CELLS COUNTED % (AUTO) 100 %; WHITE BLOOD COUNT 11.1 10^3/uL (4.0-10.5)
[2019-01-20 06:09] LABS: ALBUMIN 3.9 g/dL (3.5-5.0); ALKALINE PHOSPHATASE 115 U/L (38-126); ANION GAP 12 (5-19); ASPARTATE AMINO TRANSFERASE 55 U/L (17-59); BILIRUBIN,DIRECT 0.3 mg/dL (0.0-0.4); BILIRUBIN,TOTAL 0.4 mg/dL (0.2-1.3); BLOOD UREA NITROGEN 14 mg/dL (7-20); CALCIUM 8.8 mg/dL (8.4-10.2); CARBON DIOXIDE 22 mmol/L (22-30); CHLORIDE 104 mmol/L (98-107); GLUCOSE 121 mg/dL (75-110); POTASSIUM 3.6 mmol/L (3.6-5.0); TOTAL PROTEIN 7.5 g/dL (6.3-8.2)
[2019-01-20 06:15] LABS: VENOUS BLOOD BASE EXCESS -1.6 mmol/L; VENOUS BLOOD HCO3 22.1 mmol/L (20-32); VENOUS BLOOD PCO2 34.5 mmHg (35-63); VENOUS BLOOD PH 7.43 (7.30-7.42)
[2019-01-20 06:19] LABS: APPEARANCE,URINE SLIGHTLY-CLOUDY; BILIRUBIN,URINE NEGATIVE (NEGATIVE); COLOR,URINE YELLOW; GLUCOSE, URINE NEGATIVE (NEGATIVE); KETONES,URINE TRACE mg/dL (NEGATIVE); LEUKOCYTE ESTERASE,URINE NEGATIVE (NEGATIVE); NITRITE,URINE NEGATIVE (NEGATIVE); PROTEIN,URINE 30 mg/dL (NEGATIVE); URINE SPECIFIC GRAVITY 1.025; UROBILINOGEN,URINE NEGATIVE mg/dL (<2.0)
[2019-01-20] MEDS ORDERED: ACETAMINOPHEN 325 MG TABLET PO ONE (06:22)
--- NOTE | 2019-01-20 06:28 | ER Document Report ---
ED General - General Chief Complaint: Fever Stated Complaint: FEVER Time Seen by Provider: 01/20/19 05:22 TRAVEL OUTSIDE OF THE [place] IN LAST 30 DAYS: No - HPI Notes: 38m h/o so aspiration PNA last admission few months ago, cerebral palsy is been a resident of [place] for years brought in by EMS from [facility] initially screened by provider in the ED was found to be contracted hypoxic around 90% on room air, blood pressures high 80s to 90s, heart rate 110-120s. Febrile 100.3. Initially given 2 L normal saline labs including urine sent and chest x-ray performed on a picked up the patient his labs were reviewed he had a leukocytosis renal function pending chest x-ray pending. Urinalysis did not albert w overt infection. Cousin is guardian but nurse here at bedside from facility says 'we" have HC POA. RN from facilty says she was child development consultant arrived he was tachy 140s, bp 80, spo2 80%, fever 105.1. she says he decompensates rather quickly when ill, e.g. PNA - Related Data Allergies/Adverse Reactions: No Known Allergies Allergy (Verified 03/16/17 15:15) Home Medications: Bactrim. Duoneb Past Medical History - General Information source: Friend - not friend but rn from facility Cannot obtain history due to: Mentally challenged - nonverbal baseline makes sounds baseline - Social History Smoking Status: Never Smoker Family History: Reviewed & Not Pertinent Patient has suicidal ideation: No Patient has homicidal ideation: No Pulmonary Medical History: Reports: Hx Pneumonia, Hx Respiratory Failure Neurological Medical History: Reports: Hx Seizures Renal/ Medical History: Denies: Hx Peritoneal Dialysis GI Medical History: Reports: Hx Gastroesophageal Reflux Disease Traumatic Medical History: Denies: Hx Gunshot Wound, Hx Pneumothorax Infectious Medical History: Denies: Hx HIV Past Surgical History: Reports: Other - vp global shunt - Immunizations Hx Diphtheria, Pertussis, Tetanus Vaccination: Yes Review of Systems - Review of Systems Constitutional: See HPI EENT: See HPI, Nose congestion. denies: Eye discharge, Nose discharge, Throat pain, Mouth pain, Dental problem Cardiovascular: No symptoms reported Respiratory: See HPI, Cough, Sputum. denies: Hemoptysis Gastrointestinal: No symptoms reported, See HPI Genitourinary: No symptoms reported Male Genitourinary: No symptoms reported Musculoskeletal: No symptoms reported Skin: No symptoms reported Hematologic/Lymphatic: No symptoms reported Neurological/Psychological: No symptoms reported Physical Exam - Vital signs Vitals: Temp Resp BP Pulse Ox 100.6 F H 18 100/56 L 99 01/20/19 05:07 01/20/19 05:07 01/20/19 05:07 01/20/19 05:07 Interpretation: Hypotensive, Tachycardic, Hypoxic, Tachypneic, Febrile - General General appearance: Other - toxic appearing sweating. spontaneous eye movment moaning no eye contact. moves ext x4 w/ purpose. w/d to pain. perrl 5mm. no eye deviation. - HEENT Head: Normocephalic, Atraumatic. No: Open wounds Eyes: Normal. No: Pale conjunctiva, Scleral icterus Conjunctiva: No: Injected, Purulent discharge Eyelashes: Normal Pupils: PERRL Ears: Normal Nasal: Normal. No: Purulent discharge Mouth/Lips: No: Lesions Mucous membranes: Dry Pharynx: No: Blood in hypopharynx, Erythema, Exudate Neck: Other - no stridor, no masses, color/skin changes. - Respiratory Respiratory status: Respiratory distress, Labored, Retractions, Tachypnea. No: Cyanosis Chest status: Nontender. No: Wounds, Splinting Breath sounds: Rales, Rhonchi - R>> L lower predominace. dec air movement overall. no areas of absent lung sounds Chest palpation: Normal. No: Subcutaneous emphysema, Ecchymosis, Wounds - Cardiovascular Rhythm: Regular Heart sounds: Normal auscultation Murmur: No Pulses: Normal: Radial - tachy 1+ symm , Dorsalis pedis - tachy 1+symm Normal capillary refill: Yes - Abdominal Inspection: Normal. No: Wounds Distension: No distension Tenderness: Nontender Organomegaly: No organomegaly - Back Back: Nontender. No: Vertebra tenderness, Scars, Scoliosis, Wounds - Extremities General upper extremity: Normal inspection, Nontender, Normal color, Normal ROM, Normal temperature General lower extremity: Normal inspection, Nontender, Normal color, Normal ROM, Normal temperature, Normal weight bearing. No: Saniya's sign - Neurological Neuro grossly intact: No - see above Cognition: Normal Motor strength normal: LUE, RUE, LLE, RLE Sensory: Normal - Psychological Associated symptoms: Normal affect, Normal mood - Skin Skin Temperature: Warm Skin Moisture: Dry Skin Color: Normal - healthy clean skin on thorough exam back trunk ext Course - Re-evaluation Re-evalutation: 01/21/19 22:10 pt given 2L ivns. started on vanc/zosyn by overnight team. pt bp and hr and fever responded to interventions he is admitted to [facility] c/f aspiration PNA. 01/21/19 22:11 - Vital Signs Vital signs: Temp Pulse Resp BP Pulse Ox 102.8 F H 36 L 16 114/94 H 95 01/21/19 19:58 01/21/19 19:58 01/21/19 19:58 01/21/19 19:58 01/21/19 20:00 - Laboratory Result Diagrams: 01/21/19 05:28 01/21/19 17:50 Laboratory results interpreted by me: 01/20/19 01/20/19 01/20/19 05:26 05:26 05:26 WBC 11.1 H Hgb 12.3 L Hct 36.9 L MCH 26.7 L RDW 16.2 H Lymph % (Auto) 7.3 L Absolute Neuts (auto) 9.7 H Seg Neutrophils % 87.0 H VBG pH 7.43 H VBG pCO2 34.5 L Glucose 121 H Urine Protein Urine Ketones 01/20/19 06:03 WBC Hgb Hct MCH RDW Lymph % (Auto) Absolute Neuts (auto) Seg Neutrophils % VBG pH VBG pCO2 Glucose Urine Protein 30 H Urine Ketones TRACE H - Diagnostic Test Radiology reviewed: Image reviewed, Reports reviewed - EKG Interpretation by Me Additional EKG results interpreted by me: 01/20/19 06:26 EKG reviewed today compared to prior on 05/03/2017. Today's sinus tachycardia rate 117 QTC is within normal limits all other intervals are within normal limits axis within normal limits and unchanged no change in his inferior Q waves with some repolarization. Critical Care Note - Critical Care Note Total time excluding time spent on procedures (mins): 30 Discharge - Discharge Clinical Impression: Fever Aspiration into lower respiratory tract Qualifiers: Encounter type: initial encounter Qualified Code(s): T17.800A - Unspecified foreign body in other parts of respiratory tract causing asphyxiation, initial encounter Condition: Serious Disposition: ADMITTED INPATIENT Admitting Provider: Enio Benson Unit Admitted: HERVE
--- NOTE | 2019-01-20 07:45 | RADIOLOGY REPORT (SQ) ---
EXAM DESCRIPTION: XR CHEST 1 VIEW COMPLETED DATE/TME: 01/20/2019 05:28 CLINICAL HISTORY: 38 years Male, fever, tachycardia COMPARISON: One day prior. NUMBER OF VIEWS/TECHNIQUE: 1/AP FINDINGS: Moderate mixed airspace and interstitial opacity right more than left. Rotation. Normal cardiac silhouette size rotated-shifted toward the right. Stimulator device at the left upper hemithorax with left nuchal leads. No pneumothorax. Stable bony thorax. IMPRESSION: Moderate mixed airspace and interstitial opacity right more than left. Interval worsening.
--- NOTE | 2019-01-20 15:20 | PDOC H&P ---
History of Present Illness Admission Date/PCP: 01/20/19 09:49 JOSEPH MONTE MD Patient complains of: Difficulty with breathing and fever History of Present Illness: CECI HSIEH is a 38 year old male of Dr. Monte who was brought via EMS to the ED due to difficulty with breathing and fever. Patient s resident at local [facility]. spring repairer helper hand nurse reported site evaluation with tachycardia and hypoxemia necessitating request for EMS and transfer to the hospital ED. His initial ED evaluation revealed tachycardia, and hypoxemia on room air. His laboratory assessment suggested leukocytosis with left shift and chest X ray revealed worsening bilateral airspace disease opacities. There was concern about aspiration pneumonia. Patient caregiver was instructed about need for admission to the hospital for further evaluation and management. His morbidities are as listed below and predisposing factor for his aspiration risk include cerebral palsy with intellectual limitation. Past Medical History Pulmonary Medical History: Reports: Pneumonia, Respiratory Failure Neurological Medical History: Reports: Seizures GI Medical History: Reports: Gastroesophageal Reflux Disease Traumatic Medical History: Denies: Gunshot Wound, Pneumothorax Hematology: Denies: Sickle Cell Disease Infectious Medical History: Denies: HIV Past Surgical History Past Surgical History: Reports: Other - vp cardiovascular service line shunt Social History Smoking Status: Never Smoker Frequency of Alcohol Use: None Hx Recreational Drug Use: No Drugs: None Hx Prescription Drug Abuse: No Family History Family History: Reviewed & Not Pertinent Parental Family History Reviewed: Yes Children Family History Reviewed: Yes Sibling(s) Family History Reviewed.: Yes Medication/Allergy Home Medications: Carbamazepine [Tegretol 100 mg Chewable Tablet] 400 mg PO Q8 03/17/17 Cholecalciferol (Vitamin D3) [Vitamin D3 1000 Unit Tablet] 1,000 unit PO DAILY 03/17/17 Clonazepam [Klonopin] 1.5 mg PO Q8 03/17/17 Clorazepate Dipotassium [Tranxene 7.5 mg Tablet] 3.75 mg PO Q12 03/17/17 Eszopiclone [Lunesta] 3 mg PO QPM@199903/17/17 Lacosamide [Vimpat] 200 mg PO Q12 03/17/17 Polyethylene Glycol 3350 [Miralax Powder 17 gm/Packet] 17 gm PO QPM 03/17/17 Brivaracetam [Briviact] 100 mg PO Q12 09/04/18 Diazepam [Diastat Acudial 20 mg/4 ml Rectal Gel] 15 mg TN Q6HP PRN 09/04/18 Omeprazole 40 mg PO Q6AM 09/04/18 Ipratropium/Albuterol Sulfate [Duoneb 3 ml Ampul] 3 ml NEB RTQ6HP PRN 01/20/19 Allergies/Adverse Reactions: No Known Allergies Allergy (Verified 03/16/17 15:15) Review of Systems ROS unobtainable: Due to mental status - cerebralpalsy with intellectual limitation. All infirmation from caregiver at bedside. Physical Exam Vital Signs: Temp Pulse Resp BP Pulse Ox 98.2 F 80 20 99/59 L 97 01/20/19 12:21 01/20/19 12:29 01/20/19 12:21 01/20/19 12:21 01/20/19 12:21 Intake & Output 01/19/19 01/20/19 01/21/19 06:59 06:59 06:59 Intake Total 2000 Output Total 2105 Balance -105 Weight 67.358 kg 66.9 kg General appearance: PRESENT: no acute distress, well-developed, well-nourished Head exam: PRESENT: atraumatic, normocephalic Eye exam: PRESENT: conjunctiva pink, EOMI, PERRLA. ABSENT: scleral icterus Ear exam: PRESENT: normal external ear exam Mouth exam: PRESENT: moist - fairly. Respiratory exam: PRESENT: crackles - bilaterally with expiratory component, d ecreased breath sounds Cardiovascular exam: PRESENT: RRR. ABSENT: diastolic murmur, rubs, systolic murmur Vascular exam: ABSENT: pallor GI/Abdominal exam: PRESENT: normal bowel sounds, soft. ABSENT: distended, guarding, mass, organolmegaly, rebound, tenderness Rectal exam: PRESENT: deferred Extremities exam: ABSENT: pedal edema Musculoskeletal exam: PRESENT: deformity - contracture deformities in upper extremities. Neurological exam: PRESENT: awake - non verbal and unable to contribute to his health history Psychiatric exam: PRESENT: appropriate affect, normal mood. ABSENT: homicidal ideation, suicidal ideation Skin exam: PRESENT: dry, warm Results Laboratory Results: 01/20/19 05:26 01/20/19 05:26 01/20/19 01/20/19 01/20/19 05:26 05:26 05:26 WBC 11.1 H RBC 4.63 Hgb 12.3 L Hct 36.9 L MCV 80 MCH 26.7 L MCHC 33.4 RDW 16.2 H Plt Count 157 Seg Neutrophils % 87.0 H VBG pH 7.43 H VBG pCO2 34.5 L VBG HCO3 22.1 VBG Base Excess -1.6 Sodium 137.8 Potassium 3.6 Chloride 104 Carbon Dioxide 22 Anion Gap 12 BUN 14 Creatinine 1.09 Est GFR ( Amer) > 60 Glucose 121 H Calcium 8.8 Total Bilirubin 0.4 AST 55 Alkaline Phosphatase 115 Total Protein 7.5 Albumin 3.9 Urine Color Urine Appearance Urine pH Ur Specific [place] Urine Protein Urine Glucose (UA) Urine Ketones Urine Blood Urine Nitrite Ur Leukocyte Esterase Urine WBC (Auto) Urine RBC (Auto) 01/20/19 06:03 WBC RBC Hgb Hct MCV MCH MCHC RDW Plt Count Seg Neutrophils % VBG pH VBG pCO2 VBG HCO3 VBG Base Excess Sodium Potassium Chloride Carbon Dioxide Anion Gap BUN Creatinine Est GFR ( Amer) Glucose Calcium Total Bilirubin AST Alkaline Phosphatase Total Protein Albumin Urine Color YELLOW Urine Appearance SLIGHTLY-CLOUDY Urine pH 5.0 Ur Specific [place] 1.025 Urine Protein 30 H Urine Glucose (UA) NEGATIVE Urine Ketones TRACE H Urine Blood NEGATIVE Urine Nitrite NEGATIVE Ur Leukocyte Esterase NEGATIVE Urine WBC (Auto) 3 Urine RBC (Auto) 2 Impressions: Chest X-Ray 01/20/19 05:28 IMPRESSION: Moderate mixed airspace and interstitial opacity right more than left. Interval worsening. Assessment & Plan - Diagnosis (1) Aspiration into lower respiratory tract Qualifiers: Encounter type: initial encounter Qualified Code(s): T17.800A - Unspecified foreign body in other parts of respiratory tract causing asphyxiation, initial encounter Is this a current diagnosis for this admission?: Yes Plan: See covering admitting attending physician orders for details about care plan. (2) GERD (gastroesophageal reflux disease) Qualifiers: Esophagitis presence: without esophagitis Is this a current diagnosis for this admission?: Yes Plan: See covering admitting attending physician orders for details about care plan. (3) Mental and behavioral problem Is this a current diagnosis for this admission?: Yes Plan: See covering admitting attending physician orders for details about care plan. (4) Seizure disorder Is this a current diagnosis for this admission?: Yes Plan: See covering admitting attending physician orders for details about care plan. - Time Time Spent: 50 to 70 Minutes Medications reviewed and adjusted accordingly: Yes Anticipated discharge: Home Within: Other - Inpatient Certification Based on my medical assessment, after consideration of the patient's comorbidities, presenting symptoms, or acuity I expect that the services needed warrant INPATIENT care.: Yes I certify that my determination is in accordance with my understanding of Medicare's requirements for reasonable and necessary INPATIENT services [42 CFR 412.3e].: Yes Medical Necessity: Significant Comorbidiites Make Outpatient Treatment Too Risky, Need Close Monitoring Due to Risk of Patient Decompensation, Need For IV Fluids, Need For Continuous Telemetry Monitoring, Need for IV Antibiotics, Risk of Complication if Not Cared For in Hospital, Risk of Diagnosis Which Will Re quire Inpatient Eval/Care/Monitoring Post Hospital Care: D/C Vendor Representatives Documentation - Plan Summary Plan Summary: See covering admitting attending physician orders for details about care plan.
[2019-01-20] MEDS ORDERED: DIAZEPAM PR PRN (15:23)
[2019-01-20] MEDS ORDERED: ACETAMINOPHEN 325 MG TABLET PO PRN (15:26)
[2019-01-20] MEDS ORDERED: VANCOMYCIN HCL 0 MG in DEXTROSE 5%-WATER 250 ML IV NR (15:30)
[2019-01-20] MEDS: POLYETHYLENE GLYCOL 3350 POWDER 17 GM/1 PACKET PO SCH (18:23)
[2019-01-20] MEDS: NORMAL SALINE 1000 ML 1,000 ML IV PRN (18:23)
[2019-01-20] MEDS: PIPERACILLIN SODIUM/TAZOBACTAM 3.375 GM in NORMAL SALINE 100 ML IV SCH (18:24)
[2019-01-20] MEDS: VANCOMYCIN HCL 1,000 MG in DEXTROSE 5%-WATER 250 ML IV SCH (19:24)
[2019-01-20] MEDS: ZOLPIDEM TARTRATE 5 MG TABLET PO SCH (19:41)
--- NOTE | 2019-01-20 20:05 | EKG REPORT ---
SEVERITY:- OTHERWISE NORMAL ECG - SINUS TACHYCARDIA : Confirmed by: Aminah Kay MD 20-Jan-2019 20:04:37
[2019-01-20] MEDS: CLORAZEPATE DIPOTASSIUM 7.5 MG TABLET PO SCH (21:40)
[2019-01-20] MEDS: CLONAZEPAM 1 MG TABLET PO SCH (21:40)
[2019-01-20] MEDS: CARBAMAZEPINE 100 MG TAB.CHEW PO SCH (21:40)
[2019-01-20] MEDS: LACOSAMIDE 100 MG TABLET PO SCH (21:40)
[2019-01-20] MEDS ORDERED: CLONAZEPAM 1.5 MG PO SCH (22:00)
[2019-01-20] MEDS ORDERED: (PENDING PHARMACY ID) (Lacosamide [Vimpat] 200 MG) PO SCH (22:00)
[2019-01-20] MEDS ORDERED: BRIVARACETAM 100 MG PO SCH (22:00)
[2019-01-21] MEDS: PIPERACILLIN SODIUM/TAZOBACTAM 3.375 GM in NORMAL SALINE 100 ML IV SCH ×5 (00:04→23:30)
[2019-01-21] MEDS: NORMAL SALINE 1000 ML 1,000 ML IV PRN ×2 (03:34→17:17)
[2019-01-21] MEDS: PANTOPRAZOLE SODIUM 40 MG TABLET.DR PO SCH (05:27)
[2019-01-21] MEDS: CLONAZEPAM 1 MG TABLET PO SCH ×3 (05:28→21:37)
[2019-01-21] MEDS: CARBAMAZEPINE 100 MG TAB.CHEW PO SCH ×3 (05:37→21:37)
[2019-01-21 06:06] LABS: ABSOLUTE LYMPHOCYTES (AUTO) 1.9 10^3/uL (0.5-4.7); ABSOLUTE MONOCYTES (AUTO) 0.7 10^3/uL (0.1-1.4); ABSOLUTE NEUT (AUTO) 8.8 10^3/uL (1.7-8.2); BASOPHILS % (AUTO) 0.1 % (0-2); HEMATOCRIT 32.6 % (37.9-51.0); HEMOGLOBIN 10.9 g/dL (13.5-17.0); LYMPHOCYTES % (AUTO) 16.9 % (13-45); MEAN CORPUSCULAR HEMOGLOBIN 26.6 pg (27.0-33.4); MEAN CORPUSCULAR HGB CONC 33.4 g/dL (32.0-36.0); MEAN CORPUSCULAR VOLUME 80 fl (80-97); MONOCYTES % (AUTO) 6.3 % (3-13); PLATELET COUNT 154 10^3/uL (150-450); RED BLOOD COUNT 4.09 10^6/uL (4.35-5.55); RED CELL DISTRIBUTION WIDTH 16.2 % (11.5-14.0); SEGMENTED NEUTROPHILS % (AUTO) 76.7 % (42-78); TOTAL CELLS COUNTED % (AUTO) 100 %; WHITE BLOOD COUNT 11.4 10^3/uL (4.0-10.5)
[2019-01-21] MEDS: VANCOMYCIN HCL 1,000 MG in DEXTROSE 5%-WATER 250 ML IV SCH ×2 (06:19→18:37)
[2019-01-21 06:48] LABS: ALBUMIN 3.2 g/dL (3.5-5.0); ALKALINE PHOSPHATASE 80 U/L (38-126); ANION GAP 9 (5-19); ASPARTATE AMINO TRANSFERASE 62 U/L (17-59); BILIRUBIN,DIRECT 0.1 mg/dL (0.0-0.4); BILIRUBIN,TOTAL 0.3 mg/dL (0.2-1.3); BLOOD UREA NITROGEN 13 mg/dL (7-20); CALCIUM 8.4 mg/dL (8.4-10.2); CARBON DIOXIDE 21 mmol/L (22-30); CHLORIDE 114 mmol/L (98-107); GLUCOSE 90 mg/dL (75-110); POTASSIUM 3.9 mmol/L (3.6-5.0); TOTAL PROTEIN 6.4 g/dL (6.3-8.2)
[2019-01-21] MEDS: ENOXAPARIN SODIUM INJ 40 MG/0.4 ML DISP.SYRIN SUBCUT SCH (09:28)
[2019-01-21] MEDS: CLORAZEPATE DIPOTASSIUM 7.5 MG TABLET PO SCH ×2 (09:28→21:36)
[2019-01-21] MEDS: LACOSAMIDE 100 MG TABLET PO SCH ×2 (09:29→21:36)
[2019-01-21] MEDS: CHOLECALCIFEROL (D3) 1,000 UNIT (25 MCG) TABLET PO SCH (09:29)
[2019-01-21] MEDS: POLYETHYLENE GLYCOL 3350 POWDER 17 GM/1 PACKET PO SCH (17:18)
--- NOTE | 2019-01-21 18:17 | PDOC PROGRESS REPORT ---
Subjective Progress Note for:: 01/21/19 Subjective:: Patient continue to demonstrate some coughing spells with feeding assistance and full aspiration precaution in place. No observed difficulty with breathing. No fever or chills. Reason For Visit: ASPIRATION INTO LOWER RESPIRATORY TRACT, FEVER Physical Exam Vital Signs: Temp Pulse Resp BP Pulse Ox 99.5 F 78 16 115/76 97 01/21/19 15:45 01/21/19 15:45 01/21/19 15:45 01/21/19 15:45 01/21/19 15:45 Intake & Output 01/20/19 01/21/19 01/22/19 06:59 06:59 06:59 Intake Total 3468 1100 Output Total 3030 Balance 438 1100 Weight 67.358 kg 70 kg General appearance: PRESENT: no acute distress Head exam: PRESENT: atraumatic, normocephalic Eye exam: PRESENT: conjunctiva pink. ABSENT: scleral icterus Ear exam: PRESENT: normal external ear exam Mouth exam: PRESENT: moist Respiratory exam: PRESENT: crackles - scattered and bilateral, decreased breath sounds Cardiovascular exam: PRESENT: RRR. ABSENT: diastolic murmur, rubs, systolic murmur Vascular exam: ABSENT: pallor GI/Abdominal exam: PRESENT: normal bowel sounds, soft. ABSENT: distended, guarding, mass, organolmegaly, rebound, tenderness Extremities exam: ABSENT: pedal edema Neurological exam: PRESENT: alert, awake. ABSENT: oriented to person, oriented to place, oriented to time, oriented to situation, normal gait Psychiatric exam: PRESENT: agitated - intermittently Skin exam: PRESENT: dry, warm Results Laboratory Results: 01/21/19 05:28 01/21/19 05:28 01/21/19 01/21/19 05:28 05:28 WBC 11.4 H RBC 4.09 L Hgb 10.9 L Hct 32.6 L MCV 80 MCH 26.6 L MCHC 33.4 RDW 16.2 H Plt Count 154 Seg Neutrophils % 76.7 Sodium 144.2 Potassium 3.9 Chloride 114 H Carbon Dioxide 21 L Anion Gap 9 BUN 13 Creatinine 0.98 Est GFR ( Amer) > 60 Glucose 90 Calcium 8.4 Total Bilirubin 0.3 AST 62 H Alkaline Phosphatase 80 Total Protein 6.4 Albumin 3.2 L Impressions: Chest X-Ray 01/20/19 05:28 IMPRESSION: Moderate mixed airspace and interstitial opacity right more than left. Interval worsening. Assessment & Plan - Diagnosis (1) Aspiration into lower respiratory tract Qualifiers: Encounter type: initial encounter Qualified Code(s): T17.800A - Unspecified foreign body in other parts of respiratory tract causing asphyxiation, initial encounter Is this a current diagnosis for this admission?: Yes (2) GERD (gastroesophageal reflux disease) Qualifiers: Esophagitis presence: without esophagitis Is this a current diagnosis for this admission?: Yes (3) Mental and behavioral problem Is this a current diagnosis for this admission?: Yes (4) Seizure disorder Is this a current diagnosis for this admission?: Yes - Time Time Spent with patient: 25-34 minutes Level of Care: IMCU Medications reviewed and adjusted accordingly: Yes Anticipated discharge: Other Within: Other - Inpatient Certification Based on my medical assessment, after consideration of the patient's comorbidities, presenting symptoms, or acuity I expect that the services needed warrant INPATIENT care.: Yes I certify that my determination is in accordance with my understanding of Medicare's requirements for reasonable and necessary INPATIENT services [42 CFR 412.3e].: Yes Medical Necessity: Significant Comorbidiites Make Outpatient Treatment Too Risky, Need Close Monitoring Due to Risk of Patient Decompensation, Need For IV Fluids, Need For Continuous Telemetry Monitoring, Need for Nebulizer Therapy and Monitoring of Response, Need for IV Antibiotics, Risk of Complication if Not Cared For in Hospital, Risk of Diagnosis Which Will Require Inpatient Ev al/Care/Monitoring Post Hospital Care: D/C or Transfer Summary - Plan Summary Plan Summary: Continue IV Vancomycin and Zosyn coverage. Follow up on culture findings. Obtain swallowing evaluation if possible in view of his mental limitation and difficulty following instruction at bedside.
[2019-01-21 18:58] LABS: VANCOMYCIN,TROUGH 8.1 ug/mL (5.0-20.0)
[2019-01-21] MEDS: ZOLPIDEM TARTRATE 5 MG TABLET PO SCH (20:59)
[2019-01-21] MEDS ORDERED: IBUPROFEN 400 MG TABLET PO ONE (21:30)
[2019-01-21] MEDS ORDERED: IBUPROFEN 800 MG TABLET PO ONE (21:45)
[2019-01-22] MEDS: IPRATROPIUM/ALBUTEROL 0.5-2.5 MG/3 ML AMPUL NEB PRN ×3 (01:52→21:57)
[2019-01-22] MEDS: PANTOPRAZOLE SODIUM 40 MG TABLET.DR PO SCH (05:08)
[2019-01-22] MEDS: CLONAZEPAM 1 MG TABLET PO SCH ×3 (05:08→21:45)
[2019-01-22] MEDS: PIPERACILLIN SODIUM/TAZOBACTAM 3.375 GM in NORMAL SALINE 100 ML IV SCH ×3 (05:08→17:38)
[2019-01-22] MEDS: CARBAMAZEPINE 100 MG TAB.CHEW PO SCH ×3 (05:08→21:44)
[2019-01-22] MEDS: NORMAL SALINE 1000 ML 1,000 ML IV PRN (06:12)
[2019-01-22] MEDS: VANCOMYCIN HCL 1,000 MG in DEXTROSE 5%-WATER 250 ML IV SCH ×2 (06:13→19:14)
--- NOTE | 2019-01-22 09:11 | PDOC PROGRESS REPORT ---
Subjective Progress Note for:: 01/22/19 Subjective:: Patient was admitted because of the aspirations pneumonia currently on IV antibiotic Patient still very high risk breast patient is currently n.p.o. we will asked the speech therapy evaluations possible PEG tube placement Reason For Visit: ASPIRATION INTO LOWER RESPIRATORY TRACT, FEVER Physical Exam Vital Signs: Temp Pulse Resp BP Pulse Ox 100.1 F 108 H 18 113/75 89 L 01/22/19 08:08 01/22/19 08:08 01/22/19 08:08 01/22/19 08:08 01/22/19 08:08 Intake & Output 01/21/19 01/22/19 01/23/19 06:59 06:59 06:59 Intake Total 3468 2962 Output Total 3030 1400 Balance 438 1562 Weight 70 kg 72.1 kg General appearance: PRESENT: no acute distress, well-developed, well-nourished Head exam: PRESENT: atraumatic, normocephalic Eye exam: PRESENT: conjunctiva pink, EOMI, PERRLA. ABSENT: scleral icterus Ear exam: PRESENT: normal external ear exam Mouth exam: PRESENT: moist, tongue midline Neck exam: PRESENT: full ROM. ABSENT: carotid bruit, JVD, lymphadenopathy, thyromegaly Cardiovascular exam: PRESENT: RRR. ABSENT: diastolic murmur, rubs, systolic murmur Pulses: PRESENT: normal dorsalis pedis pul, +2 pedal pulses bilateral Vascular exam: PRESENT: normal capillary refill GI/Abdominal exam: PRESENT: normal bowel sounds, soft. ABSENT: distended, guarding, mass, organolmegaly, rebound, tenderness Rectal exam: PRESENT: deferred Neurological exam: PRESENT: alert, awake. ABSENT: motor sensory deficit Additional comments: Mentally challenged Psychiatric exam: PRESENT: appropriate affect, normal mood. ABSENT: homicidal ideation, suicidal ideation Skin exam: PRESENT: dry, intact, warm. ABSENT: cyanosis, rash Results Laboratory Results: 01/21/19 05:28 01/21/19 17:50 01/21/19 17:50 Creatinine 0.95 Est GFR ( Amer) > 60 Impressions: Chest X-Ray 01/20/19 05:28 IMPRESSION: Moderate mixed airspace and interstitial opacity right more than left. Interval worsening. Assessment & Plan - Diagnosis (1) Aspiration into lower respiratory tract Qualifiers: Encounter type: initial encounter Qualified Code(s): T17.800A - Unspecified foreign body in other parts of respiratory tract causing asphyxiation, initial encounter Is this a current diagnosis for this admission?: Yes Plan: Strictly aspirations precaution we will get the modified barium swallow speech therapy evaluations and PEG tube evaluations (2) Fever Qualifiers: Fever type: unspecified Is this a current diagnosis for this admission?: Yes Plan: Due to the aspiration is currently continues on IV antibiotics wait for the culture and sensitivity repeat the chest x-ray today (3) Dysphagia Qualifiers: Dysphagia type: unspecified Qualified Code(s): R13.10 - Dysphagia, unspecified Is this a current diagnosis for this admission?: Yes Plan: We will get the speech therapy evaluation modified barium evaluations (4) Epilepsy without status epilepticus, not intractable Qualifiers: Epilepsy type: unspecified Qualified Code(s): G40.909 - Epilepsy, unspecified, not intractable, without status epilepticus Is this a current diagnosis for this admission?: Yes Plan: Still not currently on IV medications instead of the p.o. (5) GERD (gastroesophageal reflux disease) Qualifiers: Esophagitis presence: without esophagitis Is this a current diagnosis for this admission?: Yes (6) Seizure disorder Is this a current diagnosis for this admission?: Yes - Time Time Spent with patient: 15-24 minutes Level of Care: IMCU Medications reviewed and adjusted accordingly: Yes Anticipated discharge: Other Within: Other - Plan Summary Plan Summary: Continues on broad-spectrum IV antibiotics Pulmonary consult Therapy evaluations modified barium swallow PEG tube evaluations . The chest x-ray
--- NOTE | 2019-01-22 09:50 | RADIOLOGY REPORT (SQ) ---
EXAM DESCRIPTION: COOKIE SWALLOW COMPLETED DATE/TIME: 01/22/2019 9:32 am REASON FOR STUDY: aspirtion cerebral palsy, pneumonia COMPARISON: 09/05/2018 modified barium swallow TECHNIQUE: Videofluoroscopic swallowing examination was performed in conjunction with speech patholo gy. Videofluoroscopic imaging was obtained and reviewed and these are the findings: RADIATION DOSE: 3 minutes 43 seconds of fluoroscopy was used. 1 images saved to PACS. LIMITATIONS: None FINDINGS: The patient was brought into the fluoro room and placed upright on a modified barium swall ow chair. The patient was then given multiple consistencies mixed with barium to swallow under live fluoroscopic video guidance. According to the Speech Pathologist there was trace laryngeal penetrati on and aspiration of nectar thick liquids. Moderate post swallow residual contrast within the vallecu lar and piriform sinuses. Note is made of fracture of the HANDS ASSEMBLER shunt in the soft tissues along the bas e of the skull, as seen on previous imaging. IMPRESSION: LARYNGEAL PENETRATION AND ASPIRATION ABOVE. AGAIN NOTED FRACTURE OF THE HANDS ASSEMBLER SHUNT. PL EASE SEE SPEECH PATHOLOGIST REPORT FOR OTHER FINDINGS AND RECOMMENDATIONS. COMMENT: Quality ID [id number]: Final reports for procedures using fluoroscopy that document radiation exp osure indices, or exposure time and number of fluorographic images (if radiation exposure indices are not available) TECHNICAL DOCUMENTATION: JOB ID: [id number] [employer]- All Rights Reserved Reading location - IP/workstation name: [email or web address]
[2019-01-22] MEDS: ENOXAPARIN SODIUM INJ 40 MG/0.4 ML DISP.SYRIN SUBCUT SCH (11:15)
[2019-01-22] MEDS: CHOLECALCIFEROL (D3) 1,000 UNIT (25 MCG) TABLET PO SCH (11:16)
[2019-01-22] MEDS: CLORAZEPATE DIPOTASSIUM 7.5 MG TABLET PO SCH ×2 (11:16→21:46)
[2019-01-22] MEDS: LACOSAMIDE 100 MG TABLET PO SCH ×2 (11:16→21:47)
--- NOTE | 2019-01-22 11:47 | PDOC CONSULTATION ---
Consultation Consult Date: 01/22/19 Attending physician:: JOSEPH MONTE Provider Consulted: RICKIE YUSUF Consult reason:: Feeding tube consultation History of Present Illness Admission Date/PCP: 01/20/19 09:49 JOSEPH MONTE MD History of Present Illness: CECI HSIEH is a 38 year old male Resident of care by our group, with a multiyear history of recurrent aspiration pneumonia who was hospitalized at [facility] for sepsis, recurrent pneumonia bilateral. Patient has had multiple upper GI swallow studies. A cookie swallow showing some degree of aspiration either into the piriform sinus, vallecula or laryngeal tracheal complex itself. Surgery was consulted for feeding tube placement. Review of record indicates no previous feeding tube discussion or placement. 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 Social History Information Source: [facility] Records Smoking Status: Never Smoker Frequency of Alcohol Use: None Hx Recreational Drug Use: No Drugs: None Hx Prescription Drug Abuse: No Family History Family History: Reviewed & Not Pertinent, Other - Unable to obtain as patient is noncommunicative Parental Family History Reviewed: No Children Family History Reviewed: No Sibling(s) Family History Reviewed.: No Medication/Allergy Home Medications: Carbamazepine [Tegretol 100 mg Chewable Tablet] 400 mg PO Q8 03/17/17 Cholecalciferol (Vitamin D3) [Vitamin D3 1000 Unit Tablet] 1,000 unit PO DAILY 03/17/17 Clonazepam [Klonopin] 1.5 mg PO Q8 03/17/17 Clorazepate Dipotassium [Tranxene 7.5 mg Tablet] 3.75 mg PO Q12 03/17/17 Eszopiclone [Lunesta] 3 mg PO QPM@199903/17/17 Lacosamide [Vimpat] 200 mg PO Q12 03/17/17 Polyethylene Glycol 3350 [Miralax Powder 17 gm/Packet] 17 gm PO QPM 03/17/17 Brivaracetam [Briviact] 100 mg PO Q12 09/04/18 Diazepam [Diastat Acudial 20 mg/4 ml Rectal Gel] 15 mg AL Q6HP PRN 09/04/18 Omeprazole 40 mg PO Q6AM 09/04/18 Ipratropium/Albuterol Sulfate [Duoneb 3 ml Ampul] 3 ml NEB RTQ6HP PRN 01/20/19 Allergies/Adverse Reactions: No Known Allergies Allergy (Verified 03/16/17 15:15) Review of Systems ROS unobtainable: Due to mental status, Other - Patient has cerebral palsy and is noncommunicative Physical Exam Vital Signs: Temp Pulse Resp BP Pulse Ox 100.1 F 96 16 113/75 95 01/22/19 08:08 01/22/19 11:21 01/22/19 11:21 01/22/19 08:08 01/22/19 11:21 Intake & Output 01/21/19 01/22/19 01/23/19 06:59 06:59 06:59 Intake Total 3468 2962 Output Total 3030 1400 Balance 438 1562 Weight 70 kg 72.1 kg General appearance: PRESENT: other - Examined on third floor as a [facility]. Mittens in place, extremities restrained to the bed. Diaper in position Eye exam: PRESENT: other - Unable to evaluate Neck exam: PRESENT: other - Trachea appears midline Respiratory exam: PRESENT: rhonchi - Bilaterally rhonchi Cardiovascular exam: PRESENT: RRR Pulses: PRESENT: normal carotid pulses, normal radial pulses, normal femoral pulses GI/Abdominal exam: PRESENT: other - Appears Soft ,no scars no foreign bodies no distention Rectal exam: PRESENT: deferred Extremities exam: PRESENT: other - Contracted Neurological exam: PRESENT: aphasic, other Results Laboratory Results: 01/21/19 05:28 01/21/19 17:50 01/21/19 17:50 Creatinine 0.95 Est GFR ( Amer) > 60 Impressions: Chest X-Ray 01/20/19 05:28 IMPRESSION: Moderate mixed airspace and interstitial opacity right more than left. Interval worsening. Modified Barium Swallow 01/22/19 00:00 IMPRESSION: LARYNGEAL PENETRATION AND ASPIRATION ABOVE. AGAIN NOTED FRACTURE OF THE LENS MOUNTER SHUNT. PLEASE SEE SPEECH PATHOLOGIST REPORT FOR OTHER FINDINGS AND RECOMMENDATIONS. Assessment & Plan - Diagnosis (1) Aspiration into lower respiratory tract Qualifiers: Encounter type: initial encounter Qualified Code(s): T17.800A - Unspecified foreign body in other parts of respiratory tract causing asphyxiation, initial encounter Is this a current diagnosis for this admission?: Yes Plan: Impression: Recurrent aspiration pneumonia, bilateral, on this current admission in 38-year-old male with multiple previous episodes of aspiration pneumonia. Patient is a bed ridden, noncommunicative, requiring physical restraints management. No previous history of feeding tube Recommendations: 1. Patient is currently being treated for pneumonia with intravenous antibiotics with clinical improvement 2. Patient is a resident of [facility]. I spoke with Ms. Corey Askew the request for consideration for a feeding tube. She directed me to patient's healthcare [employer] consultant, Madia Beyer, whom I called but did not communicate with. 3. I recommend a conversation with healthcare [employer] consultant, and healthcare team at [facility] to discuss the risk benefits alternatives to feeding tube insertion in this chronically high risk patient. (2) Cerebral palsy Is this a current diagnosis for this admission?: Yes (3) Fever Qualifiers: Fever type: unspecified Is this a current diagnosis for this admission?: Yes (4) Mental and behavioral problem Is this a current diagnosis for this admission?: Yes (5) Pneumonia Qualifiers: Pneumonia type: aspiration pneumonia Aspiration pneumonia type: unspecified Laterality: unspecified laterality Lung location: unspecified part of lung Qualified Code(s): J69.0 - Pneumonitis due to inhalation of food and vomit Is this a current diagnosis for this admission?: Yes (6) Seizure disorder Is this a current diagnosis for this admission?: Yes - Time Time Spent: 50 to 70 Minutes Smoking Cessation Education: over 10 minutes Medications reviewed and adjusted accordingly: Yes Anticipated discharge: Home - Inpatient Certification Based on my medical assessment, after consideration of the patient's comorbidities, presenting symptoms, or acuity I expect that the services needed warrant INPATIENT care.: Yes I certify that my determination is in accordance with my understanding of Medicare's requirements for reasonable and necessary INPATIENT services [42 CFR 412.3e].: Yes Medical Necessity: Need for Pain Control, Need for IV Antibiotics
--- NOTE | 2019-01-22 15:43 | ST Inp Modified Barium Swallow ---
Medical Diagnosis - Medical Diagnoses Medical Diagnosis Description & ICD-10 Code(s): pneumonia - ICD-10 Tx Diagnosis Coding (1) Aspiration into lower respiratory tract ICD-10 Code(s): T17.800A - UNSP FOREIGN BODY IN OTH PRT RESP TRACT CAUSING ASPHYX, INIT ST Inpatient MBS - General Date: 01/22/19 Date of Onset: 01/20/19 - admission date - History -: Medical - Patient admitted 01/20 with difficulty breathing and fever. Patient reportedly is demonstrating coughing while on puree and thick liquid diet. Prior medical history includes cerebral palsy, GERD, [employer] MEMBER shunt. Patient had prior MBSS on 09/05/18, which showed high risk of aspiration on all textures and it was recommended to consider alternative means of nutrition/hydration. He also had a MBSS on 03/23/17, which also showed risk of aspiration and nutritional compromise, and mentioned possibility of alternative means of nutrition/hydration. Another MBSS was completed on 07/18/14, which recommended patient be NPO with alternative means of nutrition and hydration. Medications: Medications Reviewed Allergies: No known allergies - Subjective Current Nutritional Means: PO Current PO Diet: Pureed, Thickened liquids Current Symptoms: Coughing, Pneumonia, Hx of asp. pneumonia Pain: unable to communicate - Objective Assessment: Upright, Left Lateral - Food Trials Food Trials Used: Baggs thick liquids, Pureed The Patient: fed by caregiver, via spoon - Assessment Labial Function: Impaired Lingual Function: Impaired Mandibular Function: Impaired - Pharyngeal Stage Initiation of Pharyngeal Stage: Delayed - swallow triggered with bolus in valleculae and pyriform sinus, up to 5 second delay Decreased Laryngeal Elevation: Yes Reduced Velo-Pharyngeal Closure: no Reduced Pressure Generation: Yes Reduced Tongue Base Retraction: Yes Pre-Swallowing Pooling in Valleculae: Moderate Pre-Swallowing Pooling in Pyriforms: Significant Reduced Epiglottic Excursion: No Multiple Swallows With: Ineffective Clearance Post Swallow Residuals in Valleculae: Mild Post Swallow Residuals in Pyriforms: Significant Post Swallow Residuals: throughout pharynx Pahryngeal Stage Comments: Patient presents with severe oropharyngeal swallowing deficits, characterized by very reduced timing and coordination of the swallow. Significant post swallow residue is seen in the pharynx, valleculae and pyriform sinus. This residue places patient at high risk of aspiration after the swallow as residue does not clear. Penetration of nectar thick liquid was seen on the swallow, with likely aspiration. Difficult to visualize due to extraneous head movement. - Impression/Summary Laryngeal Penetration: Yes, Deep, during swallow Tracheal Aspiration: yes, during swallow Patient Presents With: Pharyngeal stage dysph., Severe Risk of Aspiration: Severe - Recommendations NPO: yes - Time Total Time: 30 Total Timed Minutes: 30
--- NOTE | 2019-01-22 15:47 | RADIOLOGY REPORT (SQ) ---
EXAM DESCRIPTION: CHEST SINGLE VIEW COMPLETED DATE/TIME: 01/22/2019 3:30 pm REASON FOR STUDY: aspiration pnemonia COMPARISON: 01/20/2019 NUMBER OF VIEWS: One view. TECHNIQUE: Single frontal radiographic image of the chest acquired. LIMITATIONS: None. FINDINGS: LUNGS AND PLEURA: Improved aeration in both lungs with residual airspace disease in the ri ght lung. MEDIASTINUM AND HEART: Stable heart size and mediastinal structures. SUPPORT DEVICES: Appropriate location without change. BONY STRUCTURES: No acute findings. HARDWARE: None. OTHER: No other significant finding. IMPRESSION: Improving pneumonia. Reading location - IP/workstation name: [email or web address]
[2019-01-22] MEDS ORDERED: ACETAMINOPHEN 650 MG SUPP.RECT PR ONE (16:23)
[2019-01-22] MEDS ORDERED: DEXTROSE 50%-WATER 25 GM/50 ML DISP.SYRIN IV PRN ×2 (17:48)
[2019-01-22] MEDS ORDERED: GLUCAGON,HUMAN RECOMB 1 MG INJ SUBCUT PRN (17:48)
[2019-01-22] MEDS ORDERED: DEXTROSE 40% GEL 15 GM TUBE PO PRN ×2 (17:48)
[2019-01-22] MEDS ORDERED: ACETAMINOPHEN 650 MG SUPP.RECT PR PRN (18:11)
[2019-01-22] MEDS: POLYETHYLENE GLYCOL 3350 POWDER 17 GM/1 PACKET PO SCH (19:14)
[2019-01-22] MEDS: ZOLPIDEM TARTRATE 5 MG TABLET PO SCH (21:45)
[2019-01-23] MEDS: PIPERACILLIN SODIUM/TAZOBACTAM 3.375 GM in NORMAL SALINE 100 ML IV SCH ×4 (00:46→19:37)
[2019-01-23] MEDS: NORMAL SALINE 1000 ML 1,000 ML IV PRN ×2 (03:25→13:47)
[2019-01-23] MEDS: CARBAMAZEPINE 100 MG TAB.CHEW PO SCH ×3 (05:36→21:26)
[2019-01-23] MEDS: CLONAZEPAM 1 MG TABLET PO SCH ×3 (05:39→21:30)
[2019-01-23] MEDS: PANTOPRAZOLE SODIUM 40 MG TABLET.DR PO SCH (05:39)
[2019-01-23 06:05] LABS: ABSOLUTE MONOCYTES (AUTO) 0.9 10^3/uL (0.1-1.4); ABSOLUTE NEUT (AUTO) 3.8 10^3/uL (1.7-8.2); BASOPHILS % (AUTO) 0.1 % (0-2); EOSINOPHILS % (AUTO) 0.5 % (0-6); HEMOGLOBIN 10.8 g/dL (13.5-17.0); LYMPHOCYTES % (AUTO) 30.1 % (13-45); MEAN CORPUSCULAR HEMOGLOBIN 27.1 pg (27.0-33.4); MEAN CORPUSCULAR HGB CONC 33.9 g/dL (32.0-36.0); MEAN CORPUSCULAR VOLUME 80 fl (80-97); MONOCYTES % (AUTO) 12.8 % (3-13); PLATELET COUNT 140 10^3/uL (150-450); RED BLOOD COUNT 3.99 10^6/uL (4.35-5.55); RED CELL DISTRIBUTION WIDTH 16.3 % (11.5-14.0); SEGMENTED NEUTROPHILS % (AUTO) 56.5 % (42-78); TOTAL CELLS COUNTED % (AUTO) 100 %; WHITE BLOOD COUNT 6.8 10^3/uL (4.0-10.5)
[2019-01-23 06:28] LABS: ANION GAP 14 (5-19); BLOOD UREA NITROGEN 7 mg/dL (7-20); CALCIUM 8.6 mg/dL (8.4-10.2); CARBON DIOXIDE 23 mmol/L (22-30); CHLORIDE 106 mmol/L (98-107); GLUCOSE 89 mg/dL (75-110); POTASSIUM 3.4 mmol/L (3.6-5.0)
[2019-01-23 06:32] LABS: VANCOMYCIN,TROUGH 9.8 ug/mL (5.0-20.0)
[2019-01-23] MEDS: VANCOMYCIN HCL 1,000 MG in DEXTROSE 5%-WATER 250 ML IV SCH ×3 (06:32→21:26)
[2019-01-23] MEDS ORDERED: POTASSI CL 20 MEQ/50 ML RIDER 20 MEQ/50 ML RTUPB IV ONE (08:15)
--- NOTE | 2019-01-23 08:47 | PDOC PROGRESS REPORT ---
Subjective Progress Note for:: 01/23/19 Subjective:: Patient is currently doing fair Still have a fever overnight Is currently n.p.o. except p.o. meds and we try to change to the all p.o. to the IV and the patient's Vimpat will change from p.o. to the IV until the patient have a PEG tube placements Scheduled for the PEG tube placement today Reason For Visit: ASPIRATION INTO LOWER RESPIRATORY TRACT, FEVER Physical Exam Vital Signs: Temp Pulse Resp BP Pulse Ox 98.9 F 73 16 128/83 H 96 01/23/19 08:08 01/23/19 08:08 01/23/19 08:08 01/23/19 08:08 01/23/19 08:08 Intake & Output 01/22/19 01/23/19 01/24/19 06:59 06:59 06:59 Intake Total 2962 1800 100 Output Total 1400 1875 Balance 1562 -75 100 Weight 72.1 kg 70.7 kg Physical Exam: Significant mental retardation's General appearance: PRESENT: no acute distress Head exam: PRESENT: atraumatic, normocephalic Eye exam: PRESENT: conjunctiva pink, EOMI, PERRLA. ABSENT: scleral icterus Ear exam: PRESENT: normal external ear exam Mouth exam: PRESENT: moist, tongue midline Neck exam: PRESENT: full ROM. ABSENT: carotid bruit, JVD, lymphadenopathy, thyromegaly Cardiovascular exam: PRESENT: RRR. ABSENT: diastolic murmur, rubs, systolic murmur Pulses: PRESENT: normal dorsalis pedis pul, +2 pedal pulses bilateral Vascular exam: PRESENT: normal capillary refill GI/Abdominal exam: PRESENT: normal bowel sounds, soft. ABSENT: distended, guarding, mass, organolmegaly, rebound, tenderness Rectal exam: PRESENT: deferred Neurological exam: PRESENT: alert, awake. ABSENT: motor sensory deficit Psychiatric exam: PRESENT: appropriate affect, normal mood. ABSENT: homicidal ideation, suicidal ideation Skin exam: PRESENT: dry, intact, warm. ABSENT: cyanosis, rash Results Laboratory Results: 01/23/19 05:31 01/23/19 05:31 01/23/19 01/23/19 01/23/19 05:31 05:31 05:31 WBC 6.8 RBC 3.99 L Hgb 10.8 L Hct 32.0 L MCV 80 MCH 27.1 MCHC 33.9 RDW 16.3 H Plt Count 140 L Seg Neutrophils % 56.5 Sodium 142.7 Potassium 3.4 L Chloride 106 Carbon Dioxide 23 Anion Gap 14 BUN 7 Creatinine 0.90 0.90 Est GFR ( Amer) > 60 > 60 Glucose 89 Calcium 8.6 01/20/19 06:03 Catheterized Urine Urine Culture - Final NO GROWTH 2 DAYS Impressions: Chest X-Ray 01/22/19 00:00 IMPRESSION: Improving pneumonia. Modified Barium Swallow 01/22/19 00:00 IMPRESSION: LARYNGEAL PENETRATION AND ASPIRATION ABOVE. AGAIN NOTED FRACTURE OF THE PROGRAM ADVOCATE SHUNT. PLEASE SEE SPEECH PATHOLOGIST REPORT FOR OTHER FINDINGS AND RECOMMENDATIONS. Assessment & Plan - Diagnosis (1) Aspiration into lower respiratory tract Qualifiers: Encounter type: initial encounter Qualified Code(s): T17.800A - Unspecified foreign body in other parts of respiratory tract causing asphyxiation, initial encounter Is this a current diagnosis for this admission?: Yes Plan: Continues to IV antibiotics (2) Fever Qualifiers: Fever type: unspecified Is this a current diagnosis for this admission?: Yes Plan: Due to the aspiration is currently continues on IV antibiotics wait for the culture and sensitivity repeat the chest x-ray today (3) Dysphagia Qualifiers: Dysphagia type: unspecified Qualified Code(s): R13.10 - Dysphagia, unspecified Is this a current diagnosis for this admission?: Yes Plan: Patient is going for the PEG tube placement (4) Epilepsy without status epilepticus, not intractable Qualifiers: Epilepsy type: unspecified Qualified Code(s): G40.909 - Epilepsy, unspe cified, not intractable, without status epilepticus Is this a current diagnosis for this admission?: Yes Plan: We changed to the p.o. to the IV medications (5) GERD (gastroesophageal reflux disease) Qualifiers: Esophagitis presence: without esophagitis Is this a current diagnosis for this admission?: Yes (6) Seizure disorder Is this a current diagnosis for this admission?: Yes - Time Time Spent with patient: 15-24 minutes Level of Care: IMCU Medications reviewed and adjusted accordingly: Yes Anticipated discharge: Other Within: Other - Plan Summary Plan Summary: Continues on broad-spectrum IV antibiotic replace the potassiums patient is tonia eduled for the PEG tube placement
[2019-01-23] MEDS: ENOXAPARIN SODIUM INJ 40 MG/0.4 ML DISP.SYRIN SUBCUT SCH (11:17)
[2019-01-23] MEDS: CHOLECALCIFEROL (D3) 1,000 UNIT (25 MCG) TABLET PO SCH (11:24)
[2019-01-23] MEDS: CLORAZEPATE DIPOTASSIUM 7.5 MG TABLET PO SCH ×2 (11:45→21:30)
[2019-01-23] MEDS: LACOSAMIDE INJ/PF 200 MG/20 ML SDV IV SCH ×2 (11:45→21:34)
[2019-01-23] MEDS: POLYETHYLENE GLYCOL 3350 POWDER 17 GM/1 PACKET PO SCH (17:04)
--- NOTE | 2019-01-23 17:04 | PDOC PROGRESS REPORT ---
Subjective Progress Note for:: 01/23/19 Reason For Visit: ASPIRATION,FEVER possible peg tube placment Physical Exam Vital Signs: Temp Pulse Resp BP Pulse Ox 98.2 F 75 16 126/85 H 96 01/23/19 15:17 01/23/19 15:17 01/23/19 15:17 01/23/19 15:17 01/23/19 15:17 Intake & Output 01/22/19 01/23/19 01/24/19 06:59 06:59 06:59 Intake Total 2962 1800 1500 Output Total 1400 1875 1200 Balance 1562 -75 300 Weight 72.1 kg 70.7 kg General appearance: PRESENT: mild distress Head exam: PRESENT: normocephalic Eye exam: PRESENT: EOMI Mouth exam: PRESENT: moist Respiratory exam: PRESENT: decreased breath sounds Cardiovascular exam: PRESENT: RRR Pulses: PRESENT: normal femoral pulses GI/Abdominal exam: PRESENT: soft Rectal exam: PRESENT: deferred Extremities exam: PRESENT: other - bilat contractures accross abd Neurological exam: PRESENT: awake, aphasic Skin exam: PRESENT: dry Results Laboratory Results: 01/23/19 05:31 01/23/19 05:31 01/23/19 01/23/19 01/23/19 05:31 05:31 05:31 WBC 6.8 RBC 3.99 L Hgb 10.8 L Hct 32.0 L MCV 80 MCH 27.1 MCHC 33.9 RDW 16.3 H Plt Count 140 L Seg Neutrophils % 56.5 Sodium 142.7 Potassium 3.4 L Chloride 106 Carbon Dioxide 23 Anion Gap 14 BUN 7 Creatinine 0.90 0.90 Est GFR ( Amer) > 60 > 60 Glucose 89 Calcium 8.6 Impressions: Chest X-Ray 01/22/19 00:00 IMPRESSION: Improving pneumonia. Modified Barium Swallow 01/22/19 00:00 IMPRESSION: LARYNGEAL PENETRATION AND ASPIRATION ABOVE. AGAIN NOTED FRACTURE OF THE COMPARISON SHOPPER SHUNT. PLEASE SEE SPEECH PATHOLOGIST REPORT FOR OTHER FINDINGS AND RECOMMENDATIONS. Assessment & Plan - Time Time Spent with patient: 35 or more minutes - Plan Summary Plan Summary: Unfortunate 38-year-old male with cerebral palsy long history of chcf placement has had multiple aspiration pneumonia episodes. Patient is now aspirating and and is admitted for aspiration pneumonia Initial plans were for a PEG tube placement however after discussion with Dr. Benson this afternoon, a PEG tube placement would not improve his aspiration risk. Patient probably will require either a GJ tube or a jejunostomy tube. A GJ tube or a jejunostomy tube would probably need general anesthesia as the patient has multiple contractures and it would be difficult to place a PEG tube under conscious sedation. Most likely the best option for this patient is a jejunostomy tube or gastrostomy tube with a jejunostomy placed through it into the proximal jejunum. Dr. Benson states that he will consult interventional radiology [place] for possible percutaneous jejunostomy tube placement, obviating the need for general anesthesia. Surgery is deemed more appropriate Dr. Benson will contact the surgical is on- call at future time. Surgery will sign off for now
[2019-01-23] MEDS: ZOLPIDEM TARTRATE 5 MG TABLET PO SCH (21:30)
[2019-01-24] MEDS: PIPERACILLIN SODIUM/TAZOBACTAM 3.375 GM in NORMAL SALINE 100 ML IV SCH ×5 (00:49→23:25)
[2019-01-24] MEDS: NORMAL SALINE 1000 ML 1,000 ML IV PRN (04:46)
[2019-01-24] MEDS: CARBAMAZEPINE 100 MG TAB.CHEW PO SCH ×3 (05:08→21:18)
[2019-01-24] MEDS: CLONAZEPAM 1 MG TABLET PO SCH ×3 (05:09→21:19)
[2019-01-24] MEDS: PANTOPRAZOLE SODIUM 40 MG TABLET.DR PO SCH (05:10)
[2019-01-24] MEDS: VANCOMYCIN HCL 1,000 MG in DEXTROSE 5%-WATER 250 ML IV SCH ×3 (06:30→21:19)
[2019-01-24 07:19] LABS: VANCOMYCIN,TROUGH 13.3 ug/mL (5.0-20.0)
[2019-01-24 07:20] LABS: ANION GAP 14 (5-19); BLOOD UREA NITROGEN 6 mg/dL (7-20); CALCIUM 8.5 mg/dL (8.4-10.2); CARBON DIOXIDE 22 mmol/L (22-30); CHLORIDE 108 mmol/L (98-107); GLUCOSE 87 mg/dL (75-110); POTASSIUM 3.5 mmol/L (3.6-5.0)
[2019-01-24] MEDS ORDERED: POTASSI CL 20 MEQ/50 ML RIDER 20 MEQ/50 ML RTUPB IV ONE (08:30)
[2019-01-24] MEDS: DEXTROSE 5%-1/2 NORMAL SALINE 1,000 ML IV PRN (08:33)
--- NOTE | 2019-01-24 11:09 | RADIOLOGY REPORT (SQ) ---
EXAM DESCRIPTION: CHEST SINGLE VIEW COMPLETED DATE/TIME: 01/24/2019 10:40 am REASON FOR STUDY: Pneumonia COMPARISON: AP view of the chest from 01/22/2019. EXAM PARAMETERS: NUMBER OF VIEWS: One view. TECHNIQUE: Single frontal radiographic view of the chest acquired. RADIATION DOSE: NA LIMITATIONS: None. FINDINGS: LUNGS AND PLEURA: Unchanged patchy parenchymal opacities in the right upper lobe. There i s no sizable pleural effusion or pneumothorax. MEDIASTINUM AND HILAR STRUCTURES: No mediastinal hilar contour abnormality. HEART AND VASCULAR STRUCTURES: Stable cardiac silhouette and pulmonary vasculature. BONES: No acute findings. HARDWARE: The tip of the right IJ central venous catheter projects within the SVC. There is a spinal stimulator in place that projects over the superior left hemithorax. OTHER: No other finding. IMPRESSION: Unchanged radiographic appearance of the chest. TECHNICAL DOCUMENTATION: JOB ID: [id number] [employer]- All Rights Reserved Reading location - IP/workstation name: [email or web address]
[2019-01-24] MEDS: ENOXAPARIN SODIUM INJ 40 MG/0.4 ML DISP.SYRIN SUBCUT SCH (12:05)
[2019-01-24] MEDS: CHOLECALCIFEROL (D3) 1,000 UNIT (25 MCG) TABLET PO SCH (12:05)
[2019-01-24] MEDS: CLORAZEPATE DIPOTASSIUM 7.5 MG TABLET PO SCH ×2 (12:23→21:19)
[2019-01-24] MEDS: LACOSAMIDE INJ/PF 200 MG/20 ML SDV IV SCH ×2 (12:29→21:19)
--- NOTE | 2019-01-24 13:15 | PDOC PROGRESS REPORT ---
Subjective Progress Note for:: 01/24/19 Subjective:: Patient is currently doing same Patient having no fever overnights Patient is as per discussed with the caregiver usually surgery put the j-tube and discussed with the GI here Dr. Hernández and suggest the j-tube is better for this kind per patient and discussed with the surgery today and they will do it here while the we have availability of the surgeon here unable to transfer the patient to the different facilities We will repeat the chest x-ray today we already consulted the pulmonary Patient's risk with undergoing anesthesia is pretty much same here in [facility] Reason For Visit: ASPIRATION,FEVER Physical Exam Vital Signs: Temp Pulse Resp BP Pulse Ox 98.4 F 88 20 131/90 H 97 01/24/19 10:56 01/24/19 10:56 01/24/19 10:56 01/24/19 10:56 01/24/19 10:56 Intake & Output 01/23/19 01/24/19 01/25/19 06:59 06:59 06:59 Intake Total 1800 3300 643 Output Total 1875 2300 675 Balance -75 1000 -32 Weight 70.7 kg 70.6 kg General appearance: PRESENT: no acute distress Head exam: PRESENT: atraumatic, normocephalic Eye exam: PRESENT: conjunctiva pink, EOMI, PERRLA. ABSENT: scleral icterus Ear exam: PRESENT: normal external ear exam Mouth exam: PRESENT: moist, tongue midline Neck exam: PRESENT: full ROM. ABSENT: carotid bruit, JVD, lymphadenopathy, thyromegaly Respiratory exam: PRESENT: decreased breath sounds Cardiovascular exam: PRESENT: RRR. ABSENT: diastolic murmur, rubs, systolic murmur Vascular exam: PRESENT: normal capillary refill GI/Abdominal exam: PRESENT: normal bowel sounds, soft. ABSENT: distended, guarding, mass, organolmegaly, rebound, tenderness Rectal exam: PRESENT: deferred Neurological exam: PRESENT: alert, awake. ABSENT: motor sensory deficit Psychiatric exam: PRESENT: appropriate affect, normal mood. ABSENT: homicidal ideation, suicidal ideation Skin exam: PRESENT: dry, intact, warm. ABSENT: cyanosis, rash Results Laboratory Results: 01/23/19 05:31 01/24/19 05:58 01/24/19 05:58 Sodium 143.5 Potassium 3.5 L Chloride 108 H Carbon Dioxide 22 Anion Gap 14 BUN 6 L Creatinine 0.74 Est GFR ( Amer) > 60 Glucose 87 Calcium 8.5 Impressions: Modified Barium Swallow 01/22/19 00:00 IMPRESSION: LARYNGEAL PENETRATION AND ASPIRATION ABOVE. AGAIN NOTED FRACTURE OF THE MUSHROOM PACKER SHUNT. PLEASE SEE SPEECH PATHOLOGIST REPORT FOR OTHER FINDINGS AND RECOMMENDATIONS. Chest X-Ray 01/24/19 00:00 IMPRESSION: Unchanged radiographic appearance of the chest. Assessment & Plan - Diagnosis (1) Aspiration into lower respiratory tract Qualifiers: Encounter type: initial encounter Qualified Code(s): T17.800A - Unspecified foreign body in other parts of respiratory tract causing asphyxiation, initial encounter Is this a current diagnosis for this admission?: Yes Plan: We will change the IV fluid to D5 patient is scheduled for possible J-tube placement by surgery (2) Fever Qualifiers: Fever type: unspecified Is this a current diagnosis for this admission?: Yes Plan: Due to the aspiration is currently continues on IV antibiotics wait for the culture and sensitivity repeat the chest x-ray today (3) Dysphagia Qualifiers: Dysphagia type: unspecified Qualified Code(s): R13.10 - Dysphagia, unspecified Is this a current diagnosis for this admission?: Yes Plan: Consult the surgery for j-tube placement (4) Epilepsy without status epilepticus, not intractable Qualifiers: Epilepsy type: unspecified Qualified Code(s): G40.909 - Epilepsy, unspecified, not intractable, without status epilepticus Is this a current diagnosis for this admission?: Yes Plan: We changed to the p.o. to the IV medications (5) GERD (gastroesophageal reflux disease) Qualifiers: Esophagitis presence: without esophagitis Is this a current diagnosis for this admission?: Yes (6) Seizure disorder Is this a current diagnosis for this admission?: Yes - Time Time Spent with patient: 15-24 minutes Level of Care: IMCU Medications reviewed and adjusted accordingly: Yes Anticipated discharge: Home Within: Other - Plan Summary Plan Summary: Continues to current medications
[2019-01-24] MEDS: POLYETHYLENE GLYCOL 3350 POWDER 17 GM/1 PACKET PO SCH (17:41)
[2019-01-24] MEDS: ZOLPIDEM TARTRATE 5 MG TABLET PO SCH (21:18)
--- NOTE | 2019-01-24 21:28 | PDOC PROGRESS REPORT ---
Subjective Progress Note for:: 01/24/19 Subjective:: This is a 38-year-old male who has suffered recent aspiration pneumonia. Consult was made for a feeding tube. The patient is nonverbal, and cannot communicate any significant review of systems. Reason For Visit: ASPIRATION,FEVER Physical Exam Vital Signs: Temp Pulse Resp BP Pulse Ox 98.7 F 74 18 130/95 H 96 01/24/19 15:10 01/24/19 19:00 01/24/19 15:10 01/24/19 15:10 01/24/19 15:10 Intake & Output 01/23/19 01/24/19 01/25/19 06:59 06:59 06:59 Intake Total 1800 3300 1127 Output Total 1875 2300 1175 Balance -75 1000 -48 Weight 70.7 kg 70.6 kg General appearance: PRESENT: no acute distress Head exam: PRESENT: atraumatic Eye exam: PRESENT: EOMI, PERRLA. ABSENT: scleral icterus Mouth exam: PRESENT: moist, neck supple Neck exam: ABSENT: thyromegaly, tracheal deviation Respiratory exam: ABSENT: chest wall tenderness Cardiovascular exam: PRESENT: RRR Pulses: PRESENT: normal radial pulses GI/Abdominal exam: PRESENT: soft. ABSENT: distended, firm, guarding, tenderness Rectal exam: PRESENT: deferred Extremities exam: ABSENT: clubbing Musculoskeletal exam: ABSENT: deformity Neurological exam: PRESENT: alert, awake, oriented to person, oriented to place, oriented to time, oriented to situation Psychiatric exam: PRESENT: agitated - mildly Skin exam: ABSENT: cyanosis, erythema, jaundice Results Laboratory Results: 01/23/19 05:31 01/24/19 05:58 01/24/19 05:58 Sodium 143.5 Potassium 3.5 L Chloride 108 H Carbon Dioxide 22 Anion Gap 14 BUN 6 L Creatinine 0.74 Est GFR ( Amer) > 60 Glucose 87 Calcium 8.5 Impressions: Modified Barium Swallow 01/22/19 00:00 IMPRESSION: LARYNGEAL PENETRATION AND ASPIRATION ABOVE. AGAIN NOTED FRACTURE OF THE LINUX SECURITY ADMINISTRATOR SHUNT. PLEASE SEE SPEECH PATHOLOGIST REPORT FOR OTHER FINDINGS AND RECOMMENDATIONS. Chest X-Ray 01/24/19 00:00 IMPRESSION: Unchanged radiographic appearance of the chest. Assessment & Plan - Diagnosis (1) Aspiration pneumonia Qualifiers: Aspiration pneumonia type: due to gastric secretions Laterality: right Lung location: unspecified part of lung Qualified Code(s): J69.0 - Pneumonitis due to inhalation of food and vomit Is this a current diagnosis for this admission?: Yes (2) Cerebral palsy Is this a current diagnosis for this admission?: Yes - Time Time Spent with patient: Less than 15 minutes - Plan Summary Plan Summary: This is a 38-year-old male with cerebral palsy and aspiration pneumonia. Surger haydee has been consulted to place a feeding tube. The patient would likely benefit from a feeding jejunostomy. This carries with it a significant amount of risk, as the patient is not aware of his surroundings and pulls at lines and tubing. I have made an attempt to contact the patient's medical power of civil litigation attorney, but have been unsuccessful. A feeding tube cannot be placed until risks and benefits are discussed with a medical power of civil litigation attorney. We will try again tomorrow to contact his MPOA. Surgery will follow this patient with you.
[2019-01-25] MEDS: CARBAMAZEPINE 100 MG TAB.CHEW PO SCH ×3 (05:21→21:12)
[2019-01-25] MEDS: PANTOPRAZOLE SODIUM 40 MG TABLET.DR PO SCH (05:21)
[2019-01-25] MEDS: PIPERACILLIN SODIUM/TAZOBACTAM 3.375 GM in NORMAL SALINE 100 ML IV SCH ×3 (05:21→17:31)
[2019-01-25] MEDS: CLONAZEPAM 1 MG TABLET PO SCH ×3 (05:21→21:13)
[2019-01-25] MEDS: VANCOMYCIN HCL 1,000 MG in DEXTROSE 5%-WATER 250 ML IV SCH (05:22)
[2019-01-25 06:27] LABS: ABSOLUTE EOSINOPHILS # (AUTO) 0.2 10^3/uL (0.0-0.6); ABSOLUTE LYMPHOCYTES (AUTO) 2.8 10^3/uL (0.5-4.7); ABSOLUTE MONOCYTES (AUTO) 1.1 10^3/uL (0.1-1.4); ABSOLUTE NEUT (AUTO) 3.1 10^3/uL (1.7-8.2); BASOPHILS % (AUTO) 0.3 % (0-2); EOSINOPHILS % (AUTO) 3.3 % (0-6); HEMATOCRIT 32.4 % (37.9-51.0); HEMOGLOBIN 10.8 g/dL (13.5-17.0); LYMPHOCYTES % (AUTO) 38.4 % (13-45); MEAN CORPUSCULAR HEMOGLOBIN 26.5 pg (27.0-33.4); MEAN CORPUSCULAR HGB CONC 33.3 g/dL (32.0-36.0); MEAN CORPUSCULAR VOLUME 80 fl (80-97); MONOCYTES % (AUTO) 15.2 % (3-13); PLATELET COUNT 225 10^3/uL (150-450); RED BLOOD COUNT 4.07 10^6/uL (4.35-5.55); SEGMENTED NEUTROPHILS % (AUTO) 42.8 % (42-78); TOTAL CELLS COUNTED % (AUTO) 100 %; WHITE BLOOD COUNT 7.3 10^3/uL (4.0-10.5)
[2019-01-25 06:47] LABS: ANION GAP 13 (5-19); BLOOD UREA NITROGEN 4 mg/dL (7-20); CALCIUM 9.1 mg/dL (8.4-10.2); CARBON DIOXIDE 22 mmol/L (22-30); CHLORIDE 109 mmol/L (98-107); GLUCOSE 83 mg/dL (75-110); POTASSIUM 3.6 mmol/L (3.6-5.0)
--- NOTE | 2019-01-25 08:07 | PDOC PROGRESS REPORT ---
Subjective Progress Note for:: 01/25/19 Subjective:: Patient is currently doing fair remain afebrile white count is normal Patient is scheduled for the G-tube placement as per surgery waiting for the POA permissions No seizures activity So far all culture is negative Chest x-ray is all stable Reason For Visit: ASPIRATION,FEVER Physical Exam Vital Signs: Temp Pulse Resp BP Pulse Ox 97.7 F 59 L 23 H 99/75 L 91 L 01/25/19 03:32 01/25/19 07:00 01/25/19 03:32 01/25/19 03:32 01/25/19 03:32 Intake & Output 01/24/19 01/25/19 01/26/19 06:59 06:59 06:59 Intake Total 3300 1577 Output Total 2300 2625 Balance 1000 -1048 Weight 70.6 kg 68.9 kg General appearance: PRESENT: no acute distress, well-developed, well-nourished Head exam: PRESENT: atraumatic, normocephalic Eye exam: PRESENT: conjunctiva pink, EOMI, PERRLA. ABSENT: scleral icterus Ear exam: PRESENT: normal external ear exam Mouth exam: PRESENT: moist, tongue midline Neck exam: PRESENT: full ROM. ABSENT: carotid bruit, JVD, lymphadenopathy, thyromegaly Respiratory exam: PRESENT: clear to auscultation roula Cardiovascular exam: PRESENT: RRR. ABSENT: diastolic murmur, rubs, systolic murmur Vascular exam: PRESENT: normal capillary refill GI/Abdominal exam: PRESENT: normal bowel sounds, soft. ABSENT: distended, guarding, mass, organolmegaly, rebound, tenderness Rectal exam: PRESENT: deferred Neurological exam: PRESENT: alert, awake. ABSENT: motor sensory deficit Psychiatric exam: PRESENT: appropriate affect, normal mood. ABSENT: homicidal ideation, suicidal ideation Skin exam: PRESENT: dry, intact, warm. ABSENT: cyanosis, rash Results Laboratory Results: 01/25/19 05:53 01/25/19 05:53 01/25/19 01/25/19 05:53 05:53 WBC 7.3 RBC 4.07 L Hgb 10.8 L Hct 32.4 L MCV 80 MCH 26.5 L MCHC 33.3 RDW 16.0 H Plt Count 225 Seg Neutrophils % 42.8 Sodium 144.2 Potassium 3.6 Chloride 109 H Carbon Dioxide 22 Anion Gap 13 BUN 4 L Creatinine 0.76 Est GFR ( Amer) > 60 Glucose 83 Calcium 9.1 01/20/19 07:19 Blood Blood Culture - Final NO GROWTH IN 5 DAYS 01/20/19 05:26 Blood Blood Culture - Final NO GROWTH IN 5 DAYS Impressions: Modified Barium Swallow 01/22/19 00:00 IMPRESSION: LARYNGEAL PENETRATION AND ASPIRATION ABOVE. AGAIN NOTED FRACTURE OF THE SECURITY SHIFT SUPERVISOR SHUNT. PLEASE SEE SPEECH PATHOLOGIST REPORT FOR OTHER FINDINGS AND RECOMMENDATIONS. Chest X-Ray 01/24/19 00:00 IMPRESSION: Unchanged radiographic appearance of the chest. Assessment & Plan - Diagnosis (1) Aspiration into lower respiratory tract Qualifiers: Encounter type: initial encounter Qualified Code(s): T17.800A - Unspecified foreign body in other parts of respiratory tract causing asphyxiation, initial encounter Is this a current diagnosis for this admission?: Yes Plan: Continues IV Zosyn so far no sign of MRSA we will discontinues the vancomycin (2) Fever Qualifiers: Fever type: unspecified Is this a current diagnosis for this admission?: Yes Plan: Continues on IV Zosyn for aspirations pneumonia (3) Dysphagia Qualifiers: Dysphagia type: unspecified Qualified Code(s): R13.10 - Dysphagia, unspecified Is this a current diagnosis for this admission?: Yes Plan: Patient is going for the j-tube placement (4) Epilepsy without status epilepticus, not intractable Qualifiers: Epilepsy type: unspecified Qualified Code(s): G40.909 - Epilepsy, unspecifi ed, not intractable, without status epilepticus Is this a current diagnosis for this admission?: Yes Plan: We changed to the p.o. to the IV medications (5) GERD (gastroesophageal reflux disease) Qualifiers: Esophagitis presence: without esophagitis Is this a current diagnosis for this admission?: Yes (6) Seizure disorder Is this a current diagnosis for this admission?: Yes - Time Time Spent with patient: 15-24 minutes Level of Care: IMCU Medications reviewed and adjusted accordingly: Yes Anticipated discharge: Other - Plan Summary Plan Summary: Continues the n.p.o. Possible J-tube placement today
[2019-01-25] MEDS: CLORAZEPATE DIPOTASSIUM 7.5 MG TABLET PO SCH ×2 (09:04→21:12)
[2019-01-25] MEDS: CHOLECALCIFEROL (D3) 1,000 UNIT (25 MCG) TABLET PO SCH (09:05)
[2019-01-25] MEDS: ENOXAPARIN SODIUM INJ 40 MG/0.4 ML DISP.SYRIN SUBCUT SCH (09:06)
[2019-01-25] MEDS: LACOSAMIDE INJ/PF 200 MG/20 ML SDV IV SCH ×2 (09:13→21:12)
[2019-01-25] MEDS: POLYETHYLENE GLYCOL 3350 POWDER 17 GM/1 PACKET PO SCH (17:30)
[2019-01-25] MEDS: DEXTROSE 5%-1/2 NORMAL SALINE 1,000 ML IV PRN (21:13)
[2019-01-25] MEDS: ZOLPIDEM TARTRATE 5 MG TABLET PO SCH (21:13)
--- NOTE | 2019-01-25 23:36 | PDOC PROGRESS REPORT ---
Subjective Progress Note for:: 01/25/19 Reason For Visit: ASPIRATION,FEVER Physical Exam Vital Signs: Temp Pulse Resp BP Pulse Ox 98.6 F 56 L 20 136/84 H 99 01/25/19 19:23 01/25/19 19:23 01/25/19 19:23 01/25/19 19:23 01/25/19 19:23 Intake & Output 01/24/19 01/25/19 01/26/19 06:59 06:59 06:59 Intake Total 3300 2577 450 Output Total 2300 2625 520 Balance 1000 -48 -70 Weight 70.6 kg 68.9 kg Exam: abdomen is soft and non tender Results Laboratory Results: 01/25/19 05:53 01/25/19 05:53 01/25/19 01/25/19 05:53 05:53 WBC 7.3 RBC 4.07 L Hgb 10.8 L Hct 32.4 L MCV 80 MCH 26.5 L MCHC 33.3 RDW 16.0 H Plt Count 225 Seg Neutrophils % 42.8 Sodium 144.2 Potassium 3.6 Chloride 109 H Carbon Dioxide 22 Anion Gap 13 BUN 4 L Creatinine 0.76 Est GFR ( Amer) > 60 Glucose 83 Calcium 9.1 01/20/19 07:19 Blood Blood Culture - Final NO GROWTH IN 5 DAYS 01/20/19 05:26 Blood Blood Culture - Final NO GROWTH IN 5 DAYS Impressions: Modified Barium Swallow 01/22/19 00:00 IMPRESSION: LARYNGEAL PENETRATION AND ASPIRATION ABOVE. AGAIN NOTED FRACT URE OF THE AUTOMOTIVE MECHANIC SHUNT. PLEASE SEE SPEECH PATHOLOGIST REPORT FOR OTHER FINDINGS AND RECOMMENDATIONS. Chest X-Ray 01/24/19 00:00 IMPRESSION: Unchanged radiographic appearance of the chest. Assessment & Plan - Diagnosis (1) Aspiration pneumonia Qualifiers: Aspiration pneumonia type: due to gastric secretions Laterality: right Lung location: unspecified part of lung Qualified Code(s): J69.0 - Pneumonitis due to inhalation of food and vomit Is this a current diagnosis for this admission?: Yes (2) Cerebral palsy Is this a current diagnosis for this admission?: Yes - Time Time Spent with patient: 15-24 minutes - Inpatient Certification Medical Necessity: Need For IV Fluids, Need for Surgery - Plan Summary Plan Summary: 38-year-old male with cerebral palsy admitted for aspiration pneumonia. Patient will need a feeding jejunostomy. Consent for feeding tube jejunostomy was obtained from POA today. He is scheduled for open J-tube placement tomorrow in the OR. We will keep him n.p.o. tonight.
[2019-01-26] MEDS: PIPERACILLIN SODIUM/TAZOBACTAM 3.375 GM in NORMAL SALINE 100 ML IV SCH ×5 (00:08→23:31)
[2019-01-26] MEDS ORDERED: GLYCOPYRROLATE 1 MG/5 ML VIAL ONE (05:00)
[2019-01-26] MEDS ORDERED: NEOSTIGMINE METHYLSULFATE 10 MG/10 ML VIAL ONE (05:00)
[2019-01-26] MEDS ORDERED: ROCURONIUM BROMIDE INJ 50 MG/5 ML VIAL IV ONE (05:00)
[2019-01-26] MEDS: CLONAZEPAM 1 MG TABLET PO SCH ×3 (05:14→21:42)
[2019-01-26] MEDS: CARBAMAZEPINE 100 MG TAB.CHEW PO SCH ×3 (05:14→21:42)
[2019-01-26] MEDS: PANTOPRAZOLE SODIUM 40 MG TABLET.DR PO SCH (05:14)
[2019-01-26 06:38] LABS: ABSOLUTE EOSINOPHILS # (AUTO) 0.3 10^3/uL (0.0-0.6); ABSOLUTE LYMPHOCYTES (AUTO) 2.3 10^3/uL (0.5-4.7); ABSOLUTE MONOCYTES (AUTO) 0.7 10^3/uL (0.1-1.4); ABSOLUTE NEUT (AUTO) 2.4 10^3/uL (1.7-8.2); BASOPHILS % (AUTO) 0.4 % (0-2); EOSINOPHILS % (AUTO) 4.9 % (0-6); HEMATOCRIT 31.5 % (37.9-51.0); HEMOGLOBIN 10.7 g/dL (13.5-17.0); MEAN CORPUSCULAR HGB CONC 33.9 g/dL (32.0-36.0); MEAN CORPUSCULAR VOLUME 80 fl (80-97); MONOCYTES % (AUTO) 11.8 % (3-13); PLATELET COUNT 264 10^3/uL (150-450); RED BLOOD COUNT 3.96 10^6/uL (4.35-5.55); RED CELL DISTRIBUTION WIDTH 15.9 % (11.5-14.0); SEGMENTED NEUTROPHILS % (AUTO) 41.9 % (42-78); TOTAL CELLS COUNTED % (AUTO) 100 %; WHITE BLOOD COUNT 5.7 10^3/uL (4.0-10.5)
[2019-01-26 07:00] LABS: ANION GAP 14 (5-19); BLOOD UREA NITROGEN 4 mg/dL (7-20); CALCIUM 8.9 mg/dL (8.4-10.2); CARBON DIOXIDE 21 mmol/L (22-30); CHLORIDE 109 mmol/L (98-107); GLUCOSE 95 mg/dL (75-110)
--- NOTE | 2019-01-26 08:41 | PDOC PROGRESS REPORT ---
Subjective Progress Note for:: 01/26/19 Subjective:: Patient is currently doing fair no fever overnight Patient have a severe aspiration risk no choice to going for the G-tube placement and patient's scheduled today per surgery Patient's potassium is low Discuss with the Dr. Morrison's and patient seen by him and suggest patient is okay at this pointFor the j-tube placements and at this point patient having no other options to going for the tube placement because of the severe respirations Discussed with the patient's caregiver at the [facility] Reason For Visit: ASPIRATION,FEVER Physical Exam Vital Signs: Temp Pulse Resp BP Pulse Ox 98.3 F 48 L 23 H 136/93 H 98 01/26/19 03:42 01/26/19 07:00 01/26/19 03:42 01/26/19 03:42 01/26/19 03:42 Intake & Output 01/25/19 01/26/19 01/27/19 06:59 06:59 06:59 Intake Total 2577 650 Output Total 2625 1095 Balance -48 -445 Weight 68.9 kg 66.1 kg General appearance: PRESENT: no acute distress, well-developed, well-nourished Head exam: PRESENT: atraumatic, normocephalic Eye exam: PRESENT: conjunctiva pink, EOMI, PERRLA. ABSENT: scleral icterus Ear exam: PRESENT: normal external ear exam Mouth exam: PRESENT: moist, tongue midline Neck exam: PRESENT: full ROM. ABSENT: carotid bruit, JVD, lymphadenopathy, thyromegaly Respiratory exam: PRESENT: decreased breath sounds Cardiovascular exam: PRESENT: RRR. ABSENT: diastolic murmur, rubs, systolic murmur Vascular exam: PRESENT: normal capillary refill GI/Abdominal exam: PRESENT: normal bowel sounds, soft. ABSENT: distended, guarding, mass, organolmegaly, rebound, tenderness Rectal exam: PRESENT: deferred Neurological exam: PRESENT: alert, awake. ABSENT: motor sensory deficit Psychiatric exam: PRESENT: appropriate affect, normal mood. ABSENT: homicidal ideation, suicidal ideation Skin exam: PRESENT: dry, intact, warm. ABSENT: cyanosis, rash Results Laboratory Results: 01/26/19 06:11 01/26/19 06:11 01/26/19 01/26/19 06:11 06:11 WBC 5.7 RBC 3.96 L Hgb 10.7 L Hct 31.5 L MCV 80 MCH 27.0 MCHC 33.9 RDW 15.9 H Plt Count 264 Seg Neutrophils % 41.9 L Sodium 144.3 Potassium 3.0 L* Chloride 109 H Carbon Dioxide 21 L Anion Gap 14 BUN 4 L Creatinine 0.73 Est GFR ( Amer) > 60 Glucose 95 Calcium 8.9 01/20/19 07:19 Blood Blood Culture - Final NO GROWTH IN 5 DAYS 01/20/19 05:26 Blood Blood Culture - Final NO GROWTH IN 5 DAYS Impressions: Modified Barium Swallow 01/22/19 00:00 IMPRESSION: LARYNGEAL PENETRATION AND ASPIRATION ABOVE. AGAIN NOTED FRACTURE OF THE RADAR OPERATOR SHUNT. PLEASE SEE SPEECH PATHOLOGIST REPORT FOR OTHER FINDINGS AND RECOMMENDATIONS. Chest X-Ray 01/24/19 00:00 IMPRESSION: Unchanged radiographic appearance of the chest. Assessment & Plan - Diagnosis (1) Aspiration into lower respiratory tract Qualifiers: Encounter type: initial encounter Qualified Code(s): T17.800A - Unspecified foreign body in other parts of respiratory tract causing asphyxiation, initial encounter Is this a current diagnosis for this admission?: Yes Plan: Continues to IV antibiotic (2) Fever Qualifiers: Fever type: unspecified Is this a current diagnosis for this admission?: Yes Plan: Continues on IV Zosyn for aspirations pneumonia (3) Dysphagia Qualifiers: Dysphagia type: unspecified Qualified Code(s): R13.10 - Dysphagia, unspecified Is this a current diagnosis for this admission?: Yes Plan: Patient is going to tube placement today (4) Epilepsy without status epilepticus, not intractable Qualifiers: Epilepsy type: unspecified Qualified Code(s): G40.909 - Epilepsy, unspecified, not intractable, without status epilepticus Is this a current diagnosis for this admission?: Yes Plan: We changed to the p.o. to the IV medications (5) GERD (gastroesophageal reflux disease) Qualifiers: Esophagitis presence: without esophagitis Is this a current diagnosis for this admission?: Yes (6) Seizure disorder Is this a current diagnosis for this admission?: Yes (7) Hypokalemia Is this a current diagnosis for this admission?: Yes Plan: Replace the potassiums check the magnesium's discussed with the nursing staff before the procedure check the potassium again - Time Time Spent with patient: 15-24 minutes Level of Care: IMCU Medications reviewed and adjusted accordingly: Yes Anticipated discharge: Other Within: Other - Plan Summary Plan Summary: Continues to IV antibiotic Continues to PRN nebulizer treatments Replace the electrolytes
[2019-01-26] MEDS: POTASSI CL 20 MEQ/50 ML RIDER 20 MEQ/50 ML RTUPB IV SCH ×2 (10:04→15:57)
[2019-01-26] MEDS: POTASSI CL 20 MEQ/D5-1/2NS 1L 1000 ML IV PRN ×2 (10:05→15:56)
[2019-01-26] MEDS: CLORAZEPATE DIPOTASSIUM 7.5 MG TABLET PO SCH ×2 (10:21→21:42)
[2019-01-26] MEDS: CHOLECALCIFEROL (D3) 1,000 UNIT (25 MCG) TABLET PO SCH (10:23)
[2019-01-26] MEDS: ENOXAPARIN SODIUM INJ 40 MG/0.4 ML DISP.SYRIN SUBCUT SCH (10:25)
[2019-01-26] MEDS ORDERED: FENTANYL CITRATE INJ/PF 100 MCG/2 ML AMPUL ONE (11:00)
[2019-01-26] MEDS ORDERED: ONDANSETRON HCL INJ/PF 4 MG/2 ML SDV ONE (11:01)
[2019-01-26] MEDS ORDERED: MIDAZOLAM 2 MG/2 ML INJ ONE (11:01)
[2019-01-26] MEDS ORDERED: PROPOFOL INJ 200 MG/20 ML VIAL IV ONE (11:01)
[2019-01-26] MEDS ORDERED: DEXAMETHASONE SOD PHOSPHATE INJ 4 MG/1 ML VIAL ONE (11:01)
[2019-01-26] MEDS ORDERED: DIPHENHYDRAMINE HCL 50 MG/ML VIAL IV PRN (11:44)
[2019-01-26] MEDS ORDERED: FENTANYL CITRATE INJ/PF 100 MCG/2 ML AMPUL IV PRN ×3 (11:44)
[2019-01-26] MEDS ORDERED: PROMETHAZINE HCL INJ 25 MG/1 ML VIAL IV PRN ×2 (11:44)
[2019-01-26] MEDS ORDERED: ONDANSETRON HCL INJ/PF 4 MG/2 ML SDV IV PRN (11:44)
[2019-01-26] MEDS ORDERED: MEPERIDINE HCL/PF INJ 25 MG/1 ML DISP.SYRIN IV PRN (11:44)
[2019-01-26] MEDS ORDERED: MORPHINE SULFATE 10 MG/ML INJ IV PRN ×2 (11:44→14:00)
[2019-01-26] MEDS ORDERED: CEFAZOLIN INJ 1 GM VIAL ONE (11:47)
--- NOTE | 2019-01-26 13:20 | Operative Report ---
Operative Report DATE OF SURGERY: 01/26/19 PREOPERATIVE DIAGNOSIS: Recurrent aspiration pneumonia POSTOPERATIVE DIAGNOSIS: Same OPERATION: Placement of feeding jejunostomy tube SURGEON: ELLIOT GARCIA ANESTHESIA: GA TISSUE REMOVED OR ALTERED: None COMPLICATIONS: None ESTIMATED BLOOD LOSS: 20 cc QUANTITATIVE BLOOD LOSS: 20 INTRAOPERATIVE FINDINGS: Normal small bowel PROCEDURE: Patient was placed in supine position and after adequate general anesthesia the abdomen was then prepped and draped in the usual sterile fashion. Appropriate timeout was then called. Next a midline incision was then made just below the xiphoid to the umbilicus area. The fascia was then opened with the use of cautery and abdominal cavity entered. This small bowel was noted to be normal and partially collapsed. An area in the jejunum about 15 to 20 cm from the ligament of Treitz was marked with [place] clamp. The whole small bowel was then run up to the terminal ileum indicating that we have the appropriate site for the jejunostomy. A 2 pursestring sutures using 2-0 Vicryl placed over the anterior anterior aspect of the jejunum and subsequently opened in the middle with the use of cautery. A 16 [place] J-tube was then passed percutaneously through the left upper quadrant area and subsequently threaded into the jejunum distally. The balloon part of the jejunostomy tube was in place inside the jejunum and the pursestring subsequently tied over the jejunum. The jejunum was then Witzel using 2-0 Vicryl for about 1-1/2 cm long. The jejunum was subsequently anchored to the abdominal wall using 2-0 Vicryl sutures on its 4 corners. The fascia was then closed with running suture using #1 PDS starting at the umbilicus and the xiphoid area tying them both in the middle. Subcu was irrigated and the skin closed with skin kee. The jejunostomy tube was then anchored to the skin at its phalanx using 2-0 Prolene. A 2-0 silk suture was then tied over the phalange to tighten the the tube itself and tying also subsequently into the jejunostomy tube to prevent pulling out. Sterile dressings were then placed over the operative sites. Needle instrument sponge count were all correct estimated blood loss about 20 cc. Patient brought to the recovery room extubated in satisfactory condition. Of note patient has cerebral palsy and nurses were instructed to make sure that his hands are with the mittens at all times.
[2019-01-26] MEDS ORDERED: DEXTROSE 5%-LACTATED RINGERS 1,000 ML IV PRN (13:50)
[2019-01-26] MEDS ORDERED: POTASSI CL 20 MEQ/1/2NS 1L 20 MEQ/1,000 ML RTUINJ IV ONE (15:27)
[2019-01-26] MEDS ORDERED: POTASSI CL 20 MEQ/50 ML RIDER 20 MEQ/50 ML RTUPB IV ONE (15:30)
[2019-01-26] MEDS: LACOSAMIDE INJ/PF 200 MG/20 ML SDV IV SCH ×2 (15:57→21:41)
[2019-01-26] MEDS: POLYETHYLENE GLYCOL 3350 POWDER 17 GM/1 PACKET PO SCH (17:07)
[2019-01-26] MEDS: KETOROLAC TROMETHAMINE INJ/PF 30 MG/1 ML SDV IV SCH ×3 (18:43→23:31)
[2019-01-26] MEDS: CEFAZOLIN SODIUM 2 GM in DEXTROSE 5%-WATER 100 ML IV SCH ×2 (18:53→21:41)
[2019-01-26 20:34] LABS: POTASSIUM 4.2 mmol/L (3.6-5.0)
[2019-01-26] MEDS: ZOLPIDEM TARTRATE 5 MG TABLET PO SCH (21:42)
[2019-01-27] MEDS: POTASSI CL 20 MEQ/D5-1/2NS 1L 1000 ML IV PRN ×2 (00:30→10:20)
[2019-01-27] MEDS: CEFAZOLIN SODIUM 2 GM in DEXTROSE 5%-WATER 100 ML IV SCH (05:02)
[2019-01-27] MEDS: KETOROLAC TROMETHAMINE INJ/PF 30 MG/1 ML SDV IV SCH ×4 (05:31→23:30)
[2019-01-27] MEDS: CARBAMAZEPINE 100 MG TAB.CHEW PO SCH ×3 (05:31→21:13)
[2019-01-27] MEDS: CLONAZEPAM 1 MG TABLET PO SCH ×2 (05:31→15:32)
[2019-01-27] MEDS: PIPERACILLIN SODIUM/TAZOBACTAM 3.375 GM in NORMAL SALINE 100 ML IV SCH ×2 (05:32→12:53)
[2019-01-27] MEDS: PANTOPRAZOLE SODIUM 40 MG TABLET.DR PO SCH (05:32)
[2019-01-27 06:21] LABS: ANION GAP 10 (5-19); BLOOD UREA NITROGEN 3 mg/dL (7-20); CALCIUM 8.7 mg/dL (8.4-10.2); CARBON DIOXIDE 25 mmol/L (22-30); CHLORIDE 111 mmol/L (98-107); GLUCOSE 89 mg/dL (75-110); POTASSIUM 4.1 mmol/L (3.6-5.0)
--- NOTE | 2019-01-27 08:18 | PDOC PROGRESS REPORT ---
Subjective Progress Note for:: 01/27/19 Reason For Visit: ASPIRATION,FEVER Physical Exam Vital Signs: Temp Pulse Resp BP Pulse Ox 98.7 F 79 16 126/89 H 93 01/27/19 03:28 01/27/19 07:00 01/27/19 03:28 01/27/19 03:28 01/27/19 03:28 Intake & Output 01/26/19 01/27/19 01/28/19 06:59 06:59 06:59 Intake Total 650 4731 Output Total 1095 2270 Balance -445 2461 Weight 66.1 kg 68 kg Exam: Incision is clear and dry. Mild abdominal distention Results Laboratory Results: 01/26/19 06:11 01/27/19 05:40 01/26/19 01/26/19 01/27/19 06:11 19:37 05:40 Sodium 145.5 H Potassium 4.2 D 4.1 Chloride 111 H Carbon Dioxide 25 Anion Gap 10 BUN 3 L Creatinine 0.89 Est GFR ( Amer) > 60 Glucose 89 Calcium 8.7 Magnesium 2.0 1.6 Impressions: Modified Barium Swallow 01/22/19 00:00 IMPRESSION: LARYNGEAL PENETRATION AND ASPIRATION ABOVE. AGAIN NOTED FRACTURE OF THE EARLY LEARNING TEACHER SHUNT. PLEASE SEE SPEECH PATHOLOGIST REPORT FOR OTHER FINDINGS AND RECOMMENDATIONS. Chest X-Ray 01/24/19 00:00 IMPRESSION: Unchanged radiographic appearance of the chest. Assessment & Plan - Diagnosis (1) Aspiration pneumonia Qualifiers: Aspiration pneumonia type: due to gastric secretions Laterality: right Lung location: unspecified part of lung Qualified Code(s): J69.0 - Pneumonitis due to inhalation of food and vomit Is this a current diagnosis for this admission?: Yes (2) Cerebral palsy Is this a current diagnosis for this admission?: Yes - Time Time Spent with patient: 15-24 minutes - Plan Summary Plan Summary: Plan: Start J tube feedings with D5W at 40 cc/hr then do regular tube feeds tomorrow
[2019-01-27] MEDS: CLORAZEPATE DIPOTASSIUM 7.5 MG TABLET PO SCH (10:20)
[2019-01-27] MEDS: CHOLECALCIFEROL (D3) 1,000 UNIT (25 MCG) TABLET PO SCH (10:21)
[2019-01-27] MEDS: ENOXAPARIN SODIUM INJ 40 MG/0.4 ML DISP.SYRIN SUBCUT SCH (10:21)
[2019-01-27] MEDS: LACOSAMIDE INJ/PF 200 MG/20 ML SDV IV SCH ×2 (10:25→21:13)
--- NOTE | 2019-01-27 10:35 | PDOC PROGRESS REPORT ---
Subjective Progress Note for:: 01/27/19 Subjective:: Patient is currently doing much better status post j tube placement Reason For Visit: ASPIRATION,FEVER Physical Exam Vital Signs: Temp Pulse Resp BP Pulse Ox 98.7 F 79 16 126/89 H 93 01/27/19 03:28 01/27/19 07:00 01/27/19 03:28 01/27/19 03:28 01/27/19 03:28 Intake & Output 01/26/19 01/27/19 01/28/19 06:59 06:59 06:59 Intake Total 650 4731 1000 Output Total 1095 2270 Balance -445 2461 1000 Weight 66.1 kg 68 kg General appearance: PRESENT: no acute distress Head exam: PRESENT: atraumatic, normocephalic Eye exam: PRESENT: conjunctiva pink, EOMI, PERRLA. ABSENT: scleral icterus Ear exam: PRESENT: normal external ear exam Mouth exam: PRESENT: moist, tongue midline Neck exam: PRESENT: full ROM. ABSENT: carotid bruit, JVD, lymphadenopathy, thyromegaly Respiratory exam: PRESENT: clear to auscultation roula Cardiovascular exam: PRESENT: RRR. ABSENT: diastolic murmur, rubs, systolic murmur Pulses: PRESENT: normal dorsalis pedis pul, +2 pedal pulses bilateral Vascular exam: PRESENT: normal capillary refill GI/Abdominal exam: PRESENT: normal bowel sounds, soft. ABSENT: distended, guarding, mass, organolmegaly, rebound, tenderness Rectal exam: PRESENT: deferred Neurological exam: PRESENT: alert, awake. ABSENT: motor sensory deficit Psychiatric exam: PRESENT: appropriate affect, normal mood. ABSENT: homicidal ideation, suicidal ideation Skin exam: PRESENT: dry, intact, warm. ABSENT: cyanosis, rash Results Laboratory Results: 01/26/19 06:11 01/27/19 05:40 01/26/19 01/26/19 01/27/19 06:11 19:37 05:40 Sodium 145.5 H Potassium 4.2 D 4.1 Chloride 111 H Carbon Dioxide 25 Anion Gap 10 BUN 3 L Creatinine 0.89 Est GFR ( Amer) > 60 Glucose 89 Calcium 8.7 Magnesium 2.0 1.6 Impressions: Modified Barium Swallow 01/22/19 00:00 IMPRESSION: LARYNGEAL PENETRATION AND ASPIRATION ABOVE. AGAIN NOTED FRACTURE OF THE SERVICE GREETER SHUNT. PLEASE SEE SPEECH PATHOLOGIST REPORT FOR OTHER FINDINGS AND RECOMMENDATIONS. Chest X-Ray 01/24/19 00:00 IMPRESSION: Unchanged radiographic appearance of the chest. Assessment & Plan - Diagnosis (1) Aspiration into lower respiratory tract Qualifiers: Encounter type: initial encounter Qualified Code(s): T17.800A - Unspecified foreign body in other parts of respiratory tract causing asphyxiation, initial encounter Is this a current diagnosis for this admission?: Yes Plan: Continues to IV antibiotic (2) Fever Qualifiers: Fever type: unspecified Is this a current diagnosis for this admission?: Yes Plan: Continues on IV Zosyn for aspirations pneumonia (3) Dysphagia Qualifiers: Dysphagia type: unspecified Qualified Code(s): R13.10 - Dysphagia, unspecified Is this a current diagnosis for this admission?: Yes Plan: Patient is going to tube placement today (4) Epilepsy without status epilepticus, not intractable Qualifiers: Epilepsy type: unspecified Qualified Code(s): G40.909 - Epilepsy, unspecified, not intractable, without status epilepticus Is this a current diagnosis for this admission?: Yes Plan: We changed to the p.o. to the IV medications (5) GERD (gastroesophageal reflux disease) Qualifiers: Esophagitis presence: without esophagitis Is this a current diagnosis for this admission?: Yes (6) Seizure disorder Is this a current diagnosis for this admission?: Yes (7) Hypokalemia Is this a current diagnosis for this admission?: Yes - Time Time Spent with patient: 15-24 minutes Level of Care: IMCU Medications reviewed and adjusted accordingly: Yes Anticipated discharge: Other Within: Other - Plan Summary Plan Summary: Per surgery start the water of the j-tube today
--- NOTE | 2019-01-27 14:05 | PDOC PROGRESS REPORT ---
Subjective Progress Note for:: 01/27/19 Subjective:: Patient noted, not responsive. No events overnight. Reason For Visit: ASPIRATION,FEVER Physical Exam Vital Signs: Temp Pulse Resp BP Pulse Ox 98.3 F 76 17 134/98 H 95 01/27/19 12:16 01/27/19 12:16 01/27/19 12:16 01/27/19 12:16 01/27/19 12:16 Intake & Output 01/26/19 01/27/19 01/28/19 06:59 06:59 06:59 Intake Total 650 4731 1000 Output Total 1095 2270 525 Balance -445 2461 475 Weight 66.1 kg 68 kg General appearance: PRESENT: other - Patient did; essentially nonresponsive GI/Abdominal exam: PRESENT: other - Dressing dry and intact from the operating room; water going through J-tube Results Laboratory Results: 01/26/19 06:11 01/27/19 05:40 01/26/19 01/27/19 19:37 05:40 Sodium 145.5 H Potassium 4.2 D 4.1 Chloride 111 H Carbon Dioxide 25 Anion Gap 10 BUN 3 L Creatinine 0.89 Est GFR ( Amer) > 60 Glucose 89 Calcium 8.7 Magnesium 1.6 Impressions: Modified Barium Swallow 01/22/19 00:00 IMPRESSION: LARYNGEAL PENETRATION AND ASPIRATION ABOVE. AGAIN NOTED FRACTURE OF THE MANAGER OF DRILLING SHUNT. PLEASE SEE SPEECH PATHOLOGIST REPORT FOR OTHER FINDINGS AND RECOMMENDATIONS. Chest X-Ray 01/24/19 00:00 IMPRESSION: Unchanged radiographic appearance of the chest. Assessment & Plan - Diagnosis (1) Aspiration into lower respiratory tract Qualifiers: Encounter type: initial encounter Qualified Code(s): T17.800A - Unspecified foreign body in other parts of respiratory tract causing asphyxiation, initial encounter Is this a current diagnosis for this admission?: Yes Plan: Impression: Patient is 1 day status post operative J-tube, with no complications. Recommendations: 1. We will start tube feeds, 7 cc an hour. 2. We will follow with you. (2) Cerebral palsy Is this a current diagnosis for this admission?: Yes (3) Fever Qualifiers: Fever type: unspecified Is this a current diagnosis for this admission?: Yes (4) Mental and behavioral problem Is this a current diagnosis for this admission?: Yes (5) Pneumonia Qualifiers: Pneumonia type: aspiration pneumonia Aspiration pneumonia type: unspecified Laterality: unspecified laterality Lung location: unspecified part of lung Qualified Code(s): J69.0 - Pneumonitis due to inhalation of food and vomit Is this a current diagnosis for this admission?: Yes (6) Seizure disorder Is this a current diagnosis for this admission?: Yes - Time Time Spent with patient: Less than 15 minutes
[2019-01-27] MEDS: POLYETHYLENE GLYCOL 3350 POWDER 17 GM/1 PACKET PO SCH (17:43)
[2019-01-27] MEDS ORDERED: DEXTROSE 5%-1/2 NORMAL SALINE 1,000 ML IV PRN (21:33)
[2019-01-28] MEDS: CARBAMAZEPINE 100 MG TAB.CHEW PO SCH ×3 (05:15→21:11)
[2019-01-28] MEDS: KETOROLAC TROMETHAMINE INJ/PF 30 MG/1 ML SDV IV SCH ×4 (05:15→23:00)
[2019-01-28] MEDS: PANTOPRAZOLE SODIUM 40 MG TABLET.DR PO SCH (05:15)
[2019-01-28 06:30] LABS: ABSOLUTE BASOPHILS # (AUTO) 0.1 10^3/uL (0.0-0.2); ABSOLUTE EOSINOPHILS # (AUTO) 0.2 10^3/uL (0.0-0.6); ABSOLUTE MONOCYTES (AUTO) 0.9 10^3/uL (0.1-1.4); BASOPHILS % (AUTO) 0.9 % (0-2); EOSINOPHILS % (AUTO) 2.3 % (0-6); HEMOGLOBIN 10.2 g/dL (13.5-17.0); MEAN CORPUSCULAR HEMOGLOBIN 26.6 pg (27.0-33.4); MEAN CORPUSCULAR VOLUME 80 fl (80-97); MONOCYTES % (AUTO) 10.7 % (3-13); PLATELET COUNT 377 10^3/uL (150-450); RED BLOOD COUNT 3.86 10^6/uL (4.35-5.55); RED CELL DISTRIBUTION WIDTH 16.2 % (11.5-14.0); SEGMENTED NEUTROPHILS % (AUTO) 49.1 % (42-78); TOTAL CELLS COUNTED % (AUTO) 100 %; WHITE BLOOD COUNT 8.2 10^3/uL (4.0-10.5)
[2019-01-28 06:44] LABS: ANION GAP 7 (5-19); BLOOD UREA NITROGEN 3 mg/dL (7-20); CALCIUM 8.7 mg/dL (8.4-10.2); CARBON DIOXIDE 28 mmol/L (22-30); CHLORIDE 109 mmol/L (98-107); GLUCOSE 93 mg/dL (75-110); POTASSIUM 3.9 mmol/L (3.6-5.0)
[2019-01-28] MEDS: CHOLECALCIFEROL (D3) 1,000 UNIT (25 MCG) TABLET PO SCH (11:04)
[2019-01-28] MEDS: SULFAMETHOXAZOLE/TRIMETHOPRIM 800-160 MG/20 ML UDCUP PO SCH ×2 (11:04→18:48)
[2019-01-28] MEDS: ENOXAPARIN SODIUM INJ 40 MG/0.4 ML DISP.SYRIN SUBCUT SCH (11:05)
--- NOTE | 2019-01-28 11:08 | PDOC PROGRESS REPORT ---
Subjective Progress Note for:: 01/28/19 Subjective:: Patient is currently doing well Start the tube feeding No fever no chills Reason For Visit: ASPIRATION,FEVER Physical Exam Vital Signs: Temp Pulse Resp BP Pulse Ox 97.6 F 57 L 17 103/72 97 01/28/19 07:33 01/28/19 07:33 01/28/19 07:33 01/28/19 07:33 01/28/19 07:33 Intake & Output 01/27/19 01/28/19 01/29/19 06:59 06:59 06:59 Intake Total 4731 2100 Output Total 2270 1850 Balance 2461 250 Weight 68 kg 67.2 kg General appearance: PRESENT: no acute distress Eye exam: PRESENT: PERRLA Mouth exam: PRESENT: neck supple Respiratory exam: PRESENT: clear to auscultation roula Cardiovascular exam: PRESENT: +S1, +S2 GI/Abdominal exam: PRESENT: normal bowel sounds Additonal comments: j-tube site is intact Neurological exam: PRESENT: alert, awake Results Laboratory Results: 01/28/19 05:43 01/28/19 05:43 01/28/19 01/28/19 05:43 05:43 WBC 8.2 RBC 3.86 L Hgb 10.2 L Hct 31.0 L MCV 80 MCH 26.6 L MCHC 33.0 RDW 16.2 H Plt Count 377 Seg Neutrophils % 49.1 Sodium 144.4 Potassium 3.9 Chloride 109 H Carbon Dioxide 28 Anion Gap 7 BUN 3 L Creatinine 0.81 Est GFR ( Amer) > 60 Glucose 93 Calcium 8.7 Impressions: Modified Barium Swallow 01/22/19 00:00 IMPRESSION: LARYNGEAL PENETRATION AND ASPIRATION ABOVE. 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 PLEASE SEE SPEECH PATHOLOGIST REPORT FOR OTHER FINDINGS AND RECOMMENDATIONS. Chest X-Ray 01/24/19 00:00 IMPRESSION: Unchanged radiographic appearance of the chest. Assessment & Plan - Diagnosis (1) Aspiration into lower respiratory tract Qualifiers: Encounter type: initial encounter Qualified Code(s): T17.800A - Unspecified foreign body in other parts of respiratory tract causing asphyxiation, initial encounter Is this a current diagnosis for this admission?: Yes (2) Fever Qualifiers: Fever type: unspecified Is this a current diagnosis for this admission?: Yes (3) Dysphagia Qualifiers: Dysphagia type: unspecified Qualified Code(s): R13.10 - Dysphagia, unspecified Is this a current diagnosis for this admission?: Yes (4) Epilepsy without status epilepticus, not intractable Qualifiers: Epilepsy type: unspecified Qualified Code(s): G40.909 - Epilepsy, unspecified, not intractable, without status epilepticus Is this a current diagnosis for this admission?: Yes (5) GERD (gastroesophageal reflux disease) Qualifiers: Esophagitis presence: without esophagitis Is this a current diagnosis for this admission?: Yes (6) Seizure disorder Is this a current diagnosis for this admission?: Yes (7) Hypokalemia Is this a current diagnosis for this admission?: Yes - Time Time Spent with patient: 15-24 minutes Level of Care: IMCU Medications reviewed and adjusted accordingly: Yes Anticipated discharge: SNF, Other Within: Other - Plan Summary Plan Summary: Start the patient on the Bactrim p.o.
[2019-01-28] MEDS: LACOSAMIDE INJ/PF 200 MG/20 ML SDV IV SCH ×2 (11:13→21:11)
[2019-01-28] MEDS: POLYETHYLENE GLYCOL 3350 POWDER 17 GM/1 PACKET PO SCH (18:43)
--- NOTE | 2019-01-28 20:33 | PDOC PROGRESS REPORT ---
Subjective Progress Note for:: 01/28/19 Subjective:: Appears to be tolerating start of enteral tube feedings of about 10cc/h. Reason For Visit: ASPIRATION,FEVER Physical Exam Vital Signs: Temp Pulse Resp BP Pulse Ox 98.4 F 83 18 127/92 H 97 01/28/19 19:42 01/28/19 19:42 01/28/19 19:42 01/28/19 19:42 01/28/19 19:42 Intake & Output 01/27/19 01/28/19 01/29/19 06:59 06:59 06:59 Intake Total 4731 2100 100 Output Total 2270 1850 750 Balance 2461 250 -650 Weight 68 kg 67.2 kg Exam: Abdominal incision clean and dry. Jejunostomy tube placement intact. Results Laboratory Results: 01/28/19 05:43 01/28/19 05:43 01/28/19 01/28/19 05:43 05:43 WBC 8.2 RBC 3.86 L Hgb 10.2 L Hct 31.0 L MCV 80 MCH 26.6 L MCHC 33.0 RDW 16.2 H Plt Count 377 Seg Neutrophils % 49.1 Sodium 144.4 Potassium 3.9 Chloride 109 H Carbon Dioxide 28 Anion Gap 7 BUN 3 L Creatinine 0.81 Est GFR ( Amer) > 60 Glucose 93 Calcium 8.7 Impressions: Modified Barium Swallow 01/22/19 00:00 IMPRESSION: LARYNGEAL PENETRATION AND ASPIRATION ABOVE. 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 PLEASE SEE SPEECH PATHOLOGIST REPORT FOR OTHER FINDINGS AND RECOMMENDATIONS. Chest X-Ray 01/24/19 00:00 IMPRESSION: Unchanged radiographic appearance of the chest. Assessment & Plan - Diagnosis (1) Aspiration pneumonia Qualifiers: Aspiration pneumonia type: due to gastric secretions Laterality: right Lung location: unspecified part of lung Qualified Code(s): J69.0 - Pneumonitis due to inhalation of food and vomit Is this a current diagnosis for this admission?: Yes (2) Cerebral palsy Is this a current diagnosis for this admission?: Yes - Time Time Spent with patient: 15-24 minutes - Plan Summary Plan Summary: Continue to increase tube feeding to incremental 5 cc every 8 hours for goal of 75 cc/h We will sign off and call for any questions
[2019-01-29] MEDS: PANTOPRAZOLE SODIUM 40 MG TABLET.DR PO SCH (05:16)
[2019-01-29] MEDS: CARBAMAZEPINE 100 MG TAB.CHEW PO SCH ×3 (05:16→21:20)
[2019-01-29] MEDS: KETOROLAC TROMETHAMINE INJ/PF 30 MG/1 ML SDV IV SCH ×2 (05:16→11:05)
--- NOTE | 2019-01-29 08:28 | PDOC PROGRESS REPORT ---
Subjective Progress Note for:: 01/29/19 Subjective:: Patient is currently doing well Since tolerating the tube feeding very well without any problems No fever no chills Reason For Visit: ASPIRATION,FEVER Physical Exam Vital Signs: Temp Pulse Resp BP Pulse Ox 97.9 F 68 17 138/88 H 92 01/29/19 07:24 01/29/19 07:24 01/29/19 07:24 01/29/19 07:24 01/29/19 07:24 Intake & Output 01/28/19 01/29/19 01/30/19 06:59 06:59 06:59 Intake Total 2100 520 Output Total 1850 1300 Balance 250 -780 Weight 67.2 kg 66.1 kg General appearance: PRESENT: no acute distress, well-developed, well-nourished Head exam: PRESENT: atraumatic, normocephalic Eye exam: PRESENT: conjunctiva pink, EOMI, PERRLA. ABSENT: scleral icterus Ear exam: PRESENT: normal external ear exam Mouth exam: PRESENT: moist, tongue midline Neck exam: PRESENT: full ROM. ABSENT: carotid bruit, JVD, lymphadenopathy, thyromegaly Respiratory exam: PRESENT: clear to auscultation roula Cardiovascular exam: PRESENT: RRR. ABSENT: diastolic murmur, rubs, systolic murmur Vascular exam: PRESENT: normal capillary refill GI/Abdominal exam: PRESENT: normal bowel sounds, soft. ABSENT: distended, guarding, mass, organolmegaly, rebound, tenderness Rectal exam: PRESENT: deferred Neurological exam: PRESENT: alert, awake, oriented to person, oriented to place, oriented to time, oriented to situation, CN II-XII grossly intact. ABSENT: motor sensory deficit Psychiatric exam: PRESENT: appropriate affect, normal mood. ABSENT: homicidal ideation, suicidal ideation Skin exam: PRESENT: dry, intact, warm. ABSENT: cyanosis, rash Results Laboratory Results: 01/28/19 05:43 01/28/19 05:43 Impressions: Modified Barium Swallow 01/22/19 00:00 IMPRESSION: LARYNGEAL PENETRATION AND ASPIRATION ABOVE. 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 PLEASE SEE SPEECH PATHOLOGIST REPORT FOR OTHER FINDINGS AND RECOMMENDATIONS. Chest X-Ray 01/24/19 00:00 IMPRESSION: Unchanged radiographic appearance of the chest. Assessment & Plan - Diagnosis (1) Aspiration into lower respiratory tract Qualifiers: Encounter type: initial encounter Qualified Code(s): T17.800A - Unspecified foreign body in other parts of respiratory tract causing asphyxiation, initial encounter Is this a current diagnosis for this admission?: Yes Plan: Continues to p.o. Bactrim (2) Fever Qualifiers: Fever type: unspecified Is this a current diagnosis for this admission?: Yes Plan: Currently all resolved (3) Dysphagia Qualifiers: Dysphagia type: unspecified Qualified Code(s): R13.10 - Dysphagia, unspecified Is this a current diagnosis for this admission?: Yes (4) Epilepsy without status epilepticus, not intractable Qualifiers: Epilepsy type: unspecified Qualified Code(s): G40.909 - Epilepsy, unspecified, not intractable, without status epilepticus Is this a current diagnosis for this admission?: Yes Plan: Resumed all p.o. meds (5) GERD (gastroesophageal reflux disease) Qualifiers: Esophagitis presence: without esophagitis Is this a current diagnosis for this admission?: Yes (6) Seizure disorder Is this a current diagnosis for this admission?: Yes (7) Hypokalemia Is this a current diagnosis for this admission?: Yes - Time Time Spent with patient: 15-24 minutes Level of Care: IMCU Medications reviewed and adjusted accordingly: Yes Anticipated discharge: Other Within: Other - Plan Summary Plan Summary: We will repeat the chest x-ray resume all p.o. meds of the tubes hopefully dis charge 24 hours if remains stable
--- NOTE | 2019-01-29 09:30 | RADIOLOGY REPORT (SQ) ---
EXAM DESCRIPTION: CHEST SINGLE VIEW COMPLETED DATE/TIME: 01/29/2019 9:11 am REASON FOR STUDY: Pneumonia COMPARISON: 01/24/2019. EXAM PARAMETERS: NUMBER OF VIEWS: One view. TECHNIQUE: Single frontal radiographic view of the chest acquired. RADIATION DOSE: NA LIMITATIONS: Rotated. FINDINGS: LUNGS AND PLEURA: The right lung apex is suboptimally visualized due to rotation. Right u pper lobe infiltrate probably has improved. Left lung clear. MEDIASTINUM AND HILAR STRUCTURES: No masses. Contour normal. HEART AND VASCULAR STRUCTURES: Heart normal in size. Normal vasculature. BONES: No acute findings. HARDWARE: Stimulator unit. Shunt tubing overlying the right side of the body. OTHER: No other significant finding. IMPRESSION: LIMITED VISUALIZATION DUE TO ROTATION. PROBABLE IMPROVEMENT IN THE RIGHT UPPER LOBE INF ILTRATE. TECHNICAL DOCUMENTATION: JOB ID: [id number] [employer]- All Rights Reserved Reading location - IP/workstation name: [email or web address]
[2019-01-29 09:46] LABS: ANION GAP 10 (5-19); BLOOD UREA NITROGEN 4 mg/dL (7-20); CARBON DIOXIDE 26 mmol/L (22-30); CHLORIDE 108 mmol/L (98-107); GLUCOSE 96 mg/dL (75-110); POTASSIUM 3.8 mmol/L (3.6-5.0)
[2019-01-29] MEDS: CHOLECALCIFEROL (D3) 1,000 UNIT (25 MCG) TABLET PO SCH (11:05)
[2019-01-29] MEDS: ENOXAPARIN SODIUM INJ 40 MG/0.4 ML DISP.SYRIN SUBCUT SCH (11:06)
[2019-01-29] MEDS: SULFAMETHOXAZOLE/TRIMETHOPRIM 800-160 MG/20 ML UDCUP PO SCH (11:08)
[2019-01-29] MEDS: LACOSAMIDE 100 MG TABLET PO SCH ×2 (11:59→21:20)
[2019-01-29] MEDS: KETOROLAC TROMETHAMINE 10 MG TABLET PO SCH (11:59)
--- NOTE | 2019-01-29 13:51 | RADIOLOGY REPORT (SQ) ---
EXAM DESCRIPTION: CHEST SINGLE VIEW COMPLETED DATE/TIME: 01/29/2019 12:55 pm REASON FOR STUDY: worsening SOB COMPARISON: 01/29/2019 and 01/24/2019. EXAM PARAMETERS: NUMBER OF VIEWS: One view. TECHNIQUE: Single frontal radiographic view of the chest acquired. RADIATION DOSE: NA LIMITATIONS: None. FINDINGS: LUNGS AND PLEURA: Mild interstitial prominence. No focal infiltrates, masses or pneumotho rax. No pleural effusion. MEDIASTINUM AND HILAR STRUCTURES: No masses. Contour normal. HEART AND VASCULAR STRUCTURES: Heart normal in size. Normal vasculature. BONES: No acute findings. HARDWARE: Stimulator device. Shunt tubing on the right side. OTHER: No other significant finding. IMPRESSION: STABLE APPEARANCE. PREVIOUSLY SEEN INFILTRATE IN THE RIGHT UPPER LOBE HAS CLEARED. NO ACUTE RADIOGRAPHIC FINDING IN THE CHEST. TECHNICAL DOCUMENTATION: JOB ID: [id number] [employer]- All Rights Reserved Reading location - IP/workstation name: [email or web address]
[2019-01-29] MEDS ORDERED: DIAZEPAM INJ 10 MG/2 ML DISP.SYRIN IV PRN (21:20)
[2019-01-29] MEDS: DIAZEPAM PR PRN (21:52)
[2019-01-30] MEDS: KETOROLAC TROMETHAMINE 10 MG TABLET PO SCH ×4 (01:10→11:15)
[2019-01-30] MEDS: SULFAMETHOXAZOLE/TRIMETHOPRIM 800-160 MG/20 ML UDCUP PO SCH ×3 (05:35→18:14)
[2019-01-30] MEDS: POLYETHYLENE GLYCOL 3350 POWDER 17 GM/1 PACKET PO SCH ×2 (05:35→17:50)
[2019-01-30] MEDS: PANTOPRAZOLE SODIUM 40 MG TABLET.DR PO SCH (05:39)
[2019-01-30] MEDS: CARBAMAZEPINE 100 MG TAB.CHEW PO SCH ×3 (05:39→21:04)
--- NOTE | 2019-01-30 08:38 | PDOC PROGRESS REPORT ---
Subjective Progress Note for:: 01/30/19 Subjective:: Patient is currently doing fair, seizures activity last night Chest x-ray is getting better Reason For Visit: ASPIRATION,FEVER Physical Exam Vital Signs: Temp Pulse Resp BP Pulse Ox 98.6 F 71 17 117/70 96 01/30/19 07:20 01/30/19 07:20 01/30/19 07:20 01/30/19 07:20 01/30/19 07:20 Intake & Output 01/29/19 01/30/19 01/31/19 06:59 06:59 06:59 Intake Total 520 2017 Output Total 1300 1575 Balance -780 442 Weight 66.1 kg 65.1 kg General appearance: PRESENT: no acute distress, well-developed, well-nourished Head exam: PRESENT: atraumatic, normocephalic Eye exam: PRESENT: conjunctiva pink, EOMI, PERRLA. ABSENT: scleral icterus Ear exam: PRESENT: normal external ear exam Mouth exam: PRESENT: moist, tongue midline Neck exam: PRESENT: full ROM. ABSENT: carotid bruit, JVD, lymphadenopathy, thyromegaly Cardiovascular exam: PRESENT: RRR. ABSENT: diastolic murmur, rubs, systolic murmur Pulses: PRESENT: normal dorsalis pedis pul, +2 pedal pulses bilateral Vascular exam: PRESENT: normal capillary refill GI/Abdominal exam: PRESENT: normal bowel sounds, soft. ABSENT: distended, guarding, mass, organolmegaly, rebound, tenderness Rectal exam: PRESENT: deferred Neurological exam: PRESENT: alert, awake. ABSENT: motor sensory deficit Psychiatric exam: PRESENT: appropriate affect, normal mood. ABSENT: homicidal ideation, suicidal ideation Skin exam: PRESENT: dry, intact, warm. ABSENT: cyanosis, rash Results Laboratory Results: 01/28/19 05:43 01/29/19 09:15 01/29/19 09:15 Sodium 144.4 Potassium 3.8 Chloride 108 H Carbon Dioxide 26 Anion Gap 10 BUN 4 L Creatinine 0.80 Est GFR ( Amer) > 60 Glucose 96 Calcium 9.0 Impressions: Modified Barium Swallow 01/22/19 00:00 IMPRESSION: LARYNGEAL PENETRATION AND ASPIRATION ABOVE. 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 PLEASE SEE SPEECH PATHOLOGIST REPORT FOR OTHER FINDINGS AND RECOMMENDATIONS. Chest X-Ray 01/29/19 00:00 IMPRESSION: STABLE APPEARANCE. PREVIOUSLY SEEN INFILTRATE IN THE RIGHT UPPER LOBE HAS CLEARED. NO ACUTE RADIOGRAPHIC FINDING IN THE CHEST. Assessment & Plan - Diagnosis (1) Aspiration into lower respiratory tract Qualifiers: Encounter type: initial encounter Qualified Code(s): T17.800A - Unspecified foreign body in other parts of respiratory tract causing asphyxiation, initial encounter Is this a current diagnosis for this admission?: Yes Plan: Continues to p.o. Bactrim (2) Fever Qualifiers: Fever type: unspecified Is this a current diagnosis for this admission?: Yes (3) Dysphagia Qualifiers: Dysphagia type: unspecified Qualified Code(s): R13.10 - Dysphagia, unspecified Is this a current diagnosis for this admission?: Yes (4) Epilepsy without status epilepticus, not intractable Qualifiers: Epilepsy type: unspecified Qualified Code(s): G40.909 - Epilepsy, unspecified, not intractable, without status epilepticus Is this a current diagnosis for this admission?: Yes Plan: Adjust the p.o. medications (5) GERD (gastroesophageal reflux disease) Qualifiers: Esophagitis presence: without esophagitis Is this a current diagnosis for this admission?: Yes (6) Seizure disorder Is this a current diagnosis for this admission?: Yes (7) Hypokalemia Is this a current diagnosis for this admission?: Yes - Time Time Spent with patient: 15-24 minutes Level of Care: IMCU Medications reviewed and adjusted accordingly: Yes Anticipated discharge: Other Within: Other - Plan Summary Plan Summary: Restart the patient's all the p.o. seizures medications continues the tube feeding the patient is remained stable without any seizures activities hopefully patient's discharge tomorrow
[2019-01-30 11:05] LABS: ABSOLUTE BASOPHILS # (AUTO) 0.2 10^3/uL (0.0-0.2); ABSOLUTE EOSINOPHILS # (AUTO) 0.3 10^3/uL (0.0-0.6); ABSOLUTE LYMPHOCYTES (AUTO) 2.3 10^3/uL (0.5-4.7); ABSOLUTE MONOCYTES (AUTO) 0.9 10^3/uL (0.1-1.4); ABSOLUTE NEUT (AUTO) 10.7 10^3/uL (1.7-8.2); BASOPHILS % (AUTO) 1.1 % (0-2); HEMATOCRIT 35.9 % (37.9-51.0); LYMPHOCYTES % (AUTO) 15.9 % (13-45); MEAN CORPUSCULAR HEMOGLOBIN 26.6 pg (27.0-33.4); MEAN CORPUSCULAR HGB CONC 33.3 g/dL (32.0-36.0); MEAN CORPUSCULAR VOLUME 80 fl (80-97); MONOCYTES % (AUTO) 6.6 % (3-13); PLATELET COUNT 596 10^3/uL (150-450); RED BLOOD COUNT 4.49 10^6/uL (4.35-5.55); RED CELL DISTRIBUTION WIDTH 16.4 % (11.5-14.0); SEGMENTED NEUTROPHILS % (AUTO) 74.4 % (42-78); TOTAL CELLS COUNTED % (AUTO) 100 %; WHITE BLOOD COUNT 14.4 10^3/uL (4.0-10.5)
[2019-01-30] MEDS: ENOXAPARIN SODIUM INJ 40 MG/0.4 ML DISP.SYRIN SUBCUT SCH (11:15)
[2019-01-30] MEDS: CHOLECALCIFEROL (D3) 1,000 UNIT (25 MCG) TABLET PO SCH (11:15)
[2019-01-30] MEDS: LACOSAMIDE 100 MG TABLET PO SCH ×2 (11:15→21:04)
[2019-01-30 11:22] LABS: ANION GAP 16 (5-19); BLOOD UREA NITROGEN 8 mg/dL (7-20); CALCIUM 9.7 mg/dL (8.4-10.2); CARBON DIOXIDE 24 mmol/L (22-30); CHLORIDE 105 mmol/L (98-107); GLUCOSE 96 mg/dL (75-110); POTASSIUM 4.6 mmol/L (3.6-5.0)
--- NOTE | 2019-01-30 14:11 | PDOC CONSULTATION ---
Consultation Consult Date: 01/22/19 Attending physician:: JOSEPH MONTE Provider Consulted: LAURA ADAM Consult reason:: Recurrent pneumonia History of Present Illness Admission Date/PCP: 01/20/19 09:49 JOSEPH MONTE MD History of Present Illness: CECI HSIEH is a 38 year old male well-known to our [facility] pulmonary [facility] with recurrent pneumonia patient has profound mental retardation. He presented to the emergency room with tachypnea hypoxia and was noted to have a leukocytosis upon laboratory evaluation Past Medical History Pulmonary Medical History: Reports: Pneumonia, Respiratory Failure Neurological Medical History: Reports: Seizures Malignancy Medical History: Reports: None GI Medical History: Reports: Gastroesophageal Reflux Disease Skin Medical History: Reports: Psoriasis Traumatic Medical History: Denies: Gunshot Wound, Pneumothorax Hematology: Denies: Sickle Cell Disease Infectious Medical History: Denies: Hepatitis B, Hepatitis C, HIV Past Surgical History Past Surgical History: Reports: Other - vp security shunt Social History Information Source: [facility] Records Smoking Status: Never Smoker Frequency of Alcohol Use: None Hx Recreational Drug Use: No Drugs: None Hx Prescription Drug Abuse: No Do you have pets?: No Have you had any respiratory illnesses as a child?: No Have you been exposed to any sick contacts recently?: No Have you had any recent respiratory illnesses?: No Family History Family History: Other - Unable to obtain as patient is noncommunicative Parental Family History Reviewed: No Children Family History Reviewed: No Sibling(s) Family History Reviewed.: No Medication/Allergy Home Medications: Carbamazepine [Tegretol 100 mg Chewable Tablet] 400 mg PO Q8 03/17/17 Cholecalciferol (Vitamin D3) [Vitamin D3 1000 Unit Tablet] 1,000 unit PO DAILY 03/17/17 Clonazepam [Klonopin] 1.5 mg PO Q8 03/17/17 Clorazepate Dipotassium [Tranxene 7.5 mg Tablet] 3.75 mg PO Q12 03/17/17 Eszopiclone [Lunesta] 3 mg PO QPM@199903/17/17 Lacosamide [Vimpat] 200 mg PO Q12 03/17/17 Polyethylene Glycol 3350 [Miralax Powder 17 gm/Packet] 17 gm PO QPM 03/17/17 Brivaracetam [Briviact] 100 mg PO Q12 09/04/18 Diazepam [Diastat Acudial 20 mg/4 ml Rectal Gel] 15 mg NH Q6HP PRN 09/04/18 Omeprazole 40 mg PO Q6AM 09/04/18 Ipratropium/Albuterol Sulfate [Duoneb 3 ml Ampul] 3 ml NEB RTQ6HP PRN 01/20/19 Allergies/Adverse Reactions: No Known Allergies Allergy (Verified 03/16/17 15:15) Review of Systems ROS unobtainable: Due to mental status Physical Exam Vital Signs: Temp Pulse Resp BP Pulse Ox 98.9 F 73 16 128/83 H 96 01/23/19 08:08 01/23/19 08:08 01/23/19 08:08 01/23/19 08:08 01/23/19 08:08 Intake & Output 01/22/19 01/23/19 01/24/19 06:59 06:59 06:59 Intake Total 2962 1800 100 Output Total 1400 1875 Balance 1562 -75 100 Weight 72.1 kg 70.7 kg General appearance: PRESENT: disheveled, mild distress. ABSENT: cooperative Head exam: PRESENT: atraumatic, normocephalic Eye exam: PRESENT: conjunctiva pale, EOMI. ABSENT: nystagmus Mouth exam: PRESENT: dry mucosa, neck supple, tongue midline Teeth exam: PRESENT: poor dentation Respiratory exam: PRESENT: decreased breath sounds, prolonged expiratory phas, rales, rhonchi, symmetrical, unlabored. ABSENT: retraction, stridor Cardiovascular exam: PRESENT: RRR, +S1, +S2, tachycardia Pulses: PRESENT: normal radial pulses GI/Abdominal exam: PRESENT: soft. ABSENT: guarding, mass, rebound, tenderness Neurological exam: PRESENT: altered, awake Psychiatric exam: PRESENT: anxious Focused psych exam: PRESENT: internal stimuli Skin exam: PRESENT: dry, warm Results Laboratory Results: 01/23/19 05:31 01/23/19 05:31 01/23/19 01/23/19 01/23/19 05:31 05:31 05:31 WBC 6.8 RBC 3.99 L Hgb 10.8 L Hct 32.0 L MCV 80 MCH 27.1 MCHC 33.9 RDW 16.3 H Plt Count 140 L Seg Neutrophils % 56.5 Sodium 142.7 Potassium 3.4 L Chloride 106 Carbon Dioxide 23 Anion Gap 14 BUN 7 Creatinine 0.90 0.90 Est GFR ( Amer) > 60 > 60 Glucose 89 Calcium 8.6 01/20/19 06:03 Catheterized Urine Urine Culture - Final NO GROWTH 2 DAYS Impressions: Chest X-Ray 01/22/19 00:00 IMPRESSION: Improving pneumonia. Modified Barium Swallow 01/22/19 00:00 IMPRESSION: LARYNGEAL PENETRATION AND ASPIRATION ABOVE. 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 PLEASE SEE SPEECH PATHOLOGIST REPORT FOR OTHER FINDINGS AND RECOMMENDATIONS. Assessment & Plan - Diagnosis (1) Aspiration into lower respiratory tract Qualifiers: Encounter type: initial encounter Qualified Code(s): T17.800A - Unspecified foreign body in other parts of respiratory tract causing asphyxiation, initial encounter Is this a current diagnosis for this admission?: Yes Plan: Modified barium swallow as well as esophagram (2) Dysphagia Qualifiers: Dysphagia type: oropharyngeal phase Qualified Code(s): R13.12 - Dysphagia, oropharyngeal phase Is this a current diagnosis for this admission?: Yes Plan: Further delineated after modified barium swallow (3) Epilepsy without status epilepticus, not intractable Qualifiers: Epilepsy type: unspecified Qualified Code(s): G40.909 - Epilepsy, unspecified, not intractable, without status epilepticus Is this a current diagnosis for this admission?: Yes Plan: This is additional etiology for aspiration - Time Time Spent: 50 to 70 Minutes
--- NOTE | 2019-01-30 14:36 | RADIOLOGY REPORT (SQ) ---
EXAM DESCRIPTION: CT CHEST WITHOUT COMPLETED DATE/TIME: 01/30/2019 2:00 pm REASON FOR STUDY: Aspirations pneumonia COMPARISON: Chest x-ray dated 01/29/2019 TECHNIQUE: CT scan performed of the chest without intravenous contrast. Images reviewed with lung, soft tissue and bone windows. Reconstructed coronal and sagittal MPR images reviewed. All images st ored on PACS. All CT scanners at this facility use dose modulation, iterative reconstruction, and/or weight based d osing when appropriate to reduce radiation dose to as low as reasonably achievable (ALARA). [facility]: Dose Right [facility]: CareDose [facility]: Dose Right [facility]: Teradose 4D [facility]: InSite Wireless RADIATION DOSE: CT Rad equipment meets quality standard of care and radiation dose reduction techniq ues were employed. CTDIvol: 10.8 - 12.5 mGy. DLP: 931 mGy-cm. mGy. LIMITATIONS: No technical limitations. FINDINGS: LUNGS AND PLEURA: No focal consolidation. Ground-glass opacity in both lung bases and padma ng the right minor fissure. This could represent atelectasis or focal areas of pneumonia. Minimal g round-glass opacity in the right upper lobe most likely atelectasis. HILAR AND MEDIASTINAL STRUCTURES: No identified masses or abnormal nodes. No obvious aneurysm. HEART AND VASCULAR STRUCTURES: No aneurysm. No pericardial effusion. UPPER ABDOMEN: No significant findings. Limited exam. THYROID AND OTHER SOFT TISSUES: No masses. No adenopathy. BONES: No significant finding. HARDWARE: None in the chest. OTHER: No other significant findings. IMPRESSION: Patchy ground-glass opacities in both lung bases an along the right minor fissure either atelectasis or focal pneumonia. Ground-glass opacity in the right upper lobe most likely represents atelectasis. No focal consolidation. TECHNICAL DOCUMENTATION: JOB ID: [id number] Quality ID # [id number]: Final reports with documentation of one or more dose reduction techniques (e.g., Au tomated exposure control, adjustment of the mA and/or kV according to patient size, use of iterative reconstruction technique) 2010 [employer]- All Rights Reserved Reading location - IP/workstation name: [email or web address]
[2019-01-31] MEDS: LORAZEPAM INJ 2 MG/1 ML VIAL IV PRN ×2 (00:06→21:32)
[2019-01-31] MEDS: CARBAMAZEPINE 100 MG TAB.CHEW PO SCH ×3 (05:23→22:41)
[2019-01-31] MEDS: PANTOPRAZOLE SODIUM 40 MG TABLET.DR PO SCH (05:23)
[2019-01-31 05:58] LABS: ABSOLUTE BASOPHILS # (AUTO) 0.1 10^3/uL (0.0-0.2); ABSOLUTE EOSINOPHILS # (AUTO) 0.3 10^3/uL (0.0-0.6); ABSOLUTE LYMPHOCYTES (AUTO) 1.9 10^3/uL (0.5-4.7); ABSOLUTE NEUT (AUTO) 5.4 10^3/uL (1.7-8.2); BASOPHILS % (AUTO) 0.8 % (0-2); EOSINOPHILS % (AUTO) 3.2 % (0-6); HEMATOCRIT 35.5 % (37.9-51.0); HEMOGLOBIN 11.9 g/dL (13.5-17.0); LYMPHOCYTES % (AUTO) 22.2 % (13-45); MEAN CORPUSCULAR HEMOGLOBIN 26.6 pg (27.0-33.4); MEAN CORPUSCULAR HGB CONC 33.6 g/dL (32.0-36.0); MEAN CORPUSCULAR VOLUME 79 fl (80-97); MONOCYTES % (AUTO) 11.7 % (3-13); PLATELET COUNT 477 10^3/uL (150-450); RED BLOOD COUNT 4.48 10^6/uL (4.35-5.55); RED CELL DISTRIBUTION WIDTH 16.2 % (11.5-14.0); SEGMENTED NEUTROPHILS % (AUTO) 62.1 % (42-78); TOTAL CELLS COUNTED % (AUTO) 100 %; WHITE BLOOD COUNT 8.7 10^3/uL (4.0-10.5)
[2019-01-31 06:04] LABS: ANION GAP 11 (5-19); BLOOD UREA NITROGEN 11 mg/dL (7-20); CALCIUM 9.1 mg/dL (8.4-10.2); CARBON DIOXIDE 25 mmol/L (22-30); CHLORIDE 106 mmol/L (98-107); GLUCOSE 88 mg/dL (75-110)
[2019-01-31] MEDS: IPRATROPIUM/ALBUTEROL 0.5-2.5 MG/3 ML AMPUL NEB PRN (09:07)
[2019-01-31] MEDS: LACOSAMIDE 100 MG TABLET PO SCH ×2 (10:33→22:41)
[2019-01-31] MEDS: CHOLECALCIFEROL (D3) 1,000 UNIT (25 MCG) TABLET PO SCH (10:33)
[2019-01-31] MEDS: ENOXAPARIN SODIUM INJ 40 MG/0.4 ML DISP.SYRIN SUBCUT SCH (10:33)
[2019-01-31] MEDS: SULFAMETHOXAZOLE/TRIMETHOPRIM 800-160 MG/20 ML UDCUP PO SCH ×2 (10:34→19:25)
--- NOTE | 2019-01-31 11:58 | PDOC PROGRESS REPORT ---
Subjective Progress Note for:: 02/01/19 Subjective:: Patient is currently doing well Overnight no fever patient's white count is also normal According to the nursing staff patients need a bolus feeding rather than the co ntinuous feeding due to the facility cannot do the continuous feeding 1. Episode of the seizures last night Reason For Visit: ASPIRATION,FEVER Physical Exam Vital Signs: Temp Pulse Resp BP Pulse Ox 98.6 F 76 18 110/74 94 01/31/19 07:49 01/31/19 09:08 01/31/19 09:08 01/31/19 07:49 01/31/19 09:08 Intake & Output 01/30/19 01/31/19 02/01/19 06:59 06:59 06:59 Intake Total 2016 3146 320 Output Total 1575 1075 Balance 442 2071 320 Weight 65.1 kg 64.7 kg General appearance: PRESENT: no acute distress, well-developed, well-nourished Head exam: PRESENT: atraumatic, normocephalic Eye exam: PRESENT: conjunctiva pink, EOMI, PERRLA. ABSENT: scleral icterus Ear exam: PRESENT: normal external ear exam Mouth exam: PRESENT: moist, tongue midline Neck exam: PRESENT: full ROM. ABSENT: carotid bruit, JVD, lymphadenopathy, thyromegaly Respiratory exam: PRESENT: clear to auscultation roula Cardiovascular exam: PRESENT: RRR. ABSENT: diastolic murmur, rubs, systolic mur mur Pulses: PRESENT: normal dorsalis pedis pul, +2 pedal pulses bilateral Vascular exam: PRESENT: normal capillary refill GI/Abdominal exam: PRESENT: normal bowel sounds, soft. ABSENT: distended, guarding, mass, organolmegaly, rebound, tenderness Rectal exam: PRESENT: deferred Neurological exam: PRESENT: alert, awake. ABSENT: motor sensory deficit Psychiatric exam: PRESENT: appropriate affect, normal mood. ABSENT: homicidal ideation, suicidal ideation Skin exam: PRESENT: dry, intact, warm. ABSENT: cyanosis, rash Results Laboratory Results: 01/31/19 05:16 01/31/19 05:16 01/31/19 01/31/19 05:16 05:16 WBC 8.7 RBC 4.48 Hgb 11.9 L Hct 35.5 L MCV 79 L MCH 26.6 L MCHC 33.6 RDW 16.2 H Plt Count 477 H Seg Neutrophils % 62.1 Sodium 141.6 Potassium 4.0 Chloride 106 Carbon Dioxide 25 Anion Gap 11 BUN 11 Creatinine 0.86 Est GFR ( Amer) > 60 Glucose 88 Calcium 9.1 Impressions: Modified Barium Swallow 01/22/19 00:00 IMPRESSION: LARYNGEAL PENETRATION AND ASPIRATION ABOVE. 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 PLEASE SEE SPEECH PATHOLOGIST REPORT FOR OTHER FINDINGS AND RECOMMENDATIONS. Chest X-Ray 01/29/19 00:00 IMPRESSION: STABLE APPEARANCE. PREVIOUSLY SEEN INFILTRATE IN THE RIGHT UPPER LOBE HAS CLEARED. NO ACUTE RADIOGRAPHIC FINDING IN THE CHEST. Chest CT 01/30/19 00:00 IMPRESSION: Patchy ground-glass opacities in both lung bases an along the right minor fissure either atelectasis or focal pneumonia. Ground-glass opacity in the right upper lobe most likely represents atelectasis. No focal consolidation. Assessment & Plan - Diagnosis (1) Aspiration into lower respiratory tract Qualifiers: Encounter type: initial encounter Qualified Code(s): T17.800A - Unspecified foreign body in other parts of respiratory tract causing asphyxiation, initial encounter Is this a current diagnosis for this admission?: Yes (2) Fever Qualifiers: Fever type: unspecified Is this a current diagnosis for this admission?: Yes (3) Dysphagia Qualifiers: Dysphagia type: oropharyngeal phase Qualified Code(s): R13.12 - Dysphagia, oropharyngeal phase Is this a current diagnosis for this admission?: Yes (4) Epilepsy without status epilepticus, not intractable Qualifiers: Epilepsy type: unspecified Qualified Code(s): G40.909 - Epilepsy, unspecified, not intractable, without status epilepticus Is this a current diagnosis for this admission?: Yes (5) GERD (gastroesophageal reflux disease) Qualifiers: Esophagitis presence: without esophagitis Is this a current diagnosis for this admission?: Yes (6) Seizure disorder Is this a current diagnosis for this admission?: Yes (7) Hypokalemia Is this a current diagnosis for this admission?: Yes - Time Time Spent with patient: 15-24 minutes Level of Care: IMCU Medications reviewed and adjusted accordingly: Yes Anticipated discharge: Other Within: Other - Plan Summary Plan Summary: We will ask the dietitians to change to bolus feeding continues to chest physical therapy continues to p.o. Bactrim
[2019-01-31] MEDS: IPRATROPIUM/ALBUTEROL 0.5-2.5 MG/3 ML AMPUL NEB SCH ×2 (14:54→20:28)
[2019-01-31] MEDS: POLYETHYLENE GLYCOL 3350 POWDER 17 GM/1 PACKET PO SCH (17:38)
[2019-02-01] MEDS: IPRATROPIUM/ALBUTEROL 0.5-2.5 MG/3 ML AMPUL NEB SCH ×4 (02:33→20:16)
[2019-02-01] MEDS: CARBAMAZEPINE 100 MG TAB.CHEW PO SCH ×3 (05:07→22:40)
[2019-02-01] MEDS: PANTOPRAZOLE SODIUM 40 MG TABLET.DR PO SCH (05:07)
[2019-02-01 06:51] LABS: ANION GAP 12 (5-19); BLOOD UREA NITROGEN 15 mg/dL (7-20); CALCIUM 9.7 mg/dL (8.4-10.2); CARBON DIOXIDE 25 mmol/L (22-30); CHLORIDE 106 mmol/L (98-107); GLUCOSE 87 mg/dL (75-110); POTASSIUM 4.9 mmol/L (3.6-5.0)
--- NOTE | 2019-02-01 09:03 | PDOC DISCHARGE SUMMARY ---
Impression - Admit/DC Date/PCP Admission Date/Primary Care Provider: 01/20/19 09:49 JOSEPH MONTE MD Discharge Date: 02/01/19 - Discharge Diagnosis (1) Aspiration into lower respiratory tract Is this a current diagnosis for this admission?: Yes (2) Fever Is this a current diagnosis for this admission?: Yes (3) Dysphagia Is this a current diagnosis for this admission?: Yes (4) Epilepsy without status epilepticus, not intractable Is this a current diagnosis for this admission?: Yes (5) GERD (gastroesophageal reflux disease) Is this a current diagnosis for this admission?: Yes (6) Seizure disorder Is this a current diagnosis for this admission?: Yes (7) Hypokalemia Is this a current diagnosis for this admission?: Yes - Additional Information Resuscitation Status: Full Code Discharge Diet: Tube Feeding (Comments) Referrals: JOSEPH MONTE MD [Primary Care Provider] - Follow up as needed Prescriptions: Ipratropium/Albuterol Sulfate [Duoneb 3 ml Ampul] 3 ml NEB RTQ6 PRN #120 vial.neb PRN Reason: Sulfamethoxazole/Trimethoprim [Septra Susp 800-160 mg/20 ml] 20 ml PO BID #120 udc Home Medications: Carbamazepine [Tegretol 100 mg Chewable Tablet] 400 mg PO Q8 03/17/17 Cholecalciferol (Vitamin D3) [Vitamin D3 1000 Unit Tablet] 1,000 unit PO DAILY 03/17/17 Clonazepam [Klonopin] 1.5 mg PO Q8 03/17/17 Clorazepate Dipotassium [Tranxene 7.5 mg Tablet] 3.75 mg PO Q12 03/17/17 Eszopiclone [Lunesta] 3 mg PO QPM@199903/17/17 Lacosamide [Vimpat] 200 mg PO Q12 03/17/17 Polyethylene Glycol 3350 [Miralax Powder 17 gm/Packet] 17 gm PO QPM 03/17/17 Brivaracetam [Briviact] 100 mg PO Q12 09/04/18 Diazepam [Diastat Acudial 20 mg/4 ml Rectal Gel] 15 mg OK Q6HP PRN 09/04/18 Omeprazole 40 mg PO Q6AM 09/04/18 Ipratropium/Albuterol Sulfate [Duoneb 3 ml Ampul] 3 ml NEB RTQ6HP PRN 01/20/19 Ipratropium/Albuterol Sulfate [Duoneb 3 ml Ampul] 3 ml NEB RTQ6 PRN #120 vial.neb 02/01/19 Sulfamethoxazole/Trimethoprim [Septra Susp 800-160 mg/20 ml] 20 ml PO BID #120 udc 02/01/19 History of Present Illiness History of Present Illness: CECI HSIEH is a 38 year old male This is a 38-year-old male with the severe mental retardation cerebral palsy is seizures disorders admitted for the aspirations pneumonia patient was started on IV antibiotic Hospital Course Hospital Course: This is a 38-year-old male's with a significant history of cerebral palsy mental retardation's seizures disorders recurrent aspirations came to the emergency department with a fever chills and diagnosed with aspiration pneumonia patient was started on IV Zosyn and vancomycin's Patient was also seen by Dr. Morrison pulmonary\ Patient's also underwent for modified barium swallow and speech therapy evaluations and suggest the severe aspirations require a alternative feeding which patient have weighed in the past same suggestions at this point patient was underwent for the j-tube placement Patient tolerate the tube feeding at 55/h with the continuous pump without any problems Patient's white count other blood work is all stable Restart all the seizures medications currently under control have a couple of seizures episodes Patient is to follow outpatients neurology for the seizures medication adjustment if needed Discussed with the caregiver at the [facility] regarding the tube feeding Patient is otherwise remain afebrile to the baseline's continues to antibiotic for 5 more days repeat the chest x-ray next week Physical Exam Vital Signs: Temp Pulse Resp BP Pulse Ox 98.1 F 84 16 125/77 96 02/01/19 08:12 02/01/19 08:27 02/01/19 08:27 02/01/19 08:12 02/01/19 08:27 Intake & Output 01/31/19 02/01/19 02/02/19 06:59 06:59 06:59 Intake Total 3146 3573 Output Total 1075 350 Balance 2071 3223 Weight 64.7 kg 62.8 kg General appearance: PRESENT: no acute distress Head exam: PRESENT: atraumatic, normocephalic Eye exam: PRESENT: conjunctiva pink, EOMI, PERRLA. ABSENT: scleral icterus Ear exam: PRESENT: normal external ear exam Mouth exam: PRESENT: moist, tongue midline Neck exam: ABSENT: carotid bruit, JVD, lymphadenopathy, thyromegaly Respiratory exam: PRESENT: clear to auscultation roula. ABSENT: rales, rhonchi, wheezes Cardiovascular exam: PRESENT: RRR. ABSENT: diastolic murmur, rubs, systolic murmur Pulses: PRESENT: normal dorsalis pedis pul Vascular exam: PRESENT: normal capillary refill GI/Abdominal exam: PRESENT: normal bowel sounds, soft. ABSENT: distended, guarding, mass, organolmegaly, rebound, tenderness Rectal exam: PRESENT: deferred Extremities exam: PRESENT: full ROM. ABSENT: calf tenderness, clubbing, pedal edema Neurological exam: PRESENT: alert, awake. ABSENT: motor sensory deficit Psychiatric exam: PRESENT: appropriate affect, normal mood. ABSENT: homicidal ideation, suicidal ideation Skin exam: PRESENT: dry, intact, warm. ABSENT: cyanosis, rash Results Laboratory Results: WBC 8.7 10^3/uL (4.0-10.5) 01/31/19 05:16 RBC 4.48 10^6/uL (4.35-5.55) 01/31/19 05:16 Hgb 11.9 g/dL (13.5-17.0) L 01/31/19 05:16 Hct 35.5 % (37.9-51.0) L 01/31/19 05:16 MCV 79 fl (80-97) L 01/31/19 05:16 MCH 26.6 pg (27.0-33.4) L 01/31/19 05:16 MCHC 33.6 g/dL (32.0-36.0) 01/31/19 05:16 RDW 16.2 % (11.5-14.0) H 01/31/19 05:16 Plt Count 477 10^3/uL (150-450) H 01/31/19 05:16 Lymph % (Auto) 22.2 % (13-45) 01/31/19 05:16 Sullivan % (Auto) 11.7 % (3-13) 01/31/19 05:16 Eos % (Auto) 3.2 % (0-6) 01/31/19 05:16 Baso % (Auto) 0.8 % (0-2) 01/31/19 05:16 Absolute Neuts (auto) 5.4 10^3/uL (1.7-8.2) 01/31/19 05:16 Absolute Lymphs (auto) 1.9 10^3/uL (0.5-4.7) 01/31/19 05:16 Absolute Monos (auto) 1.0 10^3/uL (0.1-1.4) 01/31/19 05:16 Absolute Eos (auto) 0.3 10^3/uL (0.0-0.6) 01/31/19 05:16 Absolute Basos (auto) 0.1 10^3/uL (0.0-0.2) 01/31/19 05:16 Seg Neutrophils % 62.1 % (42-78) 01/31/19 05:16 VBG pH 7.43 (7.30-7.42) H 01/20/19 05:26 VBG pCO2 34.5 mmHg (35-63) L 01/20/19 05:26 VBG HCO3 22.1 mmol/L (20-32) 01/20/19 05:26 VBG Base Excess -1.6 mmol/L 01/20/19 05:26 Sodium 142.8 mmol/L (137-145) 02/01/19 05:47 Potassium 4.9 mmol/L (3.6-5.0) 02/01/19 05:47 Chloride 106 mmol/L (98-107) 02/01/19 05:47 Carbon Dioxide 25 mmol/L (22-30) 02/01/19 05:47 Anion Gap 12 (5-19) 02/01/19 05:47 BUN 15 mg/dL (7-20) 02/01/19 05:47 Creatinine 0.88 mg/dL (0.52-1.25) 02/01/19 05:47 Est GFR ( Amer) > 60 (>60) 02/01/19 05:47 Est GFR (MDRD) Non-Af > 60 (>60) 02/01/19 05:47 Glucose 87 mg/dL (75-110) 02/01/19 05:47 POC Glucose 96 mg/dL (70-110) 01/28/19 05:54 Lactic Acid (Sepsis) 0.9 mmol/L (0.7-2.1) 01/20/19 05:26 Calcium 9.7 mg/dL (8.4-10.2) 02/01/19 05:47 Magnesium 1.6 mg/dL (1.6-2.3) 01/26/19 19:37 Total Bilirubin 0.3 mg/dL (0.2-1.3) 01/21/19 05:28 Direct Bilirubin 0.1 mg/dL (0.0-0.4) 01/21/19 05:28 Neonat Total Bilirubin Not Reportable 01/21/19 05:28 Neonat Direct Bilirubin Not Reportable 01/21/19 05:28 Neonat Indirect Bili Not Reportable 01/21/19 05:28 AST 62 U/L (17-59) H 01/21/19 05:28 ALT 31 U/L (<50) 01/21/19 05:28 Alkaline Phosphatase 80 U/L (38-126) 01/21/19 05:28 Total Protein 6.4 g/dL (6.3-8.2) 01/21/19 05:28 Albumin 3.2 g/dL (3.5-5.0) L 01/21/19 05:28 Urine Color YELLOW 01/20/19 06:03 Urine Appearance SLIGHTLY-CLOUDY 01/20/19 06:03 Urine pH 5.0 (5.0-9.0) 01/20/19 06:03 Ur Specific [place] 1.025 01/20/19 06:03 Urine Protein 30 mg/dL (NEGATIVE) H 01/20/19 06:03 Urine Glucose (UA) NEGATIVE mg/dL (NEGATIVE) 01/20/19 06:03 Urine Ketones TRACE mg/dL (NEGATIVE) H 01/20/19 06:03 Urine Blood NEGATIVE (NEGATIVE) 01/20/19 06:03 Urine Nitrite NEGATIVE (NEGATIVE) 01/20/19 06:03 Urine Bilirubin NEGATIVE (NEGATIVE) 01/20/19 06:03 Urine Urobilinogen NEGATIVE mg/dL (<2.0) 01/20/19 06:03 Ur Leukocyte Esterase NEGATIVE (NEGATIVE) 01/20/19 06:03 Urine WBC (Auto) 3 /HPF 01/20/19 06:03 Urine RBC (Auto) 2 /HPF 01/20/19 06:03 Urine Bacteria (Auto) TRACE /HPF 01/20/19 06:03 Urine Mucus (Auto) FEW /LPF 01/20/19 06:03 Urine Ascorbic Acid NEGATIVE (NEGATIVE) 01/20/19 06:03 Time Trough Drawn 0558 01/24/19 05:58 Vancomycin Trough 13.3 ug/mL (5.0-20.0) 01/24/19 05:58 Impressions: Chest X-Ray 01/20/19 05:28 IMPRESSION: Moderate mixed airspace and interstitial opacity right more than left. Interval worsening. Chest X-Ray 01/22/19 00:00 IMPRESSION: Improving pneumonia. Modified Barium Swallow 01/22/19 00:00 IMPRESSION: LARYNGEAL PENETRATION AND ASPIRATION ABOVE. 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 PLEASE SEE SPEECH PATHOLOGIST REPORT FOR OTHER FINDINGS AND RECOMMENDATIONS. Chest X-Ray 01/24/19 00:00 IMPRESSION: Unchanged radiographic appearance of the chest. Chest X-Ray 01/29/19 00:00 IMPRESSION: LIMITED VISUALIZATION DUE TO ROTATION. PROBABLE IMPROVEMENT IN THE RIGHT UPPER LOBE INFILTRATE. Chest X-Ray 01/29/19 00:00 IMPRESSION: STABLE APPEARANCE. PREVIOUSLY SEEN INFILTRATE IN THE RIGHT UPPER LOBE HAS CLEARED. NO ACUTE RADIOGRAPHIC FINDING IN THE CHEST. Chest CT 01/30/19 00:00 IMPRESSION: Patchy ground-glass opacities in both lung bases an along the right minor fissure either atelectasis or focal pneumonia. Ground-glass opacity in the right upper lobe most likely represents atelectasis. No focal consolidation. Plan Time Spent: Greater than 30 Minutes - Repeat the chest x-ray next week Stroke Is this a Stroke Patient?: No Acute Heart Failure - Is this a Heart Failure Patient?: No
[2019-02-01] MEDS: LACOSAMIDE 100 MG TABLET PO SCH ×2 (09:22→22:40)
[2019-02-01] MEDS: CHOLECALCIFEROL (D3) 1,000 UNIT (25 MCG) TABLET PO SCH (09:22)
[2019-02-01] MEDS: ENOXAPARIN SODIUM INJ 40 MG/0.4 ML DISP.SYRIN SUBCUT SCH (09:22)
[2019-02-01] MEDS: SULFAMETHOXAZOLE/TRIMETHOPRIM 800-160 MG/20 ML UDCUP PO SCH ×2 (09:22→17:05)
[2019-02-01] MEDS: POLYETHYLENE GLYCOL 3350 POWDER 17 GM/1 PACKET PO SCH (17:05)
[2019-02-02] MEDS: IPRATROPIUM/ALBUTEROL 0.5-2.5 MG/3 ML AMPUL NEB SCH ×3 (02:01→14:27)
[2019-02-02 06:09] LABS: ANION GAP 12 (5-19); BLOOD UREA NITROGEN 14 mg/dL (7-20); CALCIUM 9.5 mg/dL (8.4-10.2); CARBON DIOXIDE 24 mmol/L (22-30); CHLORIDE 106 mmol/L (98-107); GLUCOSE 92 mg/dL (75-110); POTASSIUM 4.4 mmol/L (3.6-5.0)
[2019-02-02] MEDS: CARBAMAZEPINE 100 MG TAB.CHEW PO SCH ×2 (08:03→14:28)
[2019-02-02] MEDS: PANTOPRAZOLE SODIUM 40 MG TABLET.DR PO SCH (08:03)
[2019-02-02] MEDS: ENOXAPARIN SODIUM INJ 40 MG/0.4 ML DISP.SYRIN SUBCUT SCH (10:42)
[2019-02-02] MEDS: CHOLECALCIFEROL (D3) 1,000 UNIT (25 MCG) TABLET PO SCH (10:42)
[2019-02-02] MEDS: LACOSAMIDE 100 MG TABLET PO SCH (10:42)
[2019-02-02] MEDS: SULFAMETHOXAZOLE/TRIMETHOPRIM 800-160 MG/20 ML UDCUP PO SCH (10:43)
[2019-02-02] MEDS: DIAZEPAM PR PRN (15:58)
[2019-02-02 16:57] VITALS: BP 115/78
== END 2019-02-02 17:04 | DRG 178 ==
LOC: ER 05:07 → EH 09:49 → 3S 12:08
PROVIDERS: ADMIT Family Medicine; ATTEND Family Medicine
PROC: 0DHA3UZ Insertion of Feeding Device into Jejunum, Percutaneous Approach (ICD-10-PCS; principal; 2019-01-26 11:15)
DX: J69.0 Pneumonitis due to inhalation of food and vomit (principal); F73 Profound intellectual disabilities; G80.9 Cerebral palsy, unspecified; E87.6 Hypokalemia; R13.12 Dysphagia, oropharyngeal phase; R09.02 Hypoxemia; K21.9 Gastro-esophageal reflux disease without esophagitis; G40.909 Epilepsy, unspecified, not intractable, without status epilepticus; Z74.01 Bed confinement status; Z98.2 Presence of cerebrospinal fluid drainage device
CPT/HCPCS: 00790; 36415; 51702; 71045; 71250; 74230; 80048; 80053; 80202; 81001; 82565; 82803; 82962; 83605; 83735; 84132; 85025; 87040; 87086; 93005; 93010; 94640; 96365; 96367; 99285; C9254; J0690; J1100; J1650; J1885; J2060; J2250; J2270; J2405; J2543; J2704; J2710; J3010; J3370; J3480; J3490; J7030; J7050; J7060; J7121; J7620

== ENCOUNTER → 2019-02-09 | Outpatient (CLI) | payer MEDICAID ==
--- NOTE | 2019-02-09 10:53 | RADIOLOGY REPORT (SQ) ---
EXAM DESCRIPTION: CHEST PA/LATERAL COMPLETED DATE/TIME: 02/09/2019 9:28 am REASON FOR STUDY: PNEUMONITIS DUE TO INHALATION OF FOOD AND VOMIT COMPARISON: AP view of the chest from 01/29/[address] of the chest from 01/30/2019. EXAM PARAMETERS: NUMBER OF VIEWS: two views TECHNIQUE: Digital Frontal and Lateral radiographic views of the chest acquired. RADIATION DOSE: NA LIMITATIONS: none FINDINGS: LUNGS AND PLEURA: There is no consolidation, pleural effusion or pneumothorax. The patchy ground-glass opacities described on the CT from 01/30/2019 are improved perceptible on the radiograp h. MEDIASTINUM AND HILAR STRUCTURES: No mediastinal or hilar contour abnormality. HEART AND VASCULAR STRUCTURES: The cardiac silhouette and pulmonary vasculature are within normal ha its. BONES: No acute findings. HARDWARE: TOOTH CUTTER SPUR shunt and left-sided vagus nerve stimulation generator. OTHER: No other finding. IMPRESSION: No acute cardiopulmonary process. TECHNICAL DOCUMENTATION: JOB ID: [id number] [employer]- All Rights Reserved Reading location - IP/workstation name: [email or web address]
== END ==
LOC: OD 09:07
PROVIDERS: ATTEND Family Medicine
DX: J69.0 Pneumonitis due to inhalation of food and vomit (principal)
CPT/HCPCS: 71046

== ENCOUNTER 2019-03-04 06:10 | Inpatient (IN) | payer MEDICAID ==
[2019-03-04] MEDS ORDERED: DIAZEPAM INJ 10 MG/2 ML DISP.SYRIN IV ONE ×3 (06:34→11:30)
[2019-03-04] MEDS ORDERED: DIPHENHYDRAMINE HCL 50 MG/ML VIAL IV ONE (06:37)
[2019-03-04] MEDS ORDERED: NORMAL SALINE 1000 ML 1,000 ML IV ONE (06:39)
--- NOTE | 2019-03-04 06:50 | ER Document Report ---
Entered by JACK SWENSON SCRIBE 03/04/19 0640 Acting as scribe for:KENDRA THURMAN IV, MD ED General - General Stated Complaint: FEVER Time Seen by Provider: 03/04/19 06:25 Primary Care Provider: JOSEPH MONTE MD [Primary Care Provider] - Follow up as needed Mode of Arrival: Ambulatory Information source: Patient Notes: This 38 year old male patient presents to the emergency department today with complaints of fevers per EMS. EMS reports that the facility the patient resides stated that he has had fevers through the night. Patient has cerebral palsy and is currently non-verbal so history is limited although EMS states that facility staff indicated that the patient usually converses somewhat. TRAVEL OUTSIDE OF THE [place] IN LAST 30 DAYS: No - Related Data Allergies/Adverse Reactions: No Known Allergies Allergy (Verified 03/04/19 08:52) Past Medical History - General Information source: Emergency Med Personnel, [facility] Records, Outside Facility Records Cannot obtain history due to: Other - non-verbal currently - Social History Smoking Status: Never Smoker Cigarette use (# per day): No Frequency of alcohol use: None Drug Abuse: None Lives with: Family Family History: Reviewed & Not Pertinent, Other - Unable to obtain as patient is noncommunicative Pulmonary Medical History: Reports: Hx Pneumonia, Hx Respiratory Failure Neurological Medical History: Reports: Hx Seizures GI Medical History: Reports: Hx Gastroesophageal Reflux Disease Skin Medical History: Reports Hx Psoriasis Past Surgical History: Reports: Other - vp biology shunt - Immunizations Hx Diphtheria, Pertussis, Tetanus Vaccination: Yes Review of Systems - Review of Systems -: Yes ROS unobtainable due to patient's medical condition - non-verbal currently Physical Exam - Vital signs Vitals: Pulse Ox 98 03/04/19 06:17 - Notes Notes: Physical Exam: General: Alert, non-verbal. HEENT: Normocephalic. Atraumatic. PERRL. Extraocular movements intact. Oropharynx clear. Neck: Supple. Non-tender. Respiratory: No respiratory distress. Clear and equal breath sounds bilaterally. Cardiovascular: Regular rate and rhythm. Abdominal: J-tube stitched in place. Non-tender. No distension. Normal Bowel Sounds. Back: No gross abnormalities. Extremities: Moves all four extremities. Upper extremities: Upper extremity contractions bilaterally Lower extremities: Normal inspection. No edema. Normal ROM. Skin: Warm. Dry. Normal color. Course - Vital Signs Vital signs: Temp Pulse Resp BP Pulse Ox 100.6 F H 25 H 125/82 93 03/04/19 09:42 03/04/19 10:01 03/04/19 10:00 03/04/19 10:01 - Laboratory Result Diagrams: 03/04/19 06:50 03/04/19 06:50 Laboratory results interpreted by me: 03/04/19 03/04/19 06:50 06:50 WBC 15.2 H RDW 17.3 H Seg Neuts % (Manual) 88 H Band Neutrophils % 1 L Lymphocytes % (Manual) 2 L Abs Neuts (Manual) 13.5 H Abs Lymphs (Manual) 0.3 L AST 73 H Alkaline Phosphatase 184 H Total Protein 9.1 H - Consults DR. MARR Time consulted: 10:46 Reason for consultation: 03/04/19 10:46 FEVER, LEUKOCYTOSIS, H/O ASPIRATION PNEUMONIA Consulted provider: will see as inpatient Discharge - Discharge Clinical Impression: Fever Qualifiers: Fever type: unspecified Qualified Code(s): R50.9 - Fever, unspecified Leukocytosis, unspecified Qualifiers: Leukocytosis type: unspecified Qualified Code(s): D72.829 - Elevated white blood cell count, unspecified Condition: Fair Disposition: ADMITTED OBSERVATION Admitting Provider: Marcelino Unit Admitted: IMCU Referrals: JOSEPH MONTE MD [Primary Care Provider] - Follow up as needed I personally performed the services described in the documentation, reviewed and edited the documentation which was dictated to the scribe in my presence, and it accurately records my words and actions.
[2019-03-04 07:10] LABS: HEMATOCRIT 41.8 % (37.9-51.0); HEMOGLOBIN 13.9 g/dL (13.5-17.0); MEAN CORPUSCULAR HEMOGLOBIN 27.4 pg (27.0-33.4); MEAN CORPUSCULAR HGB CONC 33.3 g/dL (32.0-36.0); MEAN CORPUSCULAR VOLUME 82 fl (80-97); PLATELET COUNT 212 10^3/uL (150-450); RED BLOOD COUNT 5.09 10^6/uL (4.35-5.55); RED CELL DISTRIBUTION WIDTH 17.3 % (11.5-14.0); WHITE BLOOD COUNT 15.2 10^3/uL (4.0-10.5)
[2019-03-04 07:24] LABS: ALBUMIN 4.9 g/dL (3.5-5.0); ALKALINE PHOSPHATASE 184 U/L (38-126); ANION GAP 15 (5-19); ASPARTATE AMINO TRANSFERASE 73 U/L (17-59); BILIRUBIN,DIRECT 0.4 mg/dL (0.0-0.4); BILIRUBIN,TOTAL 0.5 mg/dL (0.2-1.3); BLOOD UREA NITROGEN 19 mg/dL (7-20); CALCIUM 9.9 mg/dL (8.4-10.2); CARBON DIOXIDE 26 mmol/L (22-30); CHLORIDE 99 mmol/L (98-107); GLUCOSE 92 mg/dL (75-110); POTASSIUM 4.1 mmol/L (3.6-5.0); TOTAL PROTEIN 9.1 g/dL (6.3-8.2)
[2019-03-04 07:29] LABS: ABSOLUTE LYMPHOCYTES# (MANUAL) 0.3 10^3/uL (0.5-4.7); ABSOLUTE MONOCYTES # (MANUAL) 1.4 10^3/uL (0.1-1.4); BAND NEUTROPHILS % (MANUAL) 1 % (3-5); BASOPHILS % (MANUAL) 0 % (0-2); EOSINOPHILS % (MANUAL) 0 % (0-6); LYMPHOCYTES % (MANUAL) 2 % (13-45); MONOCYTES % (MANUAL) 9 % (3-13); SEGMENTED NEUTROPHILS % (MAN) 88 % (42-78); TOTAL CELLS COUNTED 100
[2019-03-04 07:31] LABS: ANISOCYTOSIS 1+; PLATELET COMMENT ADEQUATE; TOXIC GRANULATION 1+
[2019-03-04 07:33] LABS: INTERNATIONAL RATION (INR) 0.97; PROTHROMBIN TIME 12.9 SEC (11.4-15.4)
[2019-03-04 07:34] LABS: PARTIAL THROMBOPLASTIN TIME 28.8 SEC (23.5-35.8)
[2019-03-04 08:49] LABS: APPEARANCE,URINE CLEAR; BILIRUBIN,URINE NEGATIVE (NEGATIVE); COLOR,URINE STRAW; GLUCOSE, URINE NEGATIVE (NEGATIVE); KETONES,URINE NEGATIVE (NEGATIVE); PROTEIN,URINE NEGATIVE (NEGATIVE); URINE SPECIFIC GRAVITY 1.004; UROBILINOGEN,URINE NEGATIVE mg/dL (<2.0)
--- NOTE | 2019-03-04 09:00 | RADIOLOGY REPORT (SQ) ---
EXAM DESCRIPTION: CHEST SINGLE VIEW COMPLETED DATE/TIME: 03/04/2019 7:37 am REASON FOR STUDY: fever COMPARISON: 02/09/2019 EXAM PARAMETERS: NUMBER OF VIEWS: One view. TECHNIQUE: Single frontal radiographic view of the chest acquired. RADIATION DOSE: NA LIMITATIONS: Positioning. FINDINGS: LUNGS AND PLEURA: No opacities, masses or pneumothorax. No pleural effusion. MEDIASTINUM AND HILAR STRUCTURES: No masses. Contour normal. HEART AND VASCULAR STRUCTURES: Heart normal in size. Normal vasculature. BONES: No acute findings. HARDWARE: Vagal nerve stimulator. OTHER: No other significant finding. IMPRESSION: NO ACUTE RADIOGRAPHIC FINDING IN THE CHEST. TECHNICAL DOCUMENTATION: JOB ID: [id number] [employer]- All Rights Reserved Reading location - IP/workstation name: [email or web address]
[2019-03-04 09:50] LABS: A TYPE INFLUENZA AG NEGATIVE (NEGATIVE); B INFLUENZA AG NEGATIVE (NEGATIVE)
[2019-03-04] MEDS ORDERED: PANTOPRAZOLE SODIUM 40 MG VIAL IV ONE (10:06)
[2019-03-04] MEDS ORDERED: ACETAMINOPHEN 325 MG TABLET JT ONE (10:06)
[2019-03-04] MEDS ORDERED: VANCOMYCIN HCL INJ 1000 MG VIAL IV ONE (10:44)
[2019-03-04] MEDS ORDERED: PIPERACILLIN/TAZOBACTAM 3.375 GM VIAL IV ONE (10:44)
[2019-03-04] MEDS ORDERED: CARBAMAZEPINE 100 MG TAB.CHEW JT ONE (12:25)
[2019-03-04] MEDS ORDERED: NORMAL SALINE 1000 ML 1,000 ML IV PRN (12:57)
[2019-03-04] MEDS ORDERED: VANCOMYCIN HCL 0 MG in DEXTROSE 5%-WATER 250 ML IV NR (13:00)
[2019-03-04] MEDS ORDERED: ACETAMINOPHEN 325 MG TABLET JT PRN (13:01)
[2019-03-04] MEDS ORDERED: LORAZEPAM INJ 2 MG/1 ML VIAL ONE (16:39)
[2019-03-04] MEDS: PIPERACILLIN SODIUM/TAZOBACTAM 3.375 GM in NORMAL SALINE 100 ML IV SCH ×2 (17:33→23:49)
[2019-03-04] MEDS ORDERED: LORAZEPAM INJ 2 MG/1 ML VIAL IV PRN (17:38)
--- NOTE | 2019-03-04 18:05 | PDOC H&P ---
History of Present Illness Admission Date/PCP: 03/04/19 10:53 SHAQ MONTE MD Patient complains of: Fever History of Present Illness: CECI HSIEH is a 38 year old male patient of Dr. Shaq Monte resident at [facility] who presented to the ED via EMS with facility staff reported fever over 101F. Facility staff reported that patient had fever overnight with change in his interactive level. He used to verbally communicate but at the time of his presentation was nonverbal and unable to contribute to his current acute medical problem. Facility staff reported that patient had wet but nonproductive cough, dark brown vomitus, and developed rapid shallow breathing afterward. His initial evaluation in the ED was significant for leukocytosis and in view of his morbidities concern for possible aspiration with his seizure activity. Presently, his chest X ray was unrevealing. Patient is on JT feeding that may contribute to his risk of aspiration. His accompanying facility staff was advised hospitalization for further evaluation and management. His morbidities are listed below. Past Medical History Pulmonary Medical History: Reports: Pneumonia, Respiratory Failure Neurological Medical History: Reports: Seizures GI Medical History: Reports: Gastroesophageal Reflux Disease Skin Medical History: Reports: Psoriasis Traumatic Medical History: Denies: Gunshot Wound, Pneumothorax Hematology: Denies: Sickle Cell Disease Infectious Medical History: Denies: HIV Past Surgical History Past Surgical History: Reports: Other - vp information technology shunt Social History Lives with: Family Smoking Status: Never Smoker Frequency of Alcohol Use: None Hx Recreational Drug Use: No Drugs: None Hx Prescription Drug Abuse: No Family History Family History: Reviewed & Not Pertinent, Other - Unable to obtain as patient is noncommunicative Parental Family History Reviewed: Yes Children Family History Reviewed: Yes Sibling(s) Family History Reviewed.: Yes Medication/Allergy Home Medications: Carbamazepine [Tegretol 100 mg Chewable Tablet] 400 mg JT Q8 03/17/17 Cholecalciferol (Vitamin D3) [Vitamin D3 1000 Unit Tablet] 1,000 unit JT DAILY 03/17/17 Clonazepam [Klonopin] 1.5 mg JT Q8 03/17/17 Eszopiclone [Lunesta] 3 mg JT QPM@199903/17/17 Polyethylene Glycol 3350 [Miralax Powder 17 gm/Packet] 17 gm JT QPM 03/17/17 Brivaracetam [Briviact] 100 mg JT BID@08,20 07/22/19 Clorazepate Dipotassium [Tranxene 7.5 mg Tablet] 3.75 mg JT BID@03/04/19 Ranitidine HCl [Zantac Syrp 150 mg/10 ml Ud (Pediatric Only)] 75 mg JT DAILY 03/04/19 Vimpat 10mg/Ml Liquid 200 mg JT BID@03/04/19 Allergies/Adverse Reactions: No Known Allergies Allergy (Verified 03/04/19 08:52) Review of Systems ROS unobtainable: Due to mental status Physical Exam Vital Signs: Temp Pulse Resp BP Pulse Ox 100.6 F H 18 142/90 H 97 03/04/19 09:42 03/04/19 11:01 03/04/19 11:00 03/04/19 11:01 Intake & Output 03/03/19 03/04/19 03/05/19 06:59 06:59 06:59 Intake Total 1000 Balance 1000 Weight 61.6 kg Head exam: PRESENT: atraumatic, normocephalic Eye exam: PRESENT: conjunctiva pink, PERRLA. ABSENT: scleral icterus Ear exam: PRESENT: normal external ear exam Mouth exam: PRESENT: moist Respiratory exam: PRESENT: clear to auscultation roula, decreased breath sounds - at lung bases Cardiovascular exam: PRESENT: RRR. ABSENT: diastolic murmur, rubs, systolic murmur Vascular exam: ABSENT: pallor GI/Abdominal exam: PRESENT: normal bowel sounds, soft, other - JT site fairly clean. ABSENT: distended, guarding, mass, organolmegaly, rebound, tenderness Rectal exam: PRESENT: deferred Extremities exam: ABSENT: pedal edema Musculoskeletal exam: PRESENT: deformity - from long standing contraction Neurological exam: PRESENT: altered - nonverbal with recent seizure activity and administration of Lorazepam to abort seizure activity. Skin exam: PRESENT: dry, warm Results Laboratory Results: 03/04/19 06:50 03/04/19 06:50 03/04/19 03/04/19 03/04/19 06:29 06:50 06:50 WBC 15.2 H RBC 5.09 Hgb 13.9 Hct 41.8 MCV 82 MCH 27.4 MCHC 33.3 RDW 17.3 H Plt Count 212 Seg Neutrophils % Not Reportable Sodium 139.5 Potassium 4.1 Chloride 99 Carbon Dioxide 26 Anion Gap 15 BUN 19 Creatinine 0.74 Est GFR ( Amer) > 60 Glucose 92 Lactic Acid 1.5 Calcium 9.9 Total Bilirubin 0.5 AST 73 H Alkaline Phosphatase 184 H Total Protein 9.1 H Albumin 4.9 Urine Color Urine Appearance Urine pH Ur Specific Hutchins Urine Protein Urine Glucose (UA) Urine Ketones Urine Blood Urine RBC (Auto) 03/04/19 08:22 WBC RBC Hgb Hct MCV MCH MCHC RDW Plt Count Seg Neutrophils % Sodium Potassium Chloride Carbon Dioxide Anion Gap BUN Creatinine Est GFR ( Amer) Glucose Lactic Acid Calcium Total Bilirubin AST Alkaline Phosphatase Total Protein Albumin Urine Color STRAW Urine Appearance CLEAR Urine pH 8.0 Ur Specific Hutchins 1.004 Urine Protein NEGATIVE Urine Glucose (UA) NEGATIVE Urine Ketones NEGATIVE Urine Blood NEGATIVE Urine RBC (Auto) 1 Impressions: Chest X-Ray 03/04/19 06:40 IMPRESSION: NO ACUTE RADIOGRAPHIC FINDING IN THE CHEST. Assessment & Plan - Diagnosis (1) Fever Qualifiers: Fever type: unspecified Qualified Code(s): R50.9 - Fever, unspecified Is this a current diagnosis for this admission?: Yes Plan: See covering attending physician orders for details about care plan. (2) Leukocytosis, unspecified Qualifiers: Leukocytosis type: unspecified Qualified Code(s): D72.829 - Elevated white blood cell count, unspecified Is this a current diagnosis for this admission?: Yes Plan: See covering attending physician orders for details about care plan. (3) Aspiration into lower respiratory tract Qualifiers: Encounter type: initial encounter Qualified Code(s): T17.800A - Unspecified foreign body in other parts of respiratory tract causing asphyxiation, initial encounter Is this a current diagnosis for this admission?: Yes Plan: See covering attending physician orders for details about care plan. (4) Epilepsy without status epilepticus, not intractable Qualifiers: Epilepsy type: unspecified Qualified Code(s): G40.909 - Epilepsy, unspecifi ed, not intractable, without status epilepticus (5) Seizure disorder Is this a current diagnosis for this admission?: Yes Plan: See covering attending physician orders for details about care plan. (6) Cerebral palsy Qualifiers: Cerebral palsy type: unspecified type Qualified Code(s): G80.9 - Cerebral palsy, unspecified Is this a current diagnosis for this admission?: Yes Plan: See covering attending physician orders for details about care plan. - Time Time Spent: 50 to 70 Minutes Medications reviewed and adjusted accordingly: Yes Anticipated discharge: Home - [place] Facility Within: Other - Inpatient Certification Based on my medical assessment, after consideration of the patient's comorbidities, presenting symptoms, or acuity I expect that the services needed warrant INPATIENT care.: Yes I certify that my determination is in accordance with my understanding of Medicare's requirements for reasonable and necessary INPATIENT services [42 CFR 412.3e].: Yes Medical Necessity: Significant Comorbidiites Make Outpatient Treatment Too Risky, Need For IV Fluids, Need For Continuous Telemetry Monitoring, Need for IV Antibiotics, Risk of Complication if Not Cared For in Hospital, Risk of Diagnosis Which Will Require Inpatient Eval/Care/Monitoring Post Hospital 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
[2019-03-04] MEDS: POLYETHYLENE GLYCOL 3350 POWDER 17 GM/1 PACKET JT SCH (19:08)
[2019-03-04] MEDS ORDERED: VIMPAT JT SCH (20:00)
[2019-03-04] MEDS: LACOSAMIDE 100 MG TABLET JT SCH (21:22)
[2019-03-04] MEDS ORDERED: CARBAMAZEPINE 100 MG TAB.CHEW ONE (21:26)
[2019-03-04] MEDS: CLONAZEPAM 1 MG TABLET JT SCH (21:27)
[2019-03-04] MEDS: ZOLPIDEM TARTRATE 5 MG TABLET JT SCH (21:28)
[2019-03-04] MEDS: CLORAZEPATE DIPOTASSIUM 7.5 MG TABLET JT SCH (21:28)
[2019-03-04] MEDS: CARBAMAZEPINE 100 MG TAB.CHEW JT SCH (21:29)
[2019-03-04] MEDS: VANCOMYCIN HCL 750 MG in DEXTROSE 5%-WATER 250 ML IV SCH (21:30)
[2019-03-04] MEDS ORDERED: CLONAZEPAM 1.5 MG JT SCH (22:00)
[2019-03-05] MEDS: PANTOPRAZOLE SODIUM 40 MG PACKET.DR GT SCH (05:57)
[2019-03-05] MEDS: CLONAZEPAM 1 MG TABLET JT SCH ×3 (05:57→21:24)
[2019-03-05] MEDS: PIPERACILLIN SODIUM/TAZOBACTAM 3.375 GM in NORMAL SALINE 100 ML IV SCH ×3 (05:58→19:33)
[2019-03-05] MEDS: VANCOMYCIN HCL 750 MG in DEXTROSE 5%-WATER 250 ML IV SCH ×2 (05:59→18:20)
[2019-03-05 08:44] LABS: ABSOLUTE EOSINOPHILS # (AUTO) 0.2 10^3/uL (0.0-0.6); ABSOLUTE LYMPHOCYTES (AUTO) 1.4 10^3/uL (0.5-4.7); ABSOLUTE MONOCYTES (AUTO) 0.7 10^3/uL (0.1-1.4); ABSOLUTE NEUT (AUTO) 5.4 10^3/uL (1.7-8.2); BASOPHILS % (AUTO) 0.5 % (0-2); EOSINOPHILS % (AUTO) 2.8 % (0-6); LYMPHOCYTES % (AUTO) 18.3 % (13-45); MEAN CORPUSCULAR HEMOGLOBIN 27.3 pg (27.0-33.4); MEAN CORPUSCULAR HGB CONC 33.4 g/dL (32.0-36.0); MEAN CORPUSCULAR VOLUME 82 fl (80-97); MONOCYTES % (AUTO) 8.9 % (3-13); PLATELET COUNT 182 10^3/uL (150-450); RED BLOOD COUNT 4.04 10^6/uL (4.35-5.55); RED CELL DISTRIBUTION WIDTH 16.6 % (11.5-14.0); SEGMENTED NEUTROPHILS % (AUTO) 69.5 % (42-78); TOTAL CELLS COUNTED % (AUTO) 100 %; WHITE BLOOD COUNT 7.8 10^3/uL (4.0-10.5)
[2019-03-05 09:08] LABS: ALBUMIN 3.4 g/dL (3.5-5.0); ALKALINE PHOSPHATASE 113 U/L (38-126); ANION GAP 9 (5-19); ASPARTATE AMINO TRANSFERASE 46 U/L (17-59); BILIRUBIN,DIRECT 0.4 mg/dL (0.0-0.4); BILIRUBIN,TOTAL 0.6 mg/dL (0.2-1.3); BLOOD UREA NITROGEN 10 mg/dL (7-20); CALCIUM 9.1 mg/dL (8.4-10.2); CARBON DIOXIDE 22 mmol/L (22-30); CHLORIDE 107 mmol/L (98-107); GLUCOSE 108 mg/dL (75-110); POTASSIUM 3.7 mmol/L (3.6-5.0); TOTAL PROTEIN 6.8 g/dL (6.3-8.2)
[2019-03-05] MEDS: CARBAMAZEPINE 100 MG TAB.CHEW JT SCH ×3 (10:10→21:26)
[2019-03-05] MEDS: CHOLECALCIFEROL (D3) 1,000 UNIT (25 MCG) TABLET JT SCH (10:10)
[2019-03-05] MEDS: BRIVIACT JT SCH ×2 (10:11→19:43)
[2019-03-05] MEDS: CLORAZEPATE DIPOTASSIUM 7.5 MG TABLET JT SCH ×2 (10:11→19:46)
[2019-03-05] MEDS: VIMPAT 10 MG/ML JT SCH ×2 (10:11→19:44)
[2019-03-05] MEDS: ENOXAPARIN SODIUM INJ 40 MG/0.4 ML DISP.SYRIN SUBCUT SCH (10:12)
[2019-03-05] MEDS: DEXTROSE 5%-WATER 1000 ML 1,000 ML IV PRN ×3 (10:28→23:39)
--- NOTE | 2019-03-05 11:00 | PDOC PROGRESS REPORT ---
Subjective Progress Note for:: 03/05/19 Subjective:: Patient was admitted in the hospital for the fever aspiration pneumonia currently IV Zosyn and vancomycin Patient is currently feeling better per nursing staff's fever is coming down Reason For Visit: ASPIRATION PNEUMONIA,SEIZURE DISORDER Physical Exam Vital Signs: Temp Pulse Resp BP Pulse Ox 98.0 F 80 16 121/68 100 03/05/19 07:28 03/05/19 07:28 03/05/19 07:28 03/05/19 07:28 03/05/19 07:28 Intake & Output 03/04/19 03/05/19 03/06/19 06:59 06:59 06:59 Intake Total 1550 250 Balance 1550 250 Weight 60.7 kg Physical Exam: Severe mental retarded General appearance: PRESENT: no acute distress Head exam: PRESENT: atraumatic, normocephalic Eye exam: PRESENT: conjunctiva pink, EOMI, PERRLA. ABSENT: scleral icterus Ear exam: PRESENT: normal external ear exam Mouth exam: PRESENT: moist, tongue midline Neck exam: PRESENT: full ROM. ABSENT: carotid bruit, JVD, lymphadenopathy, thyromegaly Respiratory exam: PRESENT: decreased breath sounds Cardiovascular exam: PRESENT: RRR. ABSENT: diastolic murmur, rubs, systolic murmur Pulses: PRESENT: normal dorsalis pedis pul, +2 pedal pulses bilateral Vascular exam: PRESENT: normal capillary refill GI/Abdominal exam: PRESENT: normal bowel sounds, soft. ABSENT: distended, guarding, mass, organolmegaly, rebound, tenderness Rectal exam: PRESENT: deferred Neurological exam: PRESENT: alert, awake. ABSENT: motor sensory deficit Psychiatric exam: PRESENT: appropriate affect, normal mood. ABSENT: homicidal ideation, suicidal ideation Skin exam: PRESENT: dry, intact, warm. ABSENT: cyanosis, rash Results Laboratory Results: 03/05/19 08:13 03/05/19 08:13 03/05/19 03/05/19 08:13 08:13 WBC 7.8 RBC 4.04 L Hgb 11.0 L D Hct 33.0 L MCV 82 MCH 27.3 MCHC 33.4 RDW 16.6 H Plt Count 182 Seg Neutrophils % 69.5 Sodium 138.4 Potassium 3.7 Chloride 107 Carbon Dioxide 22 Anion Gap 9 BUN 10 Creatinine 0.86 Est GFR ( Amer) > 60 Glucose 108 Calcium 9.1 Total Bilirubin 0.6 AST 46 Alkaline Phosphatase 113 Total Protein 6.8 Albumin 3.4 L 03/04/19 06:29 Blood Blood Culture (PCR) - Final Staphylococcus Species Impressions: Chest X-Ray 03/04/19 06:40 IMPRESSION: NO ACUTE RADIOGRAPHIC FINDING IN THE CHEST. Assessment & Plan - Diagnosis (1) Fever Qualifiers: Fever type: unspecified Qualified Code(s): R50.9 - Fever, unspecified Is this a current diagnosis for this admission?: Yes (2) Leukocytosis, unspecified Qualifiers: Leukocytosis type: unspecified Qualified Code(s): D72.829 - Elevated white blood cell count, unspecified Is this a current diagnosis for this admission?: Yes (3) Aspiration pneumonia Qualifiers: Aspiration pneumonia type: due to gastric secretions Laterality: right Lung location: unspecified part of lung Qualified Code(s): J69.0 - Pneumonitis due to inhalation of food and vomit Is this a current diagnosis for this admission?: Yes (4) Cerebral palsy Qualifiers: Cerebral palsy type: unspecified type Qualified Code(s): G80.9 - Cerebral palsy, unspecified Is this a current diagnosis for this admission?: Yes (5) Epilepsy without status epilepticus, not intractable Qualifiers: Epilepsy type: unspecified Qualified Code(s): G40.909 - Epilepsy, unspecifi ed, not intractable, without status epilepticus Is this a current diagnosis for this admission?: Yes (6) GERD (gastroesophageal reflux disease) Qualifiers: Esophagitis presence: without esophagitis Is this a current diagnosis for this admission?: Yes (7) Mental and behavioral problem Is this a current diagnosis for this admission?: Yes - Time Time Spent with patient: 15-24 minutes Level of Care: IMCU Medications reviewed and adjusted accordingly: Yes Anticipated discharge: Other Within: Other - Plan Summary Plan Summary: Continues to IV antibiotic
[2019-03-05] MEDS: POLYETHYLENE GLYCOL 3350 POWDER 17 GM/1 PACKET JT SCH (18:15)
[2019-03-05] MEDS: LACOSAMIDE 100 MG TABLET JT SCH (18:16)
[2019-03-05] MEDS: ZOLPIDEM TARTRATE 5 MG TABLET JT SCH (19:43)
[2019-03-06] MEDS: PIPERACILLIN SODIUM/TAZOBACTAM 3.375 GM in NORMAL SALINE 100 ML IV SCH ×5 (00:59→23:45)
[2019-03-06] MEDS: VANCOMYCIN HCL 750 MG in DEXTROSE 5%-WATER 250 ML IV SCH ×3 (02:17→17:43)
[2019-03-06] MEDS: CLONAZEPAM 1 MG TABLET JT SCH ×3 (06:00→21:04)
[2019-03-06] MEDS: PANTOPRAZOLE SODIUM 40 MG PACKET.DR GT SCH (06:03)
[2019-03-06] MEDS: CARBAMAZEPINE 100 MG TAB.CHEW JT SCH ×3 (06:04→21:03)
[2019-03-06 06:29] LABS: ABSOLUTE EOSINOPHILS # (AUTO) 0.3 10^3/uL (0.0-0.6); ABSOLUTE LYMPHOCYTES (AUTO) 1.4 10^3/uL (0.5-4.7); ABSOLUTE MONOCYTES (AUTO) 0.9 10^3/uL (0.1-1.4); ABSOLUTE NEUT (AUTO) 6.1 10^3/uL (1.7-8.2); BASOPHILS % (AUTO) 0.4 % (0-2); EOSINOPHILS % (AUTO) 3.1 % (0-6); HEMATOCRIT 34.9 % (37.9-51.0); HEMOGLOBIN 11.7 g/dL (13.5-17.0); LYMPHOCYTES % (AUTO) 16.1 % (13-45); MEAN CORPUSCULAR HEMOGLOBIN 27.2 pg (27.0-33.4); MEAN CORPUSCULAR HGB CONC 33.6 g/dL (32.0-36.0); MEAN CORPUSCULAR VOLUME 81 fl (80-97); MONOCYTES % (AUTO) 9.9 % (3-13); PLATELET COUNT 208 10^3/uL (150-450); RED BLOOD COUNT 4.31 10^6/uL (4.35-5.55); RED CELL DISTRIBUTION WIDTH 16.6 % (11.5-14.0); SEGMENTED NEUTROPHILS % (AUTO) 70.5 % (42-78); TOTAL CELLS COUNTED % (AUTO) 100 %; WHITE BLOOD COUNT 8.6 10^3/uL (4.0-10.5)
[2019-03-06 06:47] LABS: ANION GAP 11 (5-19); BLOOD UREA NITROGEN 6 mg/dL (7-20); CALCIUM 9.4 mg/dL (8.4-10.2); CARBON DIOXIDE 23 mmol/L (22-30); CHLORIDE 105 mmol/L (98-107); GLUCOSE 122 mg/dL (75-110); POTASSIUM 3.2 mmol/L (3.6-5.0)
[2019-03-06] MEDS ORDERED: POTASSIUM CHLORIDE 20 MEQ PACKET PO ONE (09:00)
[2019-03-06] MEDS: BRIVIACT JT SCH ×2 (09:18→19:18)
[2019-03-06] MEDS: VIMPAT 10 MG/ML JT SCH ×2 (09:19→19:19)
[2019-03-06] MEDS: CLORAZEPATE DIPOTASSIUM 7.5 MG TABLET JT SCH ×2 (09:19→21:00)
[2019-03-06] MEDS: ENOXAPARIN SODIUM INJ 40 MG/0.4 ML DISP.SYRIN SUBCUT SCH (09:20)
[2019-03-06] MEDS: CHOLECALCIFEROL (D3) 1,000 UNIT (25 MCG) TABLET JT SCH (09:21)
--- NOTE | 2019-03-06 12:58 | PDOC PROGRESS REPORT ---
Subjective Progress Note for:: 03/06/19 Subjective:: Patient was admitted in the hospital for the fever aspiration pneumonia currently IV Zosyn and vancomycin Patient is currently feeling better per nursing staff's fever is coming down Reason For Visit: ASPIRATION PNEUMONIA,SEIZURE DISORDER Physical Exam Vital Signs: Temp Pulse Resp BP Pulse Ox 98.2 F 89 18 118/82 96 03/06/19 11:08 03/06/19 11:08 03/06/19 11:08 03/06/19 11:08 03/06/19 11:08 Intake & Output 03/05/19 03/06/19 03/07/19 06:59 06:59 06:59 Intake Total 1550 4050 350 Balance 1550 4050 350 Weight 60.7 kg 60.4 kg General appearance: PRESENT: no acute distress, well-developed, well-nourished Head exam: PRESENT: atraumatic, normocephalic Eye exam: PRESENT: conjunctiva pink, EOMI, PERRLA. ABSENT: scleral icterus Ear exam: PRESENT: normal external ear exam Mouth exam: PRESENT: moist, tongue midline Neck exam: PRESENT: full ROM. ABSENT: carotid bruit, JVD, lymphadenopathy, thyromegaly Respiratory exam: PRESENT: clear to auscultation roula Cardiovascular exam: PRESENT: RRR. ABSENT: diastolic murmur, rubs, systolic murmur Pulses: PRESENT: normal dorsalis pedis pul, +2 pedal pulses bilateral Vascular exam: PRESENT: normal capillary refill GI/Abdominal exam: PRESENT: normal bowel sounds, soft. ABSENT: distended, guarding, mass, organolmegaly, rebound, tenderness Rectal exam: PRESENT: deferred Neurological exam: PRESENT: alert, awake. ABSENT: motor sensory deficit Psychiatric exam: PRESENT: appropriate affect, normal mood. ABSENT: homicidal ideation, suicidal ideation Skin exam: PRESENT: dry, intact, warm. ABSENT: cyanosis, rash Results Laboratory Results: 03/06/19 05:37 03/06/19 05:37 03/06/19 03/06/19 05:37 05:37 WBC 8.6 RBC 4.31 L Hgb 11.7 L Hct 34.9 L MCV 81 MCH 27.2 MCHC 33.6 RDW 16.6 H Plt Count 208 Seg Neutrophils % 70.5 Sodium 139.0 Potassium 3.2 L Chloride 105 Carbon Dioxide 23 Anion Gap 11 BUN 6 L Creatinine 0.84 Est GFR ( Amer) > 60 Glucose 122 H Calcium 9.4 03/04/19 06:29 Blood Blood Culture (PCR) - Final Staphylococcus Species Impressions: Chest X-Ray 03/04/19 06:40 IMPRESSION: NO ACUTE RADIOGRAPHIC FINDING IN THE CHEST. Assessment & Plan - Diagnosis (1) Fever Qualifiers: Fever type: unspecified Qualified Code(s): R50.9 - Fever, unspecified Is this a current diagnosis for this admission?: Yes (2) Leukocytosis, unspecified Qualifiers: Leukocytosis type: unspecified Qualified Code(s): D72.829 - Elevated white blood cell count, unspecified Is this a current diagnosis for this admission?: Yes (3) Aspiration pneumonia Qualifiers: Aspiration pneumonia type: due to gastric secretions Laterality: right Lung location: unspecified part of lung Qualified Code(s): J69.0 - Pneumonitis due to inhalation of food and vomit Is this a current diagnosis for this admission?: Yes (4) Cerebral palsy Qualifiers: Cerebral palsy type: unspecified type Qualified Code(s): G80.9 - Cerebral palsy, unspecified Is this a current diagnosis for this admission?: Yes (5) Epilepsy without status epilepticus, not intractable Qualifiers: Epilepsy type: unspecified Qualified Code(s): G40.909 - Epilepsy, unspecified, not intractable, without status epilepticus Is this a current diagnosis for this admission?: Yes (6) GERD (gastroesophageal reflux disease) Qualifiers: Esophagitis presence: without esophagitis Is this a current diagnosis for this admission?: Yes (7) Mental and behavioral problem Is this a current diagnosis for this admission?: Yes - Time Time Spent with patient: 15-24 minutes Level of Care: IMCU Medications reviewed and adjusted accordingly: Yes Anticipated discharge: Other Within: Other - Plan Summary Plan Summary: Continues to IV antibiotic
[2019-03-06] MEDS: POLYETHYLENE GLYCOL 3350 POWDER 17 GM/1 PACKET JT SCH (17:06)
[2019-03-06 19:03] LABS: VANCOMYCIN,TROUGH 11.6 ug/mL (5.0-20.0)
[2019-03-06] MEDS: ZOLPIDEM TARTRATE 5 MG TABLET JT SCH (19:18)
[2019-03-07] MEDS ORDERED: VANCOMYCIN HCL 1,000 MG in DEXTROSE 5%-WATER 250 ML IV SCH ×2
[2019-03-07] MEDS: DEXTROSE 5%-WATER 1000 ML 1,000 ML IV PRN ×2 (00:04→19:20)
[2019-03-07] MEDS: VANCOMYCIN HCL 750 MG in DEXTROSE 5%-WATER 250 ML IV SCH ×3 (02:14→19:20)
[2019-03-07] MEDS: CLONAZEPAM 1 MG TABLET JT SCH ×3 (05:22→21:30)
[2019-03-07] MEDS: PANTOPRAZOLE SODIUM 40 MG PACKET.DR GT SCH (05:22)
[2019-03-07] MEDS: CARBAMAZEPINE 100 MG TAB.CHEW JT SCH ×3 (05:23→21:23)
[2019-03-07] MEDS: PIPERACILLIN SODIUM/TAZOBACTAM 3.375 GM in NORMAL SALINE 100 ML IV SCH ×4 (05:40→23:28)
[2019-03-07 05:48] LABS: ANION GAP 5 (5-19); BLOOD UREA NITROGEN 6 mg/dL (7-20); CALCIUM 9.2 mg/dL (8.4-10.2); CARBON DIOXIDE 30 mmol/L (22-30); CHLORIDE 105 mmol/L (98-107); GLUCOSE 91 mg/dL (75-110); POTASSIUM 4.1 mmol/L (3.6-5.0)
--- NOTE | 2019-03-07 09:27 | PDOC PROGRESS REPORT ---
Subjective Progress Note for:: 03/07/19 Subjective:: Patient was admitted in the hospital for the fever aspiration pneumonia currently IV Zosyn and vancomycin Patient is currently feeling better per nursing staff's fever is coming down Reason For Visit: ASPIRATION PNEUMONIA,SEIZURE DISORDER Physical Exam Vital Signs: Temp Pulse Resp BP Pulse Ox 98.5 F 97 18 118/72 99 03/07/19 07:38 03/07/19 07:38 03/07/19 07:38 03/07/19 07:38 03/07/19 07:38 Intake & Output 03/06/19 03/07/19 03/08/19 06:59 06:59 06:59 Intake Total 4050 2832 Output Total 350 Balance 4050 2482 Weight 60.4 kg 63.4 kg General appearance: PRESENT: no acute distress, well-developed, well-nourished Head exam: PRESENT: atraumatic, normocephalic Eye exam: PRESENT: conjunctiva pink, EOMI, PERRLA. ABSENT: scleral icterus Ear exam: PRESENT: normal external ear exam Mouth exam: PRESENT: moist, tongue midline Neck exam: PRESENT: full ROM. ABSENT: carotid bruit, JVD, lymphadenopathy, thyromegaly Respiratory exam: PRESENT: decreased breath sounds Cardiovascular exam: PRESENT: RRR. ABSENT: diastolic murmur, rubs, systolic murmur Pulses: PRESENT: normal dorsalis pedis pul, +2 pedal pulses bilateral Vascular exam: PRESENT: normal capillary refill GI/Abdominal exam: PRESENT: normal bowel sounds, soft. ABSENT: distended, guarding, mass, organolmegaly, rebound, tenderness Rectal exam: PRESENT: deferred Neurological exam: PRESENT: alert, awake, oriented to person. ABSENT: motor sen tess deficit Psychiatric exam: PRESENT: appropriate affect, normal mood. ABSENT: homicidal ideation, suicidal ideation Skin exam: PRESENT: dry, intact, warm. ABSENT: cyanosis, rash Results Laboratory Results: 03/06/19 05:37 03/07/19 04:49 03/06/19 03/07/19 17:34 04:49 Sodium 140.2 Potassium 4.1 Chloride 105 Carbon Dioxide 30 Anion Gap 5 BUN 6 L Creatinine 0.82 0.83 Est GFR ( Amer) > 60 > 60 Glucose 91 Calcium 9.2 03/04/19 06:29 Blood Blood Culture (PCR) - Final Staphylococcus Species Impressions: Chest X-Ray 03/04/19 06:40 IMPRESSION: NO ACUTE RADIOGRAPHIC FINDING IN THE CHEST. Assessment & Plan - Diagnosis (1) Fever Qualifiers: Fever type: unspecified Qualified Code(s): R50.9 - Fever, unspecified Is this a current diagnosis for this admission?: Yes (2) Leukocytosis, unspecified Qualifiers: Leukocytosis type: unspecified Qualified Code(s): D72.829 - Elevated white blood cell count, unspecified Is this a current diagnosis for this admission?: Yes (3) Aspiration pneumonia Qualifiers: Aspiration pneumonia type: due to gastric secretions Laterality: right Lung location: unspecified part of lung Qualified Code(s): J69.0 - Pneumonitis due to inhalation of food and vomit Is this a current diagnosis for this admission?: Yes (4) Cerebral palsy Qualifiers: Cerebral palsy type: unspecified type Qualified Code(s): G80.9 - Cerebral palsy, unspecified Is this a current diagnosis for this admission?: Yes (5) Epilepsy without status epilepticus, not intractable Qualifiers: Epilepsy type: unspecified Qualified Code(s): G40.909 - Epilepsy, unspecified, not intractable, without status epilepticus Is this a current diagnosis for this admission?: Yes (6) GERD (gastroesophageal reflux disease) Qualifiers: Esophagitis presence: without esophagitis Is this a current diagnosis for this admission?: Yes (7) Mental and behavioral problem Is this a current diagnosis for this admission?: Yes - Time Time Spent with patient: 15-24 minutes Level of Care: IMCU Medications reviewed and adjusted accordingly: Yes Within: Other - Plan Summary Plan Summary: Continues to current medications
[2019-03-07] MEDS: ENOXAPARIN SODIUM INJ 40 MG/0.4 ML DISP.SYRIN SUBCUT SCH (09:34)
[2019-03-07] MEDS: CLORAZEPATE DIPOTASSIUM 7.5 MG TABLET JT SCH ×2 (09:35→20:28)
[2019-03-07] MEDS: CHOLECALCIFEROL (D3) 1,000 UNIT (25 MCG) TABLET JT SCH (09:35)
[2019-03-07] MEDS: VIMPAT 10 MG/ML JT SCH ×2 (09:36→20:29)
[2019-03-07] MEDS: BRIVIACT JT SCH ×2 (09:38→20:30)
--- NOTE | 2019-03-07 16:31 | RADIOLOGY REPORT (SQ) ---
EXAM DESCRIPTION: CHEST SINGLE VIEW COMPLETED DATE/TIME: 03/07/2019 4:21 pm REASON FOR STUDY: Aspiration pneumonia COMPARISON: 03/04/2019 EXAM PARAMETERS: NUMBER OF VIEWS: One view. TECHNIQUE: Single frontal radiographic view of the chest acquired. RADIATION DOSE: NA LIMITATIONS: None. FINDINGS: LUNGS AND PLEURA: No opacities, masses or pneumothorax. No pleural effusion. MEDIASTINUM AND HILAR STRUCTURES: No masses. Contour normal. HEART AND VASCULAR STRUCTURES: Heart normal in size. Normal vasculature. BONES: No acute findings. HARDWARE: Unchanged. OTHER: No other significant finding. IMPRESSION: NO ACUTE RADIOGRAPHIC FINDING IN THE CHEST. TECHNICAL DOCUMENTATION: JOB ID: [id number] [employer]- All Rights Reserved Reading location - IP/workstation name: [email or web address]
[2019-03-07] MEDS: POLYETHYLENE GLYCOL 3350 POWDER 17 GM/1 PACKET JT SCH (18:37)
[2019-03-07] MEDS: ZOLPIDEM TARTRATE 5 MG TABLET JT SCH (19:21)
[2019-03-08] MEDS: VANCOMYCIN HCL 750 MG in DEXTROSE 5%-WATER 250 ML IV SCH ×3 (01:41→19:39)
[2019-03-08] MEDS: CARBAMAZEPINE 100 MG TAB.CHEW JT SCH ×3 (05:22→21:39)
[2019-03-08] MEDS: PANTOPRAZOLE SODIUM 40 MG PACKET.DR GT SCH (05:23)
[2019-03-08] MEDS: CLONAZEPAM 1 MG TABLET JT SCH ×3 (05:23→21:08)
[2019-03-08] MEDS: PIPERACILLIN SODIUM/TAZOBACTAM 3.375 GM in NORMAL SALINE 100 ML IV SCH ×4 (05:24→23:22)
[2019-03-08 06:15] LABS: ANION GAP 10 (5-19); BLOOD UREA NITROGEN 8 mg/dL (7-20); CALCIUM 9.5 mg/dL (8.4-10.2); CARBON DIOXIDE 25 mmol/L (22-30); CHLORIDE 106 mmol/L (98-107); GLUCOSE 105 mg/dL (75-110); POTASSIUM 4.3 mmol/L (3.6-5.0)
--- NOTE | 2019-03-08 08:22 | PDOC PROGRESS REPORT ---
Subjective Progress Note for:: 03/08/19 Subjective:: Patient is currently doing better Patient's denied any other symptoms per nursing staff no fever Reason For Visit: ASPIRATION PNEUMONIA,SEIZURE DISORDER Physical Exam Vital Signs: Temp Pulse Resp BP Pulse Ox 98.0 F 75 18 113/80 100 03/08/19 07:10 03/08/19 07:10 03/08/19 07:10 03/08/19 07:10 03/08/19 07:10 Intake & Output 03/07/19 03/08/19 03/09/19 06:59 06:59 06:59 Intake Total 2832 2150 Output Total 350 3655 Balance 2482 -1505 Weight 63.4 kg 65.7 kg General appearance: PRESENT: no acute distress, well-developed, well-nourished Head exam: PRESENT: atraumatic, normocephalic Eye exam: PRESENT: conjunctiva pink, EOMI, PERRLA. ABSENT: scleral icterus Ear exam: PRESENT: normal external ear exam Mouth exam: PRESENT: moist, tongue midline Neck exam: PRESENT: full ROM. ABSENT: carotid bruit, JVD, lymphadenopathy, thyromegaly Respiratory exam: PRESENT: clear to auscultation roula Cardiovascular exam: PRESENT: RRR. ABSENT: diastolic murmur, rubs, systolic murmur Vascular exam: PRESENT: normal capillary refill GI/Abdominal exam: PRESENT: normal bowel sounds, soft. ABSENT: distended, guarding, mass, organolmegaly, rebound, tenderness Rectal exam: PRESENT: deferred Neurological exam: PRESENT: alert, awake. ABSENT: motor sensory deficit Psychiatric exam: PRESENT: appropriate affect, normal mood. ABSENT: homicidal ideation, suicidal ideation Skin exam: PRESENT: dry, intact, warm. ABSENT: cyanosis, rash Results Laboratory Results: 03/06/19 05:37 03/08/19 05:14 03/08/19 05:14 Sodium 141.1 Potassium 4.3 Chloride 106 Carbon Dioxide 25 Anion Gap 10 BUN 8 Creatinine 0.75 Est GFR ( Amer) > 60 Glucose 105 Calcium 9.5 03/04/19 06:29 Blood Blood Culture (PCR) - Final Staphylococcus Species 03/04/19 06:29 Blood Blood Culture - Final Staphylococcus Epidermidis Impressions: Chest X-Ray 03/07/19 00:00 IMPRESSION: NO ACUTE RADIOGRAPHIC FINDING IN THE CHEST. Assessment & Plan - Diagnosis (1) Fever Qualifiers: Fever type: unspecified Qualified Code(s): R50.9 - Fever, unspecified Is this a current diagnosis for this admission?: Yes (2) Leukocytosis, unspecified Qualifiers: Leukocytosis type: unspecified Qualified Code(s): D72.829 - Elevated white blood cell count, unspecified Is this a current diagnosis for this admission?: Yes (3) Aspiration pneumonia Qualifiers: Aspiration pneumonia type: due to gastric secretions Laterality: right Lung location: unspecified part of lung Qualified Code(s): J69.0 - Pneumonitis due to inhalation of food and vomit Is this a current diagnosis for this admission?: Yes (4) Cerebral palsy Qualifiers: Cerebral palsy type: unspecified type Qualified Code(s): G80.9 - Cerebral palsy, unspecified Is this a current diagnosis for this admission?: Yes (5) Epilepsy without status epilepticus, not intractable Qualifiers: Epilepsy type: unspecified Qualified Code(s): G40.909 - Epilepsy, unspecified, not intractable, without status epilepticus Is this a current diagnosis for this admission?: Yes (6) GERD (gastroesophageal reflux disease) Qualifiers: Esophagitis presence: without esophagitis Is this a current diagnosis for this admission?: Yes (7) Mental and behavioral problem Is this a current diagnosis for this admission?: Yes - Time Time Spent with patient: 15-24 minutes Level of Care: IMCU Medications reviewed and adjusted accordingly: Yes Anticipated discharge: Other Within: Other - Plan Summary Plan Summary: Continues to IV antibiotic repeat the blood cultures
[2019-03-08] MEDS: CHOLECALCIFEROL (D3) 1,000 UNIT (25 MCG) TABLET JT SCH (09:07)
[2019-03-08] MEDS: CLORAZEPATE DIPOTASSIUM 7.5 MG TABLET JT SCH ×2 (09:07→21:39)
[2019-03-08] MEDS: VIMPAT 10 MG/ML JT SCH ×2 (09:07→21:08)
[2019-03-08] MEDS: ENOXAPARIN SODIUM INJ 40 MG/0.4 ML DISP.SYRIN SUBCUT SCH (09:08)
[2019-03-08] MEDS: BRIVIACT JT SCH ×2 (09:08→21:08)
[2019-03-08] MEDS: POLYETHYLENE GLYCOL 3350 POWDER 17 GM/1 PACKET JT SCH (17:49)
[2019-03-08] MEDS: ZOLPIDEM TARTRATE 5 MG TABLET JT SCH (21:08)
[2019-03-09] MEDS: VANCOMYCIN HCL 750 MG in DEXTROSE 5%-WATER 250 ML IV SCH ×2 (03:04→11:29)
[2019-03-09] MEDS: PANTOPRAZOLE SODIUM 40 MG PACKET.DR GT SCH (05:55)
[2019-03-09] MEDS: PIPERACILLIN SODIUM/TAZOBACTAM 3.375 GM in NORMAL SALINE 100 ML IV SCH ×2 (05:55→11:30)
[2019-03-09] MEDS: CARBAMAZEPINE 100 MG TAB.CHEW JT SCH (05:55)
[2019-03-09] MEDS: CLONAZEPAM 1 MG TABLET JT SCH (05:56)
[2019-03-09 06:56] LABS: ABSOLUTE EOSINOPHILS # (AUTO) 0.4 10^3/uL (0.0-0.6); ABSOLUTE MONOCYTES (AUTO) 0.8 10^3/uL (0.1-1.4); BASOPHILS % (AUTO) 0.6 % (0-2); EOSINOPHILS % (AUTO) 5.7 % (0-6); HEMATOCRIT 36.8 % (37.9-51.0); HEMOGLOBIN 12.2 g/dL (13.5-17.0); LYMPHOCYTES % (AUTO) 32.2 % (13-45); MEAN CORPUSCULAR HEMOGLOBIN 27.2 pg (27.0-33.4); MEAN CORPUSCULAR HGB CONC 33.3 g/dL (32.0-36.0); MEAN CORPUSCULAR VOLUME 82 fl (80-97); PLATELET COUNT 284 10^3/uL (150-450); RED CELL DISTRIBUTION WIDTH 16.8 % (11.5-14.0); SEGMENTED NEUTROPHILS % (AUTO) 48.5 % (42-78); TOTAL CELLS COUNTED % (AUTO) 100 %; WHITE BLOOD COUNT 6.2 10^3/uL (4.0-10.5)
[2019-03-09 07:19] LABS: ANION GAP 12 (5-19); BLOOD UREA NITROGEN 10 mg/dL (7-20); CALCIUM 9.7 mg/dL (8.4-10.2); CARBON DIOXIDE 24 mmol/L (22-30); CHLORIDE 106 mmol/L (98-107); GLUCOSE 93 mg/dL (75-110); POTASSIUM 4.7 mmol/L (3.6-5.0)
--- NOTE | 2019-03-09 09:00 | PDOC DISCHARGE SUMMARY ---
Impression - Admit/DC Date/PCP Admission Date/Primary Care Provider: 03/04/19 12:56 JOSEPH MONTE MD Discharge Date: 03/09/19 - Discharge Diagnosis (1) Fever Is this a current diagnosis for this admission?: Yes (2) Leukocytosis, unspecified Is this a current diagnosis for this admission?: Yes (3) Aspiration pneumonia Is this a current diagnosis for this admission?: Yes (4) Cerebral palsy Is this a current diagnosis for this admission?: Yes (5) Epilepsy without status epilepticus, not intractable Is this a current diagnosis for this admission?: Yes (6) GERD (gastroesophageal reflux disease) Is this a current diagnosis for this admission?: Yes (7) Mental and behavioral problem Is this a current diagnosis for this admission?: Yes - Additional Information Resuscitation Status: Full Code Discharge Diet: Tube Feeding (Comments) Discharge Activity: Activity As Tolerated Referrals: JOSEPH MONTE MD [Primary Care Provider] - Follow up as needed Prescriptions: Doxycycline Hyclate 100 mg PO BID #14 tablet. Home Medications: Carbamazepine [Tegretol 100 mg Chewable Tablet] 400 mg JT Q8 03/17/17 Cholecalciferol (Vitamin D3) [Vitamin D3 1000 Unit Tablet] 1,000 unit JT DAILY 03/17/17 Clonazepam [Klonopin] 1.5 mg JT Q8 03/17/17 Eszopiclone [Lunesta] 3 mg JT QPM@199903/17/17 Polyethylene Glycol 3350 [Miralax Powder 17 gm/Packet] 17 gm JT QPM 03/17/17 Brivaracetam [Briviact] 100 mg JT BID@,09/04/18 Clorazepate Dipotassium [Tranxene 7.5 mg Tablet] 3.75 mg JT BID@,03/04/19 Ranitidine HCl [Zantac Syrup 150 mg/10 ml Udcup] 75 mg JT DAILY 03/04/19 Vimpat 10mg/Ml Liquid 200 mg JT BID@,03/04/19 Doxycycline Hyclate 100 mg PO BID #14 tablet. 03/09/19 History of Present Illiness History of Present Illness: CECI HSIEH is a 38 year old male This is a 38-year-old Male came from the custodial from cerebral palsy mental retardation's with aspiration pneumonia and a fever and admitted and started on appropriate antibiotic Hospital Course Hospital Course: This is a 38-year-old male admitted for the fever and aspiration pneumonia start with the zosyn And vancomycin IV for 6 days patients remain afebrile white count is normal back to the baseline's Patient's 1 blood culture is positive not sure will be contaminated but sensitive to the doxycycline Patient's chest x-ray is all clear Patient's otherwise other medical condition is all stable discussed with the inpatient pharmacy about doxycycline tablet able to use the tube and discussed with the [facility] nursing staff to use for 7 more days Following a 1 week in office will repeat the CBC and Chem-7 I think patients remain afebrile white count of normal in patients finished 6 days IV antibiotic I do not think so patients need any more IV will continue 7 more days p.o. antibiotic and continues the home medications Physical Exam Vital Signs: Temp Pulse Resp BP Pulse Ox 97.4 F 57 L 16 113/72 99 03/09/19 03:20 03/09/19 07:00 03/09/19 03:20 03/09/19 03:20 03/09/19 03:20 Intake & Output 03/08/19 03/09/19 03/10/19 06:59 06:59 06:59 Intake Total 2150 2150 Output Total 3655 1700 Balance -1505 450 Weight 65.7 kg 61 kg General appearance: PRESENT: no acute distress, well-developed, well-nourished Head exam: PRESENT: atraumatic, normocephalic Eye exam: PRESENT: conjunctiva pink, EOMI, PERRLA. ABSENT: scleral icterus Ear exam: PRESENT: normal external ear exam Mouth exam: PRESENT: moist, tongue midline Neck exam: ABSENT: carotid bruit, JVD, lymphadenopathy, thyromegaly Respiratory exam: PRESENT: clear to auscultation roula. ABSENT: rales, rhonchi, wheezes Cardiovascular exam: PRESENT: RRR. ABSENT: diastolic murmur, rubs, systolic murmur Pulses: PRESENT: normal dorsalis pedis pul Vascular exam: PRESENT: normal capillary refill GI/Abdominal exam: PRESENT: normal bowel sounds, soft. ABSENT: distended, guarding, mass, organolmegaly, rebound, tenderness Rectal exam: PRESENT: deferred Extremities exam: PRESENT: full ROM. ABSENT: calf tenderness, clubbing, pedal edema Neurological exam: PRESENT: alert, awake, oriented to person. ABSENT: motor sensory deficit Psychiatric exam: PRESENT: appropriate affect, normal mood. ABSENT: homicidal ideation, suicidal ideation Skin exam: PRESENT: dry, intact, warm. ABSENT: cyanosis, rash Results Laboratory Results: WBC 6.2 10^3/uL (4.0-10.5) 03/09/19 05:53 RBC 4.50 10^6/uL (4.35-5.55) 03/09/19 05:53 Hgb 12.2 g/dL (13.5-17.0) L 03/09/19 05:53 Hct 36.8 % (37.9-51.0) L 03/09/19 05:53 MCV 82 fl (80-97) 03/09/19 05:53 MCH 27.2 pg (27.0-33.4) 03/09/19 05:53 MCHC 33.3 g/dL (32.0-36.0) 03/09/19 05:53 RDW 16.8 % (11.5-14.0) H 03/09/19 05:53 Plt Count 284 10^3/uL (150-450) 03/09/19 05:53 Lymph % (Auto) 32.2 % (13-45) 03/09/19 05:53 Fannin % (Auto) 13.0 % (3-13) 03/09/19 05:53 Eos % (Auto) 5.7 % (0-6) 03/09/19 05:53 Baso % (Auto) 0.6 % (0-2) 03/09/19 05:53 Absolute Neuts (auto) 3.0 10^3/uL (1.7-8.2) 03/09/19 05:53 Absolute Lymphs (auto) 2.0 10^3/uL (0.5-4.7) 03/09/19 05:53 Absolute Monos (auto) 0.8 10^3/uL (0.1-1.4) 03/09/19 05:53 Absolute Eos (auto) 0.4 10^3/uL (0.0-0.6) 03/09/19 05:53 Absolute Basos (auto) 0.0 10^3/uL (0.0-0.2) 03/09/19 05:53 Total Counted 100 03/04/19 06:50 Seg Neutrophils % 48.5 % (42-78) 03/09/19 05:53 Seg Neuts % (Manual) 88 % (42-78) H 03/04/19 06:50 Band Neutrophils % 1 % (3-5) L 03/04/19 06:50 Lymphocytes % (Manual) 2 % (13-45) L 03/04/19 06:50 Monocytes % (Manual) 9 % (3-13) 03/04/19 06:50 Eosinophils % (Manual) 0 % (0-6) 03/04/19 06:50 Basophils % (Manual) 0 % (0-2) 03/04/19 06:50 Abs Neuts (Manual) 13.5 10^3/uL (1.7-8.2) H 03/04/19 06:50 Abs Lymphs (Manual) 0.3 10^3/uL (0.5-4.7) L 03/04/19 06:50 Abs Monocytes (Manual) 1.4 10^3/uL (0.1-1.4) 03/04/19 06:50 Absolute Eos (Manual) 0.0 10^3/uL (0.0-0.6) 03/04/19 06:50 Abs Basophils (Manual) 0.0 10^3/uL (0.0-0.2) 03/04/19 06:50 Toxic Granulation 1+ 03/04/19 06:50 Platelet Comment ADEQUATE 03/04/19 06:50 Anisocytosis 1+ 03/04/19 06:50 PT 12.9 SEC (11.4-15.4) 03/04/19 06:50 INR 0.97 03/04/19 06:50 APTT 28.8 SEC (23.5-35.8) 03/04/19 06:50 Sodium 141.7 mmol/L (137-145) 03/09/19 05:53 Potassium 4.7 mmol/L (3.6-5.0) 03/09/19 05:53 Chloride 106 mmol/L (98-107) 03/09/19 05:53 Carbon Dioxide 24 mmol/L (22-30) 03/09/19 05:53 Anion Gap 12 (5-19) 03/09/19 05:53 BUN 10 mg/dL (7-20) 03/09/19 05:53 Creatinine 0.79 mg/dL (0.52-1.25) 03/09/19 05:53 Est GFR ( Amer) > 60 (>60) 03/09/19 05:53 Est GFR (MDRD) Non-Af > 60 (>60) 03/09/19 05:53 Glucose 93 mg/dL (75-110) 03/09/19 05:53 POC Glucose 116 mg/dL (70-110) H 03/09/19 06:08 Lactic Acid 1.5 mmol/L (0.7-2.1) 03/04/19 06:29 Calcium 9.7 mg/dL (8.4-10.2) 03/09/19 05:53 Total Bilirubin 0.6 mg/dL (0.2-1.3) 03/05/19 08:13 Direct Bilirubin 0.4 mg/dL (0.0-0.4) 03/05/19 08:13 Neonat Total Bilirubin Not Reportable 03/05/19 08:13 Neonat Direct Bilirubin Not Reportable 03/05/19 08:13 Neonat Indirect Bili Not Reportable 03/05/19 08:13 AST 46 U/L (17-59) 03/05/19 08:13 ALT 34 U/L (<50) 03/05/19 08:13 Alkaline Phosphatase 113 U/L (38-126) 03/05/19 08:13 Total Protein 6.8 g/dL (6.3-8.2) 03/05/19 08:13 Albumin 3.4 g/dL (3.5-5.0) L 03/05/19 08:13 Urine Color STRAW 03/04/19 08:22 Urine Appearance CLEAR 03/04/19 08:22 Urine pH 8.0 (5.0-9.0) 03/04/19 08:22 Ur Specific [place] 1.004 03/04/19 08:22 Urine Protein NEGATIVE mg/dL (NEGATIVE) 03/04/19 08:22 Urine Glucose (UA) NEGATIVE mg/dL (NEGATIVE) 03/04/19 08:22 Urine Ketones NEGATIVE mg/dL (NEGATIVE) 03/04/19 08:22 Urine Blood NEGATIVE (NEGATIVE) 03/04/19 08:22 Urine Nitrite (Reflex) NEGATIVE (NEGATIVE) 03/04/19 08:22 Urine Bilirubin NEGATIVE (NEGATIVE) 03/04/19 08:22 Urine Urobilinogen NEGATIVE mg/dL (<2.0) 03/04/19 08:22 Leukocyte Esterase Rfl NEGATIVE (NEGATIVE) 03/04/19 08:22 Urine RBC (Auto) 1 /HPF 03/04/19 08:22 Urine WBC (Reflex) < 1 /HPF 03/04/19 08:22 Urine Mucus (Auto) RARE /LPF 03/04/19 08:22 Urine Ascorbic Acid NEGATIVE (NEGATIVE) 03/04/19 08:22 POC Stool Occult Blood NEGATIVE (NEGATIVE) 03/04/19 07:22 Time Trough Drawn 1734 03/06/19 17:34 Vancomycin Trough 11.6 ug/mL (5.0-20.0) 03/06/19 17:34 Carbamazepine 9.9 ug/mL (4.0-12.0) 03/04/19 06:50 Influenza A (Rapid) NEGATIVE (NEGATIVE) 03/04/19 09:19 Influenza B (Rapid) NEGATIVE (NEGATIVE) 03/04/19 09:19 Impressions: Chest X-Ray 03/04/19 06:40 IMPRESSION: NO ACUTE RADIOGRAPHIC FINDING IN THE CHEST. Chest X-Ray 03/07/19 00:00 IMPRESSION: NO ACUTE RADIOGRAPHIC FINDING IN THE CHEST. Plan Time Spent: Greater than 30 Minutes - With the CBC and Chem-7 In 1 week Aspirations precautions Stroke Is this a Stroke Patient?: No Acute Heart Failure - Is this a Heart Failure Patient?: No
[2019-03-09] MEDS: VIMPAT 10 MG/ML JT SCH (09:02)
[2019-03-09] MEDS: CLORAZEPATE DIPOTASSIUM 7.5 MG TABLET JT SCH (09:02)
[2019-03-09] MEDS: BRIVIACT JT SCH (09:02)
[2019-03-09 09:48] VITALS: BP 116/93
[2019-03-09] MEDS: CHOLECALCIFEROL (D3) 1,000 UNIT (25 MCG) TABLET JT SCH (11:29)
[2019-03-09] MEDS: ENOXAPARIN SODIUM INJ 40 MG/0.4 ML DISP.SYRIN SUBCUT SCH (11:29)
== END 2019-03-09 11:49 | disposition other institution (70) | DRG 884 ==
LOC: ER 06:10 → EH 10:53 → OBSVTOIN 12:56 → 3S 16:04
PROVIDERS: ADMIT Family Medicine; ATTEND Family Medicine
DX: F73 Profound intellectual disabilities (principal); J69.0 Pneumonitis due to inhalation of food and vomit; G80.9 Cerebral palsy, unspecified; R13.12 Dysphagia, oropharyngeal phase; K21.9 Gastro-esophageal reflux disease without esophagitis; Z98.2 Presence of cerebrospinal fluid drainage device; G40.909 Epilepsy, unspecified, not intractable, without status epilepticus; Z79.899 Other long term (current) drug therapy; D72.829 Elevated white blood cell count, unspecified
CPT/HCPCS: 36415; 51701; 71045; 80048; 80053; 80156; 80202; 81001; 82565; 82962; 83605; 85025; 85610; 85730; 87040; 87077; 87150; 87186; 87804; 96361; 96365; 96366; 96368; 96375; 96376; 99285; C9113; J1200; J1650; J2060; J2543; J3360; J3370; J3490; J7030; J7050; J7060

== ENCOUNTER → 2019-03-15 | Outpatient (CLI) | payer MEDICAID ==
[2019-03-15 10:08] LABS: ABSOLUTE EOSINOPHILS # (AUTO) 0.1 10^3/uL (0.0-0.6); ABSOLUTE LYMPHOCYTES (AUTO) 1.5 10^3/uL (0.5-4.7); ABSOLUTE MONOCYTES (AUTO) 0.4 10^3/uL (0.1-1.4); BASOPHILS % (AUTO) 0.6 % (0-2); EOSINOPHILS % (AUTO) 2.8 % (0-6); HEMATOCRIT 38.3 % (37.9-51.0); HEMOGLOBIN 12.7 g/dL (13.5-17.0); LYMPHOCYTES % (AUTO) 37.5 % (13-45); MEAN CORPUSCULAR HEMOGLOBIN 27.2 pg (27.0-33.4); MEAN CORPUSCULAR HGB CONC 33.3 g/dL (32.0-36.0); MEAN CORPUSCULAR VOLUME 82 fl (80-97); MONOCYTES % (AUTO) 10.8 % (3-13); PLATELET COUNT 353 10^3/uL (150-450); RED BLOOD COUNT 4.69 10^6/uL (4.35-5.55); SEGMENTED NEUTROPHILS % (AUTO) 48.3 % (42-78); TOTAL CELLS COUNTED % (AUTO) 100 %; WHITE BLOOD COUNT 4.1 10^3/uL (4.0-10.5)
[2019-03-15 10:27] LABS: ALBUMIN 4.3 g/dL (3.5-5.0); ALKALINE PHOSPHATASE 144 U/L (38-126); ANION GAP 11 (5-19); ASPARTATE AMINO TRANSFERASE 34 U/L (17-59); BILIRUBIN,TOTAL 0.3 mg/dL (0.2-1.3); BLOOD UREA NITROGEN 13 mg/dL (7-20); CALCIUM 9.4 mg/dL (8.4-10.2); CARBON DIOXIDE 26 mmol/L (22-30); CHLORIDE 100 mmol/L (98-107); GLUCOSE 74 mg/dL (75-110); POTASSIUM 4.8 mmol/L (3.6-5.0); TOTAL PROTEIN 8.2 g/dL (6.3-8.2)
== END ==
LOC: CAR 09:26
PROVIDERS: ATTEND Family Medicine
DX: J69.0 Pneumonitis due to inhalation of food and vomit (principal); R05 Cough; K21.9 Gastro-esophageal reflux disease without esophagitis; D64.9 Anemia, unspecified; Z79.899 Other long term (current) drug therapy
CPT/HCPCS: 80053; 82728; 85025

== ENCOUNTER → 2019-03-30 | Outpatient (CLI) | payer MEDICAID ==
--- NOTE | 2019-03-30 17:48 | RADIOLOGY REPORT (SQ) ---
EXAM DESCRIPTION: CHEST PA/LATERAL COMPLETED DATE/TIME: 03/30/2019 3:15 pm REASON FOR STUDY: ELEVATED WHITE BLOOD CELL COUNT, UNSPECIFIED COMPARISON: 03/07/2019 EXAM PARAMETERS: NUMBER OF VIEWS: two views TECHNIQUE: Digital Frontal and Lateral radiographic views of the chest acquired. RADIATION DOSE: NA LIMITATIONS: none FINDINGS: LUNGS AND PLEURA: No opacities, masses or pneumothorax. No pleural effusion. MEDIASTINUM AND HILAR STRUCTURES: No masses or contour abnormalities. HEART AND VASCULAR STRUCTURES: Heart normal size. No evidence for failure. BONES: No acute findings. HARDWARE: Unchanged. OTHER: No other significant finding. IMPRESSION: NO SIGNIFICANT RADIOGRAPHIC FINDING IN THE CHEST. TECHNICAL DOCUMENTATION: JOB ID: [id number] 2010 [employer]- All Rights Reserved Reading location - IP/workstation name: [email or web address]
== END ==
LOC: RAD 14:45
PROVIDERS: ATTEND Family Medicine
DX: D72.829 Elevated white blood cell count, unspecified (principal)
CPT/HCPCS: 71046

== ENCOUNTER 2019-04-11 04:55 | Inpatient (IN) | payer MEDICAID ==
--- NOTE | 2019-04-11 05:29 | ER Document Report ---
ED Medical Screen (RME) - General TRAVEL OUTSIDE OF THE [place] IN LAST 30 DAYS: No <ESMER PETERSON - Last Filed: 04/11/19 05:23> - General Mode of Arrival: Medic Information source: Emergency Med Personnel, Outside Facility Records <WHIT ARCHER - Last Filed: 04/11/19 06:22> - General Chief Complaint: Fever Stated Complaint: Fever Time Seen by Provider: 04/11/19 05:23 Primary Care Provider: JOSEPH MONTE MD [Primary Care Provider] - Follow up as needed Notes: 38-year-old male comes by EMS from [facility] for chief complaint of fever. Reportedly patient had a fever of 104 F at the facility, he was given 975 mg of suppository Tylenol by EMS in route. Patient has a history of normal pressure hydrocephalus, seizures, aspiration pneumonia. (ESMER PETERSON) - HPI Notes: 04/11/19 06:19 Patient is brought in by paramedics for fever. Patient has a history of encephalopathy seizure disorder and developmental delay. He is totally care dependent. He lives at an assisted living facility and is accompanied by his nurse. His nurse states she noticed patient was having fever overnight with increased abnormal lung sounds. One episode of vomiting some coffee-ground like substance. She also noticed that he had fever. She states he does have a history of aspiration pneumonia and she was concerned about this. Patient is nonverbal and noncommunicative and is unable to assist with history. Patient's fever and increased work of breathing have apparently been present for about 2 days. They have been gradually worsening. Nothing is known to make them better or worse. There is been no known radiation of the symptoms. They have been relatively constant. They have been apparently moderate in intensity. 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 - Immunizations Hx Diphtheria, Pertussis, Tetanus Vaccination: Yes <ESMER PETERSON - Last Filed: 04/11/19 05:23> - General Information source: Emergency Med Personnel, Outside Facility Records - Social History Cigarette use (# per day): No - Never smoker Frequency of alcohol use: None Drug Abuse: None <ZHANGWHIT CAM Aram - Last Filed: 04/11/19 06:22> Review of Systems - Review of Systems -: Yes ROS unobtainable due to patient's medical condition - Patient is nonverbal and noncommunicative <WHIT ARCHER Aram - Last Filed: 04/11/19 06:22> Physical Exam - General General appearance: Other - Alert but nonverbal at baseline, does not appear to be in distress, slightly ill-appearing - Respiratory Breath sounds: Other - Scattered coarse breath sounds but no overt rales, rhonchi, or wheezing. No labored breathing or tachypnea noted <ESMER PETERSON Last Filed: 04/11/19 05:23> - Vital signs Interpretation: Tachycardic, Febrile - General General appearance: Alert, Other - HEENT Head: Normocephalic, Atraumatic Eyes: Normal Pupils: PERRL - Respiratory Respiratory status: No respiratory distress Chest status: Nontender Breath sounds: Normal Chest palpation: Normal - Cardiovascular Rhythm: Regular Heart sounds: Normal auscultation Murmur: No - Abdominal Inspection: Normal Distension: No distension Bowel sounds: Normal Tenderness: Nontender Organomegaly: No organomegaly - Back Back: Normal, Nontender - Extremities General upper extremity: Normal inspection, Nontender, Normal color, Normal ROM, Normal temperature General lower extremity: Normal inspection, Nontender, Normal color, Normal ROM, Normal temperature, Normal weight bearing. No: Saniya's sign - Neurological Neuro grossly intact: Yes Cognition: Normal Orientation: AAOx4 Gavi Coma Scale Eye Opening: Spontaneous Gavi Coma Scale Verbal: Oriented [place] Coma Scale Motor: Obeys Commands Gavi Coma Scale Total: 15 Speech: Normal Motor strength normal: LUE, RUE, LLE, RLE Sensory: Normal - Psychological Associated symptoms: Normal affect, Normal mood - Skin Skin Temperature: Warm Skin Moisture: Dry Skin Color: Normal <WHIT ARCHER Aram - Last Filed: 04/11/19 06:22> - Vital signs Vitals: Pulse Ox 98 04/11/19 05:52 Course <ESMER PETERSON - Last Filed: 04/11/19 05:23> - Laboratory Result Diagrams: 04/11/19 05:52 04/11/19 05:52 <WHIT ARCHER - Last Filed: 04/11/19 06:22> - Re-evaluation Re-evalutation: Patient febrile, tachycardic, nonverbal at baseline. Blood pressure has been unremarkable. Initiating sepsis protocol. I have greeted and performed a rapid initial assessment of this patient. A comprehensive ED assessment and evaluation of the patient, analysis of test results and completion of the medical decision making process will be conducted by additional ED providers. (ESMER PETERSON) - Vital Signs Vital signs: Temp Pulse Resp BP Pulse Ox 98 04/11/19 05:52 - Laboratory Laboratory results interpreted by me: 04/11/19 04/11/19 05:52 05:52 Hgb 12.0 L Hct 35.6 L MCV 79 L MCH 26.5 L RDW 15.2 H Lymph % (Auto) 6.8 L Seg Neutrophils % 83.9 H VBG pCO2 33.0 L Doctor's Discharge <ESMER PETERSON - Last Filed: 04/11/19 05:23> <WHIT ARCHER - Last Filed: 04/11/19 06:22> - Discharge Referrals: JOSEPH MONTE MD [Primary Care Provider] - Follow up as needed
[2019-04-11] MEDS ORDERED: NORMAL SALINE IV ONE (05:46)
[2019-04-11 06:08] LABS: ABSOLUTE LYMPHOCYTES (AUTO) 0.6 10^3/uL (0.5-4.7); ABSOLUTE MONOCYTES (AUTO) 0.8 10^3/uL (0.1-1.4); ABSOLUTE NEUT (AUTO) 7.6 10^3/uL (1.7-8.2); BASOPHILS % (AUTO) 0.2 % (0-2); EOSINOPHILS % (AUTO) 0.1 % (0-6); HEMATOCRIT 35.6 % (37.9-51.0); LYMPHOCYTES % (AUTO) 6.8 % (13-45); MEAN CORPUSCULAR HEMOGLOBIN 26.5 pg (27.0-33.4); MEAN CORPUSCULAR HGB CONC 33.6 g/dL (32.0-36.0); MEAN CORPUSCULAR VOLUME 79 fl (80-97); PLATELET COUNT 246 10^3/uL (150-450); RED BLOOD COUNT 4.51 10^6/uL (4.35-5.55); RED CELL DISTRIBUTION WIDTH 15.2 % (11.5-14.0); SEGMENTED NEUTROPHILS % (AUTO) 83.9 % (42-78); TOTAL CELLS COUNTED % (AUTO) 100 %; WHITE BLOOD COUNT 9.1 10^3/uL (4.0-10.5)
[2019-04-11 06:09] LABS: VENOUS BLOOD BASE EXCESS -2.8 mmol/L; VENOUS BLOOD HCO3 20.9 mmol/L (20-32); VENOUS BLOOD PH 7.42 (7.30-7.42)
[2019-04-11] MEDS ORDERED: VANCOMYCIN HCL INJ 1000 MG VIAL IV ONE (06:14)
--- NOTE | 2019-04-11 06:27 | ER Document Report ---
ED Fever - General Chief Complaint: Fever Stated Complaint: Fever Time Seen by Provider: 04/11/19 05:23 Primary Care Provider: JOSEPH MONTE MD [Primary Care Provider] - Follow up as needed Mode of Arrival: Medic Information source: Emergency Med Personnel, Outside Facility Records TRAVEL OUTSIDE OF THE [place] IN LAST 30 DAYS: No - HPI Notes: Please see RME note for history. Briefly patient presents with fever and is most likely felt to have aspiration pneumonia. - Related Data Allergies/Adverse Reactions: No Known Allergies Allergy (Verified 03/04/19 08:52) Home Medications: carbamazepine, vimpat, tranxene, lunesta, briviat, Vit D, miralax, klonopin, ranitadine, nutren Past Medical History - General Information source: Emergency Med Personnel, Outside Facility Records - Social History Smoking Status: Never Smoker Cigarette use (# per day): No - Never smoker Frequency of alcohol use: None Drug Abuse: None Family History: Reviewed & Not Pertinent, Other - Unable to obtain as patient is noncommunicative Patient has suicidal ideation: No Patient has homicidal ideation: No Pulmonary Medical History: Reports: Hx Pneumonia, Hx Respiratory Failure Neurological Medical History: Reports: Hx Seizures Renal/ Medical History: Denies: Hx Peritoneal Dialysis GI Medical History: Reports: Hx Gastroesophageal Reflux Disease Skin Medical History: Reports Hx Psoriasis Traumatic Medical History: Denies: Hx Gunshot Wound, Hx Pneumothorax Infectious Medical History: Denies: Hx HIV 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 - Immunizations Hx Diphtheria, Pertussis, Tetanus Vaccination: Yes Review of Systems - Review of Systems -: Yes ROS unobtainable due to patient's medical condition - Patient nonverbal noncommunicative Physical Exam - Vital signs Vitals: Resp BP Pulse Ox 18 116/75 96 04/11/19 05:30 04/11/19 05:30 04/11/19 05:30 Interpretation: Tachycardic, Febrile - General General appearance: Alert In distress: Mild - HEENT Head: Normocephalic, Atraumatic Eyes: Normal Pupils: PERRL - Respiratory Respiratory status: No respiratory distress Chest status: Nontender Breath sounds: Rhonchi Chest palpation: Normal - Cardiovascular Rhythm: Regular, Tachycardia Heart sounds: Normal auscultation Murmur: No - Abdominal Inspection: Normal Distension: No distension Bowel sounds: Normal Tenderness: Nontender Organomegaly: No organomegaly - Genitourinary Inspection: Normal Tenderness: Nontender Scrotum: Normal - Back Back: Normal, Nontender - Extremities General upper extremity: Normal inspection, Nontender, Normal color, Normal temperature General lower extremity: Normal inspection, Nontender, Normal color, Normal temperature. No: Saniya's sign - Neurological Neuro grossly intact: Yes Cognition: Confused Orientation: Disoriented to person, Disoriented to place, Disoriented to time - Psychological Associated symptoms: Confused, Psychomotor depression - Skin Skin Temperature: Warm Skin Moisture: Dry Skin Color: Normal Course - Re-evaluation Re-evalutation: 04/11/19 09:14 Patient presents with fever of 101. However no obvious source of fever is present at this time. I have discussed the case with the patient's primary physician, Dr. Monte. He will admit the patient. Patient has been covered with fluids and antibiotics. A CT of the chest and abdomen are pending at this time. Dr. Monte will follow up on this. Patient's vitals and other laboratories are essentially stable at this time. - Vital Signs Vital signs: Temp Pulse Resp BP Pulse Ox 101.0 F H 20 111/80 98 04/11/19 08:00 04/11/19 07:31 04/11/19 07:31 04/11/19 07:31 - Laboratory Result Diagrams: 04/11/19 05:52 04/11/19 05:52 Laboratory results interpreted by me: 04/11/19 04/11/19 04/11/19 05:52 05:52 06:02 Hgb 12.0 L Hct 35.6 L MCV 79 L MCH 26.5 L RDW 15.2 H Lymph % (Auto) 6.8 L Seg Neutrophils % 83.9 H VBG pCO2 33.0 L Urine Protein 30 H Urine Ketones 20 H Urine Urobilinogen 4.0 H Urine Ascorbic Acid 40 H - Diagnostic Test Radiology reviewed: Image reviewed, Reports reviewed - EKG Interpretation by Me EKG shows normal: Sinus rhythm Rate: Tachycardia - 123 Rhythm: NSR [place]/QRS: No: Right axis deviation, Left axis deviation Discharge - Discharge Clinical Impression: Fever Qualifiers: Fever type: unspecified Qualified Code(s): R50.9 - Fever, unspecified Cerebral palsy Qualifiers: Cerebral palsy type: unspecified type Qualified Code(s): G80.9 - Cerebral palsy, unspecified Condition: Fair Disposition: ADMITTED INPATIENT Admitting Provider: Marcelino Unit Admitted: Telemetry Referrals: JOSEPH MONTE MD [Primary Care Provider] - Follow up as needed
[2019-04-11 06:29] LABS: PROTHROMBIN TIME 14.3 SEC (11.4-15.4)
[2019-04-11 06:30] LABS: ALBUMIN 4.2 g/dL (3.5-5.0); ALKALINE PHOSPHATASE 125 U/L (38-126); ANION GAP 10 (5-19); ASPARTATE AMINO TRANSFERASE 38 U/L (17-59); BILIRUBIN,DIRECT 0.4 mg/dL (0.0-0.4); BILIRUBIN,TOTAL 0.4 mg/dL (0.2-1.3); BLOOD UREA NITROGEN 16 mg/dL (7-20); CALCIUM 9.1 mg/dL (8.4-10.2); CARBON DIOXIDE 23 mmol/L (22-30); CHLORIDE 105 mmol/L (98-107); GLUCOSE 109 mg/dL (75-110)
[2019-04-11 06:37] LABS: APPEARANCE,URINE CLOUDY; BILIRUBIN,URINE NEGATIVE (NEGATIVE); COLOR,URINE AMBER; GLUCOSE, URINE NEGATIVE (NEGATIVE); KETONES,URINE 20 mg/dL (NEGATIVE); PROTEIN,URINE 30 mg/dL (NEGATIVE); URINE SPECIFIC GRAVITY 1.021
[2019-04-11 06:39] LABS: A TYPE INFLUENZA AG NEGATIVE (NEGATIVE); B INFLUENZA AG NEGATIVE (NEGATIVE)
--- NOTE | 2019-04-11 07:49 | RADIOLOGY REPORT (SQ) ---
EXAM DESCRIPTION: XR CHEST 1 VIEW COMPLETED DATE/TME: 04/11/2019 05:25 CLINICAL HISTORY: 38 years, Male, fever, hx aspiration pneumonia COMPARISON: 03/30/2019 NUMBER OF VIEWS: One TECHNIQUE: AP view the chest LIMITATIONS: None. FINDINGS: The lungs are clear. The heart is normal in size. There is no pneumothorax or pleural effusion. A stimulator device overlies the left chest. A ACID PURIFICATION EQUIPMENT OPERATOR shunt catheter tracks along the right hemithorax. The bones are unremarkable. IMPRESSION: No acute cardiopulmonary abnormality copyright 2010 [employer]- All Rights Reserved
--- NOTE | 2019-04-11 07:50 | RADIOLOGY REPORT (SQ) ---
EXAM DESCRIPTION: CT HEAD WITHOUT IV CONTRAST COMPLETED DATE/TME: 04/11/2019 06:13 CLINICAL HISTORY: 38 years Male, ams COMPARISON: None. TECHNIQUE: No contrast. Coronal and sagittal reformat. This exam was performed according to our departmental dose-optimization program, which includes automated exposure control, adjustment of the mA and/or kV according to patient size and/or use of iterative reconstruction technique. FINDINGS: No hemorrhage or infarct. No mass, mass effect, or midline shift. Right ventricular catheter tip at the anterior aspect of the right lateral ventricle from a right parieto-occipital approach. Mild left maxillary mucosal thickening. Brain and extra-axial structures appear intact. IMPRESSION: No acute findings.
--- NOTE | 2019-04-11 09:59 | RADIOLOGY REPORT (SQ) ---
EXAM DESCRIPTION: CT CHEST WITHOUT COMPLETED DATE/TIME: 04/11/2019 9:42 am REASON FOR STUDY: fever/cough COMPARISON: Chest x-ray done earlier the same day. TECHNIQUE: CT scan performed of the chest without intravenous contrast. Images reviewed with lung, soft tissue and bone windows. Reconstructed coronal and sagittal MPR images reviewed. All images st ored on PACS. All CT scanners at this facility use dose modulation, iterative reconstruction, and/or weight based d osing when appropriate to reduce radiation dose to as low as reasonably achievable (ALARA). [facility]: Dose Right [facility]: CareDose [facility]: Dose Right [facility]: Teradose 4D [facility]: [employer] RADIATION DOSE: CT Rad equipment meets quality standard of care and radiation dose reduction techniq ues were employed. CTDIvol: 10.0 mGy. DLP: 721 mGy-cm. mGy. LIMITATIONS: No technical limitations. FINDINGS: LUNGS AND PLEURA: Minimal patchy airspace disease in the right upper lobe and right base. This could represent atelectasis or developing pneumonia. The left lung field is clear. HILAR AND MEDIASTINAL STRUCTURES: No identified masses or abnormal nodes. No obvious aneurysm. HEART AND VASCULAR STRUCTURES: No aneurysm. No pericardial effusion. UPPER ABDOMEN: No significant findings. Limited exam. THYROID AND OTHER SOFT TISSUES: No masses. No adenopathy. BONES: No significant finding. HARDWARE: None in the chest. OTHER: Thickened distal esophagus. Esophagitis cannot be excluded. IMPRESSION: Patchy right upper lobe and right lower lobe infiltrate most likely pneumonia. TECHNICAL DOCUMENTATION: JOB ID: [id number] Quality ID # [id number]: Final reports with documentation of one or more dose reduction techniques (e.g., Au tomated exposure control, adjustment of the mA and/or kV according to patient size, use of iterative reconstruction technique) 2010 [employer]- All Rights Reserved Reading location - IP/workstation name: [email or web address]
--- NOTE | 2019-04-11 10:04 | RADIOLOGY REPORT (SQ) ---
EXAM DESCRIPTION: CT ABD/PELVIS NO ORAL OR IV COMPLETED DATE/TIME: 04/11/2019 9:42 am REASON FOR STUDY: fever/cough COMPARISON: 03/03/2016 TECHNIQUE: CT scan of the abdomen and pelvis performed without intravenous or oral contrast. Images reviewed with lung, soft tissue, and bone windows. Reconstructed coronal and sagittal MPR images revi ewed. All images stored on PACS. All CT scanners at this facility use dose modulation, iterative reconstruction, and/or weight based d osing when appropriate to reduce radiation dose to as low as reasonably achievable (ALARA). [facility]: Dose Right [facility]: CareDose [facility]: Dose Right [facility]: Teradose 4D [facility]: [employer] RADIATION DOSE: mGy. LIMITATIONS: None. FINDINGS: LOWER CHEST: There is thickening of the distal esophagus. NON-CONTRASTED LIVER, SPLEEN, ADRENALS: Evaluation limited by lack of IV contrast. No identified sign ificant masses. PANCREAS: No masses. No peripancreatic inflammatory changes. GALLBLADDER: No identified stones by CT criteria. No inflammatory changes to suggest cholecystitis. RIGHT KIDNEY AND URETER: No suspicious masses. Assessment limited by lack of IV contrast. Small par enchymal calcifications. No obstructing stones. No hydronephrosis or hydroureter. Small hemorrhag ic cortical cyst is noted. LEFT KIDNEY AND URETER: No suspicious masses. Assessment limited by lack of IV contrast. Small pare nchymal calcifications. No obstructing stones. No hydronephrosis or hydroureter. AORTA AND RETROPERITONEUM: No aneurysm. No retroperitoneal masses or adenopathy. BOWEL AND PERITONEAL CAVITY: No inflammatory changes. No obstruction. Percutaneous enteric tube is in place. APPENDIX: Not visualized. PELVIS, BLADDER, AND ABDOMINAL WALL:Peritoneal dialysis catheter is in place. Soft tissue calcificat ion is noted in the right inguinal region. This is unchanged. BONES: No significant findings. OTHER: No other significant finding. IMPRESSION: No acute findings in the abdomen or pelvis. Thickening of the distal esophagus as descr ibed. COMMENT: Quality ID # [id number]: Final reports with documentation of one or more dose reduction techniques (e.g., Automated exposure control, adjustment of the mA and/or kV according to patient size, use of iterative reconstruction technique) TECHNICAL DOCUMENTATION: JOB ID: [id number] 2010 [employer]- All Rights Reserved Reading location - IP[facility]workstation name: [email or web address]
[2019-04-11] MEDS ORDERED: NORMAL SALINE 1000 ML 1,000 ML IV PRN ×4 (10:41→15:57)
[2019-04-11] MEDS ORDERED: IPRATROPIUM/ALBUTEROL 0.5-2.5 MG/3 ML AMPUL NEB PRN (10:41)
[2019-04-11] MEDS ORDERED: ACETAMINOPHEN 325 MG TABLET PO PRN (10:41)
[2019-04-11] MEDS ORDERED: VANCOMYCIN HCL 0 MG in DEXTROSE 5%-WATER 250 ML IV NR (11:00)
--- NOTE | 2019-04-11 11:02 | PDOC H&P ---
History of Present Illness Admission Date/PCP: 04/11/19 09:48 JOSEPH MONTE MD Patient complains of: Fever and aspirations History of Present Illness: CECI HSIEH is a 38 year old male This is a 38-year-old patients from the residential with the severe mental retardation cerebral palsy currently on a j tubeBrought to the emergency department by the caregiver because of the running a fever overnights and patient have a coffee-ground emesis and possible aspirations Patient's initial work-up including the chest x-ray was negative blood work was all stable but patient CT scan of the chest was suggestive patchy infiltrate which consistence most likely aspiration pneumonia decided to admit in the hospitals Recently admitting in the hospital for the same problems was currently doing good after that Patient having 1 seizures episodes while patient was in the ER patient was CT head was negative CT abdomen and pelvis was all stable Discussed with the residential nurses the bedside and suggest that patient have a one seizure yesterday but other than that this P was started last night At this point decided to admit in the hospital and further evaluate currently hold the tube feeding Past Medical History Pulmonary Medical History: Reports: Pneumonia, Respiratory Failure Neurological Medical History: Reports: Seizures GI Medical History: Reports: Gastroesophageal Reflux Disease Skin Medical History: Reports: Psoriasis Traumatic Medical History: Denies: Gunshot Wound, Pneumothorax Hematology: Denies: Sickle Cell Disease Infectious Medical History: Denies: HIV Past Surgical History Past Surgical History: Reports: Other - svp [employer] sales shunt Social History Information Source: Legal Guardian Smoking Status: Never Smoker Frequency of Alcohol Use: None Hx Recreational Drug Use: No Drugs: None Hx Prescription Drug Abuse: No Family History Family History: Reviewed & Not Pertinent, Other - Unable to obtain as patient is noncommunicative Parental Family History Reviewed: Yes Children Family History Reviewed: Yes Sibling(s) Family History Reviewed.: Yes Medication/Allergy Home Medications: Carbamazepine [Tegretol 100 mg Chewable Tablet] 400 mg JT Q8 03/17/17 Cholecalciferol (Vitamin D3) [Vitamin D3 1000 Unit Tablet] 1,000 unit JT DAILY 03/17/17 Clonazepam [Klonopin] 1.5 mg JT Q8 03/17/17 Eszopiclone [Lunesta] 3 mg JT QPM@2000 03/17/17 Polyethylene Glycol 3350 [Miralax Powder 17 gm/Packet] 17 gm JT QPM 02/01/18 Brivaracetam [Briviact] 100 mg JT BID@,09/04/18 Clorazepate Dipotassium [Tranxene 7.5 mg Tablet] 3.75 mg JT BID@,03/04/19 Ranitidine HCl [Zantac Syrup 150 mg/10 ml Udcup] 75 mg JT DAILY 03/04/19 Vimpat 10mg/Ml Liquid 200 mg JT BID@,03/04/19 Doxycycline Hyclate 100 mg PO BID #14 tablet. 03/09/19 Allergies/Adverse Reactions: No Known Allergies Allergy (Verified 03/04/19 08:52) Review of Systems ROS unobtainable: Due to mental status All systems: reviewed and no additional remarkable complaints except as stated Constitutional: ABSENT: chills, fever(s), headache(s), weight gain, weight loss Eyes: ABSENT: visual disturbances Ears: ABSENT: hearing changes Cardiovascular: ABSENT: chest pain, dyspnea on exertion, edema, orthropnea, palpitations Respiratory: ABSENT: cough, hemoptysis Gastrointestinal: ABSENT: abdominal pain, constipation, diarrhea, hematemesis, hematochezia, nausea, vomiting Genitourinary: ABSENT: dysuria, hematuria Musculoskeletal: ABSENT: joint swelling Integumentary: ABSENT: rash, wounds Neurological: ABSENT: abnormal gait, abnormal speech, confusion, dizziness, focal weakness, syncope Psychiatric: ABSENT: anxiety, depression, homidical ideation, suicidal ideation Endocrine: ABSENT: cold intolerance, heat intolerance, menstrual abnormalities, polydipsia, polyuria Hematologic/Lymphatic: ABSENT: easy bleeding, easy bruising, lymphadenopathy Physical Exam Vital Signs: Temp Pulse Resp BP Pulse Ox 101.1 F H 28 H 116/81 99 04/11/19 10:46 04/11/19 10:00 04/11/19 09:01 04/11/19 10:00 Intake & Output 04/10/19 04/11/19 04/12/19 06:59 06:59 06:59 Intake Total 2049 Balance 2049 Weight 68.2 kg Physical Exam: Severe mental retardation's General appearance: PRESENT: no acute distress Eye exam: PRESENT: PERRLA Mouth exam: PRESENT: neck supple Respiratory exam: PRESENT: decreased breath sounds Cardiovascular exam: PRESENT: +S1, +S2, tachycardia GI/Abdominal exam: PRESENT: normal bowel sounds, soft Neurological exam: PRESENT: alert, awake Skin exam: PRESENT: dry Results Laboratory Results: 04/11/19 05:52 04/11/19 05:52 04/11/19 04/11/19 04/11/19 05:52 05:52 05:52 WBC 9.1 RBC 4.51 Hgb 12.0 L Hct 35.6 L MCV 79 L MCH 26.5 L MCHC 33.6 RDW 15.2 H Plt Count 246 Seg Neutrophils % 83.9 H VBG pH 7.42 VBG pCO2 33.0 L VBG HCO3 20.9 VBG Base Excess -2.8 Sodium 137.6 Potassium 4.0 Chloride 105 Carbon Dioxide 23 Anion Gap 10 BUN 16 Creatinine 0.65 Est GFR ( Amer) > 60 Glucose 109 Lactic Acid Calcium 9.1 Total Bilirubin 0.4 AST 38 Alkaline Phosphatase 125 Total Protein 8.0 Albumin 4.2 Urine Color Urine Appearance Urine pH Ur Specific [place] Urine Protein Urine Glucose (UA) Urine Ketones Urine Blood Urine RBC (Auto) 04/11/19 04/11/19 04/11/19 05:52 06:02 08:19 WBC RBC Hgb Hct MCV MCH MCHC RDW Plt Count Seg Neutrophils % VBG pH VBG pCO2 VBG HCO3 VBG Base Excess Sodium Potassium Chloride Carbon Dioxide Anion Gap BUN Creatinine Est GFR ( Amer) Glucose Lactic Acid 0.9 0.9 Calcium Total Bilirubin AST Alkaline Phosphatase Total Protein Albumin Urine Color RADHA Urine Appearance CLOUDY Urine pH 8.0 Ur Specific [place] 1.021 Urine Protein 30 H Urine Glucose (UA) NEGATIVE Urine Ketones 20 H Urine Blood NEGATIVE Urine RBC (Auto) 8 Impressions: Chest X-Ray 04/11/19 05:25 IMPRESSION: No acute cardiopulmonary abnormality copyright 2011 [employer]- All Rights Reserved Head CT 04/11/19 06:13 IMPRESSION: No acute findings. Abdomen/Pelvis CT 04/11/19 09:14 IMPRESSION: No acute findings in the abdomen or pelvis. Thickening of the distal esophagus as described. Chest CT 04/11/19 09:14 IMPRESSION: Patchy right upper lobe and right lower lobe infiltrate most likely pneumonia. Assessment & Plan - Diagnosis (1) Aspiration pneumonia Qualifiers: Aspiration pneumonia type: due to gastric secretions Laterality: right Lung location: unspecified part of lung Qualified Code(s): J69.0 - Pneumonitis due to inhalation of food and vomit Is this a current diagnosis for this admission?: Yes Plan: With the recent hospitalizations recurrent will continues to Zosyn and IV vancomycin's until the cultures back's Patient already have a G-tube and still have some coffee-ground emesis to rule out any kind upper GI ulcer we will consult the GI for further evaluations putting the patient on a Protonix IV (2) Cerebral palsy Qualifiers: Cerebral palsy type: unspecified type Qualified Code(s): G80.9 - Cerebral palsy, unspecified Is this a current diagnosis for this admission?: Yes (3) Fever Qualifiers: Fever type: unspecified Qualified Code(s): R50.9 - Fever, unspecified Is this a current diagnosis for this admission?: Yes Plan: Likely due to the form aspirations pneumonia continues the IV antibiotic (4) Epilepsy without status epilepticus, not intractable Qualifiers: Epilepsy type: unspecified Qualified Code(s): G40.909 - Epilepsy, unspecified, not intractable, without status epilepticus Is this a current diagnosis for this admission?: Yes Plan: Continues to current medications (5) GERD (gastroesophageal reflux disease) Qualifiers: Esophagitis presence: without esophagitis Is this a current diagnosis for this admission?: Yes Plan: Continues to Protonix IV - Time Time Spent: 30 to 50 Minutes Medications reviewed and adjusted accordingly: Yes Anticipated discharge: Other Within: Other - Inpatient Certification Based on my medical assessment, after consideration of the patient's comorbidities, presenting symptoms, or acuity I expect that the services needed warrant INPATIENT care.: Yes I certify that my determination is in accordance with my understanding of Medicare's requirements for reasonable and necessary INPATIENT services [42 CFR 412.3e].: Yes Medical Necessity: Need Close Monitoring Due to Risk of Patient Decompensation, Need For IV Fluids, Need for IV Antibiotics Post Hospital Care: D/C [employer] Documentation - Plan Summary Plan Summary: Admit the patient in IMCU discussed with the nursing staff residential on the bedside informed the patient's legal guardians regarding the patient's current conditions
--- NOTE | 2019-04-11 11:12 | PDOC CONSULTATION ---
Consultation Consult Date: 04/11/19 Provider Consulted: ALIZA GARZA Consult reason:: coffee ground emesis, aspiration pneumonia History of Present Illness Admission Date/PCP: 04/11/19 09:48 JOSEPH MONTE MD History of Present Illness: CECI HSIEH is a 38 year old male patient [facility] had recent J tube placement was done this past January by surgery presented with pneumonia and possible seizure from [facility] Dr Monte suspects possible upper GI bleeding as cause for aspiration he is being treated for aspiration pneumonia will need EGD following stabalization will schedule for EGD he will likely need Propofol sedation Past Medical History Pulmonary Medical History: Reports: Pneumonia, Respiratory Failure Neurological Medical History: Reports: Seizures GI Medical History: Reports: Gastroesophageal Reflux Disease Skin Medical History: Reports: Psoriasis Traumatic Medical History: Denies: Gunshot Wound, Pneumothorax Hematology: Denies: Sickle Cell Disease Infectious Medical History: Denies: HIV Past Surgical History Past Surgical History: Reports: Other - vp strategy shunt Social History Smoking Status: Never Smoker Electronic Cigarette use?: No Frequency of Alcohol Use: None Hx Recreational Drug Use: No Drugs: None Hx Prescription Drug Abuse: No Family History Family History: Reviewed & Not Pertinent, Other - Unable to obtain as patient is noncommunicative Parental Family History Reviewed: Yes Children Family History Reviewed: Unknown Sibling(s) Family History Reviewed.: Unknown Medication/Allergy Home Medications: Carbamazepine [Tegretol 100 mg Chewable Tablet] 400 mg JT Q8 03/17/17 Cholecalciferol (Vitamin D3) [Vitamin D3 1000 Unit Tablet] 1,000 unit JT DAILY 03/17/17 Clonazepam [Klonopin] 1.5 mg JT Q8 03/17/17 Eszopiclone [Lunesta] 3 mg JT QPM@199903/17/17 Polyethylene Glycol 3350 [Miralax Powder 17 gm/Packet] 17 gm JT QPM 03/17/17 Brivaracetam [Briviact] 100 mg JT BID@,09/04/18 Clorazepate Dipotassium [Tranxene 7.5 mg Tablet] 3.75 mg JT BID@,03/04/19 Ranitidine HCl [Zantac Syrup 150 mg/10 ml Udcup] 75 mg JT DAILY 01/19/20 Vimpat 10mg/Ml Liquid 200 mg JT BID@08,20 03/04/19 Doxycycline Hyclate 100 mg PO BID #14 tablet. 03/09/19 Allergies/Adverse Reactions: No Known Allergies Allergy (Verified 03/04/19 08:52) Review of Systems Constitutional: ABSENT: fever(s), headache(s) Eyes: ABSENT: visual disturbances Ears: ABSENT: hearing changes Nose, Mouth, and Throat: ABSENT: mouth pain Cardiovascular: ABSENT: edema, orthropnea Respiratory: ABSENT: dyspnea, hemoptysis Gastrointestinal: ABSENT: diarrhea, hematochezia Genitourinary: ABSENT: dysuria, hematuria Musculoskeletal: ABSENT: joint swelling Neurological: ABSENT: syncope, tremor(s), vertigo Endocrine: ABSENT: polydipsia, polyphagia, polyuria Hematologic/Lymphatic: ABSENT: easy bruising Physical Exam Vital Signs: Temp Pulse Resp BP Pulse Ox 101.1 F H 28 H 116/81 99 04/11/19 10:46 04/11/19 10:00 04/11/19 09:01 04/11/19 10:00 Intake & Output 04/10/19 04/11/19 04/12/19 06:59 06:59 06:59 Intake Total 2049 Balance 2049 Weight 68.2 kg General appearance: PRESENT: mild distress Head exam: PRESENT: normocephalic Eye exam: PRESENT: EOMI. ABSENT: PERRLA Mouth exam: PRESENT: moist, neck supple Throat exam: ABSENT: tonsillar exudate, tonsillogmegaly Neck exam: ABSENT: meningismus, tenderness Respiratory exam: PRESENT: symmetrical, unlabored. ABSENT: tachypnea, wheezes Cardiovascular exam: PRESENT: RRR, +S1, +S2 GI/Abdominal exam: PRESENT: soft. ABSENT: rebound, rigid, tenderness Extremities exam: ABSENT: joint swelling Neurological exam: PRESENT: CN II-XII grossly intact Focused psych exam: PRESENT: restlessness Skin exam: PRESENT: normal color. ABSENT: mottled, pallor, urticaria, vesicles Results Laboratory Results: 04/11/19 05:52 04/11/19 05:52 04/11/19 04/11/19 04/11/19 05:52 05:52 05:52 WBC 9.1 RBC 4.51 Hgb 12.0 L Hct 35.6 L MCV 79 L MCH 26.5 L MCHC 33.6 RDW 15.2 H Plt Count 246 Seg Neutrophils % 83.9 H VBG pH 7.42 VBG pCO2 33.0 L VBG HCO3 20.9 VBG Base Excess -2.8 Sodium 137.6 Potassium 4.0 Chloride 105 Carbon Dioxide 23 Anion Gap 10 BUN 16 Creatinine 0.65 Est GFR ( Amer) > 60 Glucose 109 Lactic Acid Calcium 9.1 Total Bilirubin 0.4 AST 38 Alkaline Phosphatase 125 Total Protein 8.0 Albumin 4.2 Urine Color Urine Appearance Urine pH Ur Specific [place] Urine Protein Urine Glucose (UA) Urine Ketones Urine Blood Urine RBC (Auto) 04/11/19 04/11/19 04/11/19 05:52 06:02 08:19 WBC RBC Hgb Hct MCV MCH MCHC RDW Plt Count Seg Neutrophils % VBG pH VBG pCO2 VBG HCO3 VBG Base Excess Sodium Potassium Chloride Carbon Dioxide Anion Gap BUN Creatinine Est GFR ( Amer) Glucose Lactic Acid 0.9 0.9 Calcium Total Bilirubin AST Alkaline Phosphatase Total Protein Albumin Urine Color RADHA Urine Appearance CLOUDY Urine pH 8.0 Ur Specific [place] 1.021 Urine Protein 30 H Urine Glucose (UA) NEGATIVE Urine Ketones 20 H Urine Blood NEGATIVE Urine RBC (Auto) 8 Impressions: Chest X-Ray 04/11/19 05:25 IMPRESSION: No acute cardiopulmonary abnormality copyright 2011 [employer]- All Rights Reserved Head CT 04/11/19 06:13 IMPRESSION: No acute findings. Abdomen/Pelvis CT 04/11/19 09:14 IMPRESSION: No acute findings in the abdomen or pelvis. Thickening of the distal esophagus as described. Chest CT 04/11/19 09:14 IMPRESSION: Patchy right upper lobe and right lower lobe infiltrate most likely pneumonia. Assessment & Plan - Diagnosis (1) GI bleed Qualifiers: GI bleed type/associated pathology: unspecified gastrointestinal hemorrhage type Qualified Code(s): K92.2 - Gastrointestinal hemorrhage, unspecified Plan: coffee ground emesis with resulting aspiration pneumonia will schedule EGD will need Propofol sedation Risks, benefits and alternatives to be discussed will schedule for 04/12 - Time Time Spent: 50 to 70 Minutes
[2019-04-11] MEDS ORDERED: PIPERACILLIN/TAZOBACTAM 3.375 GM VIAL IV ONE ×2 (11:37→12:00)
[2019-04-11] MEDS: ACETAMINOPHEN 650 MG SUPP.RECT PR PRN ×2 (11:44→15:06)
[2019-04-11 11:49] LABS: ANION GAP 7 (5-19); BLOOD UREA NITROGEN 11 mg/dL (7-20); CALCIUM 8.8 mg/dL (8.4-10.2); CARBON DIOXIDE 24 mmol/L (22-30); CHLORIDE 109 mmol/L (98-107); GLUCOSE 95 mg/dL (75-110); POTASSIUM 4.4 mmol/L (3.6-5.0)
[2019-04-11] MEDS ORDERED: PIPERACILLIN SODIUM/TAZOBACTAM 3.375 GM in NORMAL SALINE 100 ML IV SCH (12:00)
[2019-04-11] MEDS ORDERED: LORAZEPAM INJ 2 MG/1 ML VIAL IV ONE ×3 (12:22→15:38)
[2019-04-11] MEDS ORDERED: LORAZEPAM INJ 2 MG/1 ML VIAL IV PRN (13:13)
[2019-04-11] MEDS ORDERED: LEVALBUTEROL HCL NEB 0.63 MG/3 ML AMPUL NEB PRN (13:37)
[2019-04-11] MEDS ORDERED: CLONAZEPAM 1.5 MG JT SCH (14:00)
[2019-04-11] MEDS ORDERED: LACOSAMIDE INJ/PF 200 MG/20 ML SDV IV SCH (14:00)
[2019-04-11] MEDS ORDERED: VANCOMYCIN HCL 1,000 MG in DEXTROSE 5%-WATER 250 ML IV SCH (15:00)
[2019-04-11 15:04] LABS: VANCOMYCIN,TROUGH 8.5 ug/mL (5.0-20.0)
[2019-04-11] MEDS ORDERED: IBUPROFEN SUSP 100 MG/5 ML ORAL SYRINGE PO PRN (15:08)
[2019-04-11] MEDS ORDERED: IBUPROFEN SUSP 100 MG/5 ML ORAL SYRINGE JT PRN (15:10)
[2019-04-11] MEDS: CARBAMAZEPINE 100 MG TAB.CHEW JT SCH ×2 (15:29→21:16)
[2019-04-11] MEDS: CLONAZEPAM 1 MG TABLET JT SCH ×2 (15:38→21:15)
[2019-04-11] MEDS ORDERED: LEVETIRACETAM 1500 MG/NACL-ISO 1,500 MG/100 ML RTUPB IV SCH (16:00)
--- NOTE | 2019-04-11 17:28 | EKG REPORT ---
SEVERITY:- ABNORMAL ECG - SINUS TACHYCARDIA : Confirmed by: Aminah Kay MD 11-Apr-2019 17:27:20
[2019-04-11] MEDS ORDERED: DEXTROSE 50%-WATER 25 GM/50 ML DISP.SYRIN IV PRN ×2 (17:49)
[2019-04-11] MEDS ORDERED: GLUCAGON,HUMAN RECOMB 1 MG INJ SUBCUT PRN (17:49)
[2019-04-11] MEDS ORDERED: DEXTROSE 40% GEL 15 GM TUBE PO PRN ×2 (17:49)
[2019-04-11] MEDS: METRONIDAZOLE 500 MG/NS RTU 500 MG/100 ML RTUPB IV SCH ×2 (18:55→23:04)
[2019-04-11] MEDS ORDERED: VIMPAT JT SCH (20:00)
[2019-04-11] MEDS ORDERED: BRIVARACETAM 100 MG JT SCH (20:00)
[2019-04-11] MEDS: ZOLPIDEM TARTRATE 5 MG TABLET JT SCH (20:38)
[2019-04-11] MEDS: POLYETHYLENE GLYCOL 3350 POWDER 17 GM/1 PACKET JT SCH (20:38)
[2019-04-11] MEDS: PANTOPRAZOLE SODIUM 40 MG VIAL IV SCH (21:15)
[2019-04-11] MEDS: PIPERACILLIN SODIUM/TAZOBACTAM 3.375 GM in NORMAL SALINE 100 ML IV SCH ×2 (22:36→23:05)
[2019-04-11] MEDS ORDERED: CLORAZEPATE DIPOTASSIUM 7.5 MG TABLET ONE (22:50)
[2019-04-11] MEDS: LACOSAMIDE 100 MG TABLET JT SCH (22:57)
[2019-04-11] MEDS: CLORAZEPATE DIPOTASSIUM 7.5 MG TABLET JT SCH (22:58)
[2019-04-12] MEDS: NORMAL SALINE 1000 ML 1,000 ML IV PRN ×3 (03:50→19:44)
[2019-04-12] MEDS: PIPERACILLIN SODIUM/TAZOBACTAM 3.375 GM in NORMAL SALINE 100 ML IV SCH ×3 (05:09→18:30)
[2019-04-12] MEDS: METRONIDAZOLE 500 MG/NS RTU 500 MG/100 ML RTUPB IV SCH ×4 (05:10→23:36)
[2019-04-12] MEDS: CARBAMAZEPINE 100 MG TAB.CHEW JT SCH ×3 (05:11→22:09)
[2019-04-12] MEDS: CLONAZEPAM 1 MG TABLET JT SCH ×3 (05:12→22:08)
[2019-04-12 06:03] LABS: ABSOLUTE BASOPHILS # (AUTO) 0.1 10^3/uL (0.0-0.2); ABSOLUTE LYMPHOCYTES (AUTO) 1.5 10^3/uL (0.5-4.7); ABSOLUTE MONOCYTES (AUTO) 1.7 10^3/uL (0.1-1.4); ABSOLUTE NEUT (AUTO) 10.4 10^3/uL (1.7-8.2); BASOPHILS % (AUTO) 0.5 % (0-2); HEMATOCRIT 35.6 % (37.9-51.0); HEMOGLOBIN 11.6 g/dL (13.5-17.0); LYMPHOCYTES % (AUTO) 11.3 % (13-45); MEAN CORPUSCULAR HEMOGLOBIN 25.8 pg (27.0-33.4); MEAN CORPUSCULAR HGB CONC 32.5 g/dL (32.0-36.0); MEAN CORPUSCULAR VOLUME 79 fl (80-97); MONOCYTES % (AUTO) 12.7 % (3-13); PLATELET COUNT 227 10^3/uL (150-450); RED BLOOD COUNT 4.49 10^6/uL (4.35-5.55); RED CELL DISTRIBUTION WIDTH 15.3 % (11.5-14.0); SEGMENTED NEUTROPHILS % (AUTO) 75.5 % (42-78); TOTAL CELLS COUNTED % (AUTO) 100 %; WHITE BLOOD COUNT 13.7 10^3/uL (4.0-10.5)
[2019-04-12 06:24] LABS: VANCOMYCIN,TROUGH 5.8 ug/mL (5.0-20.0)
--- NOTE | 2019-04-12 07:19 | PDOC CRITICAL CARE PROG REPORT ---
General Date:: 04/12/19 ICU Day:: 1 Hospital Day:: 1 Resuscitation Status: Full Code Events in the past 12 to 24 Hours:: Defervesed, no sign of seizures or GI bleeding. Review of systems relevant to events:: Neurological, GI Reason for ICU Addmission:: Fever and question of GI bleeding. - Medications: Medications reviewed and adjusted accordingly: Yes Vasopressors:: None Sedation:: None Physical Exam Vital Signs: Temp Pulse Resp BP Pulse Ox 99.9 F 122 H 30 H 122/86 H 90 L 04/12/19 05:15 04/11/19 22:00 04/11/19 17:01 04/11/19 17:01 04/11/19 17:01 Intake & Output 04/11/19 04/12/19 04/13/19 06:59 06:59 06:59 Intake Total 2860 Output Total 765 Balance 2095 Weight 68.2 kg 63 kg Weight/Height Weight 63 kg Height 5 ft 6 in General appearance: PRESENT: no acute distress, thin Head exam: PRESENT: atraumatic, normocephalic Eye exam: PRESENT: conjunctiva pink, EOMI, PERRLA. ABSENT: scleral icterus Ear exam: PRESENT: normal external ear exam Mouth exam: PRESENT: moist, tongue midline Respiratory exam: PRESENT: clear to auscultation roula, other - Good cough. ABSENT: rales, rhonchi, wheezes Cardiovascular exam: PRESENT: RRR. ABSENT: diastolic murmur, rubs, systolic murmur GI/Abdominal exam: PRESENT: normal bowel sounds, soft. ABSENT: distended, guarding, mass, organolmegaly, rebound, tenderness Rectal exam: PRESENT: deferred Extremities exam: PRESENT: pedal edema, other - Contracted. Musculoskeletal exam: PRESENT: normal inspection Neurological exam: PRESENT: altered, other - Non-verbal, bnaseline. Skin exam: PRESENT: dry, intact, warm. ABSENT: cyanosis, rash Laboratory/Radiographs Laboratory Results: 04/12/19 05:50 04/12/19 05:50 04/11/19 04/11/19 04/11/19 08:19 11:20 11:20 WBC RBC Hgb Hct MCV MCH MCHC RDW Plt Count Seg Neutrophils % Sodium 140.3 Potassium 4.4 Chloride 109 H Carbon Dioxide 24 Anion Gap 7 BUN 11 Creatinine 0.62 Est GFR ( Amer) > 60 Glucose 95 Lactic Acid 0.9 1.3 Calcium 8.8 04/12/19 04/12/19 04/12/19 05:50 05:50 05:50 WBC 13.7 H RBC 4.49 Hgb 11.6 L Hct 35.6 L MCV 79 L MCH 25.8 L MCHC 32.5 RDW 15.3 H Plt Count 227 Seg Neutrophils % 75.5 Sodium Potassium Chloride Carbon Dioxide Anion Gap BUN Creatinine 0.63 Est GFR ( Amer) > 60 Glucose Lactic Acid 1.5 Calcium Impressions: Chest X-Ray 04/11/19 05:25 IMPRESSION: No acute cardiopulmonary abnormality copyright 2010 [employer]- All Rights Reserved Head CT 04/11/19 06:13 IMPRESSION: No acute findings. Abdomen/Pelvis CT 04/11/19 09:14 IMPRESSION: No acute findings in the abdomen or pelvis. Thickening of the distal esophagus as described. Chest CT 04/11/19 09:14 IMPRESSION: Patchy right upper lobe and right lower lobe infiltrate most likely pneumonia. All labs, radiographs, diagnostic studies and EKGs were personally reviewed: Yes In addition, reports of radiographic and diagnostic studies were read: Yes Assessment and Plan - Diagnosis (1) Cerebral palsy Qualifiers: Cerebral palsy type: unspecified type Qualified Code(s): G80.9 - Cerebral palsy, unspecified Is this a current diagnosis for this admission?: Yes Plan: This is chronic, he is non-verbal and contracted. (2) Fever Qualifiers: Fever type: unspecified Qualified Code(s): R50.9 - Fever, unspecified Is this a current diagnosis for this admission?: Yes Plan: He has defervesed. Between seizures and aspiration this explains fever. Continue antibiotics. (3) Aspiration into lower respiratory tract Qualifiers: Encounter type: initial encounter Qualified Code(s): T17.800A - Unspecified foreign body in other parts of respiratory tract causing asphyxiation, initial encounter Is this a current diagnosis for this admission?: Yes Plan: Most likely happened at the time of seizure. Secondary cause of fever. On antibotics which may or may not be beneficial. Supportive care. (4) Dehydration Is this a current diagnosis for this admission?: Yes Plan: Resolved with IVF. (5) Epilepsy without status epilepticus, not intractable Qualifiers: Epilepsy type: unspecified Qualified Code(s): G40.909 - Epilepsy, unspecified, not intractable, without status epilepticus Is this a current diagnosis for this admission?: Yes Plan: No further seizures. He has several/month. Keppra not continued. (6) GI bleed Qualifiers: GI bleed type/associated pathology: unspecified gastrointestinal hemorrhage type Qualified Code(s): K92.2 - Gastrointestinal hemorrhage, unspecified Is this a current diagnosis for this admission?: Yes Plan: Said to have had coffee ground emesis. No recurrence, H/H stable. Stool brown. Continue PPI as this could be a gastritis. Plan Summary: Stable for transfer from ICU. Critical Time Critical Time (minutes): 30 Level of Care: MEDICAL Anticipated discharge: Other - [facility] home Within: within 72 hours -: 1. The care of a critical patient is a dynamic process. This note is a bilingual sales representative synopsis but static in nature. The timeframe for treatments giv en in order is not necessarily the actual time these treatments may have been done. 2. This patient requires critical care secondary to ongoing requirements for therapy not offered or safe outside the critical care environment. Transfer to a lower level of care will result in altered life or limb morbidity and mortality. 3. Multidisciplinary rounds completed. 4. ABCDE bundle addressed.
[2019-04-12] MEDS ORDERED: ENOXAPARIN SODIUM INJ 40 MG/0.4 ML DISP.SYRIN SUBCUT SCH (10:00)
[2019-04-12] MEDS ORDERED: DIPHENHYDRAMINE HCL 50 MG/ML VIAL ONE (10:37)
[2019-04-12] MEDS ORDERED: ONDANSETRON HCL INJ/PF 4 MG/2 ML SDV ONE (10:37)
[2019-04-12] MEDS ORDERED: FLUMAZENIL INJ 0.5 MG/5 ML VIAL ONE (10:38)
[2019-04-12] MEDS ORDERED: FENTANYL CITRATE INJ/PF 100 MCG/2 ML AMPUL ONE (10:38)
[2019-04-12] MEDS ORDERED: MIDAZOLAM 2 MG/2 ML INJ ONE (10:38)
[2019-04-12] MEDS ORDERED: EPINEPHRINE INJ 1 MG/10 ML DISP.SYRIN ONE (10:38)
[2019-04-12] MEDS ORDERED: GLUCAGON,HUMAN RECOMB 1 MG INJ ONE (10:38)
[2019-04-12] MEDS ORDERED: NALOXONE HCL INJ/PF 0.4 MG/1 ML SDV ONE (10:38)
[2019-04-12] MEDS: PANTOPRAZOLE SODIUM 40 MG VIAL IV SCH ×2 (11:01→22:08)
[2019-04-12] MEDS: LACOSAMIDE 100 MG TABLET JT SCH ×2 (11:01→20:37)
[2019-04-12] MEDS: LEVETIRACETAM 1000 MG/NACL-ISO 1,000 MG/100 ML RTUPB IV SCH ×2 (11:01→20:37)
--- NOTE | 2019-04-12 12:18 | Operative Report ---
Operative Report DATE OF SURGERY: 04/12/19 Operative Report: The risks benefits and alternatives of the procedure explained to the patient in detail and informed consent is obtained.A GIF Olympus video scope was inserted into the patient's mouth and hypopharynx, the esophagus is identified intubated and insufflated ,the scope was then advanced through the esophagus stomach and duodenum, retroflexion maneuver is done the esophagus stomach and first and second portions of the duodenum examined PREOPERATIVE DIAGNOSIS: Possible coffee-ground emesis POSTOPERATIVE DIAGNOSIS: Bilious material noted in the stomach. Gastritis status post biopsy. Nonbleeding shallow gastric erosion not likely the cause of the bleed. Biopsies obtained. No active bleeding noted OPERATION: EGD with biopsy SURGEON: ALIZA GARZA ANESTHESIA: Moderate Sedation - 2 mg of Versed, 50 mcg of fentanyl. Conscious sedation monitoring time 30 minutes. TISSUE REMOVED OR ALTERED: As noted above. COMPLICATIONS: None. ESTIMATED BLOOD LOSS: None. INTRAOPERATIVE FINDINGS: As noted above. PROCEDURE: Patient tolerated the procedure well. No immediate postprocedure complications are noted. Wait on the biopsies. No active bleeding noted
[2019-04-12] MEDS: CLORAZEPATE DIPOTASSIUM 7.5 MG TABLET JT SCH ×2 (13:55→20:56)
[2019-04-12] MEDS: POLYETHYLENE GLYCOL 3350 POWDER 17 GM/1 PACKET JT SCH (18:30)
[2019-04-12] MEDS: ZOLPIDEM TARTRATE 5 MG TABLET JT SCH (20:37)
[2019-04-13] MEDS: PIPERACILLIN SODIUM/TAZOBACTAM 3.375 GM in NORMAL SALINE 100 ML IV SCH ×2 (00:22→06:27)
[2019-04-13] MEDS: NORMAL SALINE 1000 ML 1,000 ML IV PRN (03:40)
[2019-04-13 04:00] LABS: ABSOLUTE LYMPHOCYTES (AUTO) 2.1 10^3/uL (0.5-4.7); ABSOLUTE MONOCYTES (AUTO) 1.2 10^3/uL (0.1-1.4); ABSOLUTE NEUT (AUTO) 5.3 10^3/uL (1.7-8.2); BASOPHILS % (AUTO) 0.2 % (0-2); EOSINOPHILS % (AUTO) 0.2 % (0-6); HEMATOCRIT 32.7 % (37.9-51.0); HEMOGLOBIN 10.8 g/dL (13.5-17.0); LYMPHOCYTES % (AUTO) 24.1 % (13-45); MEAN CORPUSCULAR HEMOGLOBIN 26.2 pg (27.0-33.4); MEAN CORPUSCULAR HGB CONC 32.9 g/dL (32.0-36.0); MEAN CORPUSCULAR VOLUME 79 fl (80-97); MONOCYTES % (AUTO) 14.4 % (3-13); PLATELET COUNT 190 10^3/uL (150-450); RED BLOOD COUNT 4.12 10^6/uL (4.35-5.55); RED CELL DISTRIBUTION WIDTH 15.4 % (11.5-14.0); SEGMENTED NEUTROPHILS % (AUTO) 61.1 % (42-78); TOTAL CELLS COUNTED % (AUTO) 100 %; WHITE BLOOD COUNT 8.6 10^3/uL (4.0-10.5)
[2019-04-13 04:23] LABS: ANION GAP 14 (5-19); BLOOD UREA NITROGEN 9 mg/dL (7-20); CALCIUM 8.6 mg/dL (8.4-10.2); CARBON DIOXIDE 20 mmol/L (22-30); CHLORIDE 110 mmol/L (98-107)
[2019-04-13 04:26] LABS: GLUCOSE 69 mg/dL (75-110)
[2019-04-13] MEDS: METRONIDAZOLE 500 MG/NS RTU 500 MG/100 ML RTUPB IV SCH (05:21)
[2019-04-13] MEDS: CLONAZEPAM 1 MG TABLET JT SCH ×3 (05:27→22:22)
[2019-04-13] MEDS: CARBAMAZEPINE 100 MG TAB.CHEW JT SCH ×3 (05:27→22:22)
--- NOTE | 2019-04-13 08:19 | PDOC CRITICAL CARE PROG REPORT ---
General Date:: 04/13/19 Hospital Day:: 2 Resuscitation Status: Full Code Events in the past 12 to 24 Hours:: Fever improved but still febrile to 10P last night. Review of systems relevant to events:: Respiratory and neurological. Reason for ICU Addmission:: Fever. - Medications: Medications reviewed and adjusted accordingly: Yes Vasopressors:: None Sedation:: None. Physical Exam Vital Signs: Temp Pulse Resp BP Pulse Ox 98.4 F 108 H 31 H 151/83 H 97 04/12/19 22:00 04/12/19 22:00 04/12/19 17:28 04/12/19 17:28 04/12/19 17:28 Intake & Output 04/12/19 04/13/19 04/14/19 06:59 06:59 06:59 Intake Total 2860 3585 Output Total 765 2075 Balance 2095 1510 Weight 63 kg 62.6 kg Weight/Height Weight 62.6 kg Height 5 ft 6 in General appearance: PRESENT: no acute distress Head exam: PRESENT: atraumatic, normocephalic Eye exam: PRESENT: conjunctiva pink, EOMI, PERRLA. ABSENT: scleral icterus Ear exam: PRESENT: normal external ear exam Mouth exam: PRESENT: moist, tongue midline Respiratory exam: PRESENT: crackles - Crackles at L base., unlabored Cardiovascular exam: PRESENT: RRR. ABSENT: diastolic murmur, rubs, systolic m urmur GI/Abdominal exam: PRESENT: normal bowel sounds, soft. ABSENT: distended, guarding, mass, organolmegaly, rebound, tenderness Rectal exam: PRESENT: deferred Extremities exam: PRESENT: full ROM, other - Contracted.. ABSENT: calf tenderness, clubbing, pedal edema Musculoskeletal exam: PRESENT: normal inspection Neurological exam: PRESENT: CN II-XII grossly intact, other - Non-verbal, his baseline. Skin exam: PRESENT: dry, intact, warm. ABSENT: cyanosis, rash Laboratory/Radiographs Laboratory Results: 04/13/19 03:36 04/13/19 03:36 04/13/19 04/13/19 03:36 03:36 WBC 8.6 RBC 4.12 L Hgb 10.8 L Hct 32.7 L MCV 79 L MCH 26.2 L MCHC 32.9 RDW 15.4 H Plt Count 190 Seg Neutrophils % 61.1 Sodium 143.5 Potassium 4.0 Chloride 110 H Carbon Dioxide 20 L Anion Gap 14 BUN 9 Creatinine 0.64 Est GFR ( Amer) > 60 Glucose 69 L Calcium 8.6 Impressions: Chest X-Ray 04/11/19 05:25 IMPRESSION: No acute cardiopulmonary abnormality copyright 2010 [email or web address]- All Rights Reserved Head CT 04/11/19 06:13 IMPRESSION: No acute findings. Abdomen/Pelvis CT 04/11/19 09:14 IMPRESSION: No acute findings in the abdomen or pelvis. Thickening of the distal esophagus as described. Chest CT 04/11/19 09:14 IMPRESSION: Patchy right upper lobe and right lower lobe infiltrate most likely pneumonia. All labs, radiographs, diagnostic studies and EKGs were personally reviewed: Yes In addition, reports of radiographic and diagnostic studies were read: Yes Assessment and Plan - Diagnosis (1) Cerebral palsy Qualifiers: Cerebral palsy type: unspecified type Qualified Code(s): G80.9 - Cerebral palsy, unspecified Is this a current diagnosis for this admission?: Yes Plan: Chronic (2) Fever Qualifiers: Fever type: unspecified Qualified Code(s): R50.9 - Fever, unspecified Is this a current diagnosis for this admission?: Yes Plan: AAfebrile now. Had fever till 10P last night would like to see him afebrile for longer before discharge. (3) Aspiration into lower respiratory tract Qualifiers: Encounter type: initial encounter Qualified Code(s): T17.800A - Unspecified foreign body in other parts of respiratory tract causing asphyxiation, initial encounter Is this a current diagnosis for this admission?: Yes Plan: Repeat CXR pending. Antibiotics changed to PEG. Supportive care is only firm recommendation. (4) Dehydration Is this a current diagnosis for this admission?: Yes Plan: Resolved (5) Epilepsy without status epilepticus, not intractable Qualifiers: Epilepsy type: unspecified Qualified Code(s): G40.909 - Epilepsy, unspecified, not intractable, without status epilepticus Is this a current diagnosis for this admission?: Yes Plan: No further seizures. No change in meds. May have been induced by fever. (6) GI bleed Qualifiers: GI bleed type/associated pathology: unspecified gastrointestinal hemorrhage type Qualified Code(s): K92.2 - Gastrointestinal hemorrhage, unspecified Is this a current diagnosis for this admission?: Yes Plan: No sign of bleeding on EGD. Plan Summary: Augmentin, repeat CXR. If afebrile may discharge Sat. Critical Time Critical Time (minutes): 25 Level of Care: MEDICAL Anticipated discharge: SNF Within: within 24 hours -: 1. The care of a critical patient is a dynamic process. This note is a credit representative synopsis but static in nature. The timeframe for treatments given in order is not necessarily the actual time these treatments may have been done. 2. This patient requires critical care secondary to ongoing requirements for therapy not offered or safe outside the critical care environment. Transfer to a lower level of care will result in altered life or limb morbidity and mortality. 3. Multidisciplinary rounds completed. 4. ABCDE bundle addressed.
--- NOTE | 2019-04-13 09:37 | RADIOLOGY REPORT (SQ) ---
EXAM DESCRIPTION: CHEST SINGLE VIEW COMPLETED DATE/TIME: 04/13/2019 9:10 am REASON FOR STUDY: Follow up for possible RUL and RLL infiltrate. COMPARISON: 04/13/2019 EXAM PARAMETERS: NUMBER OF VIEWS: One view. TECHNIQUE: Single frontal radiographic view of the chest acquired. RADIATION DOSE: NA LIMITATIONS: None. FINDINGS: LUNGS AND PLEURA: No opacities, masses or pneumothorax. No pleural effusion. MEDIASTINUM AND HILAR STRUCTURES: No masses. Contour normal. HEART AND VASCULAR STRUCTURES: Heart normal in size. Normal vasculature. BONES: No acute findings. HARDWARE: Partially visualized ventriculoperitoneal shunt catheter tubing along right chest. Left si ded neural stimulator overlies upper chest. OTHER: No other significant finding. IMPRESSION: No evidence of focal airspace disease or other acute intrathoracic process. TECHNICAL DOCUMENTATION: JOB ID: [id number] 2010 [employer]- All Rights Reserved Reading location - IP/workstation name: [email or web address]
[2019-04-13] MEDS: AMOXICILLIN TR/POT CLAVULANATE 400-57 MG/5 ML 75 ML PEG SCH ×2 (11:11→22:22)
[2019-04-13] MEDS: LEVETIRACETAM 1000 MG/NACL-ISO 1,000 MG/100 ML RTUPB IV SCH (11:11)
[2019-04-13] MEDS: LACOSAMIDE 100 MG TABLET JT SCH ×2 (11:11→20:32)
[2019-04-13] MEDS: CLORAZEPATE DIPOTASSIUM 7.5 MG TABLET JT SCH ×2 (11:11→20:32)
--- NOTE | 2019-04-13 16:05 | Progress Note ---
Provider Note Provider Note: The lease out man call regarding the patient's current conditions and suggest the patient does not need any ICU anymore Patient is currently continues the antibiotic through the J-tube's According to the lease out man patient was almost ready to discharge today but patient have overnight fever so he wants to continue to monitor for another 24 hours before the discharge Continues to current medications as an ICU right now repeat the CBC and Chem-7 in the morning Patient is currently otherwise stable in the floor signout with the Dr. Ricketts
[2019-04-13] MEDS: POLYETHYLENE GLYCOL 3350 POWDER 17 GM/1 PACKET JT SCH (17:42)
[2019-04-13] MEDS: ZOLPIDEM TARTRATE 5 MG TABLET JT SCH (20:32)
[2019-04-14] MEDS: CLONAZEPAM 1 MG TABLET JT SCH ×3 (05:17→21:03)
[2019-04-14] MEDS: CARBAMAZEPINE 100 MG TAB.CHEW JT SCH ×3 (05:17→21:04)
[2019-04-14 05:34] LABS: ABSOLUTE EOSINOPHILS # (AUTO) 0.1 10^3/uL (0.0-0.6); ABSOLUTE LYMPHOCYTES (AUTO) 1.3 10^3/uL (0.5-4.7); ABSOLUTE MONOCYTES (AUTO) 0.8 10^3/uL (0.1-1.4); ABSOLUTE NEUT (AUTO) 2.9 10^3/uL (1.7-8.2); BASOPHILS % (AUTO) 0.1 % (0-2); EOSINOPHILS % (AUTO) 1.1 % (0-6); HEMOGLOBIN 10.8 g/dL (13.5-17.0); LYMPHOCYTES % (AUTO) 25.9 % (13-45); MEAN CORPUSCULAR HEMOGLOBIN 26.5 pg (27.0-33.4); MEAN CORPUSCULAR HGB CONC 33.7 g/dL (32.0-36.0); MEAN CORPUSCULAR VOLUME 79 fl (80-97); MONOCYTES % (AUTO) 16.1 % (3-13); PLATELET COUNT 210 10^3/uL (150-450); RED BLOOD COUNT 4.06 10^6/uL (4.35-5.55); RED CELL DISTRIBUTION WIDTH 15.3 % (11.5-14.0); SEGMENTED NEUTROPHILS % (AUTO) 56.8 % (42-78); TOTAL CELLS COUNTED % (AUTO) 100 %; WHITE BLOOD COUNT 5.1 10^3/uL (4.0-10.5)
[2019-04-14 06:05] LABS: ANION GAP 16 (5-19); BLOOD UREA NITROGEN 5 mg/dL (7-20); CALCIUM 8.7 mg/dL (8.4-10.2); CARBON DIOXIDE 13 mmol/L (22-30); CHLORIDE 111 mmol/L (98-107); POTASSIUM 4.1 mmol/L (3.6-5.0)
[2019-04-14 06:20] LABS: GLUCOSE 68 mg/dL (75-110)
[2019-04-14] MEDS: CLORAZEPATE DIPOTASSIUM 7.5 MG TABLET JT SCH ×2 (10:18→21:03)
[2019-04-14] MEDS: LACOSAMIDE 100 MG TABLET JT SCH ×2 (10:18→21:04)
[2019-04-14] MEDS: AMOXICILLIN TR/POT CLAVULANATE 400-57 MG/5 ML 75 ML PEG SCH ×2 (10:19→21:04)
[2019-04-14] MEDS ORDERED: CLORAZEPATE DIPOTASSIUM 7.5 MG TABLET JT ONE (10:45)
[2019-04-14] MEDS: POLYETHYLENE GLYCOL 3350 POWDER 17 GM/1 PACKET JT SCH (17:01)
--- NOTE | 2019-04-14 17:15 | PDOC PROGRESS REPORT ---
Subjective Progress Note for:: 04/14/19 Subjective:: Patient seen by the bedside he has cerebral palsy not able to communicate with the patient Reason For Visit: ASPIRATIONS PNEUMONIA Physical Exam Vital Signs: Temp Pulse Resp BP Pulse Ox 98.0 F 88 18 133/96 H 100 04/14/19 08:00 04/14/19 14:00 04/14/19 08:00 04/14/19 08:00 04/14/19 08:00 Intake & Output 04/13/19 04/14/19 04/15/19 06:59 06:59 06:59 Intake Total 3585 1100 Output Total 2075 1120 600 Balance 1510 -20 -600 Weight 62.6 kg 62.1 kg General appearance: PRESENT: no acute distress Eye exam: PRESENT: PERRLA Respiratory exam: PRESENT: clear to auscultation roula Cardiovascular exam: PRESENT: +S1, +S2 Results Laboratory Results: 04/14/19 04:44 04/14/19 04:44 04/14/19 04/14/19 04:44 04:44 WBC 5.1 RBC 4.06 L Hgb 10.8 L Hct 32.0 L MCV 79 L MCH 26.5 L MCHC 33.7 RDW 15.3 H Plt Count 210 Seg Neutrophils % 56.8 Sodium 139.7 Potassium 4.1 Chloride 111 H Carbon Dioxide 13 L Anion Gap 16 BUN 5 L Creatinine 0.63 Est GFR ( Amer) > 60 Glucose 68 L Calcium 8.7 Impressions: Head CT 04/11/19 06:13 IMPRESSION: No acute findings. Abdomen/Pelvis CT 04/11/19 09:14 IMPRESSION: No acute findings in the abdomen or pelvis. Thickening of the distal esophagus as described. Chest CT 04/11/19 09:14 IMPRESSION: Patchy right upper lobe and right lower lobe infiltrate most likely pneumonia. Chest X-Ray 04/13/19 00:00 IMPRESSION: No evidence of focal airspace disease or other acute intrathoracic process. Assessment & Plan - Diagnosis (1) Pneumonia Qualifiers: Pneumonia type: aspiration pneumonia Aspiration pneumonia type: unspecified Laterality: unspecified laterality Lung location: unspecified part of lung Qualified Code(s): J69.0 - Pneumonitis due to inhalation of food and vomit Is this a current diagnosis for this admission?: Yes Plan: Continue IV antibiotic (2) Epilepsy without status epilepticus, not intractable Qualifiers: Epilepsy type: unspecified Qualified Code(s): G40.909 - Epilepsy, unspecified, not intractable, without status epilepticus Is this a current diagnosis for this admission?: Yes - Time Time Spent with patient: 25-34 minutes
[2019-04-14] MEDS: ZOLPIDEM TARTRATE 5 MG TABLET JT SCH (21:04)
[2019-04-15] MEDS: CLONAZEPAM 1 MG TABLET JT SCH ×3 (05:05→21:24)
[2019-04-15] MEDS: CARBAMAZEPINE 100 MG TAB.CHEW JT SCH ×3 (05:05→21:24)
[2019-04-15] MEDS: ACETAMINOPHEN 650 MG SUPP.RECT PR PRN (05:18)
[2019-04-15] MEDS: AMOXICILLIN TR/POT CLAVULANATE 400-57 MG/5 ML 75 ML PEG SCH ×2 (10:24→21:24)
[2019-04-15] MEDS: CLORAZEPATE DIPOTASSIUM 7.5 MG TABLET JT SCH ×2 (10:24→21:24)
[2019-04-15] MEDS: LACOSAMIDE 100 MG TABLET JT SCH ×2 (10:24→21:24)
[2019-04-15 12:39] LABS: ABSOLUTE EOSINOPHILS # (AUTO) 0.1 10^3/uL (0.0-0.6); ABSOLUTE LYMPHOCYTES (AUTO) 1.8 10^3/uL (0.5-4.7); ABSOLUTE MONOCYTES (AUTO) 0.9 10^3/uL (0.1-1.4); ABSOLUTE NEUT (AUTO) 2.9 10^3/uL (1.7-8.2); BASOPHILS % (AUTO) 0.2 % (0-2); EOSINOPHILS % (AUTO) 1.6 % (0-6); HEMATOCRIT 37.7 % (37.9-51.0); HEMOGLOBIN 12.6 g/dL (13.5-17.0); LYMPHOCYTES % (AUTO) 31.6 % (13-45); MEAN CORPUSCULAR HEMOGLOBIN 26.2 pg (27.0-33.4); MEAN CORPUSCULAR HGB CONC 33.6 g/dL (32.0-36.0); MEAN CORPUSCULAR VOLUME 78 fl (80-97); PLATELET COUNT 243 10^3/uL (150-450); RED BLOOD COUNT 4.82 10^6/uL (4.35-5.55); SEGMENTED NEUTROPHILS % (AUTO) 50.6 % (42-78); TOTAL CELLS COUNTED % (AUTO) 100 %; WHITE BLOOD COUNT 5.8 10^3/uL (4.0-10.5)
--- NOTE | 2019-04-15 15:34 | PDOC PROGRESS REPORT ---
Subjective Progress Note for:: 04/15/19 Subjective:: Patient seen by the bedside he has cerebral palsy not able to communicate with the patient Reason For Visit: ASPIRATIONS PNEUMONIA Physical Exam Vital Signs: Temp Pulse Resp BP Pulse Ox 98.3 F 85 26 H 105/77 95 04/15/19 11:53 04/15/19 14:00 04/15/19 11:53 04/15/19 11:53 04/15/19 11:53 Intake & Output 04/14/19 04/15/19 04/16/19 06:59 06:59 06:59 Intake Total 1100 975 Output Total 1120 1775 625 Balance -20 -800 -625 Weight 62.1 kg 59.3 kg General appearance: PRESENT: no acute distress Eye exam: PRESENT: PERRLA Respiratory exam: PRESENT: clear to auscultation roula Cardiovascular exam: PRESENT: +S1, +S2 GI/Abdominal exam: PRESENT: soft Results Laboratory Results: 04/15/19 12:27 04/14/19 04:44 04/15/19 04/15/19 12:27 12:27 WBC 5.8 RBC 4.82 Hgb 12.6 L Hct 37.7 L MCV 78 L MCH 26.2 L MCHC 33.6 RDW 15.0 H Plt Count 243 Seg Neutrophils % 50.6 Lactic Acid 0.9 Impressions: Head CT 04/11/19 06:13 IMPRESSION: No acute findings. Abdomen/Pelvis CT 04/11/19 09:14 IMPRESSION: No acute findings in the abdomen or pelvis. Thickening of the distal esophagus as described. Chest CT 04/11/19 09:14 IMPRESSION: Patchy right upper lobe and right lower lobe infiltrate most likely pneumonia. Chest X-Ray 04/13/19 00:00 IMPRESSION: No evidence of focal airspace disease or other acute intrathoracic process. Assessment & Plan - Diagnosis (1) Pneumonia Qualifiers: Pneumonia type: aspiration pneumonia Aspiration pneumonia type: unspecified Laterality: unspecified laterality Lung location: unspecified part of lung Qualified Code(s): J69.0 - Pneumonitis due to inhalation of food and vomit Is this a current diagnosis for this admission?: Yes Plan: Continue IV antibiotic (2) Epilepsy without status epilepticus, not intractable Qualifiers: Epilepsy type: unspecified Qualified Code(s): G40.909 - Epilepsy, unspecified, not intractable, without status epilepticus Is this a current diagnosis for this admission?: Yes - Time Time Spent with patient: 15-24 minutes
[2019-04-15] MEDS: POLYETHYLENE GLYCOL 3350 POWDER 17 GM/1 PACKET JT SCH (17:55)
[2019-04-15] MEDS: ZOLPIDEM TARTRATE 5 MG TABLET JT SCH (21:24)
[2019-04-16] MEDS: CARBAMAZEPINE 100 MG TAB.CHEW JT SCH ×3 (05:08→21:10)
[2019-04-16] MEDS: CLONAZEPAM 1 MG TABLET JT SCH ×3 (05:08→21:10)
--- NOTE | 2019-04-16 08:02 | PDOC PROGRESS REPORT ---
Subjective Progress Note for:: 04/16/19 Subjective:: Patient is currently doing fair Patient having no fever since more than 24 hours According to the nursing staff yesterday patient was not doing good with a CBC and a lactic acid was done was all normal but since last night patient was doing fine When I saw this morning patient is alert awake as usual normal state Since tube feeding is doing well Reason For Visit: ASPIRATIONS PNEUMONIA Physical Exam Vital Signs: Temp Pulse Resp BP Pulse Ox 98.4 F 81 20 121/69 93 04/16/19 04:41 04/16/19 07:00 04/16/19 04:41 04/16/19 04:41 04/16/19 04:41 Intake & Output 04/15/19 04/16/19 04/17/19 06:59 06:59 06:59 Intake Total 975 3639 Output Total 1775 1425 Balance -800 2214 Weight 59.3 kg 58.8 kg General appearance: PRESENT: no acute distress, well-developed, well-nourished Head exam: PRESENT: atraumatic, normocephalic Eye exam: PRESENT: conjunctiva pink, EOMI, PERRLA. ABSENT: scleral icterus Ear exam: PRESENT: normal external ear exam Mouth exam: PRESENT: moist, tongue midline Neck exam: PRESENT: full ROM. ABSENT: carotid bruit, JVD, lymphadenopathy, thyromegaly Respiratory exam: PRESENT: clear to auscultation roula Cardiovascular exam: PRESENT: RRR. ABSENT: diastolic murmur, rubs, systolic murmur Pulses: PRESENT: normal dorsalis pedis pul, +2 pedal pulses bilateral Vascular exam: PRESENT: normal capillary refill GI/Abdominal exam: PRESENT: normal bowel sounds, soft. ABSENT: distended, guarding, mass, organolmegaly, rebound, tenderness Rectal exam: PRESENT: deferred Neurological exam: PRESENT: alert, awake. ABSENT: motor sensory deficit Psychiatric exam: PRESENT: appropriate affect, normal mood. ABSENT: homicidal ideation, suicidal ideation Skin exam: PRESENT: dry, intact, warm. ABSENT: cyanosis, rash Results Laboratory Results: 04/15/19 12:27 04/14/19 04:44 04/15/19 04/15/19 12:27 12:27 WBC 5.8 RBC 4.82 Hgb 12.6 L Hct 37.7 L MCV 78 L MCH 26.2 L MCHC 33.6 RDW 15.0 H Plt Count 243 Seg Neutrophils % 50.6 Lactic Acid 0.9 04/11/19 05:52 Blood Blood Culture - Final NO GROWTH IN 5 DAYS Impressions: Head CT 04/11/19 06:13 IMPRESSION: No acute findings. Abdomen/Pelvis CT 04/11/19 09:14 IMPRESSION: No acute findings in the abdomen or pelvis. Thickening of the distal esophagus as described. Chest CT 04/11/19 09:14 IMPRESSION: Patchy right upper lobe and right lower lobe infiltrate most likely pneumonia. Chest X-Ray 04/13/19 00:00 IMPRESSION: No evidence of focal airspace disease or other acute intrathoracic process. Assessment & Plan - Diagnosis (1) Aspiration pneumonia Qualifiers: Aspiration pneumonia type: due to gastric secretions Laterality: right Lung location: unspecified part of lung Qualified Code(s): J69.0 - Pneumonitis due to inhalation of food and vomit Is this a current diagnosis for this admission?: Yes Plan: Continues the p.o. Augmentin (2) Cerebral palsy Qualifiers: Cerebral palsy type: unspecified type Qualified Code(s): G80.9 - Cerebral palsy, unspecified Is this a current diagnosis for this admission?: Yes (3) Fever Qualifiers: Fever type: unspecified Qualified Code(s): R50.9 - Fever, unspecified Is this a current diagnosis for this admission?: Yes Plan: Most likely from the aspiration pneumonia no fever since more than 24 hours (4) Epilepsy without status epilepticus, not intractable Qualifiers: Epilepsy type: unspecified Qualified Code(s): G40.909 - Epilepsy, unspecified, not intractable, without status epilepticus Is this a current diagnosis for this admission?: Yes (5) GERD (gastroesophageal reflux disease) Qualifiers: Esophagitis presence: without esophagitis Is this a current diagnosis for this admission?: Yes - Time Time Spent with patient: 15-24 minutes Level of Care: TELE Medications reviewed and adjusted accordingly: Yes Anticipated discharge: Other Within: within 24 hours, Other - Plan Summary Plan Summary: I think patient is currently doing very well since yesterday report from nursing staff will watch for another 24 hours patient is remained stable afebrile discharge tomorrow to the [facility]
[2019-04-16] MEDS: LACOSAMIDE 100 MG TABLET JT SCH ×2 (10:05→21:09)
[2019-04-16] MEDS: CLORAZEPATE DIPOTASSIUM 7.5 MG TABLET JT SCH ×2 (10:05→21:15)
[2019-04-16] MEDS: AMOXICILLIN TR/POT CLAVULANATE 400-57 MG/5 ML 75 ML PEG SCH ×2 (10:06→21:10)
[2019-04-16] MEDS: POLYETHYLENE GLYCOL 3350 POWDER 17 GM/1 PACKET JT SCH (17:15)
[2019-04-16] MEDS: ZOLPIDEM TARTRATE 5 MG TABLET JT SCH (21:10)
[2019-04-17] MEDS: CARBAMAZEPINE 100 MG TAB.CHEW JT SCH (05:50)
[2019-04-17] MEDS: CLONAZEPAM 1 MG TABLET JT SCH (05:50)
--- NOTE | 2019-04-17 07:45 | PDOC DISCHARGE SUMMARY ---
Impression - Admit/DC Date/PCP Admission Date/Primary Care Provider: 04/11/19 09:48 JOSEPH MONTE MD Discharge Date: 04/17/19 - Discharge Diagnosis (1) Aspiration pneumonia Is this a current diagnosis for this admission?: Yes (2) Cerebral palsy Is this a current diagnosis for this admission?: Yes (3) Fever Is this a current diagnosis for this admission?: Yes (4) Epilepsy without status epilepticus, not intractable Is this a current diagnosis for this admission?: Yes (5) GERD (gastroesophageal reflux disease) Is this a current diagnosis for this admission?: Yes - Additional Information Resuscitation Status: Full Code Discharge Diet: Tube Feeding (Comments) Discharge Activity: Activity As Tolerated Referrals: JOSEPH MONTE MD [Primary Care Provider] - Follow up as needed Prescriptions: Amoxicillin/Potassium Clav [Augmentin 400-57 mg/5 ml Susp] 400 mg PEG Q12 #60 bottle Home Medications: Carbamazepine [Tegretol 100 mg Chewable Tablet] 400 mg JT Q8 03/17/17 Cholecalciferol (Vitamin D3) [Vitamin D3 1000 Unit Tablet] 1,000 unit JT DAILY 03/17/17 Clonazepam [Klonopin] 1.5 mg JT Q8 03/17/17 Eszopiclone [Lunesta] 3 mg JT QPM@199903/17/17 Polyethylene Glycol 3350 [Miralax Powder 17 gm/Packet] 17 gm JT QPM 03/17/17 Brivaracetam [Briviact] 100 mg JT BID@,09/04/18 Clorazepate Dipotassium [Tranxene 7.5 mg Tablet] 3.75 mg JT BID@,03/04/19 Ranitidine HCl [Zantac Syrup 150 mg/10 ml Udcup] 75 mg JT DAILY 03/04/19 Vimpat 10mg/Ml Liquid 200 mg JT BID@,03/04/19 Amoxicillin/Potassium Clav [Augmentin 400-57 mg/5 ml Susp] 400 mg PEG Q12 #60 bottle 04/17/19 History of Present Illiness History of Present Illness: CECI HSIEH is a 38 year old male This is a 38-year-old [facility] with the severe mental retardation cerebral palsy currently on a j tubeBrought to the emergency d epartment by the caregiver because of the running a fever overnights and patient have a coffee-ground emesis and possible aspirations Patient's initial work-up including the chest x-ray was negative blood work was all stable but patient CT scan of the chest was suggestive patchy infiltrate which consistence most likely aspiration pneumonia decided to admit in the hospitals Recently admitting in the hospital for the same problems was currently doing good after that Patient having 1 seizures episodes while patient was in the ER patient was CT head was negative CT abdomen and pelvis was all stable Discussed with the jail nurses the bedside and suggest that patient have a one seizure yesterday but other than that this P was started last night At this point decided to admit in the hospital and further evaluate currently hold the tube feeding Hospital Course Hospital Course: This is a 38-year-old male as above condition and HPI present in the emergency department with the fever patient diagnosed with aspiration pneumonia start on a broad-spectrum antibiotic In the emergency department patient had a persistent fever and the seizures activity and decided to admit in the intensive care unit under wound specialist Patient staying the wound specialist 48 hours in patients transferred to the medical floor Patient's stay in the hospital for another 3 days remain afebrile white count is normal Patient's back to the baseline Patient was discharged with the p.o. Augmentin patient was continued on home medications Patient is to follow-up with the neurology for further evaluations about the seizures activity Patient also need aspirations precautions patient is currently with j-tube feeding And underwent for endoscopy per GI to rule out any GI pathology for any bleeding which all negative Physical Exam Vital Signs: Temp Pulse Resp BP Pulse Ox 98.8 F 71 16 105/67 98 04/17/19 00:00 04/17/19 02:00 04/17/19 00:00 04/17/19 00:00 04/17/19 00:00 Intake & Output 04/16/19 04/17/19 04/18/19 06:59 06:59 06:59 Intake Total 3639 0 Output Total 1425 500 Balance 2214 -500 Weight 58.8 kg 60 kg General appearance: PRESENT: no acute distress Head exam: PRESENT: atraumatic, normocephalic Eye exam: PRESENT: conjunctiva pink, EOMI, PERRLA. ABSENT: scleral icterus Ear exam: PRESENT: normal external ear exam Mouth exam: PRESENT: moist, tongue midline Neck exam: ABSENT: carotid bruit, JVD, lymphadenopathy, thyromegaly Respiratory exam: PRESENT: clear to auscultation roula. ABSENT: rales, rhonchi, wheezes Cardiovascular exam: PRESENT: RRR. ABSENT: diastolic murmur, rubs, systolic murmur Pulses: PRESENT: normal dorsalis pedis pul Vascular exam: PRESENT: normal capillary refill GI/Abdominal exam: PRESENT: normal bowel sounds, soft. ABSENT: distended, guarding, mass, organolmegaly, rebound, tenderness Rectal exam: PRESENT: deferred Extremities exam: PRESENT: full ROM. ABSENT: calf tenderness, clubbing, pedal edema Neurological exam: PRESENT: alert, awake. ABSENT: motor sensory deficit Psychiatric exam: PRESENT: appropriate affect, normal mood. ABSENT: homicidal ideation, suicidal ideation Skin exam: PRESENT: dry, intact, warm. ABSENT: cyanosis, rash Results Laboratory Results: WBC 5.8 10^3/uL (4.0-10.5) 04/15/19 12:27 RBC 4.82 10^6/uL (4.35-5.55) 04/15/19 12:27 Hgb 12.6 g/dL (13.5-17.0) L 04/15/19 12:27 Hct 37.7 % (37.9-51.0) L 04/15/19 12:27 MCV 78 fl (80-97) L 04/15/19 12:27 MCH 26.2 pg (27.0-33.4) L 04/15/19 12:27 MCHC 33.6 g/dL (32.0-36.0) 04/15/19 12:27 RDW 15.0 % (11.5-14.0) H 04/15/19 12:27 Plt Count 243 10^3/uL (150-450) 04/15/19 12:27 Lymph % (Auto) 31.6 % (13-45) 04/15/19 12:27 Sharp % (Auto) 16.0 % (3-13) H 04/15/19 12:27 Eos % (Auto) 1.6 % (0-6) 04/15/19 12:27 Baso % (Auto) 0.2 % (0-2) 04/15/19 12:27 Absolute Neuts (auto) 2.9 10^3/uL (1.7-8.2) 04/15/19 12:27 Absolute Lymphs (auto) 1.8 10^3/uL (0.5-4.7) 04/15/19 12:27 Absolute Monos (auto) 0.9 10^3/uL (0.1-1.4) 04/15/19 12:27 Absolute Eos (auto) 0.1 10^3/uL (0.0-0.6) 04/15/19 12:27 Absolute Basos (auto) 0.0 10^3/uL (0.0-0.2) 04/15/19 12:27 Seg Neutrophils % 50.6 % (42-78) 04/15/19 12:27 PT 14.3 SEC (11.4-15.4) 04/11/19 05:52 INR 1.10 04/11/19 05:52 VBG pH 7.42 (7.30-7.42) 04/11/19 05:52 VBG pCO2 33.0 mmHg (35-63) L 04/11/19 05:52 VBG HCO3 20.9 mmol/L (20-32) 04/11/19 05:52 VBG Base Excess -2.8 mmol/L 04/11/19 05:52 Sodium 139.7 mmol/L (137-145) 04/14/19 04:44 Potassium 4.1 mmol/L (3.6-5.0) 04/14/19 04:44 Chloride 111 mmol/L (98-107) H 04/14/19 04:44 Carbon Dioxide 13 mmol/L (22-30) L 04/14/19 04:44 Anion Gap 16 (5-19) 04/14/19 04:44 BUN 5 mg/dL (7-20) L 04/14/19 04:44 Creatinine 0.63 mg/dL (0.52-1.25) 04/14/19 04:44 Est GFR ( Amer) > 60 (>60) 04/14/19 04:44 Est GFR (MDRD) Non-Af > 60 (>60) 04/14/19 04:44 Glucose 68 mg/dL (75-110) L 04/14/19 04:44 POC Glucose 71 mg/dL (70-110) 04/14/19 06:26 Lactic Acid 0.9 mmol/L (0.7-2.1) 04/15/19 12:27 Calcium 8.7 mg/dL (8.4-10.2) 04/14/19 04:44 Total Bilirubin 0.4 mg/dL (0.2-1.3) 04/11/19 05:52 Direct Bilirubin 0.4 mg/dL (0.0-0.4) 04/11/19 05:52 Neonat Total Bilirubin Not Reportable 04/11/19 05:52 Neonat Direct Bilirubin Not Reportable 04/11/19 05:52 Neonat Indirect Bili Not Reportable 04/11/19 05:52 AST 38 U/L (17-59) 04/11/19 05:52 ALT 31 U/L (<50) 04/11/19 05:52 Alkaline Phosphatase 125 U/L (38-126) 04/11/19 05:52 Total Protein 8.0 g/dL (6.3-8.2) 04/11/19 05:52 Albumin 4.2 g/dL (3.5-5.0) 04/11/19 05:52 Urine Color RADHA 04/11/19 06:02 Urine Appearance CLOUDY 04/11/19 06:02 Urine pH 8.0 (5.0-9.0) 04/11/19 06:02 Ur Specific [place] 1.021 04/11/19 06:02 Urine Protein 30 mg/dL (NEGATIVE) H 04/11/19 06:02 Urine Glucose (UA) NEGATIVE mg/dL (NEGATIVE) 04/11/19 06:02 Urine Ketones 20 mg/dL (NEGATIVE) H 04/11/19 06:02 Urine Blood NEGATIVE (NEGATIVE) 04/11/19 06:02 Urine Nitrite (Reflex) NEGATIVE (NEGATIVE) 04/11/19 06:02 Urine Bilirubin NEGATIVE (NEGATIVE) 04/11/19 06:02 Urine Urobilinogen 4.0 mg/dL (<2.0) H 04/11/19 06:02 Leukocyte Esterase Rfl NEGATIVE (NEGATIVE) 04/11/19 06:02 Urine RBC (Auto) 8 /HPF 04/11/19 06:02 Urine WBC (Reflex) 5 /HPF 04/11/19 06:02 Urine Mucus (Auto) RARE /LPF 04/11/19 06:02 Urine Ascorbic Acid 40 (NEGATIVE) H 04/11/19 06:02 Time Trough Drawn 0550 04/12/19 05:50 Vancomycin Trough 5.8 ug/mL (5.0-20.0) 04/12/19 05:50 Influenza A (Rapid) NEGATIVE (NEGATIVE) 04/11/19 06:02 Influenza B (Rapid) NEGATIVE (NEGATIVE) 04/11/19 06:02 Impressions: Chest X-Ray 04/11/19 05:25 IMPRESSION: No acute cardiopulmonary abnormality copyright 2011 [employer]- All Rights Reserved Head CT 04/11/19 06:13 IMPRESSION: No acute findings. Abdomen/Pelvis CT 04/11/19 09:14 IMPRESSION: No acute findings in the abdomen or pelvis. Thickening of the distal esophagus as described. Chest CT 04/11/19 09:14 IMPRESSION: Patchy right upper lobe and right lower lobe infiltrate most likely pneumonia. Chest X-Ray 04/13/19 00:00 IMPRESSION: No evidence of focal airspace disease or other acute intrathoracic process. Plan Time Spent: Greater than 30 Minutes - Follow in office 1 week Follow with the neurology Stroke Is this a Stroke Patient?: No Acute Heart Failure - Is this a Heart Failure Patient?: No
[2019-04-17] MEDS: AMOXICILLIN TR/POT CLAVULANATE 400-57 MG/5 ML 75 ML PEG SCH (09:11)
[2019-04-17] MEDS: LACOSAMIDE 100 MG TABLET JT SCH (09:11)
[2019-04-17 09:13] VITALS: BP 113/68
[2019-04-17] MEDS: CLORAZEPATE DIPOTASSIUM 7.5 MG TABLET JT SCH (09:14)
== END 2019-04-17 12:08 | disposition home health service (06) | DRG 178 ==
LOC: ER 04:55 → EH 09:48 → ICU 17:47 → 4N 04-13 18:17
PROVIDERS: ADMIT Family Medicine; ATTEND Family Medicine
PROC: 0DB68ZX Excision of Stomach, Via Natural or Artificial Opening Endoscopic, Diagnostic (ICD-10-PCS; principal; 2019-04-12 11:30)
DX: J69.0 Pneumonitis due to inhalation of food and vomit (principal); F72 Severe intellectual disabilities; K29.70 Gastritis, unspecified, without bleeding; G80.9 Cerebral palsy, unspecified; G40.909 Epilepsy, unspecified, not intractable, without status epilepticus; E86.0 Dehydration; K21.9 Gastro-esophageal reflux disease without esophagitis; L40.9 Psoriasis, unspecified; Z98.2 Presence of cerebrospinal fluid drainage device; Z79.899 Other long term (current) drug therapy; Z93.1 Gastrostomy status
CPT/HCPCS: 36415; 43239; 51701; 70450; 71045; 71250; 74176; 80048; 80053; 80202; 81001; 82565; 82803; 82962; 83605; 85025; 85610; 87040; 87804; 88305; 88342; 93005; 93010; 96361; 96365; 96366; 99231; 99232; 99285; C9113; C9254; J0171; J1200; J1610; J1953; J2060; J2250; J2310; J2405; J2543; J3010; J3370; J3490; J7030; J7050; J7060

== ENCOUNTER 2019-04-21 11:15 | Emergency (ER) | payer MEDICAID ==
[2019-04-21 11:25] VITALS: BP 95/75
--- NOTE | 2019-04-21 11:39 | ER Document Report ---
ED Medical Screen (RME) - General Chief Complaint: Problem with Feeding Tube Stated Complaint: CLOGGED J TUBE Time Seen by Provider: 04/21/19 11:24 Primary Care Provider: JOSEPH MONTE MD [Primary Care Provider] - Follow up as needed Mode of Arrival: Wheelchair Information source: Outside Facility Records Notes: 38-year-old male presented to ED for clogged J-tube. Patient came with [facility] attendants and nurse. She states that the patient got his overnight feeding and then got his 8 AM meds and since then the J-tube is been clogged. He is she states that his water mary morena and coke and nothing has unclog the tube. I have attempted several times with [employer] with no results to unplug the tube. I will put him back to a room where they can nurses can work some more trying to unplug the tube. This is his only support for food liquids and medicine. I have greeted and performed a rapid initial assessment of this patient. A comprehensive ED assessment and evaluation of the patient, analysis of test results and completion of medical decision making process will be conducted by an additional ED providers. TRAVEL OUTSIDE OF THE [place] IN LAST 30 DAYS: No - Related Data Allergies/Adverse Reactions: No Known Allergies Allergy (Verified 03/04/19 08:52) Past Medical History - Social History Frequency of alcohol use: None Drug Abuse: None Pulmonary Medical History: Reports: Hx Pneumonia, Hx Respiratory Failure Neurological Medical History: Reports: Hx Seizures Renal/ Medical History: Denies: Hx Peritoneal Dialysis GI Medical History: Reports: Hx Gastroesophageal Reflux Disease Skin Medical History: Reports Hx Psoriasis Traumatic Medical History: Denies: Hx Gunshot Wound, Hx Pneumothorax Infectious Medical History: Denies: Hx HIV Past Surgical History: Reports: Other - vp patient shunt - Immunizations Hx Diphtheria, Pertussis, Tetanus Vaccination: Yes Physical Exam - Vital signs Vitals: Temp Pulse Resp BP Pulse Ox 97.7 F 77 20 95/75 L 98 04/21/19 11:24 04/21/19 11:24 04/21/19 11:24 04/21/19 11:24 04/21/19 11:24 Course - Vital Signs Vital signs: Temp Pulse Resp BP Pulse Ox 97.7 F 77 20 95/75 L 98 04/21/19 11:24 04/21/19 11:24 04/21/19 11:24 04/21/19 11:24 04/21/19 11:24 Doctor's Discharge - Discharge Referrals: JOSEPH MONTE MD [Primary Care Provider] - Follow up as needed
[2019-04-21] MEDS ORDERED: LIPASE/PROTEASE/AMYLASE 1 CAP CAPSULE.DR PO ONE (13:49)
[2019-04-21] MEDS ORDERED: SODIUM BICARBONATE 650 MG TABLET PO ONE (13:49)
--- NOTE | 2019-04-21 14:40 | ER Document Report ---
ED GI/ - General Chief Complaint: Problem with Feeding Tube Stated Complaint: CLOGGED J TUBE Time Seen by Provider: 04/21/19 11:24 Primary Care Provider: JOSEPH MONTE MD [Primary Care Provider] - Follow up as needed Mode of Arrival: Wheelchair Information source: Patient Notes: 38-year-old male presented to ED for clogged J-tube. [facility] and [facility]. She states that the patient got his overnight feeding and then got his 8 AM meds and since then the J-tube is been clogged. He is she states that his water mary morena and coke and nothing has unclog the tube. I have attempted several times with [employer] with no results to unplug the tube. I will put him back to a room where they can nurses can work some more trying to unplug the tube. This is his only support for food liquids and medicine. TRAVEL OUTSIDE OF THE [place] IN LAST 30 DAYS: No - Related Data Allergies/Adverse Reactions: No Known Allergies Allergy (Verified 03/04/19 08:52) Past Medical History - General Information source: Outside Facility Records - Social History Smoking Status: Never Smoker Frequency of alcohol use: None Drug Abuse: None Family History: Reviewed & Not Pertinent, Other - Unable to obtain as patient is noncommunicative Patient has suicidal ideation: No Patient has homicidal ideation: No Pulmonary Medical History: Reports: Hx Pneumonia, Hx Respiratory Failure Neurological Medical History: Reports: Hx Seizures Renal/ Medical History: Denies: Hx Peritoneal Dialysis GI Medical History: Reports: Hx Gastroesophageal Reflux Disease Skin Medical History: Reports Hx Psoriasis Traumatic Medical History: Denies: Hx Gunshot Wound, Hx Pneumothorax Infectious Medical History: Denies: Hx HIV Past Surgical History: Reports: Other - 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 HEAD: Atraumatic, normocephalic. EYES: Pupils equal round and reactive to light, extraocular movements intact, sclera anicteric, conjunctiva are normal. ENT: Nares patent, oropharynx clear without exudates. Moist mucous membranes. NECK: Normal range of motion, supple without lymphadenopathy LUNGS: Breath sounds clear to auscultation bilaterally and equal. No wheezes rales or rhonchi. HEART: Regular rate and rhythm without murmurs ABDOMEN: Soft, nontender, nondistended abdomen. No guarding, no rebound. No masses appreciated. G-tube in place. No surrounding erythema. Musculoskeletal: Normal range of motion, no pitting or edema. No cyanosis. NEUROLOGICAL: Cranial nerves grossly intact. Normal speech, normal gait. Normal sensory, motor exams PSYCH: Normal mood, normal affect. SKIN: Warm, Dry, normal turgor, no rashes or lesions noted. Course - Re-evaluation Re-evalutation: 04/21/19 14:39 Nursing staff unclog the G-tube with a G-tube plunger that we have on hand here in the emergency department. He will be discharged home in stable condition at this time. - Vital Signs Vital signs: Temp Pulse Resp BP Pulse Ox 97.7 F 77 20 95/75 L 98 04/21/19 11:24 04/21/19 11:24 04/21/19 11:24 04/21/19 11:24 04/21/19 11:24 Discharge - Discharge Clinical Impression: Clogged gastric tube Condition: Stable Disposition: HOME, SELF-CARE Additional Instructions: Please resume giving him all medications as prescribed. Return to the emergency department with any new or worsening concerns. Referrals: JOSEPH MONTE MD [Primary Care Provider] - Follow up as needed
== END 2019-04-21 14:42 | disposition home or self-care (01) ==
LOC: ER 11:15
DX: Z43.1 Encounter for attention to gastrostomy (principal)
CPT/HCPCS: 99282

== ENCOUNTER 2019-04-25 10:44 | Emergency (ER) | payer MEDICAID ==
--- NOTE | 2019-04-25 11:53 | ER Document Report ---
ED Medical Screen (RME) - General Chief Complaint: Problem with Feeding Tube Stated Complaint: J-TUBE CLOGGED Time Seen by Provider: 04/25/19 11:51 Primary Care Provider: JOSEPH MONTE MD [Primary Care Provider] - Follow up as needed Mode of Arrival: Wheelchair Information source: Patient Notes: 38-year-old male presented to ED for a clogged J-tube. He was in here recently and had a J-tube unclogged with the declog her. The staff where he is a resident stated they tried the coke and the declogging told and were not able to unclog the tube this morning. He is alert oriented respirations regular nonlabored. States that he was able to get his nighttime feeding but they were not able to pass some meds to the tube this morning. I have greeted and performed a rapid initial assessment of this patient. A comprehensive ED assessment and evaluation of the patient, analysis of test results and completion of medical decision making process will be conducted by an additional ED providers. TRAVEL OUTSIDE OF THE [place] 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
[2019-04-25] MEDS ORDERED: LORAZEPAM INJ 2 MG/1 ML VIAL IM ONE (14:28)
--- NOTE | 2019-04-25 14:30 | ER Document Report ---
ED GI/ - General Chief Complaint: Obstructed G-Tube Stated Complaint: J-TUBE CLOGGED Time Seen by Provider: 04/25/19 11:51 Primary Care Provider: JOSEPH MONTE MD [Primary Care Provider] - Follow up as needed Mode of Arrival: Wheelchair Information source: Outside Facility Records Notes: Patient is a 38-year-old male presenting to the emergency department with a clogged J-tube. Patient was seen in this emergency department on Tuesday which was 4 days ago for the same complaint. At that time we were able to unclog it and discharge him home. They report he gets continuous tube feedings without difficulty however this morning when they were trying to give him this medication it would not flush. TRAVEL OUTSIDE OF THE [place] IN LAST 30 DAYS: No - Related Data Allergies/Adverse Reactions: No Known Allergies Allergy (Verified 04/25/19 11:52) Home Medications: no changes since last visit Past Medical History - General Information source: Patient - Social History Smoking Status: Never Smoker Chew tobacco use (# tins/day): No Frequency of alcohol use: None Drug Abuse: None Family History: Reviewed & Not Pertinent, Other - Unable to obtain as patient is noncommunicative Patient has suicidal ideation: No Patient has homicidal ideation: No Pulmonary Medical History: Reports: Hx Pneumonia, Hx Respiratory Failure Neurological Medical History: Reports: Hx Seizures Renal/ Medical History: Denies: Hx Peritoneal Dialysis GI Medical History: Reports: Hx Gastroesophageal Reflux Disease Skin Medical History: Reports Hx Psoriasis Traumatic Medical History: Denies: Hx Gunshot Wound, Hx Pneumothorax Infectious Medical History: Denies: Hx HIV Past Surgical History: Reports: Hx Abdominal Surgery - Gtube (), Other - vp clinical shunt - Immunizations Hx Diphtheria, Pertussis, Tetanus Vaccination: Yes Review of Systems - Review of Systems Constitutional: See HPI, Other - Clogged J-tube EENT: No symptoms reported Cardiovascular: No symptoms reported Respiratory: No symptoms reported Gastrointestinal: No symptoms reported Genitourinary: No symptoms reported Male Genitourinary: No symptoms reported Musculoskeletal: No symptoms reported Skin: No symptoms reported Hematologic/Lymphatic: No symptoms reported Neurological/Psychological: No symptoms reported Physical Exam - Vital signs Vitals: Temp Pulse Resp BP Pulse Ox 97.6 F 80 24 H 126/88 H 97 04/25/19 11:07 04/25/19 11:07 03/11/20 11:07 04/25/19 11:07 04/25/19 11:07 - Notes Notes: PHYSICAL EXAMINATION: GENERAL: Well-appearing, well-nourished and in no acute distress. HEAD: Atraumatic, normocephalic. EYES: Pupils equal round and reactive to light, extraocular movements intact, sclera anicteric, conjunctiva are normal. ENT: Nares patent, oropharynx clear without exudates. Moist mucous membranes. NECK: Normal range of motion, supple without lymphadenopathy LUNGS: Breath sounds clear to auscultation bilaterally and equal. No wheezes rales or rhonchi. HEART: Regular rate and rhythm without murmurs ABDOMEN: Soft, nontender, nondistended abdomen. No guarding, no rebound. No masses appreciated. J-tube in place to the right side of the abdomen. No surrounding erythema. Musculoskeletal: Normal range of motion, no pitting or edema. No cyanosis. NEUROLOGICAL: Cranial nerves grossly intact. Normal speech, normal gait. Normal sensory, motor exams PSYCH: Normal mood, normal affect. SKIN: Warm, Dry, normal turgor, no rashes or lesions noted. Course - Re-evaluation Re-evalutation: Supplies gathered for J-tube replacement, patient she was transfused spoke with on-call surgeon, Dr. Fung, he is starting a case will come and see the patient in about an hour. Nursing staff is tried multiple techniques to unclog the J-tube without relief. 04/25/19 14:29 Patient has missed his morning medications so he is having seizure-like activity in the emergency department. His nurses from [facility] administered 20 mg of Diastat per rectum. He continues to have seizure-like activities will be given another 2 mg of Ativan intramuscularly. He was moved to a monitored room where we also have suction on the wall as he is nursing staff tells us that he usually has vomiting after his seizures. Patient currently maintaining his airway without difficulty. Patient was moved to room 19 where he is now resting comfortably. No additional seizure-like activity. No vomiting. Awaiting surgery to come replace J-tube. 2 staff members are at bedside from [facility]. They deny any needs at this time. 04/25/19 16:20 - Vital Signs Vital signs: Temp Pulse Resp BP Pulse Ox 97.6 F 80 24 H 126/88 H 97 04/25/19 11:07 04/25/19 11:07 04/25/19 11:07 04/25/19 11:07 04/25/19 11:07 Discharge - Discharge Clinical Impression: Malfunctioning jejunostomy tube Condition: Stable Disposition: HOME, SELF-CARE Additional Instructions: The jejunostomy tube was replaced today by the surgeon. Please use as per his usual routine. Be sure that it is being flushed well after feeds and also after any medication use. Please make sure all medications are crushed adequately. Referrals: JOSEPH MONTE MD [Primary Care Provider] - Follow up as needed
[2019-04-25] MEDS ORDERED: LIDOCAINE 1% INJ-PF (10 MG/ML) 30 ML SDV IM ONE (15:59)
[2019-04-25] MEDS ORDERED: LIDOCAINE 1% INJ-PF (10 MG/ML) 30 ML SDV ONE (16:00)
--- NOTE | 2019-04-25 16:45 | RADIOLOGY REPORT (SQ) ---
EXAM DESCRIPTION: KUB/ABDOMEN (SINGLE VIEW) COMPLETED DATE/TIME: 04/25/2019 4:38 pm REASON FOR STUDY: J-tube placement COMPARISON: None. NUMBER OF VIEWS: One view. TECHNIQUE: Supine radiographic image of the abdomen acquired following contrast administration thro ugh the J-tube. LIMITATIONS: None. FINDINGS: Gas pattern is nonobstructive. No extravasation. Contrast fills the small bowel. IMPRESSION: J-tube appears to be in satisfactory position. No extravasation. TECHNICAL DOCUMENTATION: JOB ID: [id number] 2010 [employer]- All Rights Reserved Reading location - IP/workstation name: [email or web address]
[2019-04-25 17:10] VITALS: BP 124/92
--- NOTE | 2019-04-25 17:13 | Operative Report ---
Nonrecallable Operative Report DATE OF SURGERY: 04/25/19 PREOPERATIVE DIAGNOSIS: clogged jejunostomy tube POSTOPERATIVE DIAGNOSIS: clogged jejunostomy tube OPERATION: Bedside replacement of jejunostomy tube SURGEON: CA HANSEN ANESTHESIA: Local TISSUE REMOVED OR ALTERED: None COMPLICATIONS: None ESTIMATED BLOOD LOSS: 0 INTRAOPERATIVE FINDINGS: See note PROCEDURE: Patient was seen on the [facility] in the emergency room the previous place jejunostomy tube in the left abdominal wall was clogged and unable to be unclogged. Therefore we elected to place a new jejunostomy tube. After appropriate timeout site verification the left abdomen was prepped and draped. The previous sutures holding the jejunostomy tube in place were removed with suture scissors. The jejunostomy tube which was approximately 2 m in length with easily withdrawn from the abdominal cavity. It was obviously clogged. A new jejunostomy tube was then threaded into the skin defect and easily was threaded into the small bowel. The retaining balloon was then blown up with 5 cc of saline and pulled back to abut up against the abdominal wall. The tube was then fixed to the skin with 2-0 Prolene sutures placed after the skin was anesthetized with 1% lidocaine plain. A confirmation x-ray study was obtained with contrast placed through the tube confirming it to be within the small bowel. Patient tolerated the procedure well.
== END 2019-04-25 17:17 | disposition home or self-care (01) ==
LOC: ER 10:44
DX: K94.13 Enterostomy malfunction (principal); G40.909 Epilepsy, unspecified, not intractable, without status epilepticus
CPT/HCPCS: 99283; 96372; 74018; 49452; J2060

== ENCOUNTER 2019-05-22 06:49 | Emergency (ER) | payer MEDICAID ==
[2019-05-22] MEDS ORDERED: HYDROMORPHONE HCL INJ/PF 2 MG/ML AMPULE IV ONE (08:49)
--- NOTE | 2019-05-22 10:49 | Operative Report ---
Nonrecallable Operative Report DATE OF SURGERY: 05/22/19 PREOPERATIVE DIAGNOSIS: displaced jejunal feeding tube POSTOPERATIVE DIAGNOSIS: displaced jejunal feeding tube OPERATION: replacemnt of jejunal feeding tube SURGEON: CA HANSEN [employer] CONSULTANT: REJI CORDOBA ANESTHESIA: Local TISSUE REMOVED OR ALTERED: none COMPLICATIONS: none ESTIMATED BLOOD LOSS: 0 INTRAOPERATIVE FINDINGS: correct placemnt confirmed by kub iwth contrast PROCEDURE: after appropriate prep and drape and anesthesia with 1%lidocaine tract was dilated with clamp balloon retaining j-tube was inserted into tract and manipulated its entire length so balloon was below fascia balloon inflated with 5cc saline and pulled back tube then sutkured to abd wall iwth 2-0 nylon tube confirmed in bowel with kub with contrast pt zoey well ok to resume feedings.
[2019-05-22] MEDS ORDERED: LIDOCAINE 1% INJ-PF (10 MG/ML) 30 ML SDV ONE (11:14)
--- NOTE | 2019-05-22 11:16 | ER Document Report ---
ED General - General Chief Complaint: Problem with Feeding Tube Stated Complaint: G TUBE CAME OUT UNABLE TO REINSERT Time Seen by Provider: 05/22/19 07:32 Primary Care Provider: JOSEPH MONTE MD [Primary Care Provider] - Follow up as needed Mode of Arrival: Ambulatory Information source: Legal Guardian - Personnel from the [facility] TRAVEL OUTSIDE OF THE [place] IN LAST 30 DAYS: No - HPI Notes: Patient presents with [facility] with a history of having the J-tube fall out. Patient is nonverbal with MR and cannot communicate. History is obtained from old records and from the personnel at the bedside. Apparently patient pulled out the G-tube and eat the end of it. Patient has had no known vomiting no known trouble breathing. No other known trauma. Symptoms are mild. They have been gets constant. Nothing known to make it better or worse. Obviously no radiation of the symptoms. - Related Data Allergies/Adverse Reactions: No Known Allergies Allergy (Verified 04/25/19 11:52) Past Medical History - General Information source: Legal Guardian - Social History Smoking Status: Never Smoker Frequency of alcohol use: None Drug Abuse: None Family History: Reviewed & Not Pertinent, Other - Unable to obtain as patient is noncommunicative Patient has suicidal ideation: No Patient has homicidal ideation: No Pulmonary Medical History: Reports: Hx Pneumonia, Hx Respiratory Failure Neurological Medical History: Reports: Hx Seizures Renal/ Medical History: Denies: Hx Peritoneal Dialysis GI Medical History: Reports: Hx Gastroesophageal Reflux Disease Skin Medical History: Reports Hx Psoriasis Traumatic Medical History: Denies: Hx Gunshot Wound, Hx Pneumothorax Infectious Medical History: Denies: Hx HIV Past Surgical History: Reports: Hx Abdominal Surgery - Gtube (), Other - vp informatics shunt - Immunizations Hx Diphtheria, Pertussis, Tetanus Vaccination: Yes Review of Systems - Review of Systems -: Yes ROS unobtainable due to patient's medical condition - Patient with severe MR and cerebral palsy Physical Exam - Vital signs Vitals: Temp Pulse Resp Pulse Ox 97.7 F 76 19 100 05/22/19 07:00 05/22/19 07:00 05/22/19 07:00 05/22/19 07:00 Interpretation: Normal - General General appearance: Appears well, Alert - HEENT Head: Normocephalic, Atraumatic Eyes: Normal Pupils: PERRL - Respiratory Respiratory status: No respiratory distress Chest status: Nontender Breath sounds: Normal Chest palpation: Normal - Cardiovascular Rhythm: Regular Heart sounds: Normal auscultation Murmur: No - Abdominal Inspection: Normal Distension: No distension Bowel sounds: Normal Tenderness: Nontender, Other - Os around the G-tube is unremarkable. Organomegaly: No organomegaly - Back Back: Normal, Nontender - Extremities General upper extremity: Normal inspection, Nontender, Normal color, Normal ROM, Normal temperature General lower extremity: Normal inspection, Nontender, Normal color, Normal ROM, Normal temperature, Normal weight bearing. No: Saniya's sign - Neurological Cognition: Confused Gavi Coma Scale Eye Opening: Spontaneous Gavi Coma Scale Verbal: Confused [place] Coma Scale Motor: Localizes to Pain [place] Coma Scale Total: 13 - Psychological Associated symptoms: Agitated, Anxious - Skin Skin Temperature: Warm Skin Moisture: Dry Skin Color: Normal Course - Re-evaluation Re-evalutation: 05/22/19 11:15 J-tube was replaced by surgery - Vital Signs Vital signs: Temp Pulse Resp BP Pulse Ox 97.7 F 76 19 100 05/22/19 07:00 05/22/19 07:00 05/22/19 07:00 05/22/19 07:00 Discharge - Discharge Clinical Impression: Jejunostomy tube fell out Condition: Stable Disposition: HOME, SELF-CARE Additional Instructions: Please follow-up with your primary care doctor as directed Referrals: JOSEPH MONTE MD [Primary Care Provider] - Follow up as needed
--- NOTE | 2019-05-22 11:27 | RADIOLOGY REPORT (SQ) ---
EXAM DESCRIPTION: KUB/ABDOMEN (SINGLE VIEW) IMAGES COMPLETED DATE/TIME: 05/22/2019 11:11 am REASON FOR STUDY: INJECT OMIPAGUE TO VERIFY PLACEMENT OF J-TUBE COMPARISON: 04/25/2019 NUMBER OF VIEWS: One view. TECHNIQUE: Supine radiographic image of the abdomen acquired. Images obtained following 15 mL of c ontrast administration by the ER attending. LIMITATIONS: None. FINDINGS: BOWEL GAS PATTERN: Gas pattern is nonspecific. Contrast has been injected to a enteric tu be. Contrast fills the proximal small bowel. No extravasation. CALCIFICATIONS: No suspicious calcifications. SOFT TISSUES: No gross mass or suggestion of organomegaly. HARDWARE: Shunt tubing of some type is seen overlying the right lower chest abdomen and right aspect of the pelvis. BONES: No acute fracture. No worrisome bone lesions. OTHER: No other significant finding. IMPRESSION: No acute findings. No extravasation of contrast. TECHNICAL DOCUMENTATION: JOB ID: [id number] 2010 [employer]- All Rights Reserved Reading location - IP/workstation name: [email or web address]
[2019-05-22 11:42] VITALS: BP 140/91
== END 2019-05-22 11:43 | disposition home or self-care (01) ==
LOC: ER 06:49
DX: Z43.4 Encounter for attention to other artificial openings of digestive tract (principal); G80.9 Cerebral palsy, unspecified
CPT/HCPCS: 99283; 96374; 74018; 49451; J1170

== ENCOUNTER 2019-06-23 23:00 | Emergency (ER) | payer MEDICAID ==
--- NOTE | 2019-06-24 00:15 | ER Document Report ---
ED General - General Chief Complaint: Problem with Feeding Tube Stated Complaint: J TUBE PROBLEM Time Seen by Provider: 06/24/19 00:01 Primary Care Provider: JOSEPH MONTE MD [Primary Care Provider] - Follow up as needed Notes: 38-year-old man brought to the emergency department because his G-tube is leaking. Apparently the nurse who ministers to feeding noticed that the tube was leaking at the proximal in place split into. She also notes that patient chewed through his feeding line and they are concerned that he may have aspirated. Presently he is in no respiratory distress and no cough. TRAVEL OUTSIDE OF THE [place] IN LAST 30 DAYS: No - Related Data Allergies/Adverse Reactions: No Known Allergies Allergy (Verified 04/25/19 11:52) Home Medications: pt has list of meds Past Medical History - Social History Smoking Status: Never Smoker Family History: Reviewed & Not Pertinent, Other - Unable to obtain as patient is noncommunicative Patient has homicidal ideation: No Pulmonary Medical History: Reports: Hx Pneumonia, Hx Respiratory Failure Neurological Medical History: Reports: Hx Seizures Renal/ Medical History: Denies: Hx Peritoneal Dialysis GI Medical History: Reports: Hx Gastroesophageal Reflux Disease Skin Medical History: Reports Hx Psoriasis Traumatic Medical History: Denies: Hx Gunshot Wound, Hx Pneumothorax Infectious Medical History: Denies: Hx HIV Past Surgical History: Reports: Hx Abdominal Surgery - Gtube (), Other - svp research and strategic analysis shunt - Immunizations Hx Diphtheria, Pertussis, Tetanus Vaccination: Yes Physical Exam - Vital signs Vitals: Temp 97.8 F 06/23/19 23:07 Course - Re-evaluation Re-evalutation: 06/24/19 03:47 There is a split on the side of the jejunostomy tube, an attempt at repair was made using larger piece of tubing and Dermabond with tape. Tube flushes fine, there is some mild leakage around the tape I explained to the caregiver that they may be able to get essential medications on board without difficulty as well as some tube feeding, however arrangements should be made to have the tube replaced on Tuesday. The caregiver acknowledges in agreement with that plan and they are being discharged home. - Vital Signs Vital signs: Temp Pulse Resp BP Pulse Ox 97.8 F 58 L 22 H 140/58 H 91 L 06/23/19 23:17 06/23/19 23:17 06/23/19 23:17 06/23/19 23:17 06/23/19 23:17 Discharge - Discharge Clinical Impression: Jejunostomy tube leak Condition: Good Disposition: HOME, SELF-CARE Additional Instructions: You are seen tonight with a leak and J-tube, attempts made to repair the tube, the tube flushes well and there is a minimal leak associated with the repair. You should be able to get a sense of medications on board and some tube feeding may be achieved. Please contact your primary physician regarding scheduling a 2 replacement procedure on Tuesday. HOME CARE INSTRUCTIONS & INFORMATION: Thank you for choosing us for your medical needs. We hope you're satisfied with the care you received. After you leave, you must properly care for your problem and, at the same time, observe its progress. Any condition can change. Some illnesses can change rapidly over hours or days. If your condition worsens, return to the Emergency Department or see your physician promptly. ABOUT YOUR X-RAYS AND EKG'S: If you had an EKG or X-rays taken, they have been read by the Emergency Physician. The X-rays and EKG's will also be read by a Radiologist or Parts Back Counter Man within 24 hours. If discrepancies are noted, you will be notified by telephone. Please be certain the ED has a correct telephone number & address where you can be reached. Also, realize that some fractures or abnormalities do not show up on initial X-rays. If your symptoms continue, see your physician. ABOUT YOUR LABORATORY TEST: If you had laboratory tests, the results have been reviewed by the Emergency Physician. Some test results (for example cultures) may not be available for several days. You will be contacted if any test result shows you need additional treatment. Please be certain the ED has a correct telephone number and address where you can be reached. ABOUT YOUR MEDICATIONS: You will receive instructions on how to take your medicine on the prescription label you receive. Additional information may be provided by the Pharmacy. If you have questions afterwards, call the ED for clarification or further instructions. Some prescribed medications may cause drowsiness. Do not perform tasks such as driving a car or operating machinery without consulting your Pharmacist. If you feel you need a refill of pain medication, your condition will need re-evaluation. Please do not call for a refill of any medication. ABOUT YOUR SIGNATURE: Signature of this document acknowledges to followin. Understanding that you received emergency treatment and that you may be released before al medical problems are known or treated. Please be certain the ED has a correct phone number & address where you can be reached. 2. Acknowledgement that you will arrange for follow-up care as recommended. 3. Authorization for the Emergency Physician to provide information to your follow-up Physician in order to maximize your care. AT ANY TIME, IF YOUR SYMPTOMS CHANGE SIGNIFICANTLY OR WORSEN OR YOU DEVELOP NEW SYMPTOMS, RETURN TO THE EMERGENCY DEPARTMENT IMMEDIATELY FOR RE-EVALUATION. OUR GOAL IS TO PROVIDE EXCELLENT MEDICAL CARE! WE HOPE THAT WE HAVE MET YOUR EXPECTATIONS DURING YOUR EMERGENCY DEPARTMENT VISIT AND THAT YOU FEEL YOU HAVE RECEIVED EXCELLENT CARE! Referrals: JOSEPH MONTE MD [Primary Care Provider] - Follow up as needed
--- NOTE | 2019-06-24 01:04 | RADIOLOGY REPORT (SQ) ---
CLINICAL INDICATION: Shortness of breath. TECHNIQUE: A single portable AP view was obtained of the chest at 0031 hours. COMPARISON: None available. FINDINGS: The cardiomediastinal silhouette is prominent. The lungs are grossly clear. No evidence of effusion or pneumothorax. The visualized bones are unremarkable. IMPRESSION: No evidence of active intrathoracic disease.
[2019-06-24 04:09] VITALS: BP 126/71
== END 2019-06-24 04:21 | disposition home or self-care (01) ==
LOC: ER 23:00
DX: T85.598A Other mechanical complication of other gastrointestinal prosthetic devices, implants and grafts, initial encounter (principal); Y73.8 Miscellaneous gastroenterology and urology devices associated with adverse incidents, not elsewhere classified
CPT/HCPCS: 71045; 99283

== ENCOUNTER 2019-07-02 09:56 | Emergency (ER) | payer MEDICAID ==
--- NOTE | 2019-07-02 10:54 | ER Document Report ---
ED General - General Chief Complaint: Other Stated Complaint: J TUBE ISSUE Primary Care Provider: JOSEPH MONTE MD [Primary Care Provider] - Follow up as needed Mode of Arrival: Wheelchair Information source: [facility] Records Cannot obtain history due to: Mentally challenged Notes: Patient is a 38-year-old male presenting to the emergency department chief complaint of need for feeding tube replacement. Caregiver at the bedside states that this is a frequent occurrence. They do have an appointment set up for later on this week with the surgeon however caregiver states that currently the feeding tube is completely nonserviceable. There is no other complaints at this time. TRAVEL OUTSIDE OF THE [place] IN LAST 30 DAYS: No - HPI Onset: Last week Onset/Duration: Persistent, Worse Quality of pain: No pain Severity: None Pain Level: Denies Associated symptoms: None Exacerbated by: Denies Relieved by: Denies Similar symptoms previously: Yes Recently seen / treated by doctor: Yes - Related Data Allergies/Adverse Reactions: No Known Allergies Allergy (Verified 04/25/19 11:52) Past Medical History - General Information source: [facility] Records Cannot obtain history due to: Mentally challenged - Social History Smoking Status: Unknown if Ever Smoked Cigarette use (# per day): No Chew tobacco use (# tins/day): No Smoking Education Provided: No Frequency of alcohol use: None Drug Abuse: None Lives with: Detention Family History: Reviewed & Not Pertinent, Other - Unable to obtain as patient is noncommunicative Patient has suicidal ideation: No Patient has homicidal ideation: No Pulmonary Medical History: Reports: Hx Pneumonia, Hx Respiratory Failure Neurological Medical History: Reports: Hx Seizures, Other - History of cerebral palsy Renal/ Medical History: Denies: Hx Peritoneal Dialysis GI Medical History: Reports: Hx Gastroesophageal Reflux Disease Skin Medical History: Reports Hx Psoriasis Traumatic Medical History: Denies: Hx Gunshot Wound, Hx Pneumothorax Infectious Medical History: Denies: Hx HIV Past Surgical History: Reports: Hx Abdominal Surgery - Gtube (), Other - sv[employer] food & cooking shunt - Immunizations Hx Diphtheria, Pertussis, Tetanus Vaccination: Yes Review of Systems - Review of Systems Notes: REVIEW OF SYSTEMS: CONSTITUTIONAL : Denies fever, chills, or sweats. Denies recent illness. EENT: Denies eye, ear, throat, or mouth pain or symptoms. Denies nasal or sinus congestion. CARDIOVASCULAR: Denies chest pain. RESPIRATORY: Denies cough, cold, or chest congestion. Denies shortness of breath, difficulty breathing, or wheezing. GASTROINTESTINAL: Per HPI GENITOURINARY: Denies difficulty urinating, painful urination, burning, frequency, or blood in urine. MUSCULOSKELETAL: Denies neck or back pain or joint pain or swelling. SKIN: Denies rash or skin lesions. HEMATOLOGIC : Denies easy bruising or bleeding. NEUROLOGICAL: Denies altered mental status or loss of consciousness. Denies headache. Denies weakness or paralysis or loss of use of either side. Denies problems with gait or speech. Denies sensory or motor loss. PSYCHIATRIC: Denies suicidal or homicidal ideations 10 Systems are negative unless otherwise specified above Physical Exam - Vital signs Vitals: Temp Pulse Resp BP Pulse Ox 98.1 F 77 15 123/81 99 07/02/19 10:02 07/02/19 10:02 07/02/19 10:02 07/02/19 10:07/02/19 10:02 - Notes Notes: PHYSICAL EXAMINATION: GENERAL: Patient is a 38-year-old male presenting to the emergency department with a prior history of seizure disorder and cerebral palsy in no acute distress HEAD: Atraumatic, normocephalic. EYES: Pupils equal round and reactive to light, extraocular movements intact, sclera anicteric, conjunctiva are normal. ENT: nares patent, oropharynx clear without exudates. Tacky mucous membranes. NECK: Normal range of motion, supple without lymphadenopathy, no appreciable JVD LUNGS: Lungs clear to auscultation bilaterally and equal. No wheezes rales or rhonchi. HEART: Regular rate and rhythm without murmurs ABDOMEN: Soft, nontender, normal bowel sounds. No guarding, no rebound. No masses appreciated. EXTREMITIES: Active range of motion, no pitting or edema. No cyanosis. 2+ pulses x4 NEUROLOGICAL: Patient is at baseline per caregiver. SKIN: Warm, Dry, and intact. Normal turgor, no rashes or lesions noted. Course - Re-evaluation Re-evalutation: 07/02/19 11:19 Have requested nurse acquire feeding tube replacement. 07/02/19 12:11 Have made several attempts to deflate the retention balloon without success there is negative pressure to the syringe. I have also tried to retrieve the feeding tube as is and it does appear that the balloon is inflated. Have placed a consult to general surgery. The surgeon is in surgery for another 35 minutes and will call back at that time. 07/02/19 12:[address] Fung who will see pt in ER 07/02/19 13:02 With guidance of general surgery the old tube was removed and new was placed. Balloon was inflated with 5 cc of fluid and gastric contents were able to be retrieved through the port. Patient is stable at this time for discharge. - Vital Signs Vital signs: Temp Pulse Resp BP Pulse Ox 98.1 F 77 15 123/81 99 07/02/19 10:57 07/02/19 10:02 07/02/19 10:02 07/02/19 10:02 07/02/19 10:02 Discharge - Discharge Clinical Impression: Feeding tube dysfunction Qualifiers: Encounter type: initial encounter Qualified Code(s): T85.598A - Other mechanical complication of other gastrointestinal prosthetic devices, implants and grafts, initial encounter Condition: Stable Disposition: SNF-Other Referrals: JOSEPH MONTE MD [Primary Care Provider] - Follow up as needed
[2019-07-02 13:53] VITALS: BP 120/78
== END 2019-07-02 13:54 ==
LOC: ER 09:56
PROC: 0DH63UZ Insertion of Feeding Device into Stomach, Percutaneous Approach (ICD-10-PCS; principal; 2019-07-02)
DX: T85.598A Other mechanical complication of other gastrointestinal prosthetic devices, implants and grafts, initial encounter (principal); X58.XXXA Exposure to other specified factors, initial encounter; G80.9 Cerebral palsy, unspecified; G40.909 Epilepsy, unspecified, not intractable, without status epilepticus
CPT/HCPCS: 99284

== ENCOUNTER → 2019-12-25 | Outpatient (CLI) | payer MEDICAID ==
[2019-12-25 12:01] LABS: ABSOLUTE LYMPHOCYTES (AUTO) 1.3 10^3/uL (0.5-4.7); ABSOLUTE MONOCYTES (AUTO) 1.2 10^3/uL (0.1-1.4); ABSOLUTE NEUT (AUTO) 16.2 10^3/uL (1.7-8.2); BASOPHILS % (AUTO) 0.1 % (0-2); EOSINOPHILS % (AUTO) 0.1 % (0-6); HEMATOCRIT 32.9 % (37.9-51.0); HEMOGLOBIN 10.8 g/dL (13.5-17.0); LYMPHOCYTES % (AUTO) 7.1 % (13-45); MEAN CORPUSCULAR HEMOGLOBIN 22.1 pg (27.0-33.4); MEAN CORPUSCULAR HGB CONC 32.8 g/dL (32.0-36.0); MEAN CORPUSCULAR VOLUME 67 fl (80-97); MONOCYTES % (AUTO) 6.5 % (3-13); PLATELET COUNT 320 10^3/uL (150-450); RED BLOOD COUNT 4.88 10^6/uL (4.35-5.55); RED CELL DISTRIBUTION WIDTH 17.6 % (11.5-14.0); SEGMENTED NEUTROPHILS % (AUTO) 86.2 % (42-78); TOTAL CELLS COUNTED % (AUTO) 100 %; WHITE BLOOD COUNT 18.8 10^3/uL (4.0-10.5)
[2019-12-25 12:31] LABS: ALBUMIN 4.7 g/dL (3.5-5.0); ALKALINE PHOSPHATASE 101 U/L (38-126); ANION GAP 14 (5-19); ASPARTATE AMINO TRANSFERASE 29 U/L (17-59); BILIRUBIN,DIRECT 0.2 mg/dL (0.0-0.4); BILIRUBIN,TOTAL 0.5 mg/dL (0.2-1.3); BLOOD UREA NITROGEN 10 mg/dL (7-20); CALCIUM 9.8 mg/dL (8.4-10.2); CARBON DIOXIDE 22 mmol/L (22-30); CHLORIDE 102 mmol/L (98-107); GLUCOSE 94 mg/dL (75-110); POTASSIUM 4.4 mmol/L (3.6-5.0)
--- NOTE | 2019-12-25 12:47 | RADIOLOGY REPORT (SQ) ---
EXAM DESCRIPTION: CHEST SINGLE VIEW IMAGES COMPLETED DATE/TIME: 12/25/2019 11:53 am REASON FOR STUDY: FEVER; COUGH COMPARISON: 06/24/2019 EXAM PARAMETERS: NUMBER OF VIEWS: One view. TECHNIQUE: Single frontal radiographic view of the chest acquired. RADIATION DOSE: NA LIMITATIONS: None. FINDINGS: LUNGS AND PLEURA: Ground-glass opacification in the right lung more than the left. No foc al consolidation. MEDIASTINUM AND HILAR STRUCTURES: No masses. Contour normal. HEART AND VASCULAR STRUCTURES: Heart normal in size. Normal vasculature. BONES: No acute findings. HARDWARE: Ventriculoperitoneal shunt crosses the chest. Neurostimulator on the left. OTHER: No other significant finding. IMPRESSION: Ground-glass opacification. May suggest an atypical infectious/ inflammatory process. Cannot exclude mild pulmonary edema. TECHNICAL DOCUMENTATION: JOB ID: [id number] 2010 [employer]- All Rights Reserved Reading location - IP/workstation name: [email or web address]
== END ==
LOC: CAR 11:07
PROVIDERS: ATTEND Family Medicine
DX: R50.9 Fever, unspecified (principal); R05 Cough
CPT/HCPCS: 36415; 71045; 80053; 85025